=== PATIENT | female | born 1960 | race African-American/Black ===

== ENCOUNTER → 2016-08-27 | Outpatient (CLI) | payer BC | LOC: OD 11:54 | PROVIDERS: ATTEND Physician Assistant | DX: M54.5 Low back pain (principal); M48.07 Spinal stenosis, lumbosacral region | CPT/HCPCS: 72110 ==

== ENCOUNTER 2016-09-09 21:38 | Emergency (ER) | payer BC ==
[2016-09-09 21:48] VITALS: BP 150/89
[2016-09-09] MEDS ORDERED: IBUPROFEN 800 MG TABLET PO ONE (22:03)
--- NOTE | 2016-09-09 22:03 | ER Document Report ---
ED Medical Screen (RME) - General Stated Complaint: LOWER BACK PAIN Time seen by provider: 21:59 Mode of Arrival: Ambulatory Information source: Patient Notes: 56-year-old female presents to ED for low back pain with radiating both legs. She states his pain is been since second week of July. She saw Dr. Jones and they put her on a prednisone pack then she saw urgent care and they gave her another prednisone pack. And her back is still hurting. No incontinence of urine or stool. States she's had a little problem with the constipation but no problems with urinary retention. No loss of sensation to the area. States she does not have a primary doctor I have greeted and performed a rapid initial assessment of this patient. A comprehensive ED assessment and evaluation of the patient, analysis of test results and completion of medical decision making process will be conducted by an additional ED providers. TRAVEL OUTSIDE OF THE [place] IN LAST 30 DAYS: No - Related Data Allergies/Adverse Reactions: No Known Allergies Allergy (Verified 10/05/15 07:35) Past Medical History - Past Medical History Cardiac Medical History: Reports: Hx Hypertension Denies: Hx Coronary Artery Disease, Hx Heart Attack Pulmonary Medical History: Denies: Hx Asthma, Hx Bronchitis, Hx COPD, Hx Pneumonia, Hx Tuberculosis Neurological Medical History: Denies: Hx Cerebrovascular Accident, Hx Seizures Musculoskeltal Medical History: Reports Hx Arthritis - OA Past Surgical History: Reports: Hx Cholecystectomy. Denies: Hx Hysterectomy, Hx Pacemaker - Immunizations Hx Diphtheria, Pertussis, Tetanus Vaccination: No Physical Exam - Vital signs Vitals: Temp Pulse Resp BP Pulse Ox 97.9 F 100 16 150/89 H 97 09/09/16 21:47 09/09/16 21:47 09/09/16 21:47 09/09/16 21:47 09/09/16 21:47 Course - Vital Signs Vital signs: Temp Pulse Resp BP Pulse Ox 97.9 F 100 16 150/89 H 97 09/09/16 21:47 09/09/16 21:47 09/09/16 21:47 09/09/16 21:47 09/09/16 21:47
[2016-09-09] MEDS ORDERED: ONDANSETRON 4 MG TAB.RAPDIS PO ONE (22:10)
== END 2016-09-10 00:28 | disposition left against medical advice (07) ==
LOC: ER 21:38
DX: M54.5 Low back pain (principal); K59.00 Constipation, unspecified; I10 Essential (primary) hypertension; Z53.20 Procedure and treatment not carried out because of patient's decision for unspecified reasons
CPT/HCPCS: 99281; S0119

== ENCOUNTER 2016-09-27 08:28 | Emergency (ER) | payer BC ==
[2016-09-27 08:37] VITALS: BP 169/97
--- NOTE | 2016-09-27 11:10 | ER Document Report ---
ED General - General Time seen by provider: 10:10 Mode of Arrival: Ambulatory Information source: Patient TRAVEL OUTSIDE OF THE [place] IN LAST 30 DAYS: No - HPI Onset: Other - see HPI note - General Chief Complaint: Back Pain Stated Complaint: BACK PAIN Notes: Patient is a 56 year old female presenting to the emergency department for back pain. Patient states she was told she may have sciatic pain. Patient has had this pain constantly with no relief since July. Patient states that she had an X-ray in July. Patient states she is in pain management for her shoulder and neck. Patient states she has had some constipation and incontinence as well. Patient states she has seen the Dr. Lal in the past but she mainly sees her pain management physician, Dr. Mari. Patient states she has an appointment with Dr. Mari on 10/03. Patient has been given multiple doses of steroids with no relief from the pain. Patient's pain is on both sides. (SASHA GONZALEZ) - Related Data Allergies/Adverse Reactions: No Known Allergies Allergy (Verified 09/27/16 08:38) Past Medical History - General Information source: Patient - Social History Smoking Status: Never Smoker Cigarette use (# per day): No Chew tobacco use (# tins/day): No Frequency of alcohol use: None Drug Abuse: None Family History: None Patient has suicidal ideation: No Patient has homicidal ideation: No - Past Medical History Cardiac Medical History: Reports: Hx Hypertension Musculoskeltal Medical History: Reports Hx Arthritis - OA Past Surgical History: Reports: Hx Cholecystectomy - Immunizations Hx Diphtheria, Pertussis, Tetanus Vaccination: Yes Review of Systems - Review of Systems Constitutional: No symptoms reported EENT: No symptoms reported Cardiovascular: No symptoms reported Respiratory: No symptoms reported Gastrointestinal: No symptoms reported Genitourinary: See HPI Female Genitourinary: No symptoms reported Musculoskeletal: See HPI, Back pain Skin: No symptoms reported Hematologic/Lymphatic: No symptoms reported Neurological/Psychological: No symptoms reported -: Yes All other systems reviewed and negative Physical Exam - Vital signs Interpretation: Normal, Hypertensive - General General appearance: Appears well, Alert In distress: Mild - HEENT Head: Normocephalic, Atraumatic Eyes: Normal Pupils: PERRL Mucous membranes: Moist - Respiratory Respiratory status: No respiratory distress Chest status: Nontender Breath sounds: Normal Chest palpation: Normal - Cardiovascular Rhythm: Regular Heart sounds: Normal auscultation Murmur: No - Abdominal Inspection: Normal Distension: No distension Bowel sounds: Normal Tenderness: Nontender Organomegaly: No organomegaly - Back Back: Normal, Tender - lower back tenderness to palpation bilaterally - Extremities General upper extremity: Normal inspection, Normal ROM, Normal strength General lower extremity: Normal inspection, Normal ROM, Normal strength - Neurological Neuro grossly intact: Yes Cognition: Normal Orientation: AAOx4 Hart Coma Scale Eye Opening: Spontaneous Hart Coma Scale Verbal: Oriented Hart Coma Scale Motor: Obeys Commands Hart Coma Scale Total: 15 Speech: Normal - Psychological Associated symptoms: Normal affect, Normal mood - Skin Skin Temperature: Warm Skin Moisture: Dry Discharge - Discharge Clinical Impression: low back pain Condition: Stable Disposition: HOME, SELF-CARE Additional Instructions: Low Back Pain Three out of every four people will have an episode of disabling back pain during their lifetime. Most commonly the pain is due to straining of the muscles and ligaments in the low back. Usual treatment includes: (1) Rest on a firm surface. Avoid lying on your stomach. (2) Ice pack the painful area. After a few days, gentle heat may be used intermittently to relax the area, or ice packs can be continued. (3) Medication may be needed -- muscle relaxers and antiinflammatory medicines are commonly used. (4) As the back improves, exercises are prescribed to strengthen the back and abdominal muscles. Your doctor will advise you on the proper care for your back at each stage in your recovery. You may be better in a few days -- or healing may take several weeks. If new symptoms of a "herniated disc" (radiation of pain, numbness, or tingling down the back of the leg or weakness in the leg) occur, you should be re-examined. Further testing may be necessary. Follow-up with your pain management doctor and primary care physician as scheduled next week return for increasing worsening or new symptoms. Very concerned that you have had constant back pain for several months with only an x-ray and no associated trauma. You may need an MRI of your back it's possible he could've a pinched nerve. Right now there is no acute neurological deficits but you've received multiple doses steroids which concerned me without a definitive diagnosis. Return for increasing worsening or new symptoms Scribe Documentation - Scribe Written by Shana:: Sasha Gonzalez 09/27/16 13:35 acting as scribe for :: Shine
== END 2016-09-27 11:54 | disposition home or self-care (01) ==
LOC: ER 08:28
DX: M54.5 Low back pain (principal); I10 Essential (primary) hypertension; Z90.49 Acquired absence of other specified parts of digestive tract
CPT/HCPCS: 99283

== ENCOUNTER 2016-10-03 20:08 | Inpatient (IN) | payer BC ==
--- NOTE | 2016-10-03 20:18 | ER Document Report ---
ED Medical Screen (RME) - General Stated Complaint: BACK PAIN Notes: 56 yo female brought to ED by EMS for lower leg swelling x 2-3 days and lower back pain. Back has been hurting since July. + bilat radiculopathy. no paresthesia. no fever. no bowel/bladder change. + Hx/o HTN, no DM, no CHF. pt denies chest pain or shortness of breath lungs CTA. 1+ pitting pretibial edema bilat TRAVEL OUTSIDE OF THE [place] IN LAST 30 DAYS: No - Related Data Allergies/Adverse Reactions: No Known Allergies Allergy (Verified 09/27/16 08:38) Past Medical History - Past Medical History Cardiac Medical History: Reports: Hx Hypertension Denies: Hx Coronary Artery Disease, Hx Heart Attack Pulmonary Medical History: Denies: Hx Asthma, Hx Bronchitis, Hx COPD, Hx Pneumonia, Hx Tuberculosis Neurological Medical History: Denies: Hx Cerebrovascular Accident, Hx Seizures Renal/ Medical History: Denies: Hx Peritoneal Dialysis Musculoskeltal Medical History: Reports Hx Arthritis - OA Past Surgical History: Reports: Hx Cholecystectomy. Denies: Hx Hysterectomy, Hx Pacemaker - Immunizations Hx Diphtheria, Pertussis, Tetanus Vaccination: Yes
[2016-10-03 21:01] LABS: ABSOLUTE BASOPHILS # (AUTO) 0.1 10^3/uL (0.0-0.2); ABSOLUTE EOSINOPHILS # (AUTO) 0.1 10^3/uL (0.0-0.6); ABSOLUTE LYMPHOCYTES (AUTO) 2.6 10^3/uL (0.5-4.7); ABSOLUTE MONOCYTES (AUTO) 1.5 10^3/uL (0.1-1.4); ABSOLUTE NEUT (AUTO) 5.7 10^3/uL (1.7-8.2); BASOPHILS % (AUTO) 0.6 % (0-2); EOSINOPHILS % (AUTO) 0.8 % (0-6); HEMATOCRIT 25.7 % (36.0-47.0); HEMOGLOBIN 8.9 g/dL (12.0-15.5); LYMPHOCYTES % (AUTO) 26.5 % (13-45); MEAN CORPUSCULAR HEMOGLOBIN 31.9 pg (27.0-33.4); MEAN CORPUSCULAR HGB CONC 34.7 g/dL (32.0-36.0); MEAN CORPUSCULAR VOLUME 92 fl (80-97); MONOCYTES % (AUTO) 15.1 % (3-13); RED CELL DISTRIBUTION WIDTH 15.4 % (11.5-14.0); WHITE BLOOD COUNT 9.9 10^3/uL (4.0-10.5)
[2016-10-03 21:13] LABS: ALANINE AMINOTRANSFERASE 23 U/L (9-52); ALKALINE PHOSPHATASE 57 U/L (38-126); ANION GAP 13 (5-19); ASPARTATE AMINO TRANSFERASE 24 U/L (14-36); BILIRUBIN,DIRECT 0.5 mg/dL (0.0-0.4); BILIRUBIN,TOTAL 0.8 mg/dL (0.2-1.3); BLOOD UREA NITROGEN 45 mg/dL (7-20); CARBON DIOXIDE 26 mmol/L (22-30); CHLORIDE 102 mmol/L (98-107); CREATININE RESULT 2.81 mg/dL (0.52-1.25); GLUCOSE 115 mg/dL (75-110); POTASSIUM 3.2 mmol/L (3.6-5.0); SODIUM 141.2 mmol/L (137-145)
[2016-10-03 21:22] LABS: TOTAL PROTEIN 12.4 g/dL (6.3-8.2)
[2016-10-03 21:26] LABS: CALCIUM 15.4 mg/dL (8.4-10.2)
[2016-10-04 03:07] LABS: ANION GAP 14 (5-19); BLOOD UREA NITROGEN 42 mg/dL (7-20); CARBON DIOXIDE 28 mmol/L (22-30); CHLORIDE 101 mmol/L (98-107); CREATININE RESULT 3.02 mg/dL (0.52-1.25); GLUCOSE 114 mg/dL (75-110); MAGNESIUM 1.9 mg/dL (1.6-2.3); POTASSIUM 3.1 mmol/L (3.6-5.0); SODIUM 142.8 mmol/L (137-145)
[2016-10-04 03:16] LABS: CALCIUM 15.2 mg/dL (8.4-10.2)
[2016-10-04] MEDS ORDERED: NORMAL SALINE 1000 ML 1,000 ML IV ONE (05:01)
--- NOTE | 2016-10-04 05:26 | ER Document Report ---
ED General - General Chief Complaint: Leg Swelling Stated Complaint: BACK PAIN Notes: Patient is 56-year-old female presents with complaints of leg swelling and feeling unwell. She's had some back pain for some time. This is being worked up by her primary care physician, Dr. Mosley. She says recently she has felt unwell and has not been urinating as much. She's been having some increased leg edema and is just felt very weak. No recent fevers or infections. No history of cancer. No abdominal pain. No chest pain. No other complaints at this time. TRAVEL OUTSIDE OF THE [place] IN LAST 30 DAYS: No - Related Data Allergies/Adverse Reactions: No Known Allergies Allergy (Verified 09/27/16 08:38) Past Medical History - Social History Smoking Status: Unknown if Ever Smoked Frequency of alcohol use: None Drug Abuse: None Family History: Reviewed & Not Pertinent Patient has suicidal ideation: No Patient has homicidal ideation: No - Past Medical History Cardiac Medical History: Reports: Hx Hypertension Denies: Hx Coronary Artery Disease, Hx Heart Attack Pulmonary Medical History: Denies: Hx Asthma, Hx Bronchitis, Hx COPD, Hx Pneumonia, Hx Tuberculosis Neurological Medical History: Denies: Hx Cerebrovascular Accident, Hx Seizures Renal/ Medical History: Denies: Hx Peritoneal Dialysis Musculoskeltal Medical History: Reports Hx Arthritis - OA Past Surgical History: Reports: Hx Cholecystectomy. Denies: Hx Hysterectomy, Hx Pacemaker - Immunizations Hx Diphtheria, Pertussis, Tetanus Vaccination: Yes Review of Systems - Review of Systems Notes: My Normal Review Basic REVIEW OF SYSTEMS: CONSTITUTIONAL : Denies fever, chills, or sweats. Feels weak. EENT: Denies eye, ear, throat, or mouth pain or symptoms. Denies nasal or sinus congestion. CARDIOVASCULAR: Denies chest pain. RESPIRATORY: Denies cough, cold, or chest congestion. Denies shortness of breath, difficulty breathing, or wheezing. GASTROINTESTINAL: Denies abdominal pain. Denies nausea, vomiting, or diarrhea. Denies constipation. Last BM: GENITOURINARY: Denies difficulty urinating, painful urination, burning, frequency, or blood in urine.: MUSCULOSKELETAL: Denies neck or back pain or joint pain or swelling. SKIN: Denies rash or skin lesions. NEUROLOGICAL: Denies altered mental status or loss of consciousness. Denies headache. Denies weakness or paralysis or loss of use of either side. Denies problems with gait or speech. Denies sensory or motor loss. ALL OTHER SYSTEMS REVIEWED AND NEGATIVE. Physical Exam - Vital signs Vitals: Temp Pulse Resp BP Pulse Ox 97.8 F 119 H 18 134/94 H 98 10/03/16 20:23 10/03/16 20:23 10/03/16 20:23 10/03/16 20:23 10/03/16 20:23 - Notes Notes: General Appearance: Well nourished, alert, cooperative, no acute distress, mild obvious discomfort. We appearing Vitals: reviewed, See vital signs table. Head: no swelling or tenderness to the head Eyes: PERRL, EOMI, Conjuctiva clear Mouth: No decreasd moisture Lungs: No wheezing, No rales, No rhonci, No accessory muscle use, good air exchange bilaterally. Heart: Normal rate, Regular rythm, No murmur, no rub Abdomen: Normal BS, soft, No rigidity, No abdominal tenderness, No guarding, no rebound, no abdominal masses, no organomegaly Extremities: strength 5/5 in all extremities, good pulses in all extremities, no swelling or tenderness in the extremities, 2+ bilateral lower extremity edema. Skin: warm, dry, appropriate color, no rash Neuro: speech clear, oriented x 3, normal affect, responds appropriately to questions. Good strength with plantar and dorsiflexion against resistance. Distal sensation intact or lower extremities. Course - Vital Signs Vital signs: Temp Pulse Resp BP Pulse Ox 97.8 F 119 H 18 134/94 H 98 10/03/16 20:23 10/03/16 20:23 10/03/16 20:23 10/03/16 20:23 10/03/16 20:23 - Laboratory Result Diagrams: 10/03/16 20:30 10/04/16 02:38 Laboratory results interpreted by me: 10/03/16 10/03/16 10/04/16 20:30 20:30 02:38 RBC 2.80 L Hgb 8.9 L Hct 25.7 L RDW 15.4 H Monocytes % 15.1 H Absolute Monocytes 1.5 H Potassium 3.2 L 3.1 L BUN 45 H 42 H Creatinine 2.81 H 3.02 H Est GFR ( Amer) 21 L 20 L Est GFR (Non-Af Amer) 18 L 16 L Glucose 115 H 114 H Calcium 15.4 H* 15.2 H* Direct Bilirubin 0.5 H Total Protein 12.4 H - Transfer of Care Notes: 10/04/16 06:12 Patient's initial labs came back with severe hypercalcemia as well as acute renal failure. There is unsure if this was a lab her or her true results and therefore repeat chemistry panel was obtained. It does appear that this is real. Patient denies history of this in the past. Patient given IV fluids. I will also check parathyroid hormone. I did speak with her primary care doctor, Dr. Mosley, who agrees to admit the patient. Dictation of this chart was performed using voice recognition software; therefore, there may be some unintended grammatical errors. Discharge - Discharge Clinical Impression: Hypokalemia, Hypercalcemia Acute renal failure Qualifiers: Acute renal failure type: unspecified Qualified Code(s): N17.9 - Acute kidney failure, unspecified Anemia Qualifiers: Anemia type: unspecified type Qualified Code(s): D64.9 - Anemia, unspecified Disposition: ADMITTED INPATIENT Admitting Provider: Lukasz Unit Admitted: [facility] Referrals: DAWNA MOSLEY MD [Primary Care Provider] - Follow up as needed
[2016-10-04 06:25] LABS: APPEARANCE,URINE CLOUDY; BILIRUBIN,URINE NEGATIVE (NEGATIVE); GLUCOSE, URINE NEGATIVE (NEGATIVE); KETONES,URINE NEGATIVE (NEGATIVE); LEUKOCYTE ESTERASE,URINE TRACE (NEGATIVE); NITRITE,URINE NEGATIVE (NEGATIVE); PROTEIN,URINE 30 mg/dL (NEGATIVE); URINE SPECIFIC GRAVITY 1.014; UROBILINOGEN,URINE NEGATIVE mg/dL (<2.0)
[2016-10-04] MEDS ORDERED: MORPHINE SULFATE 10 MG/ML INJ IV ONE (06:55)
[2016-10-04] MEDS ORDERED: ONDANSETRON HCL INJ/PF 4 MG/2 ML SDV IV PRN (08:08)
[2016-10-04] MEDS: OXYCODONE-ACETAMINOPHEN 5-325 MG TABLET PO PRN ×2 (09:10→19:45)
--- NOTE | 2016-10-04 09:26 | PDOC H&P ---
History of Present Illness Admission Date/PCP: 10/04/16 08:08 DAWNA MOSLEY MD The leg pain and the back pain Patient complains of: Leg pain and the back pain History of Present Illness: MYCHAL ECLESTIN is a 56 year old female This is a 56-year-old female present in the emergency department with the complaint for leg pain and the back pain and swelling for the last several days. Patient have a history of the anemia and have all workup done by Dr. Couch last year and it was all normal. Patient also have a normal labs in June including the patient's BUN and creatinine was also normal and the patient's calcium level was also less than 10. Today's in the emergency departments patient's calcium level was 15 and patient's BUN was 42 and creatinine was 3 which is new. Patient's other than that denied any chest pain no shortness of the breath no history of any cardiac problems. Patient's denied any chest pain. In the emergency department patient received IV fluids when I saw the patient's patient is comfortable denied any other complaints patient have some edema in the legs. Patient at this points admitting in the hospital for further evaluation and treatment for the anemia and hypercalcemia and acute renal failure and the discussed with the patient's family on the bedside Past Medical History Cardiac Medical History: Reports: Hypertension Denies: Coronary Artery Disease, Myocardial Infarction Pulmonary Medical History: Denies: Asthma, Bronchitis, Chronic Obstructive Pulmonary Disease (COPD), Pneumonia, Tuberculosis Neurological Medical History: Denies: Seizures Musculoskeltal Medical History: Reports: Arthritis - OA Hematology: Reports: Anemia Past Surgical History Past Surgical History: Reports: Cholecystectomy Denies: Hysterectomy, Pacemaker Social History Smoking Status: Unknown if Ever Smoked Hx Recreational Drug Use: No Hx Prescription Drug Abuse: No Family History Family History: Reviewed & Not Pertinent Parental Family History Reviewed: Yes Children Family History Reviewed: Yes Sibling(s) Family History Reviewed.: Yes Medication/Allergy Allergies/Adverse Reactions: No Known Allergies Allergy (Verified 09/27/16 08:38) Review of Systems Constitutional: ABSENT: chills, fever(s), headache(s), weight gain, weight loss Eyes: ABSENT: visual disturbances Ears: ABSENT: hearing changes Cardiovascular: ABSENT: chest pain, dyspnea on exertion, edema, orthropnea, palpitations Respiratory: ABSENT: cough, hemoptysis Gastrointestinal: ABSENT: abdominal pain, constipation, diarrhea, hematemesis, hematochezia, nausea, vomiting Genitourinary: ABSENT: dysuria, hematuria Musculoskeletal: ABSENT: joint swelling Integumentary: ABSENT: rash, wounds Neurological: ABSENT: abnormal gait, abnormal speech, confusion, dizziness, focal weakness, syncope Psychiatric: ABSENT: anxiety, depression, homidical ideation, suicidal ideation Endocrine: ABSENT: cold intolerance, heat intolerance, menstrual abnormalities, polydipsia, polyuria Hematologic/Lymphatic: ABSENT: easy bleeding, easy bruising, lymphadenopathy Physical Exam Vital Signs: Temp Pulse Resp BP Pulse Ox 98.5 F 107 H 18 148/84 H 100 10/04/16 08:26 10/04/16 08:26 10/04/16 08:26 10/04/16 08:26 10/04/16 08:26 General appearance: PRESENT: no acute distress, well-developed, well-nourished Head exam: PRESENT: atraumatic, normocephalic Eye exam: PRESENT: conjunctiva pink, EOMI, PERRLA. ABSENT: scleral icterus Ear exam: PRESENT: normal external ear exam Mouth exam: PRESENT: moist, tongue midline Neck exam: PRESENT: full ROM. ABSENT: carotid bruit, JVD, lymphadenopathy, thyromegaly Respiratory exam: PRESENT: clear to auscultation merrill Cardiovascular exam: PRESENT: RRR. ABSENT: diastolic murmur, rubs, systolic murmur Pulses: PRESENT: normal dorsalis pedis pul, +2 pedal pulses bilateral Vascular exam: PRESENT: normal capillary refill GI/Abdominal exam: PRESENT: normal bowel sounds, soft. ABSENT: distended, guarding, mass, organolmegaly, rebound, tenderness Rectal exam: PRESENT: deferred Extremities exam: PRESENT: pedal edema Neurological exam: PRESENT: alert, awake, oriented to person, oriented to place , oriented to time, oriented to situation, CN II-XII grossly intact. ABSENT: motor sensory deficit Psychiatric exam: PRESENT: appropriate affect, normal mood. ABSENT: homicidal ideation, suicidal ideation Skin exam: PRESENT: dry, intact, warm. ABSENT: cyanosis, rash Results Laboratory Results: 10/04/16 08:51 Retic Count (auto) 1.30 Absolute Retic 0.035 Assessment & Plan - Diagnosis (1) Acute renal failure Qualifiers: Acute renal failure type: unspecified Qualified Code(s): N17.9 - Acute kidney failure, unspecified Is this a current diagnosis for this admission?: YesPlan: Will currently hold the losartan HCTZ IV fluid and consult the nephrology for further evaluations (2) Anemia Qualifiers: Anemia type: unspecified type Qualified Code(s): D64.9 - Anemia, unspecified Is this a current diagnosis for this admission?: YesPlan: We will get the stool for the guaiac study no obvious GI bleed we consulted Dr. Deal while the hemoglobin dropped from the 12 to the 9 since last 3 months to further any GI pathology consult software development coordinator for further evaluations (3) Hypercalcemia Is this a current diagnosis for this admission?: YesPlan: Could be a acute renal failure with the With the possible hyperparathyroidism's will check the PTH intact and vitamin D and hold the hydrochlorothiazide and IV fluid and will follow with the nephrologyWe also get the CT abdomen and pelvis for further any evaluations for any underlying kidney stones in the setting of the hypercalcemia and other pathology we also ordered a protein electrophoresis and urine electrophoresis to rule out any multiple myeloma and consult the oncology for further evaluations (4) Hypokalemia Is this a current diagnosis for this admission?: YesPlan: We replaced the potassiums (5) Back pain Is this a current diagnosis for this admission?: YesPlan: We will get the MRI of the LS spine (6) Hypertension Is this a current diagnosis for this admission?: YesPlan: He continues to OR alert open and hold the losartan and HCTZ (7) Edema Qualifiers: Edema type: unspecified Qualified Code(s): R60.9 - Edema, unspecified Is this a current diagnosis for this admission?: YesPlan: We will also order the ultrasound of the lower extremity in order the chest x- ray there is no sign of any heart failure - Time Time Spent: 50 to 70 Minutes Medications reviewed and adjusted accordingly: Yes Anticipated discharge: Home Within: Other - Inpatient Certification Medical Necessity: Significant Comorbidiites Make Outpatient Treatment Too Risky , Need For IV Fluids Post Hospital Care: D/C Vault Person Documentation - Plan Summary Plan Summary: Very extensive discussed with the patient and the family on the bedside about the patient's current conditions test results and other coordinate care
[2016-10-04] MEDS: PANTOPRAZOLE SODIUM 40 MG VIAL IV SCH ×2 (11:18→21:52)
--- NOTE | 2016-10-04 12:59 | XCELERA REPORT ---
[address] [address] Lower Extremity Venous Evaluation Name: MYCHAL CELESTIN Age: 56 yrs Gender: Female : 1960 Patient Status: Inpatient Patient Location: \S\[facility]\S\A Study Date: 10/04/2016 10:13 AM Procedure: Color flow and duplex imaging bilaterally of the veins of the lower extremities as well as the Common Femoral veins. Reason For Study: edema on lower ext Ordering Physician: DAWNA MOSLEY Performed By: Fern Garcia Right Sided Venous Evaluation Normal vessel filling wall to wall, compression and augmentation as well as Colour flow down to the infrageniculate veins. Left Sided Venous Evaluation Normal vessel filling wall to wall, compression and augmentation as well as Colour flow down to the infrageniculate veins. Critical Findings Called in at 1258. Interpretation Summary No duplex evidence of DVT or obstruction in the bilateral lower extremities. : DAWNA MOSLEY > Louis Workman
--- NOTE | 2016-10-04 13:53 | PDOC CONSULTATION ---
Consultation Consult Date: 10/04/16 Attending physician:: MICHAEL MINOR Consult reason:: chronic anemia History of Present Illness Admission Date/PCP: 10/04/16 08:08 DAWNA LAL MD History of Present Illness: I am asked to see this patient by Dr Lal. I had seen this patient and she had EGD and colonoscopy work up in the past colon at that time was negative no polyps were noted now does have anemia and has had a drop in her Hgb by about 3 grams recently she does have a history of NSAID use patient does have hypercalcemia and is currently getting a work up patient denies any melena however does have some upper GI symptoms patient denies any dysphagia or odynophagia does have some abdominal bloating and dyspepsia Past Medical History Cardiac Medical History: Reports: Hypertension Denies: Coronary Artery Disease, Myocardial Infarction Pulmonary Medical History: Denies: Asthma, Bronchitis, Chronic Obstructive Pulmonary Disease (COPD), Pneumonia, Tuberculosis Neurological Medical History: Denies: Seizures Musculoskeltal Medical History: Reports: Arthritis - OA Hematology: Reports: Anemia Past Surgical History Past Surgical History: Reports: Cholecystectomy Denies: Hysterectomy, Pacemaker Social History Smoking Status: Unknown if Ever Smoked Hx Recreational Drug Use: No Hx Prescription Drug Abuse: No Family History Family History: Reviewed & Not Pertinent Parental Family History Reviewed: Yes Children Family History Reviewed: Unknown Sibling(s) Family History Reviewed.: Unknown Medication/Allergy Home Medications: Amlodipine Besylate [Norvasc 5 mg Tablet] 5 mg PO DAILY 10/04/16 Celecoxib [Celebrex 200 mg Capsule] 200 mg PO BID 10/04/16 Chrom Lenore/Brindal Sanders [Garcinia Cambogia Tablet] 1 tab PO BID 10/04/16 Coffee Extract [Green Coffee Majano] 400 mg PO BID 10/04/16 Ferrous Sulfate [Feosol 325 mg Tablet] 325 mg PO DAILY 10/04/16 Gabapentin [Neurontin 100 mg Capsule] 100 mg PO Q12 10/04/16 Losartan/Hydrochlorothiazide [Hyzaar 100-25 Tablet] 1 tab PO DAILY 10/04/16 Allergies/Adverse Reactions: No Known Allergies Allergy (Verified 09/27/16 08:38) Review of Systems Constitutional: PRESENT: weakness. ABSENT: fever(s), headache(s), night sweats Eyes: ABSENT: visual disturbances Ears: ABSENT: hearing changes Nose, Mouth, and Throat: ABSENT: mouth pain Cardiovascular: ABSENT: chest pain, orthropnea, palpitations Respiratory: ABSENT: cough, dyspnea, hemoptysis Gastrointestinal: ABSENT: diarrhea, hematemesis, hematochezia, melena Genitourinary: ABSENT: dysuria, hematuria Integumentary: ABSENT: lesions, pruritus Neurological: ABSENT: confusion, memory loss, syncope, vertigo Endocrine: ABSENT: polydipsia, polyphagia, polyuria Hematologic/Lymphatic: ABSENT: easy bruising Physical Exam Vital Signs: Temp Pulse Resp BP Pulse Ox 98.5 F 107 H 14 142/81 H 97 10/04/16 08:26 10/04/16 08:26 10/04/16 13:01 10/04/16 13:01 10/04/16 09:13 General appearance: PRESENT: no acute distress, cooperative Head exam: PRESENT: atraumatic, normocephalic Eye exam: PRESENT: EOMI, PERRLA. ABSENT: nystagmus, periorbital swelling, scleral icterus Mouth exam: PRESENT: moist Throat exam: ABSENT: tonsillar exudate Neck exam: ABSENT: meningismus, tenderness, thyromegaly Respiratory exam: PRESENT: clear to auscultation merrill, symmetrical, unlabored Cardiovascular exam: PRESENT: RRR, +S1, +S2 Pulses: PRESENT: normal carotid pulses GI/Abdominal exam: PRESENT: soft. ABSENT: Meza's sign, rebound, rigid, tenderness Musculoskeletal exam: PRESENT: full ROM Neurological exam: PRESENT: alert, awake, oriented to time, oriented to situation, CN II-XII grossly intact Psychiatric exam: PRESENT: appropriate affect Skin exam: PRESENT: normal color. ABSENT: mottled, pallor, petechiae, urticaria , vesicles Results Laboratory Results: 10/04/16 10/04/16 10/04/16 08:51 08:51 09:17 Retic Count (auto) 1.30 Absolute Retic 0.035 Ionized Calcium Steve 1.92 H TSH 1.64 Impressions: Abdomen/Pelvis CT 10/04/16 00:00 IMPRESSION: NO SIGNIFICANT OR ACUTE PROCESS IN THE ABDOMEN OR PELVIS. Assessment & Plan - Diagnosis (1) Anemia Qualifiers: Anemia type: unspecified type Qualified Code(s): D64.9 - Anemia, unspecified Is this a current diagnosis for this admission?: YesPlan: may be due to chronic blood loss dark stool could be due iron use however does take NEFF 2 inhibitor so could have peptic ulcer disease will need EGD spoke with Dr Lal Risks, benefits and alternatives are discussed with the patient in detail further recommendations to follow - Time Time Spent: 50 to 70 Minutes
[2016-10-04] MEDS ORDERED: DIAZEPAM 5 MG TABLET PO ONE (17:00)
[2016-10-04 17:41] LABS: ANION GAP 11 (5-19); BLOOD UREA NITROGEN 40 mg/dL (7-20); CARBON DIOXIDE 28 mmol/L (22-30); CHLORIDE 100 mmol/L (98-107); CREATININE RESULT 3.09 mg/dL (0.52-1.25); GLUCOSE 135 mg/dL (75-110); POTASSIUM 3.1 mmol/L (3.6-5.0); SODIUM 139.1 mmol/L (137-145)
[2016-10-04 18:17] LABS: CALCIUM 14.5 mg/dL (8.4-10.2)
[2016-10-04] MEDS ORDERED: POTASSIUM CHLORIDE 20 MEQ/15 ML UDCUP PO ONE (18:18)
[2016-10-04] MEDS: NORMAL SALINE 1000 ML 1,000 ML IV PRN (21:52)
[2016-10-04] MEDS ORDERED: INFLUENZA ADLT QUAD (36MOS+) 2016-17 VAC 0.5 ML SYR IM PRN (23:28)
[2016-10-05] MEDS: OXYCODONE-ACETAMINOPHEN 5-325 MG TABLET PO PRN ×2 (00:23→13:16)
[2016-10-05 05:15] LABS: ANION GAP 12 (5-19); BLOOD UREA NITROGEN 42 mg/dL (7-20); CARBON DIOXIDE 27 mmol/L (22-30); CHLORIDE 104 mmol/L (98-107); CREATININE RESULT 3.21 mg/dL (0.52-1.25); GLUCOSE 111 mg/dL (75-110); MAGNESIUM 1.9 mg/dL (1.6-2.3); POTASSIUM 3.4 mmol/L (3.6-5.0); SODIUM 142.5 mmol/L (137-145)
[2016-10-05 05:26] LABS: CALCIUM 14.8 mg/dL (8.4-10.2)
[2016-10-05 05:29] LABS: HEMATOCRIT 25.2 % (36.0-47.0); HEMOGLOBIN 8.6 g/dL (12.0-15.5); HGB HCT DIFFERENCE 0.6; MEAN CORPUSCULAR HEMOGLOBIN 31.7 pg (27.0-33.4); MEAN CORPUSCULAR HGB CONC 34.1 g/dL (32.0-36.0); MEAN CORPUSCULAR VOLUME 93 fl (80-97); RED BLOOD COUNT 2.71 10^6/uL (3.72-5.28); RED CELL DISTRIBUTION WIDTH 15.7 % (11.5-14.0); WHITE BLOOD COUNT 10.7 10^3/uL (4.0-10.5)
[2016-10-05 05:58] LABS: BASOPHILS % (MANUAL) 0 % (0-2); EOSINOPHILS % (MANUAL) 0 % (0-6); LYMPHOCYTES % (MANUAL) 31 % (13-45); TOTAL CELLS COUNTED 100
[2016-10-05 06:01] LABS: ROULEAUX SLIGHT
[2016-10-05 06:02] LABS: ANISOCYTOSIS SLIGHT; TOXIC VACUOLATION PRESENT
[2016-10-05] MEDS: NORMAL SALINE 1000 ML 1,000 ML IV PRN (06:22)
--- NOTE | 2016-10-05 08:07 | PDOC CONSULTATION ---
Consultation Consult Date: 10/05/16 Attending physician:: DAWNA MOSLEY Consult reason:: Anemia, hypercalcemia History of Present Illness Admission Date/PCP: 10/04/16 08:08 DAWNA MOSLEY MD Patient complains of: Anemia, pain, weakness History of Present Illness: 56-year-old female with recent history of acute renal dysfunction, hypercalcemia and anemia. In review of labs just about 3 months ago, she had a normal hemoglobin in the 12-13 range, creatinine was normal and calcium was normal. Over the last 3 months she's been experiencing increasing low back and bilateral leg pain, on presentation to her PCPs office, she was found to have a creatinine of 3 range, calcium in the 14 range, total protein elevated, hemoglobin was in the 8 range. Iron studies were done, ferritin was 745. She had CT of the abdomen pelvis without contrast, there is no abnormality noted. Past Medical History Cardiac Medical History: Reports: Hypertension Denies: Coronary Artery Disease, Myocardial Infarction Pulmonary Medical History: Denies: Asthma, Bronchitis, Chronic Obstructive Pulmonary Disease (COPD), Pneumonia, Tuberculosis Neurological Medical History: Denies: Seizures Musculoskeltal Medical History: Reports: Arthritis - OA Psychiatric Medical History: Denies: Depression Hematology: Reports: Anemia Past Surgical History Past Surgical History: Reports: Cholecystectomy Denies: Hysterectomy, Pacemaker Social History Smoking Status: Former Smoker Number of Years Smokin Frequency of Alcohol Use: Occasional Hx Recreational Drug Use: No Hx Prescription Drug Abuse: No - Advance Directive Resuscitation Status: Full Code Family History Family History: Reviewed & Not Pertinent Parental Family History Reviewed: Yes Children Family History Reviewed: Yes Sibling(s) Family History Reviewed.: Yes Medication/Allergy Home Medications: Amlodipine Besylate [Norvasc 5 mg Tablet] 5 mg PO DAILY 10/04/16 Celecoxib [Celebrex 200 mg Capsule] 200 mg PO BID 10/04/16 Chrom Lenore/Brindal Sanders [Garcinia Cambogia Tablet] 1 tab PO BID 10/04/16 Coffee Extract [Green Coffee Majano] 400 mg PO BID 10/04/16 Ferrous Sulfate [Feosol 325 mg Tablet] 325 mg PO DAILY 10/04/16 Gabapentin [Neurontin 100 mg Capsule] 100 mg PO Q12 10/04/16 Losartan/Hydrochlorothiazide [Hyzaar 100-25 Tablet] 1 tab PO DAILY 10/04/16 Allergies/Adverse Reactions: No Known Allergies Allergy (Verified 09/27/16 08:38) Review of Systems Constitutional: PRESENT: weakness Cardiovascular: PRESENT: dyspnea on exertion Gastrointestinal: PRESENT: constipation Genitourinary: ABSENT: dysuria, hematuria Musculoskeletal: PRESENT: back pain, muscle weakness Neurological: PRESENT: weakness Psychiatric: ABSENT: anxiety, depression, homidical ideation, suicidal ideation Physical Exam Vital Signs: Temp Pulse Resp BP Pulse Ox 98.2 F 106 H 18 141/81 H 95 10/05/16 03:25 10/05/16 03:25 10/05/16 03:25 10/05/16 03:25 10/05/16 03:25 Intake & Output 10/04/16 10/05/16 10/06/16 06:59 06:59 06:59 Intake Total 1015 Balance 1015 Weight 113.3 kg General appearance: PRESENT: no acute distress, well-developed, well-nourished Head exam: PRESENT: atraumatic, normocephalic Eye exam: PRESENT: conjunctiva pink, EOMI, PERRLA. ABSENT: scleral icterus Ear exam: PRESENT: normal external ear exam Mouth exam: PRESENT: moist, tongue midline Neck exam: ABSENT: carotid bruit, JVD, lymphadenopathy, thyromegaly Respiratory exam: PRESENT: clear to auscultation merrill. ABSENT: rales, rhonchi, wheezes Cardiovascular exam: PRESENT: RRR. ABSENT: diastolic murmur, rubs, systolic murmur Pulses: PRESENT: normal dorsalis pedis pul Vascular exam: PRESENT: normal capillary refill GI/Abdominal exam: PRESENT: normal bowel sounds, soft. ABSENT: distended, guarding, mass, organolmegaly, rebound, tenderness Rectal exam: PRESENT: deferred Extremities exam: PRESENT: full ROM. ABSENT: calf tenderness, clubbing, pedal edema Neurological exam: PRESENT: alert, awake, oriented to person, oriented to place , oriented to time, oriented to situation, CN II-XII grossly intact. ABSENT: motor sensory deficit Psychiatric exam: PRESENT: appropriate affect, normal mood. ABSENT: homicidal ideation, suicidal ideation Skin exam: PRESENT: dry, intact, warm. ABSENT: cyanosis, rash Results Laboratory Results: 10/05/16 04:28 10/05/16 04:28 10/04/16 10/04/16 10/04/16 08:51 08:51 08:51 WBC RBC Hgb Hct MCV MCH MCHC RDW Plt Count Seg Neutrophils % Lymphocytes % Monocytes % Eosinophils % Basophils % Absolute Neutrophils Absolute Lymphocytes Absolute Monocytes Absolute Eosinophils Absolute Basophils Retic Count (auto) 1.30 Absolute Retic 0.035 Sodium Potassium Chloride Carbon Dioxide Anion Gap BUN Creatinine Est GFR ( Amer) Est GFR (Non-Af Amer) Glucose Calcium Ionized Calcium Steve Phosphorus Magnesium Iron 37.2 TIBC 241 L % Saturation 15 Ferritin 785.00 H Vitamin B12 Cancelled Folate Cancelled TSH 1.64 10/04/16 10/04/16 10/04/16 09:17 17:00 17:00 WBC RBC Hgb Hct MCV MCH MCHC RDW Plt Count Seg Neutrophils % Lymphocytes % Monocytes % Eosinophils % Basophils % Absolute Neutrophils Absolute Lymphocytes Absolute Monocytes Absolute Eosinophils Absolute Basophils Retic Count (auto) Absolute Retic Sodium 139.1 Potassium 3.1 L Chloride 100 Carbon Dioxide 28 Anion Gap 11 BUN 40 H Creatinine 3.09 H Est GFR ( Amer) 19 L Est GFR (Non-Af Amer) 16 L Glucose 135 H Calcium 14.5 H* Ionized Calcium Steve 1.92 H Phosphorus Magnesium Iron TIBC % Saturation Ferritin Vitamin B12 Cancelled Folate Cancelled TSH 10/05/16 10/05/16 04:28 04:28 WBC 10.7 H RBC 2.71 L Hgb 8.6 L Hct 25.2 L MCV 93 MCH 31.7 MCHC 34.1 RDW 15.7 H Plt Count 187 Seg Neutrophils % Not Reportable Lymphocytes % Not Reportable Monocytes % Not Reportable Eosinophils % Not Reportable Basophils % Not Reportable Absolute Neutrophils Not Reportable Absolute Lymphocytes Not Reportable Absolute Monocytes Not Reportable Absolute Eosinophils Not Reportable Absolute Basophils Not Reportable Retic Count (auto) Absolute Retic Sodium 142.5 Potassium 3.4 L Chloride 104 Carbon Dioxide 27 Anion Gap 12 BUN 42 H Creatinine 3.21 H Est GFR ( Amer) 18 L Est GFR (Non-Af Amer) 15 L Glucose 111 H Calcium 14.8 H* Ionized Calcium Steve Phosphorus 5.0 H Magnesium 1.9 Iron TIBC % Saturation Ferritin Vitamin B12 Folate TSH Impressions: Abdomen/Pelvis CT 10/04/16 00:00 IMPRESSION: NO SIGNIFICANT OR ACUTE PROCESS IN THE ABDOMEN OR PELVIS. Status: Image reviewed by me Assessment & Plan - Diagnosis (1) Anemia Qualifiers: Anemia type: bone marrow failure Bone marrow failure anemia type: unspecified bone marrow failure Qualified Code(s): D61.9 - Aplastic anemia, unspecified Is this a current diagnosis for this admission?: YesPlan: Unknown cause but ferritin is elevated at 745, it could be an anemia of chronic disease but it is very acute, a primary bone marrow process becomes more likely , we will be extending the myeloma workup, we will also do a skeletal survey. She may benefit from one to 2 units of packed red blood cell transfusion but we can hold on that as she is evaluated through the weekend. (2) Hypercalcemia Is this a current diagnosis for this admission?: YesPlan: Unknown cause, although hyperparathyroidism may be the cause certainly something like multiple myeloma may be possible, workup is pending as above. - Time Time Spent: Greater than 70 Minutes Critical Time spent with patient: 35 or more minutes - Inpatient Certification Based on my medical assessment, after consideration of the patient's comorbidities, presenting symptoms, or acuity I expect that the services needed warrant INPATIENT care.: Yes I certify that my determination is in accordance with my understanding of Medicare's requirements for reasonable and necessary INPATIENT services [42 CFR 412.3e].: Yes Medical Necessity: Need For IV Fluids, Need For Continuous Telemetry Monitoring , Risk of Complication if Not Cared For in Hospital
[2016-10-05] MEDS ORDERED: POTASSIUM CHLORIDE 20 MEQ/15 ML UDCUP PO ONE (09:00)
[2016-10-05] MEDS ORDERED: POTASSIUM CHLORIDE 10 MEQ TABLET.SA PO ONE (09:30)
[2016-10-05] MEDS ORDERED: ZOLEDRONIC ACID 4 MG/100 ML RTU IV ONE (09:30)
[2016-10-05] MEDS: PANTOPRAZOLE SODIUM 40 MG VIAL IV SCH ×2 (10:29→21:58)
[2016-10-05] MEDS: MORPHINE SULFATE 10 MG/ML INJ IV PRN ×3 (10:34→23:43)
--- NOTE | 2016-10-05 10:39 | PDOC PROGRESS REPORT ---
Subjective Progress Note for:: 10/05/16 Subjective:: Patient is doing fair no chest pain no short of breath but patient still complaining of a lot of back pain in the leg pains in the morning pain. Patient unable to get the MRI yesterday. Because of patient's unable to lay down on the table. Patient's CT abdomen and pelvis was negative for any acute findings. Patient's calcium is still 14.8. Patient seen by the oncologist and order the multiple myeloma workup and pending evaluations by the instrument repair specialist Physical Exam Vital Signs: Temp Pulse Resp BP Pulse Ox 98.4 F 106 H 20 135/80 H 100 10/05/16 08:08 10/05/16 08:08 10/05/16 08:08 10/05/16 08:08 10/05/16 08:08 Intake & Output 10/04/16 10/05/16 10/06/16 06:59 06:59 06:59 Intake Total 1015 Balance 1015 Weight 113.3 kg General appearance: PRESENT: no acute distress, well-developed, well-nourished Head exam: PRESENT: atraumatic, normocephalic Eye exam: PRESENT: conjunctiva pink, EOMI, PERRLA. ABSENT: scleral icterus Ear exam: PRESENT: normal external ear exam Mouth exam: PRESENT: moist, tongue midline Neck exam: PRESENT: full ROM. ABSENT: carotid bruit, JVD, lymphadenopathy, thyromegaly Respiratory exam: PRESENT: clear to auscultation merrill Cardiovascular exam: PRESENT: RRR. ABSENT: diastolic murmur, rubs, systolic murmur Pulses: PRESENT: normal dorsalis pedis pul, +2 pedal pulses bilateral Vascular exam: PRESENT: normal capillary refill GI/Abdominal exam: PRESENT: normal bowel sounds, soft. ABSENT: distended, guarding, mass, organolmegaly, rebound, tenderness Rectal exam: PRESENT: deferred Neurological exam: PRESENT: alert, awake, oriented to person, oriented to place , oriented to time, oriented to situation, CN II-XII grossly intact. ABSENT: motor sensory deficit Psychiatric exam: PRESENT: appropriate affect, normal mood. ABSENT: homicidal ideation, suicidal ideation Skin exam: PRESENT: dry, intact, warm. ABSENT: cyanosis, rash Results Laboratory Results: 10/05/16 04:28 10/05/16 04:28 10/04/16 10/04/16 10/04/16 08:51 17:00 17:00 WBC RBC Hgb Hct MCV MCH MCHC RDW Plt Count Seg Neutrophils % Lymphocytes % Monocytes % Eosinophils % Basophils % Absolute Neutrophils Absolute Lymphocytes Absolute Monocytes Absolute Eosinophils Absolute Basophils Sodium 139.1 Potassium 3.1 L Chloride 100 Carbon Dioxide 28 Anion Gap 11 BUN 40 H Creatinine 3.09 H Est GFR ( Amer) 19 L Est GFR (Non-Af Amer) 16 L Glucose 135 H Calcium 14.5 H* Phosphorus Magnesium Iron 37.2 TIBC 241 L % Saturation 15 Ferritin 785.00 H Vitamin B12 Cancelled Cancelled Folate Cancelled Cancelled 10/05/16 10/05/16 04:28 04:28 WBC 10.7 H RBC 2.71 L Hgb 8.6 L Hct 25.2 L MCV 93 MCH 31.7 MCHC 34.1 RDW 15.7 H Plt Count 187 Seg Neutrophils % Not Reportable Lymphocytes % Not Reportable Monocytes % Not Reportable Eosinophils % Not Reportable Basophils % Not Reportable Absolute Neutrophils Not Reportable Absolute Lymphocytes Not Reportable Absolute Monocytes Not Reportable Absolute Eosinophils Not Reportable Absolute Basophils Not Reportable Sodium 142.5 Potassium 3.4 L Chloride 104 Carbon Dioxide 27 Anion Gap 12 BUN 42 H Creatinine 3.21 H Est GFR ( Amer) 18 L Est GFR (Non-Af Amer) 15 L Glucose 111 H Calcium 14.8 H* Phosphorus 5.0 H Magnesium 1.9 Iron TIBC % Saturation Ferritin Vitamin B12 Folate Impressions: Abdomen/Pelvis CT 10/04/16 00:00 IMPRESSION: NO SIGNIFICANT OR ACUTE PROCESS IN THE ABDOMEN OR PELVIS. Assessment & Plan - Diagnosis (1) Acute renal failure Qualifiers: Acute renal failure type: unspecified Qualified Code(s): N17.9 - Acute kidney failure, unspecified Is this a current diagnosis for this admission?: YesPlan: Continues to IV fluid and follow with the nephrology (2) Anemia Qualifiers: Anemia type: bone marrow failure Bone marrow failure anemia type: unspecified bone marrow failure Qualified Code(s): D61.9 - Aplastic anemia, unspecified Is this a current diagnosis for this admission?: YesPlan: Single transfused 1 unit of the blood and patient is planning to go for the GI workup today by Dr. Deal (3) Hypercalcemia Is this a current diagnosis for this admission?: YesPlan: Continues to IV fluid and also start the Zometa 1 dose (4) Hypokalemia Is this a current diagnosis for this admission?: YesPlan: Replace the potassiums (5) Back pain Is this a current diagnosis for this admission?: YesPlan: Will try again MRI probably on a Saturday (6) Hypertension Is this a current diagnosis for this admission?: YesPlan: Currently hold the losartan HCTZ (7) Edema Qualifiers: Edema type: unspecified Qualified Code(s): R60.9 - Edema, unspecified Is this a current diagnosis for this admission?: YesPlan: Currently stable the ultrasound is negative for any DVT - Time Time Spent with patient: 15-24 minutes Anticipated discharge: Home Within: Other - Inpatient Certification Medical Necessity: Need Close Monitoring Due to Risk of Patient Decompensation, Need For IV Fluids Post Hospital Care: D/C Medical Sociologist Documentation - Plan Summary Plan Summary: Discussed with the patient and the patient's family about the patient's current conditions lab and test results and discuss with other coordinate care with other physicians
[2016-10-05] MEDS ORDERED: PROMETHAZINE HCL INJ 25 MG/1 ML VIAL ONE (11:28)
[2016-10-05] MEDS ORDERED: ONDANSETRON HCL INJ/PF 4 MG/2 ML SDV ONE (11:28)
[2016-10-05] MEDS ORDERED: DIPHENHYDRAMINE HCL 50 MG/ML VIAL ONE (11:28)
[2016-10-05] MEDS ORDERED: NALOXONE HCL INJ/PF 0.4 MG/1 ML SDV ONE (11:28)
[2016-10-05] MEDS ORDERED: MIDAZOLAM 2 MG/2 ML INJ ONE (11:29)
[2016-10-05] MEDS ORDERED: GLUCAGON,HUMAN RECOMB 1 MG INJ ONE (11:29)
[2016-10-05] MEDS ORDERED: FENTANYL CITRATE INJ/PF 100 MCG/2 ML AMPUL ONE (11:29)
[2016-10-05] MEDS ORDERED: EPINEPHRINE INJ 1 MG/10 ML DISP.SYRIN ONE (11:29)
[2016-10-05] MEDS ORDERED: FLUMAZENIL INJ 0.5 MG/5 ML VIAL IV ONE (11:29)
[2016-10-05] MEDS: MIDAZOLAM 2 MG/2 ML INJ ONE ×2 (11:47→11:51)
--- NOTE | 2016-10-05 12:04 | Operative Report ---
Operative Report DATE OF SURGERY: 10/05/16 Operative Report: The risks benefits and alternatives of the procedure explained to the patient in detail and informed consent is obtained that GIF Olympus video scope was inserted into the patient's mouth and hypopharynx the esophagus is identified intubated and insufflated the scope was then advanced through the esophagus stomach and duodenum retroflexion maneuver is done the esophagus stomach and first and second portions of the duodenum examined PREOPERATIVE DIAGNOSIS: Anemia, drop of hemoglobin POSTOPERATIVE DIAGNOSIS: Gastric erosions status post biopsy rule out Helicobacter pylori OPERATION: EGD with biopsy SURGEON: MICHAEL MINOR ANESTHESIA: Moderate Sedation - 3 mg of Versed, 50 g of fentanyl. Conscious sedation monitoring time 15 minutes. TISSUE REMOVED OR ALTERED: Gastric specimens obtained rule out Helicobacter pylori COMPLICATIONS: None. ESTIMATED BLOOD LOSS: none. INTRAOPERATIVE FINDINGS: Normal esophagus. No active bleeding. First and second portions of the duodenum normal. PROCEDURE: Patient tolerated procedure well. No immediate postprocedure complications are noted. Patient sent back to her room in good condition. We'll resume previous diet. Watch H&H and transfuse as necessary Start PPI We'll await biopsies treat for Helicobacter pylori if necessary
[2016-10-05] MEDS: AMLODIPINE BESYLATE 5 MG TABLET PO SCH (13:17)
--- NOTE | 2016-10-05 15:31 | PDOC CONSULTATION ---
Consultation Consult Date: 10/05/16 Attending physician:: DAWNA LAL Consult reason:: I was asked by Dr. Lal to see this patient because of acute renal failure with hypercalcemia. History of Present Illness Admission Date/PCP: 10/04/16 08:08 DAWNA LAL MD History of Present Illness: 56-year-old female with recent history of acute renal dysfunction, hypercalcemia and anemia. In review of labs just about 3 months ago, she had a normal hemoglobin in the 12-13 range, creatinine was normal at 0.73 with BUN of 21 on 07/11/2016 and calcium was normal at 9.7 on the same day. Over the last 3 months she's been experiencing increasing low back and bilateral leg pain, on presentation to her PCPs office, she was found to have a creatinine of 3 range, calcium in the 14 range, total protein elevated, hemoglobin was in the 8 range. Iron studies were done, ferritin was 745. She had CT of the abdomen pelvis without contrast, there is no abnormality noted. Patient's PTH is actually low at 12 her phosphorus is slightly elevated at 5.0. Her admitting kidney function indicates a BUN of 45 creatinine of 2.81 and today were 42 and 3.21. Potassium has been low at 3.2-3.4. Her calcium is still elevated and not much change. Patient was given IV fluids of 1 L at the emergency room and currently at 125 mL an hour of normal saline. She is making urine. Patient admits that her leg pain and back pain has been progressively getting worse since the third week of July. 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 She described her pain to be constant with intensity of 10 over 10. She had treatment with 2 courses of Medrol Dosepak as an outpatient prior to this admission which she said didn't help. In terms of her kidneys she denied any problems with her kidneys in the past. She denied any history of kidney failure or kidney stones nor problems with urination. She said her appetite did not really change prior to admission although she is not drinking much fluids. She denies any other complaints. Past Medical History Cardiac Medical History: Reports: Hypertension-primary Musculoskeltal Medical History: Reports: Arthritis - OA Past Surgical History Past Surgical History: Reports: Cholecystectomy Social History Information Source: Patient Smoking Status: Former Smoker Number of Years Smokin Last Time Smoked: 2014 Frequency of Alcohol Use: Occasional Hx Recreational Drug Use: No Hx Prescription Drug Abuse: No - Advance Directive Resuscitation Status: Full Code Family History Family History: Hypertension - Grandfather Parental Family History Reviewed: Yes Children Family History Reviewed: Yes Sibling(s) Family History Reviewed.: Yes Medication/Allergy Home Medications: Amlodipine Besylate [Norvasc 5 mg Tablet] 5 mg PO DAILY 10/04/16 Celecoxib [Celebrex 200 mg Capsule] 200 mg PO BID 10/04/16 Chrom Lenore/Brindal Sanders [Garcinia Cambogia Tablet] 1 tab PO BID 10/04/16 Coffee Extract [Green Coffee Majano] 400 mg PO BID 10/04/16 Ferrous Sulfate [Feosol 325 mg Tablet] 325 mg PO DAILY 10/04/16 Gabapentin [Neurontin 100 mg Capsule] 100 mg PO Q12 10/04/16 Losartan/Hydrochlorothiazide [Hyzaar 100-25 Tablet] 1 tab PO DAILY 10/04/16 Allergies/Adverse Reactions: No Known Allergies Allergy (Verified 09/27/16 08:38) Review of Systems All systems: reviewed and no additional remarkable complaints except as stated Review of Systems: Constitutional: ABSENT: chills, fatigue, fever(s), headache(s), weight gain, weight loss Eyes: ABSENT: visual disturbances Ears: ABSENT: hearing changes Cardiovascular: ABSENT: chest pain, dyspnea on exertion, orthropnea, palpitations; she has lower extremity edema Respiratory: ABSENT: cough, dyspnea, hemoptysis Gastrointestinal: ABSENT: abdominal pain, constipation, diarrhea, hematemesis, hematochezia, nausea, vomiting Genitourinary: ABSENT: dysuria, hematuria Musculoskeletal: ABSENT: joint swelling; she has hip pain and bilateral leg pains with low back pain Integumentary: ABSENT: rash, wounds Neurological: ABSENT: abnormal gait, abnormal speech, confusion, dizziness, focal weakness, numbness, syncope Psychiatric: ABSENT: anxiety, depression Endocrine: ABSENT: cold intolerance, heat intolerance, polydipsia, polyuria Hematologic/Lymphatic: ABSENT: easy bleeding, easy bruising, lymphadenopathy Physical Exam Vital Signs: Temp Pulse Resp BP Pulse Ox 98.2 F 118 H 18 154/96 H 100 10/05/16 12:57 10/05/16 12:57 10/05/16 12:57 10/05/16 12:57 10/05/16 12:57 Intake & Output 10/04/16 10/05/16 10/06/16 06:59 06:59 06:59 Intake Total 1015 50 Output Total 0 Balance 1015 50 Weight 113.3 kg Exam: General appearance: no acute distress, cooperative, well-developed, well- nourished, she is currently somewhat lethargic after the EGD being given some medications for the procedure Head exam: PRESENT: atraumatic, normocephalic Eye exam: PRESENT: Conjunctiva pale, EOMI, PERRLA. ABSENT: conjunctival injection, scleral icterus Mouth exam: PRESENT: moist, neck supple, tongue midline Neck exam: PRESENT: full ROM. ABSENT: carotid bruit, JVD, lymphadenopathy, thyromegaly Respiratory exam: PRESENT: clear to auscultation bilaterally. ABSENT: rales, rhonchi, stridor, wheezes Cardiovascular exam: PRESENT: RRR, +S1, +S2. ABSENT: systolic murmur Pulses: PRESENT: normal radial pulses, normal dorsalis pedis pulses GI/Abdominal exam: PRESENT: normal bowel sounds, soft. ABSENT: guarding, mass, tenderness Rectal exam: deferred Extremities exam: PRESENT: full ROM. She has grade 2 bilateral pedal edema ABSENT: calf tenderness Musculoskeletal: PRESENT: full ROM. ABSENT: deformity Neurological exam: PRESENT: alert, Awake, Oriented to person, Oriented to place , Oriented to time, reflexes normal, CN II-XII grossly intact. ABSENT: motor sensory deficit Psychiatric exam: PRESENT: appropriate affect, normal mood. ABSENT: homicidal ideation, suicidal ideation Skin exam: PRESENT: intact, dry, warm. ABSENT: rash Results Laboratory Results: 10/05/16 04:28 10/05/16 04:28 10/04/16 10/04/16 10/04/16 08:51 17:00 17:00 WBC RBC Hgb Hct MCV MCH MCHC RDW Plt Count Seg Neutrophils % Lymphocytes % Monocytes % Eosinophils % Basophils % Absolute Neutrophils Absolute Lymphocytes Absolute Monocytes Absolute Eosinophils Absolute Basophils Sodium 139.1 Potassium 3.1 L Chloride 100 Carbon Dioxide 28 Anion Gap 11 BUN 40 H Creatinine 3.09 H Est GFR ( Amer) 19 L Est GFR (Non-Af Amer) 16 L Glucose 135 H Calcium 14.5 H* Phosphorus Magnesium Iron 37.2 TIBC 241 L % Saturation 15 Ferritin 785.00 H Vitamin B12 Cancelled Cancelled Folate Cancelled Cancelled 10/05/16 10/05/16 04:28 04:28 WBC 10.7 H RBC 2.71 L Hgb 8.6 L Hct 25.2 L MCV 93 MCH 31.7 MCHC 34.1 RDW 15.7 H Plt Count 187 Seg Neutrophils % Not Reportable Lymphocytes % Not Reportable Monocytes % Not Reportable Eosinophils % Not Reportable Basophils % Not Reportable Absolute Neutrophils Not Reportable Absolute Lymphocytes Not Reportable Absolute Monocytes Not Reportable Absolute Eosinophils Not Reportable Absolute Basophils Not Reportable Sodium 142.5 Potassium 3.4 L Chloride 104 Carbon Dioxide 27 Anion Gap 12 BUN 42 H Creatinine 3.21 H Est GFR ( Amer) 18 L Est GFR (Non-Af Amer) 15 L Glucose 111 H Calcium 14.8 H* Phosphorus 5.0 H Magnesium 1.9 Iron TIBC % Saturation Ferritin Vitamin B12 Folate Impressions: Abdomen/Pelvis CT 10/04/16 00:00 IMPRESSION: NO SIGNIFICANT OR ACUTE PROCESS IN THE ABDOMEN OR PELVIS. Assessment & Plan - Diagnosis (1) DEL (acute kidney injury) Is this a current diagnosis for this admission?: YesPlan: There is a high likelihood patient has hypercalcemic nephropathy with associated prerenal azotemia with dehydration. Patient is currently nonoliguric. We will try to treat her hypercalcemia with increase IV fluids and diuretics with Lasix. I will change her IV fluids to 0.9 normal saline with 20 mEq of potassium to run at 200 mL an hour at the same time give her Lasix 40 mg IV every [address] Lal as ordered an echocardiogram and a chest x-ray is also to be done today to make sure is patient does not have any underlying congestive heart failure due to increase IV fluids. We will also insert a Jewell catheter to monitor urine output Continue to monitor the patient's kidney function, electrolytes, and strict intake and output. Patient does not need any renal replacement therapy at this time. Impression and plan discussed with patient and her . (2) Hypercalcemia Is this a current diagnosis for this admission?: YesPlan: This is an acute onset of hypercalcemia in associated with renal failure and anemia so there is a high likelihood of possible paraproteinemia. PTH is actually low and phosphorus is elevated not low so this is not primary hyperparathyroidism. Workup for paraproteinemia including multiple myeloma is currently pending. Dr. Connor from hematology is also on consult. Zometa was given this morning 1 dose. As mentioned above I will change her IV fluids and increase the rate and add Lasix IV. Continue to follow calcium levels. (3) Anemia Qualifiers: Anemia type: bone marrow failure Bone marrow failure anemia type: unspecified bone marrow failure Qualified Code(s): D61.9 - Aplastic anemia, unspecified Is this a current diagnosis for this admission?: YesPlan: This could be consistent with paraproteinemia or multiple myeloma to explain all other symptoms. (4) Hyperphosphatemia Is this a current diagnosis for this admission?: YesPlan: This is due to acute kidney injury. (5) Leg pain Qualifiers: Laterality: bilateral Qualified Code(s): M79.604 - Pain in right leg ; M79.605 - Pain in left leg (6) Back pain Qualifiers: Back pain location: low back pain Chronicity: acute Is this a current diagnosis for this admission?: Yes (7) Hypokalemia Is this a current diagnosis for this admission?: YesPlan: Continue potassium replacement. (8) Hypertension Is this a current diagnosis for this admission?: Yes - Notes Notes: Thank you very much for this consultation I will follow the patient with you. Discussed with Dr. Lal today. - Time Time Spent: Greater than 70 Minutes
[2016-10-05 15:38] LABS: A/G RATIO 0.5 (0.7-1.7); ALBUMIN 2 3.8 g/dL (2.9-4.4); ALPHA-1-GLOBULIN 2 0.3 g/dL (0.0-0.4); GAMMA GLOBULIN 5.7 g/dL (0.4-1.8)
[2016-10-05] MEDS ORDERED: FUROSEMIDE INJ/PF 40 MG/4 ML SDV IV ONE (16:00)
[2016-10-05] MEDS ORDERED: NORMAL SALINE 1000 ML 1,000 ML IV PRN (18:29)
[2016-10-05] MEDS: POTASSI CL 20 MEQ/NS 1L 1,000 ML IV PRN (19:08)
--- NOTE | 2016-10-05 19:24 | XCELERA REPORT ---
[address] [address] Transthoracic Echocardiogram Report Name: MYCHAL CELESTIN Age: 56 yrs Gender: Female : 1960 Patient Status: Inpatient Patient Location: 3N\S\[facility]\S\A Study Date: 10/05/2016 05:42 PM Height: 66 in Weight: 249 lb BSA: 2.2 m2 Procedure: A complete two-dimensional transthoracic echocardiogram was performed (2D, M-mode, spectral and color flow Doppler). The study was technically adequate with some images being suboptimal in quality. Reason For Study: chf/edema/renal failure Ordering Physician: DAWNA MOSLEY Performed By: Stephanie Armas Interpretation Summary The left ventricular ejection fraction is normal. Doppler measurements suggest impaired left ventricular relaxation, which is associated with grade I/IV or mild diastolic dysfunction There is mild concentric left ventricular hypertrophy. The left ventricle is grossly normal size. Wall motion cannot be accurately commented on, but no definite regional wall motion abnormalities noted. The right ventricular systolic function is normal. The left atrial size is normal. The right atrium is normal in size There is a trace amount of mitral regurgitation There is no mitral valve stenosis. No aortic regurgitation is present. There is no aortic valve stenosis There is a trace or physiologic amount of tricuspid regurgitation Tricuspid regurgitation jet envelope not well defined to measure RV systolic pressure accurately. The aortic root is not well visualized. The inferior vena cava was not well visualized There is no pericardial effusion. MMode/2D Measurements \T\ Calculations RVDd: 2.6 cm LVIDd: 4.9 cmFS: 39.1 % Ao root diam: 3.4 cm IVSd: 1.1 cm LVIDs: 3.0 cmEDV(Teich): 114.4 ml LVPWd: 1.1 cmESV(Teich): 35.0 ml Ao root area: 9.0 cm2 EF(Teich): 69.4 % LA dimension: 3.1 cm LVOT diam: 2.1 cm LVOT area: 3.6 cm2 Doppler Measurements \T\ Calculations MV E max aric: MV P1/2t max aric: Ao V2 max: LV V1 max P.4 cm/sec 83.9 cm/sec 183.8 cm/sec 10.8 mmHg MV A max aric: MV P1/2t: 44.6 msec Ao max PG: LV V1 max: 125.9 cm/sec MVA(P1/2t): 4.9 cm2 13.5 mmHg 164.1 cm/sec MV E/A: 0.68 MV dec slope: VALENTIN(V,D): 3.2 cm2 551.2 cm/sec2 PA V2 max: TR max aric: 100.7 cm/sec 260.6 cm/sec PA max P.1 mmHgTR max P.2 mmHg Left Ventricle The left ventricle is grossly normal size. There is mild concentric left ventricular hypertrophy. The left ventricular ejection fraction is normal. Doppler measurements suggest impaired left ventricular relaxation, which is associated with grade I/IV or mild diastolic dysfunction. Wall motion cannot be accurately commented on, but no definite regional wall motion abnormalities noted. Right Ventricle The right ventricle is grossly normal size. There is normal right ventricular wall thickness. The right ventricular systolic function is normal. Atria The right atrium is normal in size. The left atrial size is normal. Interarterial septum not well visualized and not well dopplered. Cannot comment on ASD/PFO presence. Mitral Valve The mitral valve is grossly normal. There is no mitral valve stenosis. There is a trace amount of mitral regurgitation. Aortic Valve The aortic valve is grossly normal. There is no aortic valve stenosis. No aortic regurgitation is present. Tricuspid Valve The tricuspid valve is not well visualized secondary to technical limitations. There is no tricuspid stenosis. There is a trace or physiologic amount of tricuspid regurgitation. Tricuspid regurgitation jet envelope not well defined to measure RV systolic pressure accurately. Pulmonic Valve The pulmonic valve is not well visualized. Great Vessels The aortic root is not well visualized. The inferior vena cava was not well visualized. Effusions There is no pericardial effusion. : DAWNA MOSLEY > Noe Dunn
[2016-10-05] MEDS: FUROSEMIDE INJ/PF 40 MG/4 ML SDV IV SCH (21:58)
[2016-10-06] MEDS: OXYCODONE-ACETAMINOPHEN 5-325 MG TABLET PO PRN ×6 (01:24→22:36)
[2016-10-06] MEDS: POTASSI CL 20 MEQ/NS 1L 1,000 ML IV PRN ×3 (01:29→10:48)
[2016-10-06 05:26] LABS: HEMATOCRIT 20.9 % (36.0-47.0); HGB HCT DIFFERENCE 0.4; MEAN CORPUSCULAR HGB CONC 34.2 g/dL (32.0-36.0); MEAN CORPUSCULAR VOLUME 93 fl (80-97); RED BLOOD COUNT 2.23 10^6/uL (3.72-5.28); RED CELL DISTRIBUTION WIDTH 15.4 % (11.5-14.0); WHITE BLOOD COUNT 7.1 10^3/uL (4.0-10.5)
[2016-10-06 05:30] LABS: HEMOGLOBIN 7.1 g/dL (12.0-15.5)
[2016-10-06 05:41] LABS: ANION GAP 7 (5-19); BLOOD UREA NITROGEN 40 mg/dL (7-20); CARBON DIOXIDE 27 mmol/L (22-30); CHLORIDE 109 mmol/L (98-107); CREATININE RESULT 3.23 mg/dL (0.52-1.25); GLUCOSE 90 mg/dL (75-110); MAGNESIUM 1.7 mg/dL (1.6-2.3); POTASSIUM 3.7 mmol/L (3.6-5.0); SODIUM 142.8 mmol/L (137-145)
[2016-10-06] MEDS: FUROSEMIDE INJ/PF 40 MG/4 ML SDV IV SCH ×3 (05:41→21:42)
[2016-10-06 05:54] LABS: CALCIUM 13.9 mg/dL (8.4-10.2)
[2016-10-06 05:57] LABS: BASOPHILS % (MANUAL) 0 % (0-2); EOSINOPHILS % (MANUAL) 0 % (0-6); LYMPHOCYTES % (MANUAL) 19 % (13-45); TOTAL CELLS COUNTED 100
[2016-10-06 06:00] LABS: ANISOCYTOSIS SLIGHT; HYPOCHROMASIA 1+
--- NOTE | 2016-10-06 09:54 | PDOC PROGRESS REPORT ---
Subjective Progress Note for:: 10/06/16 Subjective:: Patient is doing fair patient's was seen by Dr. lizama start on IV Lasix and IV fluid is increase. Patient's skeletal survery was done yesterday and patient have a some reason which is most likely suggest some underlying myeloma is still waiting for the all the labs Physical Exam Vital Signs: Temp Pulse Resp BP Pulse Ox 98.4 F 96 16 123/59 L 99 10/06/16 04:29 10/06/16 04:29 10/06/16 04:29 10/06/16 04:29 10/06/16 04:29 Intake & Output 10/05/16 10/06/16 10/07/16 06:59 06:59 06:59 Intake Total 1015 3913 Output Total 3075 Balance 1015 838 Weight 113.3 kg 115.7 kg General appearance: PRESENT: no acute distress, well-developed, well-nourished Head exam: PRESENT: atraumatic, normocephalic Eye exam: PRESENT: conjunctiva pink, EOMI, PERRLA. ABSENT: scleral icterus Ear exam: PRESENT: normal external ear exam Mouth exam: PRESENT: moist, tongue midline Neck exam: PRESENT: full ROM. ABSENT: carotid bruit, JVD, lymphadenopathy, thyromegaly Respiratory exam: PRESENT: clear to auscultation merrill Cardiovascular exam: PRESENT: RRR. ABSENT: diastolic murmur, rubs, systolic murmur Pulses: PRESENT: normal dorsalis pedis pul, +2 pedal pulses bilateral Vascular exam: PRESENT: normal capillary refill GI/Abdominal exam: PRESENT: normal bowel sounds, soft. ABSENT: distended, guarding, mass, organolmegaly, rebound, tenderness Rectal exam: PRESENT: deferred Extremities exam: ABSENT: pedal edema Additional comments: The back was a small blister and discoloration of the skin gluteal area Neurological exam: PRESENT: alert, awake, oriented to person, oriented to place , oriented to time, oriented to situation, CN II-XII grossly intact. ABSENT: motor sensory deficit Psychiatric exam: PRESENT: appropriate affect, normal mood. ABSENT: homicidal ideation, suicidal ideation Skin exam: PRESENT: dry, intact, warm. ABSENT: cyanosis, rash Results Laboratory Results: 10/06/16 04:55 10/06/16 04:55 10/06/16 10/06/16 10/06/16 04:55 04:55 06:05 WBC 7.1 RBC 2.23 L Hgb 7.1 L Hct 20.9 L MCV 93 MCH 32.0 MCHC 34.2 RDW 15.4 H Plt Count 150 Seg Neutrophils % Not Reportable Lymphocytes % Not Reportable Monocytes % Not Reportable Eosinophils % Not Reportable Basophils % Not Reportable Absolute Neutrophils Not Reportable Absolute Lymphocytes Not Reportable Absolute Monocytes Not Reportable Absolute Eosinophils Not Reportable Absolute Basophils Not Reportable Sodium 142.8 Potassium 3.7 Chloride 109 H Carbon Dioxide 27 Anion Gap 7 BUN 40 H Creatinine 3.23 H Est GFR ( Amer) 18 L Est GFR (Non-Af Amer) 15 L Glucose 90 Calcium 13.9 H* Phosphorus 5.0 H Magnesium 1.7 Blood Type O POSITIVE Antibody Screen NEGATIVE Impressions: Abdomen/Pelvis CT 10/04/16 00:00 IMPRESSION: NO SIGNIFICANT OR ACUTE PROCESS IN THE ABDOMEN OR PELVIS. Skeletal Survey 10/05/16 00:00 IMPRESSION: Small lucent lesions are identified on the skull, humeri, pelvis, and right femoral series. Correlate with additional evaluation to exclude myeloma or metastatic disease. Assessment & Plan - Diagnosis (1) Acute renal failure Qualifiers: Acute renal failure type: unspecified Qualified Code(s): N17.9 - Acute kidney failure, unspecified Is this a current diagnosis for this admission?: YesPlan: Continues IV fluid follow with the nephrology most likely underlying dura myeloma issue (2) Anemia Qualifiers: Anemia type: bone marrow failure Bone marrow failure anemia type: unspecified bone marrow failure Qualified Code(s): D61.9 - Aplastic anemia, unspecified Is this a current diagnosis for this admission?: YesPlan: Trespass the 1 unit of for blood (3) Hypercalcemia Is this a current diagnosis for this admission?: YesPlan: Is getting improving most likely underlying myeloma (4) Hypokalemia Is this a current diagnosis for this admission?: YesPlan: [place] potassium supplement (5) Back pain Qualifiers: Back pain location: low back pain Chronicity: acute Is this a current diagnosis for this admission?: YesPlan: Will try again MRI probably on a Saturday (6) Hypertension Is this a current diagnosis for this admission?: YesPlan: Currently hold the losartan HCTZ (7) Edema Qualifiers: Edema type: unspecified Qualified Code(s): R60.9 - Edema, unspecified Is this a current diagnosis for this admission?: Yes - Time Time Spent with patient: 15-24 minutes Medications reviewed and adjusted accordingly: Yes Anticipated discharge: Other Within: Other - Inpatient Certification Medical Necessity: Need Close Monitoring Due to Risk of Patient Decompensation, Need For IV Fluids Post Hospital Care: D/C Parachute Mender Documentation - Plan Summary Plan Summary: Continues IV fluid and IV Lasix patient's echocardiogram is stable. Follow with the Dr. Burden and Dr. moya Continues the current medication
[2016-10-06] MEDS: AMLODIPINE BESYLATE 5 MG TABLET PO SCH (10:44)
[2016-10-06] MEDS: PANTOPRAZOLE SODIUM 40 MG VIAL IV SCH ×2 (10:44→21:42)
--- NOTE | 2016-10-06 11:52 | PDOC PROGRESS REPORT ---
Subjective Progress Note for:: 10/06/16 Subjective:: Awaiting results of her other labs Physical Exam Vital Signs: Temp Pulse Resp BP Pulse Ox 98.8 F 109 H 18 140/69 H 99 10/06/16 07:46 10/06/16 07:46 10/06/16 07:46 10/06/16 07:46 10/06/16 07:46 Intake & Output 10/05/16 10/06/16 10/07/16 06:59 06:59 06:59 Intake Total 1015 3913 Output Total 3075 Balance 1015 838 Weight 113.3 kg 115.7 kg General appearance: PRESENT: no acute distress Head exam: PRESENT: normocephalic Eye exam: PRESENT: EOMI, PERRLA Mouth exam: PRESENT: moist Respiratory exam: PRESENT: unlabored Cardiovascular exam: PRESENT: RRR Neurological exam: PRESENT: alert, CN II-XII grossly intact Results Laboratory Results: 10/06/16 04:55 10/06/16 04:55 10/06/16 10/06/16 10/06/16 04:55 04:55 06:05 WBC 7.1 RBC 2.23 L Hgb 7.1 L Hct 20.9 L MCV 93 MCH 32.0 MCHC 34.2 RDW 15.4 H Plt Count 150 Seg Neutrophils % Not Reportable Lymphocytes % Not Reportable Monocytes % Not Reportable Eosinophils % Not Reportable Basophils % Not Reportable Absolute Neutrophils Not Reportable Absolute Lymphocytes Not Reportable Absolute Monocytes Not Reportable Absolute Eosinophils Not Reportable Absolute Basophils Not Reportable Sodium 142.8 Potassium 3.7 Chloride 109 H Carbon Dioxide 27 Anion Gap 7 BUN 40 H Creatinine 3.23 H Est GFR ( Amer) 18 L Est GFR (Non-Af Amer) 15 L Glucose 90 Calcium 13.9 H* Phosphorus 5.0 H Magnesium 1.7 Blood Type O POSITIVE Antibody Screen NEGATIVE Impressions: Abdomen/Pelvis CT 10/04/16 00:00 IMPRESSION: NO SIGNIFICANT OR ACUTE PROCESS IN THE ABDOMEN OR PELVIS. Skeletal Survey 10/05/16 00:00 IMPRESSION: Small lucent lesions are identified on the skull, humeri, pelvis, and right femoral series. Correlate with additional evaluation to exclude myeloma or metastatic disease. Assessment & Plan - Diagnosis (1) Acute renal failure Qualifiers: Acute renal failure type: unspecified Qualified Code(s): N17.9 - Acute kidney failure, unspecified Is this a current diagnosis for this admission?: YesPlan: Dr. Perez following and suspect related to likely MM (2) Anemia Qualifiers: Anemia type: bone marrow failure Bone marrow failure anemia type: unspecified bone marrow failure Qualified Code(s): D61.9 - Aplastic anemia, unspecified Is this a current diagnosis for this admission?: YesPlan: Would transfuse at least one unit of PRBC s (3) Hypercalcemia Is this a current diagnosis for this admission?: YesPlan: Follow up and treat accordingly - Time Time Spent with patient: 15-24 minutes Critical Time spent with patient: Less than 15 minutes
[2016-10-06 12:06] LABS: PROTEIN TOTAL SERUM 11.7 g/dL (6.0-8.5)
[2016-10-06 12:25] LABS: IMMUNOGLOBULIN A 34 mg/dL (87-352); IMMUNOGLOBULIN G 6475 mg/dL (700-1600); IMMUNOGLOBULIN M 21 mg/dL (26-217)
[2016-10-06 22:39] LABS: HEMATOCRIT 24.1 % (36.0-47.0); HEMOGLOBIN 8.3 g/dL (12.0-15.5); HGB HCT DIFFERENCE 0.8; MEAN CORPUSCULAR HEMOGLOBIN 31.7 pg (27.0-33.4); MEAN CORPUSCULAR HGB CONC 34.3 g/dL (32.0-36.0); MEAN CORPUSCULAR VOLUME 92 fl (80-97); RED BLOOD COUNT 2.61 10^6/uL (3.72-5.28); RED CELL DISTRIBUTION WIDTH 15.5 % (11.5-14.0); WHITE BLOOD COUNT 8.2 10^3/uL (4.0-10.5)
[2016-10-06 23:04] LABS: BASOPHILS % (MANUAL) 1 % (0-2); EOSINOPHILS % (MANUAL) 4 % (0-6); LYMPHOCYTES % (MANUAL) 20 % (13-45); TOTAL CELLS COUNTED 100
[2016-10-06 23:06] LABS: ANISOCYTOSIS SLIGHT; POIKILOCYTOSIS SLIGHT; TARGET CELLS SLIGHT; TOXIC GRANULATION SLIGHT; TOXIC VACUOLATION PRESENT
[2016-10-07] MEDS: POTASSI CL 20 MEQ/NS 1L 1,000 ML IV PRN ×5 (01:21→21:20)
[2016-10-07] MEDS: OXYCODONE-ACETAMINOPHEN 5-325 MG TABLET PO PRN ×5 (02:49→22:35)
[2016-10-07 05:08] LABS: ABSOLUTE EOSINOPHILS # (AUTO) 0.1 10^3/uL (0.0-0.6); ABSOLUTE LYMPHOCYTES (AUTO) 2.3 10^3/uL (0.5-4.7); ABSOLUTE MONOCYTES (AUTO) 1.5 10^3/uL (0.1-1.4); ABSOLUTE NEUT (AUTO) 4.9 10^3/uL (1.7-8.2); BASOPHILS % (AUTO) 0.3 % (0-2); EOSINOPHILS % (AUTO) 1.7 % (0-6); HEMATOCRIT 24.4 % (36.0-47.0); HEMOGLOBIN 8.5 g/dL (12.0-15.5); HGB HCT DIFFERENCE 1.1; LYMPHOCYTES % (AUTO) 25.7 % (13-45); MEAN CORPUSCULAR HEMOGLOBIN 31.9 pg (27.0-33.4); MEAN CORPUSCULAR HGB CONC 34.7 g/dL (32.0-36.0); MEAN CORPUSCULAR VOLUME 92 fl (80-97); MONOCYTES % (AUTO) 16.7 % (3-13); RED BLOOD COUNT 2.66 10^6/uL (3.72-5.28); RED CELL DISTRIBUTION WIDTH 15.7 % (11.5-14.0); SEGMENTED NEUTROPHILS % (AUTO) 55.6 % (42-78); WHITE BLOOD COUNT 8.9 10^3/uL (4.0-10.5)
[2016-10-07] MEDS: FUROSEMIDE INJ/PF 40 MG/4 ML SDV IV SCH ×3 (05:09→21:20)
[2016-10-07 05:28] LABS: ANION GAP 6 (5-19); BLOOD UREA NITROGEN 38 mg/dL (7-20); CARBON DIOXIDE 26 mmol/L (22-30); CHLORIDE 109 mmol/L (98-107); CREATININE RESULT 3.17 mg/dL (0.52-1.25); GLUCOSE 94 mg/dL (75-110); MAGNESIUM 1.5 mg/dL (1.6-2.3); PHOSPHORUS 3.7 mg/dL (2.5-4.5); POTASSIUM 3.4 mmol/L (3.6-5.0); SODIUM 140.8 mmol/L (137-145)
[2016-10-07 05:43] LABS: CALCIUM 12.4 mg/dL (8.4-10.2)
--- NOTE | 2016-10-07 09:24 | PDOC PROGRESS REPORT ---
Subjective Progress Note for:: 10/07/16 Subjective:: Patient's is doing fair still complained for back pain in the leg pain. Patient CT of the chest was negative for any mass. Patient's M spike is positive and skeletal surveys also positive which is mostly suggest the multiple myeloma. Patient's deceive the 1 unit of the blood. As per discussed with the oncology is scheduled for the bone marrow biopsy. Patient also seen by Dr. moya Physical Exam Vital Signs: Temp Pulse Resp BP Pulse Ox 98.5 F 106 H 22 H 133/73 H 93 10/07/16 07:25 10/07/16 07:25 10/07/16 07:25 10/07/16 07:25 10/07/16 07:25 Intake & Output 10/06/16 10/07/16 10/08/16 06:59 06:59 06:59 Intake Total 3913 5077 Output Total 3075 6300 Balance 838 -1223 Weight 115.7 kg 115.2 kg General appearance: PRESENT: no acute distress, well-developed, well-nourished Head exam: PRESENT: atraumatic, normocephalic Eye exam: PRESENT: conjunctiva pink, EOMI, PERRLA. ABSENT: scleral icterus Ear exam: PRESENT: normal external ear exam Mouth exam: PRESENT: moist, tongue midline Neck exam: PRESENT: full ROM. ABSENT: carotid bruit, JVD, lymphadenopathy, thyromegaly Respiratory exam: PRESENT: clear to auscultation merrill Cardiovascular exam: PRESENT: RRR. ABSENT: diastolic murmur, rubs, systolic murmur Pulses: PRESENT: normal dorsalis pedis pul, +2 pedal pulses bilateral Vascular exam: PRESENT: normal capillary refill GI/Abdominal exam: PRESENT: normal bowel sounds, soft. ABSENT: distended, guarding, mass, organolmegaly, rebound, tenderness Rectal exam: PRESENT: deferred Neurological exam: PRESENT: alert, awake, oriented to person, oriented to place , oriented to time, oriented to situation, CN II-XII grossly intact. ABSENT: motor sensory deficit Psychiatric exam: PRESENT: appropriate affect, normal mood. ABSENT: homicidal ideation, suicidal ideation Skin exam: PRESENT: dry, intact, warm. ABSENT: cyanosis, rash Results Laboratory Results: 10/07/16 04:24 10/07/16 04:24 10/04/16 10/06/16 10/06/16 08:51 06:05 22:23 WBC 8.2 RBC 2.61 L Hgb 8.3 L Hct 24.1 L MCV 92 MCH 31.7 MCHC 34.3 RDW 15.5 H Plt Count 151 Seg Neutrophils % Not Reportable Lymphocytes % Not Reportable Monocytes % Not Reportable Eosinophils % Not Reportable Basophils % Not Reportable Absolute Neutrophils Not Reportable Absolute Lymphocytes Not Reportable Absolute Monocytes Not Reportable Absolute Eosinophils Not Reportable Absolute Basophils Not Reportable Sodium Potassium Chloride Carbon Dioxide Anion Gap BUN Creatinine Est GFR ( Amer) Est GFR (Non-Af Amer) Glucose Calcium Phosphorus Magnesium Total Protein 11.7 H Albumin 3.8 Blood Type O POSITIVE Antibody Screen NEGATIVE 10/07/16 10/07/16 04:24 04:24 WBC 8.9 RBC 2.66 L Hgb 8.5 L Hct 24.4 L MCV 92 MCH 31.9 MCHC 34.7 RDW 15.7 H Plt Count 149 L Seg Neutrophils % 55.6 Lymphocytes % 25.7 Monocytes % 16.7 H Eosinophils % 1.7 Basophils % 0.3 Absolute Neutrophils 4.9 Absolute Lymphocytes 2.3 Absolute Monocytes 1.5 H Absolute Eosinophils 0.1 Absolute Basophils 0.0 Sodium 140.8 Potassium 3.4 L Chloride 109 H Carbon Dioxide 26 Anion Gap 6 BUN 38 H Creatinine 3.17 H Est GFR ( Amer) 18 L Est GFR (Non-Af Amer) 15 L Glucose 94 Calcium 12.4 H* Phosphorus 3.7 Magnesium 1.5 L Total Protein Albumin Blood Type Antibody Screen Impressions: Abdomen/Pelvis CT 10/04/16 00:00 IMPRESSION: NO SIGNIFICANT OR ACUTE PROCESS IN THE ABDOMEN OR PELVIS. Skeletal Survey 10/05/16 00:00 IMPRESSION: Small lucent lesions are identified on the skull, humeri, pelvis, and right femoral series. Correlate with additional evaluation to exclude myeloma or metastatic disease. Chest CT 10/06/16 00:00 IMPRESSION: No dominant lung mass. Small bilateral pleural effusions with basilar atelectasis. Minimal nodularity along the pleural surfaces right greater than left which nonspecific. No measurable masses. Assessment & Plan - Diagnosis (1) Acute renal failure Qualifiers: Acute renal failure type: unspecified Qualified Code(s): N17.9 - Acute kidney failure, unspecified Is this a current diagnosis for this admission?: YesPlan: Continues IV fluid follow with the nephrology most likely underlying dura myeloma issue (2) Anemia Qualifiers: Anemia type: bone marrow failure Bone marrow failure anemia type: unspecified bone marrow failure Qualified Code(s): D61.9 - Aplastic anemia, unspecified Is this a current diagnosis for this admission?: YesPlan: Probably patient's need blood (3) Hypercalcemia Is this a current diagnosis for this admission?: YesPlan: From multiple myeloma continues IV fluid and IV Lasix (4) Hypokalemia Is this a current diagnosis for this admission?: YesPlan: Replace the potasium (5) Back pain Qualifiers: Back pain location: low back pain Chronicity: acute Is this a current diagnosis for this admission?: YesPlan: Will try again MRI probably on a Saturday (6) Hypertension Is this a current diagnosis for this admission?: YesPlan: Currently hold the losartan HCTZ (7) Edema Qualifiers: Edema type: unspecified Qualified Code(s): R60.9 - Edema, unspecified Is this a current diagnosis for this admission?: Yes - Time Time Spent with patient: 15-24 minutes Medications reviewed and adjusted accordingly: Yes Anticipated discharge: Home Within: Other - Inpatient Certification Medical Necessity: Need Close Monitoring Due to Risk of Patient Decompensation, Need For IV Fluids Post Hospital Care: D/C Facility Technician Documentation - Plan Summary Plan Summary: Discussed with the patient and her family about this test result Continues the current medication
[2016-10-07] MEDS ORDERED: POTASSIUM CHLORIDE 10 MEQ TABLET.SA PO ONE (10:00)
[2016-10-07] MEDS: DOCUSATE SODIUM 100 MG CAPSULE PO SCH ×2 (10:36→17:38)
[2016-10-07] MEDS: AMLODIPINE BESYLATE 5 MG TABLET PO SCH (10:36)
[2016-10-07] MEDS ORDERED: DEXAMETHASONE SOD PHOS INJ 10 MG/1 ML VIAL IV ONE (15:45)
[2016-10-07] MEDS ORDERED: OXYCODONE HCL SR 10 MG TABLET PO ONE (15:45)
[2016-10-07] MEDS: HYDROMORPHONE HCL INJ/PF 2 MG/ML AMPULE IV PRN ×2 (15:48→20:20)
[2016-10-08] MEDS: HYDROMORPHONE HCL INJ/PF 2 MG/ML AMPULE IV PRN ×4 (00:43→20:50)
[2016-10-08] MEDS: POTASSI CL 20 MEQ/NS 1L 1,000 ML IV PRN ×4 (03:12→22:51)
[2016-10-08] MEDS: OXYCODONE-ACETAMINOPHEN 5-325 MG TABLET PO PRN ×2 (04:04→07:56)
[2016-10-08 05:34] LABS: ANION GAP 10 (5-19); BLOOD UREA NITROGEN 41 mg/dL (7-20); CALCIUM 11.3 mg/dL (8.4-10.2); CARBON DIOXIDE 22 mmol/L (22-30); CHLORIDE 110 mmol/L (98-107); CREATININE RESULT 3.02 mg/dL (0.52-1.25); GLUCOSE 127 mg/dL (75-110); POTASSIUM 4.3 mmol/L (3.6-5.0)
[2016-10-08] MEDS: POLYETHYLENE GLYCOL 3350 POWDER 17 GM/1 PACKET PO PRN (05:36)
[2016-10-08] MEDS: FUROSEMIDE INJ/PF 40 MG/4 ML SDV IV SCH ×3 (05:37→22:43)
[2016-10-08 05:42] LABS: HEMATOCRIT 25.4 % (36.0-47.0); HEMOGLOBIN 8.8 g/dL (12.0-15.5); MEAN CORPUSCULAR HEMOGLOBIN 32.2 pg (27.0-33.4); MEAN CORPUSCULAR HGB CONC 34.8 g/dL (32.0-36.0); MEAN CORPUSCULAR VOLUME 92 fl (80-97); RED BLOOD COUNT 2.75 10^6/uL (3.72-5.28); RED CELL DISTRIBUTION WIDTH 15.6 % (11.5-14.0); WHITE BLOOD COUNT 10.7 10^3/uL (4.0-10.5)
[2016-10-08 07:21] LABS: BAND NEUTROPHILS % (MANUAL) 1 % (3-5); BASOPHILS % (MANUAL) 0 % (0-2); EOSINOPHILS % (MANUAL) 0 % (0-6); LYMPHOCYTES % (MANUAL) 11 % (13-45); TOTAL CELLS COUNTED 100
[2016-10-08 07:22] LABS: ANISOCYTOSIS 1+; OVALOCYTES 1+; POIKILOCYTOSIS 1+; ROULEAUX 2+
--- NOTE | 2016-10-08 08:40 | PDOC PROGRESS REPORT ---
Subjective Progress Note for:: 10/08/16 Subjective:: Patient was in a lot of pain over the weekend, has been started on IV Dilaudid as well as increasing doses of oxycodone, OxyContin also started. Today had a long discussion with patient, spent greater than 45 minutes in discussion about current diagnosis. Physical Exam Vital Signs: Temp Pulse Resp BP Pulse Ox 97.7 F 112 H 19 146/79 H 96 10/08/16 07:38 10/08/16 07:38 10/08/16 07:38 10/08/16 07:38 10/08/16 07:38 Intake & Output 10/07/16 10/08/16 10/09/16 06:59 06:59 06:59 Intake Total 5077 5274 Output Total 6300 6250 Balance -1223 -976 Weight 115.2 kg 124.4 kg General appearance: PRESENT: no acute distress, well-developed, well-nourished Head exam: PRESENT: atraumatic, normocephalic Eye exam: PRESENT: conjunctiva pink, EOMI, PERRLA. ABSENT: scleral icterus Ear exam: PRESENT: normal external ear exam Mouth exam: PRESENT: moist, tongue midline Neck exam: ABSENT: carotid bruit, JVD, lymphadenopathy, thyromegaly Respiratory exam: PRESENT: clear to auscultation merrill. ABSENT: rales, rhonchi, wheezes Cardiovascular exam: PRESENT: RRR. ABSENT: diastolic murmur, rubs, systolic murmur Pulses: PRESENT: normal dorsalis pedis pul Vascular exam: PRESENT: normal capillary refill GI/Abdominal exam: PRESENT: normal bowel sounds, soft. ABSENT: distended, guarding, mass, organolmegaly, rebound, tenderness Rectal exam: PRESENT: deferred Extremities exam: PRESENT: full ROM. ABSENT: calf tenderness, clubbing, pedal edema Neurological exam: PRESENT: alert, awake, oriented to person, oriented to place , oriented to time, oriented to situation, CN II-XII grossly intact. ABSENT: motor sensory deficit Psychiatric exam: PRESENT: appropriate affect, normal mood. ABSENT: homicidal ideation, suicidal ideation Skin exam: PRESENT: dry, intact, warm. ABSENT: cyanosis, rash Results Laboratory Results: 10/08/16 04:15 10/08/16 04:15 10/08/16 10/08/16 04:15 04:15 WBC 10.7 H RBC 2.75 L Hgb 8.8 L Hct 25.4 L MCV 92 MCH 32.2 MCHC 34.8 RDW 15.6 H Plt Count 157 Seg Neutrophils % Not Reportable Lymphocytes % Not Reportable Monocytes % Not Reportable Eosinophils % Not Reportable Basophils % Not Reportable Absolute Neutrophils Not Reportable Absolute Lymphocytes Not Reportable Absolute Monocytes Not Reportable Absolute Eosinophils Not Reportable Absolute Basophils Not Reportable Sodium 142.0 Potassium 4.3 Chloride 110 H Carbon Dioxide 22 Anion Gap 10 BUN 41 H Creatinine 3.02 H Est GFR ( Amer) 20 L Est GFR (Non-Af Amer) 16 L Glucose 127 H Calcium 11.3 H Impressions: Abdomen/Pelvis CT 10/04/16 00:00 IMPRESSION: NO SIGNIFICANT OR ACUTE PROCESS IN THE ABDOMEN OR PELVIS. Skeletal Survey 10/05/16 00:00 IMPRESSION: Small lucent lesions are identified on the skull, humeri, pelvis, and right femoral series. Correlate with additional evaluation to exclude myeloma or metastatic disease. Chest CT 10/06/16 00:00 IMPRESSION: No dominant lung mass. Small bilateral pleural effusions with basilar atelectasis. Minimal nodularity along the pleural surfaces right greater than left which nonspecific. No measurable masses. Assessment & Plan - Diagnosis (1) Anemia Qualifiers: Anemia type: bone marrow failure Bone marrow failure anemia type: aplastic anemia, due to other external agents Qualified Code(s): D61.2 - Aplastic anemia due to other external agents Is this a current diagnosis for this admission?: YesPlan: Likely multiple myeloma, I went over all the current tests, she does have an M spike of 5.1, IgG is greater than 6000, free light chain is pending still, skeletal survey showed multiple areas of lytic lesions in the axial and appendicular skeleton. We will need bone marrow biopsy as the next step, we'll set that up through radiology to be done while inpatient. Today had a long discussion with patient, she understands diagnosis and next steps of care. (2) Hypercalcemia Is this a current diagnosis for this admission?: YesPlan: Improving, continue with IV hydration, her PCP we will cut down hydration as it is reducing appropriately. (3) Pain, neoplasm-related Plan: Patient with known history of chronic pain and is on Percocet at home, we will increase the OxyContin, change from Percocet to oxycodone, continue with Dilaudid as needed as well, we will need to optimize pain control. - Time Time Spent with patient: 35 or more minutes Critical Time spent with patient: 35 or more minutes Medications reviewed and adjusted accordingly: Yes - Inpatient Certification Based on my medical assessment, after consideration of the patient's comorbidities, presenting symptoms, or acuity I expect that the services needed warrant INPATIENT care.: Yes I certify that my determination is in accordance with my understanding of Medicare's requirements for reasonable and necessary INPATIENT services [42 CFR 412.3e].: Yes Medical Necessity: Failure to Improve With Outpatient Therapy, Need for Pain Control, Need for Surgery
[2016-10-08] MEDS ORDERED: OXYCODONE HCL SR 10 MG TABLET PO SCH (10:00)
[2016-10-08] MEDS: OXYCODONE HCL IR 5 MG TABLET PO PRN ×4 (10:16→19:11)
[2016-10-08] MEDS: AMLODIPINE BESYLATE 5 MG TABLET PO SCH (10:17)
[2016-10-08] MEDS: DOCUSATE SODIUM 100 MG CAPSULE PO SCH ×2 (10:17→19:10)
[2016-10-08] MEDS: OXYCODONE HCL SR 10 MG TABLET PO SCH ×2 (10:18→22:42)
--- NOTE | 2016-10-08 11:48 | PDOC PROGRESS REPORT ---
Subjective Progress Note for:: 10/08/16 Subjective:: Patient's is doing fair still complained for back pain in the leg pain. Patient CT of the chest was negative for any mass. Patient's M spike is positive and skeletal surveys also positive which is mostly suggest the multiple myeloma. Patient's deceive the 1 unit of the blood. As per discussed with the oncology is scheduled for the bone marrow biopsy. Patient also seen by Dr. moya Physical Exam Vital Signs: Temp Pulse Resp BP Pulse Ox 97.7 F 112 H 19 146/79 H 96 10/08/16 07:38 10/08/16 07:38 10/08/16 07:38 10/08/16 07:38 10/08/16 07:38 Intake & Output 10/07/16 10/08/16 10/09/16 06:59 06:59 06:59 Intake Total 5077 5274 Output Total 6300 6250 Balance -1223 -976 Weight 115.2 kg 124.4 kg General appearance: PRESENT: no acute distress, well-developed, well-nourished Head exam: PRESENT: atraumatic, normocephalic Eye exam: PRESENT: conjunctiva pink, EOMI, PERRLA. ABSENT: scleral icterus Ear exam: PRESENT: normal external ear exam Mouth exam: PRESENT: moist, tongue midline Neck exam: PRESENT: full ROM. ABSENT: carotid bruit, JVD, lymphadenopathy, thyromegaly Respiratory exam: PRESENT: clear to auscultation merrill Cardiovascular exam: PRESENT: RRR. ABSENT: diastolic murmur, rubs, systolic murmur Pulses: PRESENT: normal dorsalis pedis pul, +2 pedal pulses bilateral Vascular exam: PRESENT: normal capillary refill GI/Abdominal exam: PRESENT: normal bowel sounds, soft. ABSENT: distended, guarding, mass, organolmegaly, rebound, tenderness Rectal exam: PRESENT: deferred Neurological exam: PRESENT: alert, awake, oriented to person, oriented to place , oriented to time, oriented to situation, CN II-XII grossly intact. ABSENT: motor sensory deficit Psychiatric exam: PRESENT: appropriate affect, normal mood. ABSENT: homicidal ideation, suicidal ideation Skin exam: PRESENT: dry, intact, warm. ABSENT: cyanosis, rash Results Laboratory Results: 10/08/16 04:15 10/08/16 04:15 10/08/16 10/08/16 04:15 04:15 WBC 10.7 H RBC 2.75 L Hgb 8.8 L Hct 25.4 L MCV 92 MCH 32.2 MCHC 34.8 RDW 15.6 H Plt Count 157 Seg Neutrophils % Not Reportable Lymphocytes % Not Reportable Monocytes % Not Reportable Eosinophils % Not Reportable Basophils % Not Reportable Absolute Neutrophils Not Reportable Absolute Lymphocytes Not Reportable Absolute Monocytes Not Reportable Absolute Eosinophils Not Reportable Absolute Basophils Not Reportable Sodium 142.0 Potassium 4.3 Chloride 110 H Carbon Dioxide 22 Anion Gap 10 BUN 41 H Creatinine 3.02 H Est GFR ( Amer) 20 L Est GFR (Non-Af Amer) 16 L Glucose 127 H Calcium 11.3 H Impressions: Abdomen/Pelvis CT 10/04/16 00:00 IMPRESSION: NO SIGNIFICANT OR ACUTE PROCESS IN THE ABDOMEN OR PELVIS. Skeletal Survey 10/05/16 00:00 IMPRESSION: Small lucent lesions are identified on the skull, humeri, pelvis, and right femoral series. Correlate with additional evaluation to exclude myeloma or metastatic disease. Chest CT 10/06/16 00:00 IMPRESSION: No dominant lung mass. Small bilateral pleural effusions with basilar atelectasis. Minimal nodularity along the pleural surfaces right greater than left which nonspecific. No measurable masses. Chest X-Ray 10/08/16 00:00 IMPRESSION: NO ACUTE RADIOGRAPHIC FINDING IN THE CHEST. Assessment & Plan - Diagnosis (1) Acute renal failure Qualifiers: Acute renal failure type: unspecified Qualified Code(s): N17.9 - Acute kidney failure, unspecified Is this a current diagnosis for this admission?: YesPlan: Continues IV fluid follow with the nephrology most likely underlying dura myeloma issue (2) Anemia Qualifiers: Anemia type: bone marrow failure Bone marrow failure anemia type: aplastic anemia, due to other external agents Qualified Code(s): D61.2 - Aplastic anemia due to other external agents Is this a current diagnosis for this admission?: YesPlan: Probably patient's need blood (3) Hypercalcemia Is this a current diagnosis for this admission?: YesPlan: all improving (4) Hypokalemia Is this a current diagnosis for this admission?: YesPlan: Replace the potasium (5) Back pain Qualifiers: Back pain location: low back pain Chronicity: acute Is this a current diagnosis for this admission?: YesPlan: Will try again MRI probably on a Saturday (6) Hypertension Is this a current diagnosis for this admission?: YesPlan: Currently hold the losartan HCTZ (7) Edema Qualifiers: Edema type: unspecified Qualified Code(s): R60.9 - Edema, unspecified Is this a current diagnosis for this admission?: Yes (8) Multiple myeloma Qualifiers: Multiple myeloma remission status: unspecified Qualified Code(s): C90.00 - Multiple myeloma not having achieved remission Is this a current diagnosis for this admission?: YesPlan: d/w pt and and dr boone cont f/u with onclogy - Time Time Spent with patient: 15-24 minutes Medications reviewed and adjusted accordingly: Yes Anticipated discharge: Home, Other Within: when bed available - Inpatient Certification Medical Necessity: Need For IV Fluids Post Hospital Care: D/C Thrasher Feeder Documentation - Plan Summary Plan Summary: schd for bone marrow bx
[2016-10-08 15:38] LABS: ALBUMIN UR 2.4 % (.); GAMMA GLOBULIN URINE 93.5 % (.); M-SPIKE % UR 86.4 % (Not Observed)
[2016-10-08 16:39] LABS: FREE KAPPA LIGHT CHAINS 20.88 mg/L (3.30-19.40)
--- NOTE | 2016-10-08 18:18 | PDOC PROGRESS REPORT ---
Subjective Progress Note for:: 10/08/16 Subjective:: Patient seems to be clinically feeling better. She is more awake. She has done well over the weekend with excellent urine output and improving calcium levels with current treatment. Workup showed positive monoclonal spike on serum protein electrophoresis with positive skeletal survey. Patient is scheduled for bone marrow biopsy tomorrow care of Dr. Connor. Her blood pressure is also improved. She denies any other complaints except for persistent bone pains. Physical Exam Vital Signs: Temp Pulse Resp BP Pulse Ox 98.1 F 106 H 19 106/56 L 93 10/08/16 16:16 10/08/16 16:16 10/08/16 16:16 10/08/16 16:16 10/08/16 16:16 Intake & Output 10/07/16 10/08/16 10/09/16 06:59 06:59 06:59 Intake Total 5077 5274 118 Output Total 6300 6250 1200 Balance -1223 -976 -1082 Weight 115.2 kg 124.4 kg Exam: General appearance: PRESENT: no acute distress, cooperative, well-developed, well-nourished Head exam: PRESENT: atraumatic, normocephalic Eye exam: PRESENT: conjunctiva pale, PERRLA. ABSENT: scleral icterus Neck exam: ABSENT: JVD Respiratory exam: PRESENT: Normal breath sounds. ABSENT: crackles, rales, rhonchi, unlabored, wheezes Cardiovascular exam: PRESENT: Regular rate rhythm -+S1, +S2. ABSENT: diastolic murmur, systolic murmur GI/Abdominal exam: PRESENT: normal bowel sounds, soft. ABSENT: guarding, mass, tenderness Extremities exam: Bilateral lower extremity edema improved to just very minimal and trace. Neurological exam: PRESENT: alert, awake, oriented to person, place and time. Skin exam: PRESENT: dry, warm, Results Laboratory Results: 10/08/16 04:15 10/08/16 04:15 10/08/16 10/08/16 04:15 04:15 WBC 10.7 H RBC 2.75 L Hgb 8.8 L Hct 25.4 L MCV 92 MCH 32.2 MCHC 34.8 RDW 15.6 H Plt Count 157 Seg Neutrophils % Not Reportable Lymphocytes % Not Reportable Monocytes % Not Reportable Eosinophils % Not Reportable Basophils % Not Reportable Absolute Neutrophils Not Reportable Absolute Lymphocytes Not Reportable Absolute Monocytes Not Reportable Absolute Eosinophils Not Reportable Absolute Basophils Not Reportable Sodium 142.0 Potassium 4.3 Chloride 110 H Carbon Dioxide 22 Anion Gap 10 BUN 41 H Creatinine 3.02 H Est GFR ( Amer) 20 L Est GFR (Non-Af Amer) 16 L Glucose 127 H Calcium 11.3 H Impressions: Abdomen/Pelvis CT 10/04/16 00:00 IMPRESSION: NO SIGNIFICANT OR ACUTE PROCESS IN THE ABDOMEN OR PELVIS. Skeletal Survey 10/05/16 00:00 IMPRESSION: Small lucent lesions are identified on the skull, humeri, pelvis, and right femoral series. Correlate with additional evaluation to exclude myeloma or metastatic disease. Chest CT 10/06/16 00:00 IMPRESSION: No dominant lung mass. Small bilateral pleural effusions with basilar atelectasis. Minimal nodularity along the pleural surfaces right greater than left which nonspecific. No measurable masses. Chest X-Ray 10/08/16 00:00 IMPRESSION: NO ACUTE RADIOGRAPHIC FINDING IN THE CHEST. 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 Kidney function unchanged but stable. She is nonoliguric. She does not require any renal replacement therapy at this time. Continue to monitor kidney function. (2) Hypercalcemia Is this a current diagnosis for this admission?: YesPlan: Likely secondary to multiple myeloma. Improving with IV fluids and Lasix. Dr. Lal is decreased the rate of the IV fluids to 150 mL per minute. I will decrease the Lasix now to 40 mg IV every 12 hours. (3) Anemia Qualifiers: Anemia type: bone marrow failure Bone marrow failure anemia type: aplastic anemia, due to other external agents Qualified Code(s): D61.2 - Aplastic anemia due to other external agents Is this a current diagnosis for this admission?: YesPlan: Improved with blood transfusion. (4) Hyperphosphatemia Is this a current diagnosis for this admission?: YesPlan: This is due to acute kidney injury. (5) Leg pain Qualifiers: Laterality: bilateral Qualified Code(s): M79.604 - Pain in right leg Is this a current diagnosis for this admission?: Yes (6) Back pain Qualifiers: Back pain location: low back pain Chronicity: acute Is this a current diagnosis for this admission?: Yes (7) Hypertension Is this a current diagnosis for this admission?: YesPlan: Improve and better controlled with improvement of fluid retention. (8) Multiple myeloma Qualifiers: Multiple myeloma remission status: unspecified Qualified Code(s): C90.00 - Multiple myeloma not having achieved remission Is this a current diagnosis for this admission?: YesPlan: Scheduled for bone marrow biopsy per Dr. Connor - Time Time with patient: 15-25 minutes
[2016-10-09] MEDS: HYDROMORPHONE HCL INJ/PF 2 MG/ML AMPULE IV PRN ×4 (03:04→23:44)
[2016-10-09 05:17] LABS: HEMOGLOBIN 8.3 g/dL (12.0-15.5); HGB HCT DIFFERENCE 0.9; MEAN CORPUSCULAR HEMOGLOBIN 32.1 pg (27.0-33.4); MEAN CORPUSCULAR HGB CONC 34.7 g/dL (32.0-36.0); MEAN CORPUSCULAR VOLUME 92 fl (80-97); RED CELL DISTRIBUTION WIDTH 15.8 % (11.5-14.0); WHITE BLOOD COUNT 10.4 10^3/uL (4.0-10.5)
[2016-10-09 05:26] LABS: ANION GAP 10 (5-19); BLOOD UREA NITROGEN 39 mg/dL (7-20); CALCIUM 10.1 mg/dL (8.4-10.2); CARBON DIOXIDE 21 mmol/L (22-30); CHLORIDE 113 mmol/L (98-107); CREATININE RESULT 2.64 mg/dL (0.52-1.25); GLUCOSE 81 mg/dL (75-110); POTASSIUM 3.8 mmol/L (3.6-5.0); SODIUM 144.4 mmol/L (137-145)
[2016-10-09 05:39] LABS: BAND NEUTROPHILS % (MANUAL) 3 % (3-5); BASOPHILS % (MANUAL) 1 % (0-2); EOSINOPHILS % (MANUAL) 2 % (0-6); LYMPHOCYTES % (MANUAL) 15 % (13-45); NUCLEATED RED BLOOD CELLS 1 /100 WBC (0); TOTAL CELLS COUNTED 100
[2016-10-09] MEDS: OXYCODONE HCL IR 5 MG TABLET PO PRN ×2 (05:42→09:08)
[2016-10-09 05:43] LABS: ANISOCYTOSIS 1+; BURR CELLS SLIGHT; POLYCHROMASIA SLIGHT; ROULEAUX SLIGHT; TOXIC GRANULATION SLIGHT; TOXIC VACUOLATION PRESENT
[2016-10-09] MEDS: POTASSI CL 20 MEQ/NS 1L 1,000 ML IV PRN (05:54)
[2016-10-09 07:22] LABS: KAPPA LAMBDA RATIO <0.01 (0.26-1.65)
--- NOTE | 2016-10-09 08:33 | PDOC PROGRESS REPORT ---
Subjective Progress Note for:: 10/09/16 Subjective:: Patient still having fairly severe pain, she is requiring IV pain medication, hard for her to get up because of the pain Physical Exam Vital Signs: Temp Pulse Resp BP Pulse Ox 98.7 F 107 H 16 127/78 H 95 10/09/16 03:44 10/09/16 07:00 10/09/16 03:44 10/09/16 03:44 10/09/16 03:44 Intake & Output 10/08/16 10/09/16 10/10/16 06:59 06:59 06:59 Intake Total 5274 5246 Output Total 6250 4150 Balance -976 1096 Weight 124.4 kg 125.8 kg General appearance: PRESENT: no acute distress, well-developed, well-nourished Head exam: PRESENT: atraumatic, normocephalic Eye exam: PRESENT: conjunctiva pink, EOMI, PERRLA. ABSENT: scleral icterus Ear exam: PRESENT: normal external ear exam Mouth exam: PRESENT: moist, tongue midline Neck exam: ABSENT: carotid bruit, JVD, lymphadenopathy, thyromegaly Respiratory exam: PRESENT: clear to auscultation merrill. ABSENT: rales, rhonchi, wheezes Cardiovascular exam: PRESENT: RRR. ABSENT: diastolic murmur, rubs, systolic murmur Pulses: PRESENT: normal dorsalis pedis pul Vascular exam: PRESENT: normal capillary refill GI/Abdominal exam: PRESENT: normal bowel sounds, soft. ABSENT: distended, guarding, mass, organolmegaly, rebound, tenderness Rectal exam: PRESENT: deferred Extremities exam: PRESENT: full ROM. ABSENT: calf tenderness, clubbing, pedal edema Neurological exam: PRESENT: alert, awake, oriented to person, oriented to place , oriented to time, oriented to situation, CN II-XII grossly intact. ABSENT: motor sensory deficit Psychiatric exam: PRESENT: appropriate affect, normal mood. ABSENT: homicidal ideation, suicidal ideation Skin exam: PRESENT: dry, intact, warm. ABSENT: cyanosis, rash Results Laboratory Results: 10/09/16 04:15 10/09/16 04:15 10/09/16 10/09/16 04:15 04:15 WBC 10.4 RBC 2.60 L Hgb 8.3 L Hct 24.0 L MCV 92 MCH 32.1 MCHC 34.7 RDW 15.8 H Plt Count 144 L Seg Neutrophils % Not Reportable Lymphocytes % Not Reportable Monocytes % Not Reportable Eosinophils % Not Reportable Basophils % Not Reportable Absolute Neutrophils Not Reportable Absolute Lymphocytes Not Reportable Absolute Monocytes Not Reportable Absolute Eosinophils Not Reportable Absolute Basophils Not Reportable Sodium 144.4 Potassium 3.8 Chloride 113 H Carbon Dioxide 21 L Anion Gap 10 BUN 39 H Creatinine 2.64 H Est GFR ( Amer) 23 L Est GFR (Non-Af Amer) 19 L Glucose 81 Calcium 10.1 Impressions: Abdomen/Pelvis CT 10/04/16 00:00 IMPRESSION: NO SIGNIFICANT OR ACUTE PROCESS IN THE ABDOMEN OR PELVIS. Skeletal Survey 10/05/16 00:00 IMPRESSION: Small lucent lesions are identified on the skull, humeri, pelvis, and right femoral series. Correlate with additional evaluation to exclude myeloma or metastatic disease. Chest CT 10/06/16 00:00 IMPRESSION: No dominant lung mass. Small bilateral pleural effusions with basilar atelectasis. Minimal nodularity along the pleural surfaces right greater than left which nonspecific. No measurable masses. Chest X-Ray 10/08/16 00:00 IMPRESSION: NO ACUTE RADIOGRAPHIC FINDING IN THE CHEST. 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 We have the results of the free light chain, her lambda light chain is nearly 11,000, she will require bone marrow biopsy today to help confirm the diagnosis. Today had a long discussion with family, patient, , we spent 45 minutes in discussion. We talked about next steps of care. Hold on transfusion for today, but patient will likely need 1 more unit of packed red blood cell. Once we finish the bone marrow biopsy, we would like to consider treatment while inpatient. (2) Hypercalcemia Is this a current diagnosis for this admission?: YesPlan: Secondary to multiple myeloma, improved now, continue with hydration. (3) Pain, neoplasm-related Plan: Related to bone lesions from multiple myeloma, I will increase OxyContin, oxycodone, and we will try and optimize her pain control as best we can. - Time Time Spent with patient: 35 or more minutes Critical Time spent with patient: 35 or more minutes - Inpatient Certification Based on my medical assessment, after consideration of the patient's comorbidities, presenting symptoms, or acuity I expect that the services needed warrant INPATIENT care.: Yes I certify that my determination is in accordance with my understanding of Medicare's requirements for reasonable and necessary INPATIENT services [42 CFR 412.3e].: Yes Medical Necessity: Need for Pain Control, Need for Surgery, Risk of Complication if Not Cared For in Hospital
[2016-10-09] MEDS ORDERED: POTASSI CL 20 MEQ/NS 1L 1,000 ML IV PRN (08:39)
[2016-10-09 08:51] LABS: PROTHROMBIN TIME 17.7 SEC (11.4-15.4)
[2016-10-09 08:52] LABS: PARTIAL THROMBOPLASTIN TIME 42.5 SEC (23.5-35.8)
[2016-10-09] MEDS: DOCUSATE SODIUM 100 MG CAPSULE PO SCH ×2 (09:08→18:57)
[2016-10-09] MEDS: FUROSEMIDE INJ/PF 40 MG/4 ML SDV IV SCH (09:08)
[2016-10-09] MEDS: OXYCODONE HCL SR 10 MG TABLET PO SCH ×2 (09:10→21:17)
[2016-10-09] MEDS: AMLODIPINE BESYLATE 5 MG TABLET PO SCH (09:11)
--- NOTE | 2016-10-09 09:20 | PDOC PROGRESS REPORT ---
Subjective Progress Note for:: 10/09/16 Subjective:: Patient is doing fair patient is scheduled for the bone marrow biopsy today. Patient's denied any chest pain denied any shortness of the breath. Patient's pain is still there but it is getting better with the current pain medications. Patient have a positive her bowel movement yesterday. Physical Exam Vital Signs: Temp Pulse Resp BP Pulse Ox 99.3 F 109 H 19 103/54 L 93 10/09/16 07:57 10/09/16 07:57 10/09/16 07:57 10/09/16 07:57 10/09/16 07:57 Intake & Output 10/08/16 10/09/16 10/10/16 06:59 06:59 06:59 Intake Total 5274 5246 Output Total 6250 4150 Balance -976 1096 Weight 124.4 kg 125.8 kg General appearance: PRESENT: no acute distress, well-developed, well-nourished Head exam: PRESENT: atraumatic, normocephalic Eye exam: PRESENT: conjunctiva pink, EOMI, PERRLA. ABSENT: scleral icterus Ear exam: PRESENT: normal external ear exam Mouth exam: PRESENT: moist, tongue midline Neck exam: PRESENT: full ROM. ABSENT: carotid bruit, JVD, lymphadenopathy, thyromegaly Respiratory exam: PRESENT: clear to auscultation merrill Cardiovascular exam: PRESENT: RRR. ABSENT: diastolic murmur, rubs, systolic murmur Pulses: PRESENT: normal dorsalis pedis pul, +2 pedal pulses bilateral Vascular exam: PRESENT: normal capillary refill GI/Abdominal exam: PRESENT: normal bowel sounds, soft. ABSENT: distended, guarding, mass, organolmegaly, rebound, tenderness Rectal exam: PRESENT: deferred Neurological exam: PRESENT: alert, awake, oriented to person, oriented to place , oriented to time, oriented to situation, CN II-XII grossly intact. ABSENT: motor sensory deficit Psychiatric exam: PRESENT: appropriate affect, normal mood. ABSENT: homicidal ideation, suicidal ideation Skin exam: PRESENT: dry, intact, warm. ABSENT: cyanosis, rash Results Laboratory Results: 10/09/16 04:15 10/09/16 04:15 10/09/16 10/09/16 04:15 04:15 WBC 10.4 RBC 2.60 L Hgb 8.3 L Hct 24.0 L MCV 92 MCH 32.1 MCHC 34.7 RDW 15.8 H Plt Count 144 L Seg Neutrophils % Not Reportable Lymphocytes % Not Reportable Monocytes % Not Reportable Eosinophils % Not Reportable Basophils % Not Reportable Absolute Neutrophils Not Reportable Absolute Lymphocytes Not Reportable Absolute Monocytes Not Reportable Absolute Eosinophils Not Reportable Absolute Basophils Not Reportable Sodium 144.4 Potassium 3.8 Chloride 113 H Carbon Dioxide 21 L Anion Gap 10 BUN 39 H Creatinine 2.64 H Est GFR ( Amer) 23 L Est GFR (Non-Af Amer) 19 L Glucose 81 Calcium 10.1 Impressions: Abdomen/Pelvis CT 10/04/16 00:00 IMPRESSION: NO SIGNIFICANT OR ACUTE PROCESS IN THE ABDOMEN OR PELVIS. Skeletal Survey 10/05/16 00:00 IMPRESSION: Small lucent lesions are identified on the skull, humeri, pelvis, and right femoral series. Correlate with additional evaluation to exclude myeloma or metastatic disease. Chest CT 10/06/16 00:00 IMPRESSION: No dominant lung mass. Small bilateral pleural effusions with basilar atelectasis. Minimal nodularity along the pleural surfaces right greater than left which nonspecific. No measurable masses. Chest X-Ray 10/08/16 00:00 IMPRESSION: NO ACUTE RADIOGRAPHIC FINDING IN THE CHEST. 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 Is this a current diagnosis for this admission?: YesPlan: Currently stable may consider is to transfuse the 1 unit of the blood tomorrow (3) Hypercalcemia Is this a current diagnosis for this admission?: YesPlan: It is all improving (4) Hypokalemia Is this a current diagnosis for this admission?: YesPlan: Currently stable (5) Back pain Qualifiers: Back pain location: low back pain Chronicity: acute Is this a current diagnosis for this admission?: YesPlan: Continues to current pain medication (6) Hypertension Is this a current diagnosis for this admission?: YesPlan: Stable with the current medication (7) Edema Qualifiers: Edema type: unspecified Qualified Code(s): R60.9 - Edema, unspecified Is this a current diagnosis for this admission?: Yes (8) Multiple myeloma Qualifiers: Multiple myeloma remission status: unspecified Qualified Code(s): C90.00 - Multiple myeloma not having achieved remission Is this a current diagnosis for this admission?: YesPlan: Surgeon for the bone marrow biopsy today - Time Time Spent with patient: 15-24 minutes Medications reviewed and adjusted accordingly: Yes Anticipated discharge: Home, Other Within: Other - Inpatient Certification Medical Necessity: Need Close Monitoring Due to Risk of Patient Decompensation, Need For IV Fluids Post Hospital Care: D/C [employer] Diver Documentation - Plan Summary Plan Summary: Continues current medications will follow with oncology and nephrology
[2016-10-09] MEDS ORDERED: MIDAZOLAM 2 MG/2 ML INJ ONE (11:38)
[2016-10-09] MEDS ORDERED: FENTANYL CITRATE INJ/PF 100 MCG/2 ML AMPUL ONE (11:39)
--- NOTE | 2016-10-09 17:11 | PDOC PROGRESS REPORT ---
Subjective Progress Note for:: 10/09/16 Subjective:: Patient underwent bone marrow biopsy today. It was uneventful. She otherwise doesn't have any other new complaints. Physical Exam Vital Signs: Temp Pulse Resp BP Pulse Ox 99.6 F 103 H 19 143/86 H 96 10/09/16 15:50 10/09/16 15:50 10/09/16 15:50 10/09/16 15:50 10/09/16 15:50 Intake & Output 10/08/16 10/09/16 10/10/16 06:59 06:59 06:59 Intake Total 5274 5246 Output Total 6250 4150 Balance -976 1096 Weight 124.4 kg 125.8 kg Exam: General appearance: PRESENT: no acute distress, cooperative, well-developed, well-nourished Head exam: PRESENT: atraumatic, normocephalic Eye exam: PRESENT: conjunctiva pale, PERRLA. ABSENT: scleral icterus Neck exam: ABSENT: JVD Respiratory exam: PRESENT: Normal breath sounds. ABSENT: crackles, rales, rhonchi, unlabored, wheezes Cardiovascular exam: PRESENT: Regular rate rhythm -+S1, +S2. ABSENT: diastolic murmur, systolic murmur GI/Abdominal exam: PRESENT: normal bowel sounds, soft. ABSENT: guarding, mass, tenderness Extremities exam: Her lower extremity edema is almost resolved with just minimal bilateral ankle edema now left. Neurological exam: PRESENT: alert, awake, oriented to person, place and time. Skin exam: PRESENT: dry, warm, Results Laboratory Results: 10/09/16 04:15 10/09/16 04:15 10/09/16 10/09/16 04:15 04:15 WBC 10.4 RBC 2.60 L Hgb 8.3 L Hct 24.0 L MCV 92 MCH 32.1 MCHC 34.7 RDW 15.8 H Plt Count 144 L Seg Neutrophils % Not Reportable Lymphocytes % Not Reportable Monocytes % Not Reportable Eosinophils % Not Reportable Basophils % Not Reportable Absolute Neutrophils Not Reportable Absolute Lymphocytes Not Reportable Absolute Monocytes Not Reportable Absolute Eosinophils Not Reportable Absolute Basophils Not Reportable Sodium 144.4 Potassium 3.8 Chloride 113 H Carbon Dioxide 21 L Anion Gap 10 BUN 39 H Creatinine 2.64 H Est GFR ( Amer) 23 L Est GFR (Non-Af Amer) 19 L Glucose 81 Calcium 10.1 Impressions: Abdomen/Pelvis CT 10/04/16 00:00 IMPRESSION: NO SIGNIFICANT OR ACUTE PROCESS IN THE ABDOMEN OR PELVIS. Skeletal Survey 10/05/16 00:00 IMPRESSION: Small lucent lesions are identified on the skull, humeri, pelvis, and right femoral series. Correlate with additional evaluation to exclude myeloma or metastatic disease. Chest CT 10/06/16 00:00 IMPRESSION: No dominant lung mass. Small bilateral pleural effusions with basilar atelectasis. Minimal nodularity along the pleural surfaces right greater than left which nonspecific. No measurable masses. Chest X-Ray 10/08/16 00:00 IMPRESSION: NO ACUTE RADIOGRAPHIC FINDING IN THE CHEST. Bone Biopsy CT 10/09/16 00:00 IMPRESSION: CT GUIDED BIOPSY OF THE RIGHT POSTERIOR ILIAC CREST FOR BONE MARROW ASPIRATE EVALUATION PERFORMED WITHOUT IMMEDIATE COMPLICATION. PATHOLOGY PENDING. 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 Kidney function improved today . She is nonoliguric. She does not require any renal replacement therapy at this time. Continue to monitor kidney function. (2) Hypercalcemia Is this a current diagnosis for this admission?: YesPlan: Likely secondary to multiple myeloma. Improving and now within normal limits with IV fluids and Lasix. Dr. Lal is decreased the rate of the IV fluids to 125 mL per minute. I will change the Lasix now to 40 mg by mouth twice a day and decrease IV fluids further to 100 mL per minute just for maintenance. 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 Due to multiple myeloma. (4) Hyperphosphatemia Is this a current diagnosis for this admission?: YesPlan: This is due to acute kidney injury. (5) Hypertension Is this a current diagnosis for this admission?: YesPlan: Continue current medications. (6) Leg pain Qualifiers: Laterality: bilateral Qualified Code(s): M79.604 - Pain in right leg Is this a current diagnosis for this admission?: Yes (7) Back pain Qualifiers: Back pain location: low back pain Chronicity: acute Is this a current diagnosis for this admission?: Yes (8) Multiple myeloma Qualifiers: Multiple myeloma remission status: unspecified Qualified Code(s): C90.00 - Multiple myeloma not having achieved remission Is this a current diagnosis for this admission?: YesPlan: Status post bone marrow biopsy. Management per Dr. Connor. - Time Time with patient: 15-25 minutes
[2016-10-09] MEDS: FUROSEMIDE 40 MG TABLET PO SCH (18:57)
[2016-10-10] MEDS: ACETAMINOPHEN 325 MG TABLET PO PRN (06:00)
[2016-10-10] MEDS: POTASSI CL 20 MEQ/NS 1L 1,000 ML IV PRN (06:04)
[2016-10-10 07:31] LABS: ABSOLUTE EOSINOPHILS # (AUTO) 0.2 10^3/uL (0.0-0.6); ABSOLUTE LYMPHOCYTES (AUTO) 1.8 10^3/uL (0.5-4.7); ABSOLUTE MONOCYTES (AUTO) 1.4 10^3/uL (0.1-1.4); ABSOLUTE NEUT (AUTO) 5.6 10^3/uL (1.7-8.2); BASOPHILS % (AUTO) 0.2 % (0-2); EOSINOPHILS % (AUTO) 1.9 % (0-6); HGB HCT DIFFERENCE 0.7; LYMPHOCYTES % (AUTO) 19.7 % (13-45); MEAN CORPUSCULAR HEMOGLOBIN 31.5 pg (27.0-33.4); MEAN CORPUSCULAR HGB CONC 34.2 g/dL (32.0-36.0); MEAN CORPUSCULAR VOLUME 92 fl (80-97); MONOCYTES % (AUTO) 15.8 % (3-13); RED CELL DISTRIBUTION WIDTH 15.8 % (11.5-14.0); SEGMENTED NEUTROPHILS % (AUTO) 62.4 % (42-78)
[2016-10-10 07:33] LABS: HEMOGLOBIN 7.9 g/dL (12.0-15.5)
[2016-10-10 07:50] LABS: ANION GAP 9 (5-19); BLOOD UREA NITROGEN 40 mg/dL (7-20); CARBON DIOXIDE 20 mmol/L (22-30); CHLORIDE 113 mmol/L (98-107); CREATININE RESULT 3.54 mg/dL (0.52-1.25); GLUCOSE 86 mg/dL (75-110); POTASSIUM 4.1 mmol/L (3.6-5.0); SODIUM 142.3 mmol/L (137-145)
[2016-10-10] MEDS ORDERED: NORMAL SALINE 250 ML IV PRN ×2 (07:59)
--- NOTE | 2016-10-10 08:25 | EKG REPORT ---
SEVERITY:- BORDERLINE ECG - SINUS TACHYCARDIA BORDERLINE T WAVE ABNORMALITIES : Confirmed by: Noe Dunn 10-Oct-2016 08:25:41
[2016-10-10] MEDS ORDERED: FUROSEMIDE INJ/PF 20 MG/2 ML SDV IV PRN (09:00)
[2016-10-10] MEDS: OXYCODONE HCL SR 10 MG TABLET PO SCH ×2 (09:17→21:02)
[2016-10-10] MEDS: OXYCODONE HCL IR 5 MG TABLET PO PRN ×2 (09:17→17:26)
[2016-10-10] MEDS: DOCUSATE SODIUM 100 MG CAPSULE PO SCH ×2 (09:18→17:27)
[2016-10-10] MEDS: FUROSEMIDE 40 MG TABLET PO SCH ×2 (09:18→17:27)
[2016-10-10] MEDS: AMLODIPINE BESYLATE 5 MG TABLET PO SCH (09:19)
[2016-10-10 09:23] LABS: CREATINE KINASE MB 2.26 ng/mL (<4.55); TROPONIN I 0.024 ng/mL
[2016-10-10] MEDS: CEFTRIAXONE 1 GM/D5W RTU 50 ML IV SCH (09:23)
--- NOTE | 2016-10-10 10:03 | PDOC PROGRESS REPORT ---
Subjective Progress Note for:: 10/10/16 Subjective:: Patient is doing fair patient had a bone marrow biopsy done yesterdayPatient's overnight the telemetry the heart rate was 08/14/1939 range and patient was asymptomatic the patient EKG was showing the sinus tachycardiaPatients denied any shortness of the breath patient hemoglobin was 7.5 this morning I think there may contribute the patient's heart rates go up Physical Exam Vital Signs: Temp Pulse Resp BP Pulse Ox 99.2 F 111 H 18 134/69 H 98 10/10/16 07:24 10/10/16 07:24 10/10/16 07:24 10/10/16 07:24 10/10/16 07:24 Intake & Output 10/09/16 10/10/16 10/11/16 06:59 06:59 06:59 Intake Total 5246 3400 Output Total 4150 1225 Balance 1096 2175 Weight 125.8 kg 123.5 kg General appearance: PRESENT: no acute distress, well-developed, well-nourished Head exam: PRESENT: atraumatic, normocephalic Eye exam: PRESENT: conjunctiva pink, EOMI, PERRLA. ABSENT: scleral icterus Ear exam: PRESENT: normal external ear exam Mouth exam: PRESENT: moist, tongue midline Neck exam: PRESENT: full ROM. ABSENT: carotid bruit, JVD, lymphadenopathy, thyromegaly Respiratory exam: PRESENT: clear to auscultation merrill Cardiovascular exam: PRESENT: RRR. ABSENT: diastolic murmur, rubs, systolic murmur Pulses: PRESENT: normal dorsalis pedis pul, +2 pedal pulses bilateral Vascular exam: PRESENT: normal capillary refill GI/Abdominal exam: PRESENT: normal bowel sounds, soft. ABSENT: distended, guarding, mass, organolmegaly, rebound, tenderness Rectal exam: PRESENT: deferred Neurological exam: PRESENT: alert, awake, oriented to person, oriented to place , oriented to time, oriented to situation, CN II-XII grossly intact. ABSENT: motor sensory deficit Psychiatric exam: PRESENT: appropriate affect, normal mood. ABSENT: homicidal ideation, suicidal ideation Skin exam: PRESENT: dry, intact, warm. ABSENT: cyanosis, rash Results Laboratory Results: 10/10/16 06:55 10/10/16 06:55 10/10/16 10/10/16 10/10/16 06:55 06:55 06:55 WBC 9.0 RBC 2.50 L Hgb 7.9 L Hct 23.0 L MCV 92 MCH 31.5 MCHC 34.2 RDW 15.8 H Plt Count 150 Seg Neutrophils % 62.4 Lymphocytes % 19.7 Monocytes % 15.8 H Eosinophils % 1.9 Basophils % 0.2 Absolute Neutrophils 5.6 Absolute Lymphocytes 1.8 Absolute Monocytes 1.4 Absolute Eosinophils 0.2 Absolute Basophils 0.0 Sodium 142.3 Potassium 4.1 Chloride 113 H Carbon Dioxide 20 L Anion Gap 9 BUN 40 H Creatinine 3.54 H Est GFR ( Amer) 16 L Est GFR (Non-Af Amer) 13 L Glucose 86 Calcium 9.0 Magnesium 1.6 10/10/16 10/10/16 08:31 08:31 Creatine Kinase 176 H CK-MB (CK-2) 2.26 Troponin I 0.024 Impressions: Abdomen/Pelvis CT 10/04/16 00:00 IMPRESSION: NO SIGNIFICANT OR ACUTE PROCESS IN THE ABDOMEN OR PELVIS. Skeletal Survey 10/05/16 00:00 IMPRESSION: Small lucent lesions are identified on the skull, humeri, pelvis, and right femoral series. Correlate with additional evaluation to exclude myeloma or metastatic disease. Chest CT 10/06/16 00:00 IMPRESSION: No dominant lung mass. Small bilateral pleural effusions with basilar atelectasis. Minimal nodularity along the pleural surfaces right greater than left which nonspecific. No measurable masses. Chest X-Ray 10/08/16 00:00 IMPRESSION: NO ACUTE RADIOGRAPHIC FINDING IN THE CHEST. Bone Biopsy CT 10/09/16 00:00 IMPRESSION: CT GUIDED BIOPSY OF THE RIGHT POSTERIOR ILIAC CREST FOR BONE MARROW ASPIRATE EVALUATION PERFORMED WITHOUT IMMEDIATE COMPLICATION. PATHOLOGY PENDING. 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 Is this a current diagnosis for this admission?: YesPlan: Transfused 1 unit of the blood (3) Hypercalcemia Is this a current diagnosis for this admission?: YesPlan: Is also improving (4) Hypokalemia Is this a current diagnosis for this admission?: YesPlan: Currently stable (5) Back pain Qualifiers: Back pain location: low back pain Chronicity: acute Is this a current diagnosis for this admission?: YesPlan: Currently on pain medications discussed with the patient's to suggest physical therapy (6) Hypertension Is this a current diagnosis for this admission?: YesPlan: Currently stable (7) Edema Qualifiers: Edema type: unspecified Qualified Code(s): R60.9 - Edema, unspecified Is this a current diagnosis for this admission?: Yes (8) Multiple myeloma Qualifiers: Multiple myeloma remission status: unspecified Qualified Code(s): C90.00 - Multiple myeloma not having achieved remission Is this a current diagnosis for this admission?: YesPlan: Bone marrow biopsy was done yesterday will get the follow with the oncology (9) Sinus tachycardia Is this a current diagnosis for this admission?: YesPlan: Most likely underlying anemia will get the VQ scan to rule out any underlying PE and also possible may be overnight fever will get the fever workup to (10) Fever Qualifiers: Fever type: unspecified Qualified Code(s): R50.9 - Fever, unspecified Is this a current diagnosis for this admission?: YesPlan: We will get the culture blood and culture urine and a chest x-ray and start the patient on IV Rocephin - Time Time Spent with patient: 25-34 minutes Medications reviewed and adjusted accordingly: Yes Anticipated discharge: Home Within: Other - Inpatient Certification Medical Necessity: Need For IV Fluids, Need for IV Antibiotics Post Hospital Care: D/C 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
[2016-10-10] MEDS ORDERED: FUROSEMIDE INJ/PF 40 MG/4 ML SDV IV ONE (13:00)
[2016-10-10] MEDS: HYDROMORPHONE HCL INJ/PF 2 MG/ML AMPULE IV PRN (13:31)
[2016-10-10 15:18] LABS: CREATINE KINASE MB 2.64 ng/mL (<4.55); TROPONIN I 0.018 ng/mL
[2016-10-10 18:15] LABS: HEMATOCRIT 27.6 % (36.0-47.0); HEMOGLOBIN 9.6 g/dL (12.0-15.5); HGB HCT DIFFERENCE 1.2; MEAN CORPUSCULAR HEMOGLOBIN 31.4 pg (27.0-33.4); MEAN CORPUSCULAR HGB CONC 34.8 g/dL (32.0-36.0); MEAN CORPUSCULAR VOLUME 90 fl (80-97); RED BLOOD COUNT 3.06 10^6/uL (3.72-5.28); WHITE BLOOD COUNT 10.6 10^3/uL (4.0-10.5)
[2016-10-10 18:27] LABS: BAND NEUTROPHILS % (MANUAL) 1 % (3-5); BASOPHILS % (MANUAL) 0 % (0-2); EOSINOPHILS % (MANUAL) 0 % (0-6); LYMPHOCYTES % (MANUAL) 20 % (13-45); TOTAL CELLS COUNTED 100
[2016-10-10 18:29] LABS: ANISOCYTOSIS 1+; OVALOCYTES SLIGHT; POIKILOCYTOSIS SLIGHT
[2016-10-10 18:30] LABS: TOXIC VACUOLATION PRESENT
--- NOTE | 2016-10-10 20:25 | PDOC PROGRESS REPORT ---
Subjective Progress Note for:: 10/10/16 Subjective:: Patient has been stable so far. She remains to be mildly tachycardic. Her blood pressure has some tendency to be on the low side at times. She remains to have good urine output. She was transfused 1 unit of packed RBC today. Physical Exam Vital Signs: Temp Pulse Resp BP Pulse Ox 99.5 F 96 18 113/82 98 10/10/16 16:51 10/10/16 15:55 10/10/16 16:51 10/10/16 16:51 10/10/16 16:51 Intake & Output 10/09/16 10/10/16 10/11/16 06:59 06:59 06:59 Intake Total 5246 3400 1152 Output Total 4150 1225 600 Balance 1096 2175 552 Weight 125.8 kg 123.5 kg Exam: General appearance: PRESENT: no acute distress, cooperative, well-developed, well-nourished Head exam: PRESENT: atraumatic, normocephalic Eye exam: PRESENT: conjunctiva pale, PERRLA. ABSENT: scleral icterus Neck exam: ABSENT: JVD Respiratory exam: PRESENT: Diminished breath sounds. ABSENT: crackles, rales, rhonchi, unlabored, wheezes Cardiovascular exam: PRESENT: Regular rate rhythm -+S1, +S2. ABSENT: diastolic murmur, systolic murmur GI/Abdominal exam: PRESENT: normal bowel sounds, soft. ABSENT: guarding, mass, tenderness Extremities exam: ABSENT: No edema Neurological exam: PRESENT: alert, awake, oriented to person, place and time. Skin exam: PRESENT: dry, warm, Results Laboratory Results: 10/10/16 18:00 10/10/16 06:55 10/10/16 10/10/16 10/10/16 06:55 06:55 06:55 WBC 9.0 RBC 2.50 L Hgb 7.9 L Hct 23.0 L MCV 92 MCH 31.5 MCHC 34.2 RDW 15.8 H Plt Count 150 Seg Neutrophils % 62.4 Lymphocytes % 19.7 Monocytes % 15.8 H Eosinophils % 1.9 Basophils % 0.2 Absolute Neutrophils 5.6 Absolute Lymphocytes 1.8 Absolute Monocytes 1.4 Absolute Eosinophils 0.2 Absolute Basophils 0.0 Sodium 142.3 Potassium 4.1 Chloride 113 H Carbon Dioxide 20 L Anion Gap 9 BUN 40 H Creatinine 3.54 H Est GFR ( Amer) 16 L Est GFR (Non-Af Amer) 13 L Glucose 86 Calcium 9.0 Magnesium 1.6 Blood Type Antibody Screen 10/10/16 10/10/16 08:31 18:00 WBC 10.6 H RBC 3.06 L Hgb 9.6 L Hct 27.6 L MCV 90 MCH 31.4 MCHC 34.8 RDW 16.0 H Plt Count 147 L Seg Neutrophils % Not Reportable Lymphocytes % Not Reportable Monocytes % Not Reportable Eosinophils % Not Reportable Basophils % Not Reportable Absolute Neutrophils Not Reportable Absolute Lymphocytes Not Reportable Absolute Monocytes Not Reportable Absolute Eosinophils Not Reportable Absolute Basophils Not Reportable Sodium Potassium Chloride Carbon Dioxide Anion Gap BUN Creatinine Est GFR ( Amer) Est GFR (Non-Af Amer) Glucose Calcium Magnesium Blood Type O POSITIVE Antibody Screen NEGATIVE 10/10/16 10/10/16 10/10/16 08:31 08:31 14:25 Creatine Kinase 176 H 170 H CK-MB (CK-2) 2.26 Troponin I 0.024 10/10/16 14:25 Creatine Kinase CK-MB (CK-2) 2.64 Troponin I 0.018 Impressions: Abdomen/Pelvis CT 10/04/16 00:00 IMPRESSION: NO SIGNIFICANT OR ACUTE PROCESS IN THE ABDOMEN OR PELVIS. Skeletal Survey 10/05/16 00:00 IMPRESSION: Small lucent lesions are identified on the skull, humeri, pelvis, and right femoral series. Correlate with additional evaluation to exclude myeloma or metastatic disease. Chest CT 10/06/16 00:00 IMPRESSION: No dominant lung mass. Small bilateral pleural effusions with basilar atelectasis. Minimal nodularity along the pleural surfaces right greater than left which nonspecific. No measurable masses. Bone Biopsy CT 10/09/16 00:00 IMPRESSION: CT GUIDED BIOPSY OF THE RIGHT POSTERIOR ILIAC CREST FOR BONE MARROW ASPIRATE EVALUATION PERFORMED WITHOUT IMMEDIATE COMPLICATION. PATHOLOGY PENDING. Chest X-Ray 10/10/16 00:00 IMPRESSION: Findings suggesting interstitial pulmonary edema and small bilateral pleural effusions. Lung Scan-VQ NM 10/10/16 00:00 IMPRESSION: No ventilation-perfusion mismatches. Lumbar Spine MRI 10/10/16 17:09 IMPRESSION: Very limited study. There are however multilevel epidural soft tissue mass is just posterior to the vertebral bodies resulting in severe compromise of the canal. In addition, at the discs levels, there is marked spinal stenosis related to posterior element overgrowth. MRI with contrast should be performed to further evaluate the epidural soft tissue masses. 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 Kidney function seems worse today with creatinine being elevated. She is nonoliguric. She does not require any renal replacement therapy at this time. Continue to monitor kidney function. I will hold the Lasix for now but continue the IV fluids. (2) Hypercalcemia Is this a current diagnosis for this admission?: YesPlan: Likely secondary to multiple myeloma. Currently within normal limits. Continue maintenance IV fluids. 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 Due to multiple myeloma. Transfuse 1 unit of packed RBC today. (4) Hyperphosphatemia Is this a current diagnosis for this admission?: YesPlan: This is due to acute kidney injury. (5) Hypertension Is this a current diagnosis for this admission?: YesPlan: Somewhat lowish. (6) Leg pain Qualifiers: Laterality: bilateral Qualified Code(s): M79.604 - Pain in right leg Is this a current diagnosis for this admission?: Yes (7) Back pain Qualifiers: Back pain location: low back pain Chronicity: acute Is this a current diagnosis for this admission?: Yes (8) Multiple myeloma Qualifiers: Multiple myeloma remission status: unspecified Qualified Code(s): C90.00 - Multiple myeloma not having achieved remission Is this a current diagnosis for this admission?: YesPlan: Status post bone marrow biopsy. Management per Dr. Connor. - Time Time with patient: 15-25 minutes
[2016-10-10 21:18] LABS: CREATINE KINASE MB 2.75 ng/mL (<4.55); TROPONIN I 0.017 ng/mL
[2016-10-11] MEDS: ACETAMINOPHEN 325 MG TABLET PO PRN (00:17)
[2016-10-11] MEDS: POTASSI CL 20 MEQ/NS 1L 1,000 ML IV PRN (01:32)
[2016-10-11 05:07] LABS: HEMATOCRIT 25.1 % (36.0-47.0); HEMOGLOBIN 8.8 g/dL (12.0-15.5); HGB HCT DIFFERENCE 1.3; MEAN CORPUSCULAR HEMOGLOBIN 31.6 pg (27.0-33.4); MEAN CORPUSCULAR HGB CONC 35.1 g/dL (32.0-36.0); MEAN CORPUSCULAR VOLUME 90 fl (80-97); RED BLOOD COUNT 2.78 10^6/uL (3.72-5.28); WHITE BLOOD COUNT 9.1 10^3/uL (4.0-10.5)
[2016-10-11 05:34] LABS: ANION GAP 11 (5-19); BLOOD UREA NITROGEN 45 mg/dL (7-20); CALCIUM 8.3 mg/dL (8.4-10.2); CARBON DIOXIDE 18 mmol/L (22-30); CHLORIDE 112 mmol/L (98-107); CREATININE RESULT 4.05 mg/dL (0.52-1.25); GLUCOSE 85 mg/dL (75-110); MAGNESIUM 1.7 mg/dL (1.6-2.3); PHOSPHORUS 3.9 mg/dL (2.5-4.5); POTASSIUM 4.3 mmol/L (3.6-5.0)
[2016-10-11 05:46] LABS: BAND NEUTROPHILS % (MANUAL) 2 % (3-5); BASOPHILS % (MANUAL) 0 % (0-2); EOSINOPHILS % (MANUAL) 3 % (0-6); LYMPHOCYTES % (MANUAL) 25 % (13-45); TOTAL CELLS COUNTED 100
[2016-10-11 05:47] LABS: ANISOCYTOSIS SLIGHT; OVALOCYTES SLIGHT; POIKILOCYTOSIS SLIGHT; POLYCHROMASIA SLIGHT; TOXIC GRANULATION SLIGHT; TOXIC VACUOLATION PRESENT
[2016-10-11] MEDS: OXYCODONE HCL IR 5 MG TABLET PO PRN ×2 (05:56→10:00)
--- NOTE | 2016-10-11 08:18 | PDOC PROGRESS REPORT ---
Subjective Progress Note for:: 10/11/16 Subjective:: Reviewed lumbar spine MRI, there are multiple areas of spinal stenosis 2nd to compression from soft tissue mass from L2-L5. She con't to have severe pain but controlled when pt not moving, when she tries to get up has severe pain Physical Exam Vital Signs: Temp Pulse Resp BP Pulse Ox 98.0 F 106 H 18 133/63 H 95 10/11/16 07:21 10/11/16 07:21 10/11/16 07:21 10/11/16 07:21 10/11/16 07:21 Intake & Output 10/10/16 10/11/16 10/12/16 06:59 06:59 06:59 Intake Total 3400 2705 Output Total 1225 1700 Balance 2175 1005 Weight 123.5 kg 126.2 kg General appearance: PRESENT: no acute distress, well-developed, well-nourished Head exam: PRESENT: atraumatic, normocephalic Eye exam: PRESENT: conjunctiva pink, EOMI, PERRLA. ABSENT: scleral icterus Ear exam: PRESENT: normal external ear exam Mouth exam: PRESENT: moist, tongue midline Neck exam: ABSENT: carotid bruit, JVD, lymphadenopathy, thyromegaly Respiratory exam: PRESENT: clear to auscultation merrill. ABSENT: rales, rhonchi, wheezes Cardiovascular exam: PRESENT: RRR. ABSENT: diastolic murmur, rubs, systolic murmur Pulses: PRESENT: normal dorsalis pedis pul Vascular exam: PRESENT: normal capillary refill GI/Abdominal exam: PRESENT: normal bowel sounds, soft. ABSENT: distended, guarding, mass, organolmegaly, rebound, tenderness Rectal exam: PRESENT: deferred Extremities exam: PRESENT: full ROM. ABSENT: calf tenderness, clubbing, pedal edema Neurological exam: PRESENT: alert, awake, oriented to person, oriented to place , oriented to time, oriented to situation, CN II-XII grossly intact. ABSENT: motor sensory deficit Psychiatric exam: PRESENT: appropriate affect, normal mood. ABSENT: homicidal ideation, suicidal ideation Skin exam: PRESENT: dry, intact, warm. ABSENT: cyanosis, rash Results Laboratory Results: 10/11/16 04:05 10/11/16 04:05 10/10/16 10/10/16 10/11/16 08:31 18:00 04:05 WBC 10.6 H RBC 3.06 L Hgb 9.6 L Hct 27.6 L MCV 90 MCH 31.4 MCHC 34.8 RDW 16.0 H Plt Count 147 L Seg Neutrophils % Not Reportable Lymphocytes % Not Reportable Monocytes % Not Reportable Eosinophils % Not Reportable Basophils % Not Reportable Absolute Neutrophils Not Reportable Absolute Lymphocytes Not Reportable Absolute Monocytes Not Reportable Absolute Eosinophils Not Reportable Absolute Basophils Not Reportable Sodium 141.0 Potassium 4.3 Chloride 112 H Carbon Dioxide 18 L Anion Gap 11 BUN 45 H Creatinine 4.05 H Est GFR ( Amer) 14 L Est GFR (Non-Af Amer) 12 L Glucose 85 Calcium 8.3 L Phosphorus 3.9 Magnesium 1.7 Blood Type O POSITIVE Antibody Screen NEGATIVE 10/11/16 04:05 WBC 9.1 RBC 2.78 L Hgb 8.8 L Hct 25.1 L MCV 90 MCH 31.6 MCHC 35.1 RDW 16.0 H Plt Count 148 L Seg Neutrophils % Not Reportable Lymphocytes % Not Reportable Monocytes % Not Reportable Eosinophils % Not Reportable Basophils % Not Reportable Absolute Neutrophils Not Reportable Absolute Lymphocytes Not Reportable Absolute Monocytes Not Reportable Absolute Eosinophils Not Reportable Absolute Basophils Not Reportable Sodium Potassium Chloride Carbon Dioxide Anion Gap BUN Creatinine Est GFR ( Amer) Est GFR (Non-Af Amer) Glucose Calcium Phosphorus Magnesium Blood Type Antibody Screen 10/10/16 10/10/16 10/10/16 08:31 08:31 14:25 Creatine Kinase 176 H 170 H CK-MB (CK-2) 2.26 Troponin I 0.024 10/10/16 10/10/16 10/10/16 14:25 20:30 20:30 Creatine Kinase 174 H CK-MB (CK-2) 2.64 2.75 Troponin I 0.018 0.017 Impressions: Abdomen/Pelvis CT 10/04/16 00:00 IMPRESSION: NO SIGNIFICANT OR ACUTE PROCESS IN THE ABDOMEN OR PELVIS. Skeletal Survey 10/05/16 00:00 IMPRESSION: Small lucent lesions are identified on the skull, humeri, pelvis, and right femoral series. Correlate with additional evaluation to exclude myeloma or metastatic disease. Chest CT 10/06/16 00:00 IMPRESSION: No dominant lung mass. Small bilateral pleural effusions with basilar atelectasis. Minimal nodularity along the pleural surfaces right greater than left which nonspecific. No measurable masses. Bone Biopsy CT 10/09/16 00:00 IMPRESSION: CT GUIDED BIOPSY OF THE RIGHT POSTERIOR ILIAC CREST FOR BONE MARROW ASPIRATE EVALUATION PERFORMED WITHOUT IMMEDIATE COMPLICATION. PATHOLOGY PENDING. Chest X-Ray 10/10/16 00:00 IMPRESSION: Findings suggesting interstitial pulmonary edema and small bilateral pleural effusions. Lung Scan-VQ NM 10/10/16 00:00 IMPRESSION: No ventilation-perfusion mismatches. Lumbar Spine MRI 10/10/16 17:09 IMPRESSION: Very limited study. There are however multilevel epidural soft tissue mass is just posterior to the vertebral bodies resulting in severe compromise of the canal. In addition, at the discs levels, there is marked spinal stenosis related to posterior element overgrowth. MRI with contrast should be performed to further evaluate the epidural soft tissue masses. 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 +Mspike, serum free light chain, awaiting bone marrow results. Plan for XRT to lumbar spine. Start dex today. Will need to start chemo also soon, likely velcade based rx. - Time Time Spent with patient: 35 or more minutes Critical Time spent with patient: 35 or more minutes - Inpatient Certification Based on my medical assessment, after consideration of the patient's comorbidities, presenting symptoms, or acuity I expect that the services needed warrant INPATIENT care.: Yes I certify that my determination is in accordance with my understanding of Medicare's requirements for reasonable and necessary INPATIENT services [42 CFR 412.3e].: Yes Medical Necessity: Need for Pain Control, Risk of Complication if Not Cared For in Hospital
[2016-10-11] MEDS ORDERED: DEXAMETHASONE SOD PHOS INJ 10 MG/1 ML VIAL IV ONE (08:30)
[2016-10-11] MEDS: DOCUSATE SODIUM 100 MG CAPSULE PO SCH ×2 (10:00→19:25)
[2016-10-11] MEDS: OXYCODONE HCL SR 10 MG TABLET PO SCH ×2 (10:01→21:07)
[2016-10-11] MEDS: CEFTRIAXONE 1 GM/D5W RTU 50 ML IV SCH (10:02)
[2016-10-11] MEDS: AMLODIPINE BESYLATE 5 MG TABLET PO SCH (10:10)
--- NOTE | 2016-10-11 13:16 | PDOC PROGRESS REPORT ---
Subjective Progress Note for:: 10/11/16 Subjective:: Patient is doing fair on the yesterday the patient have MRI of LS spine was done with so some epidural mass and a spinal stenosis. Patient still a very hard time to move around. Patient's VQ scan was negative. Patient's discussed with the Dr. Cantrell and consult to Dr. Neal for possible radiation the back Physical Exam Vital Signs: Temp Pulse Resp BP Pulse Ox 98.0 F 106 H 18 133/63 H 95 10/11/16 07:21 10/11/16 07:21 10/11/16 07:21 10/11/16 07:21 10/11/16 07:21 Intake & Output 10/10/16 10/11/16 10/12/16 06:59 06:59 06:59 Intake Total 3400 2705 Output Total 1225 1700 Balance 2175 1005 Weight 123.5 kg 126.2 kg General appearance: PRESENT: no acute distress Eye exam: PRESENT: PERRLA Mouth exam: PRESENT: neck supple Respiratory exam: PRESENT: clear to auscultation merrill Cardiovascular exam: PRESENT: +S1, +S2 GI/Abdominal exam: PRESENT: normal bowel sounds, soft Extremities exam: ABSENT: pedal edema Neurological exam: PRESENT: alert, awake Psychiatric exam: PRESENT: anxious Results Laboratory Results: 10/11/16 04:05 10/11/16 04:05 10/10/16 10/10/16 10/11/16 08:31 18:00 04:05 WBC 10.6 H RBC 3.06 L Hgb 9.6 L Hct 27.6 L MCV 90 MCH 31.4 MCHC 34.8 RDW 16.0 H Plt Count 147 L Seg Neutrophils % Not Reportable Lymphocytes % Not Reportable Monocytes % Not Reportable Eosinophils % Not Reportable Basophils % Not Reportable Absolute Neutrophils Not Reportable Absolute Lymphocytes Not Reportable Absolute Monocytes Not Reportable Absolute Eosinophils Not Reportable Absolute Basophils Not Reportable Sodium 141.0 Potassium 4.3 Chloride 112 H Carbon Dioxide 18 L Anion Gap 11 BUN 45 H Creatinine 4.05 H Est GFR ( Amer) 14 L Est GFR (Non-Af Amer) 12 L Glucose 85 Calcium 8.3 L Phosphorus 3.9 Magnesium 1.7 Blood Type O POSITIVE Antibody Screen NEGATIVE 10/11/16 04:05 WBC 9.1 RBC 2.78 L Hgb 8.8 L Hct 25.1 L MCV 90 MCH 31.6 MCHC 35.1 RDW 16.0 H Plt Count 148 L Seg Neutrophils % Not Reportable Lymphocytes % Not Reportable Monocytes % Not Reportable Eosinophils % Not Reportable Basophils % Not Reportable Absolute Neutrophils Not Reportable Absolute Lymphocytes Not Reportable Absolute Monocytes Not Reportable Absolute Eosinophils Not Reportable Absolute Basophils Not Reportable Sodium Potassium Chloride Carbon Dioxide Anion Gap BUN Creatinine Est GFR ( Amer) Est GFR (Non-Af Amer) Glucose Calcium Phosphorus Magnesium Blood Type Antibody Screen 10/10/16 10/10/16 10/10/16 08:31 08:31 14:25 Creatine Kinase 176 H 170 H CK-MB (CK-2) 2.26 Troponin I 0.024 10/10/16 10/10/16 10/10/16 14:25 20:30 20:30 Creatine Kinase 174 H CK-MB (CK-2) 2.64 2.75 Troponin I 0.018 0.017 Impressions: Abdomen/Pelvis CT 10/04/16 00:00 IMPRESSION: NO SIGNIFICANT OR ACUTE PROCESS IN THE ABDOMEN OR PELVIS. Skeletal Survey 10/05/16 00:00 IMPRESSION: Small lucent lesions are identified on the skull, humeri, pelvis, and right femoral series. Correlate with additional evaluation to exclude myeloma or metastatic disease. Chest CT 10/06/16 00:00 IMPRESSION: No dominant lung mass. Small bilateral pleural effusions with basilar atelectasis. Minimal nodularity along the pleural surfaces right greater than left which nonspecific. No measurable masses. Bone Biopsy CT 10/09/16 00:00 IMPRESSION: CT GUIDED BIOPSY OF THE RIGHT POSTERIOR ILIAC CREST FOR BONE MARROW ASPIRATE EVALUATION PERFORMED WITHOUT IMMEDIATE COMPLICATION. PATHOLOGY PENDING. Chest X-Ray 10/10/16 00:00 IMPRESSION: Findings suggesting interstitial pulmonary edema and small bilateral pleural effusions. Lung Scan-VQ NM 10/10/16 00:00 IMPRESSION: No ventilation-perfusion mismatches. Lumbar Spine MRI 10/10/16 17:09 IMPRESSION: Very limited study. There are however multilevel epidural soft tissue mass is just posterior to the vertebral bodies resulting in severe compromise of the canal. In addition, at the discs levels, there is marked spinal stenosis related to posterior element overgrowth. MRI with contrast should be performed to further evaluate the epidural soft tissue masses. 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 Adams for the pain management (6) Hypertension Is this a current diagnosis for this admission?: YesPlan: Stable (7) Edema Qualifiers: Edema type: unspecified Qualified Code(s): R60.9 - Edema, unspecified Is this a current diagnosis for this admission?: Yes (8) Multiple myeloma Qualifiers: Multiple myeloma remission status: not in remission Qualified Code(s ): C90.00 - Multiple myeloma not having achieved remission Is this a current diagnosis for this admission?: YesPlan: Bone marrow biopsy was done yesterday will get the follow with the oncology (9) Sinus tachycardia Is this a current diagnosis for this admission?: YesPlan: Currently stable most likely a possible from the underlying anemia (10) Fever Qualifiers: Fever type: unspecified Qualified Code(s): R50.9 - Fever, unspecified Is this a current diagnosis for this admission?: YesPlan: Continues to Rocephin and wait for the culture - Time Time Spent with patient: 25-34 minutes Medications reviewed and adjusted accordingly: Yes Anticipated discharge: Other Within: Other - Inpatient Certification Medical Necessity: Significant Comorbidiites Make Outpatient Treatment Too Risky , Need Close Monitoring Due to Risk of Patient Decompensation, Need For IV Fluids, Need for IV Antibiotics Post Hospital Care: D/C Press Bucker Documentation - Plan Summary Plan Summary: Discussed with the patient and the family about the all the current test reports and the following plan and coordinate care with other physicians
[2016-10-11] MEDS: HEPARIN SOD (PORCINE) 5,000 UNIT/ML 1 ML SYRINGE SUBCUT SCH ×2 (14:44→21:06)
[2016-10-11] MEDS: DEXAMETHASONE SOD PHOSPHATE INJ 4 MG/1 ML VIAL IV SCH ×2 (14:44→19:25)
--- NOTE | 2016-10-11 23:53 | CONSULTATION REPORT E ---
Consultation Report NAME: MYCHAL CELESTIN : 1960 AGE: 56Y DATE: 10/11/2016 307 A TO: SONJA ARGUETA PA-C FROM: DAWNA MOSLEY M.D. Requesting Physician CHIEF COMPLAINT: Low back pain. HISTORY OF PRESENT ILLNESS: The patient was admitted last week and recently diagnosed with multiple myeloma. She states she is to start chemotherapy next week. She states she has had back pain for 2 months which has been progressively worsening. She denies any specific injury. She states she has constant sharp, burning pain in her lower back with radiating pain into bilateral buttocks and into posterior bilateral lower extremities to her feet. She denies any numbness, tingling, or weakness in her bilateral lower extremities. She denies bowel or bladder incontinence or saddle anesthesia. She states she has increased pain with standing or moving. She states she has almost no pain when she is lying down at rest. She states that she typically sees [facility] regularly for chronic neck pain due to a Worker's Comp injury. She takes Percocet 5/325 four times daily for this. She states that she has previously taken morphine which made her feel loopy and Fentanyl patches which were not helpful. She has also tried Vicodin in the past which was not helpful either. She thinks she has tried both Neurontin and Lyrica in the past without relief. She states that her current medicine regimen of OxyContin 40 mg Q12 is helpful without side effects. She also has p.o. oxycodone and IV Dilaudid ordered as needed. She has used both of these medications only once a day for breakthrough pain She states her pain has been much better controlled since the OxyContin was added. PAST MEDICAL HISTORY: 1. Hypertension. 2. Chronic neck pain. 3. Osteoarthritis in both knees. PAST SURGICAL HISTORY: 1. Cervical disk surgery 2000. 2. Cholecystectomy 2007. ALLERGIES: No known drug allergies. MEDICATIONS: As per chart. SOCIAL HISTORY: She is . Smokes half pack per day. Drinks socially. REVIEW OF SYSTEMS: CONSTITUTIONAL: She denies fever, chills, dizziness, weakness, or loss of appetite. SKIN: Denies rashes, bruising, itching. Denies diaphoresis. HEENT: Denies visual changes or difficulty hearing. CARDIOVASCULAR: Denies chest pain, edema, or heart palpations. RESPIRATORY: Denies cough or sputum production. GASTROINTESTINAL: Denies nausea, vomiting, diarrhea, denies abdominal pain. She has been positive for constipation. URINARY: Denies dysuria, hematuria. MUSCULOSKELETAL: As per HPI. NEUROLOGIC: As per HPI. She denies bowel or bladder incontinence, saddle anesthesia, seizures, tremors, or loss of consciousness. ENDOCRINE: Denies any recent weight changes. Review of systems is otherwise negative. PHYSICAL EXAM: GENERAL: This is a 56 year old female who appears stated age and is awake, alert, and oriented to person, place, and time. She does appear to be in acute distress. She is laying upright in bed. Her is present in the room as well. She declined the physical exam. DIAGNOSTICS: She had a lumbar MRI on 10/10/2016. This was a very limited study. There are, however, multilevel epidural soft tissue masses just posterior to vertebral bodies resulting in severe compromise of the canal. In addition of the disk levels, there is marked spinal stenosis related to posterior element overgrowth. IMPRESSION AND PLAN: The patient states her pain is currently well controlled with her current medication regimen so we will continue without changes. She is currently taking OxyContin 40 mg q.12 scheduled. She has oxycodone 20 mg q.4 hours as needed ordered but has only taken this once a day and she also has Dilaudid 1 mg IV q.3 hours as needed but has also only used this once today. She states she was able to participate in physical therapy today and is able to rest with much less pain. We will continue the current medication regimen. Please call for further pain management. DICTATING PHYSICIAN: SONJA ARGUETA PA-C [id number] PHY#: [id number] ID: [id number] JOB#: [id number] ACCT: [id number] cc:SONJA ARGUETA PA-C > [facility]
[2016-10-12] MEDS: DEXAMETHASONE SOD PHOSPHATE INJ 4 MG/1 ML VIAL IV SCH ×5 (00:03→23:18)
[2016-10-12] MEDS: OXYCODONE HCL IR 5 MG TABLET PO PRN ×5 (03:17→20:11)
[2016-10-12] MEDS: POTASSI CL 20 MEQ/NS 1L 1,000 ML IV PRN ×2 (03:17→11:33)
[2016-10-12] MEDS: HEPARIN SOD (PORCINE) 5,000 UNIT/ML 1 ML SYRINGE SUBCUT SCH ×3 (05:29→23:17)
--- NOTE | 2016-10-12 08:23 | PDOC PROGRESS REPORT ---
Subjective Progress Note for:: 10/12/16 Subjective:: Patient doing a little bit better today, seems to understand her situation a little bit better, has agreed to do this CT simulation today for radiation. Physical Exam Vital Signs: Temp Pulse Resp BP Pulse Ox 97.9 F 90 16 126/88 H 100 10/12/16 03:29 10/12/16 03:29 10/12/16 03:29 10/12/16 03:29 10/12/16 03:29 Intake & Output 10/11/16 10/12/16 10/13/16 06:59 06:59 06:59 Intake Total 2705 3164 Output Total 1700 1625 Balance 1005 1539 Weight 126.2 kg 127.5 kg General appearance: PRESENT: no acute distress, well-developed, well-nourished Head exam: PRESENT: atraumatic, normocephalic Eye exam: PRESENT: conjunctiva pink, EOMI, PERRLA. ABSENT: scleral icterus Ear exam: PRESENT: normal external ear exam Mouth exam: PRESENT: moist, tongue midline Neck exam: ABSENT: carotid bruit, JVD, lymphadenopathy, thyromegaly Respiratory exam: PRESENT: clear to auscultation merrill. ABSENT: rales, rhonchi, wheezes Cardiovascular exam: PRESENT: RRR. ABSENT: diastolic murmur, rubs, systolic murmur Pulses: PRESENT: normal dorsalis pedis pul Vascular exam: PRESENT: normal capillary refill GI/Abdominal exam: PRESENT: normal bowel sounds, soft. ABSENT: distended, guarding, mass, organolmegaly, rebound, tenderness Rectal exam: PRESENT: deferred Extremities exam: PRESENT: full ROM. ABSENT: calf tenderness, clubbing, pedal edema Neurological exam: PRESENT: alert, awake, oriented to person, oriented to place , oriented to time, oriented to situation, CN II-XII grossly intact. ABSENT: motor sensory deficit Psychiatric exam: PRESENT: appropriate affect, normal mood. ABSENT: homicidal ideation, suicidal ideation Skin exam: PRESENT: dry, intact, warm. ABSENT: cyanosis, rash Results Laboratory Results: 10/11/16 04:05 10/11/16 04:05 10/10/16 10/10/16 10/10/16 08:31 08:31 14:25 Creatine Kinase 176 H 170 H CK-MB (CK-2) 2.26 Troponin I 0.024 10/10/16 10/10/16 10/10/16 14:25 20:30 20:30 Creatine Kinase 174 H CK-MB (CK-2) 2.64 2.75 Troponin I 0.018 0.017 Impressions: Abdomen/Pelvis CT 10/04/16 00:00 IMPRESSION: NO SIGNIFICANT OR ACUTE PROCESS IN THE ABDOMEN OR PELVIS. Skeletal Survey 10/05/16 00:00 IMPRESSION: Small lucent lesions are identified on the skull, humeri, pelvis, and right femoral series. Correlate with additional evaluation to exclude myeloma or metastatic disease. Chest CT 10/06/16 00:00 IMPRESSION: No dominant lung mass. Small bilateral pleural effusions with basilar atelectasis. Minimal nodularity along the pleural surfaces right greater than left which nonspecific. No measurable masses. Bone Biopsy CT 10/09/16 00:00 IMPRESSION: CT GUIDED BIOPSY OF THE RIGHT POSTERIOR ILIAC CREST FOR BONE MARROW ASPIRATE EVALUATION PERFORMED WITHOUT IMMEDIATE COMPLICATION. PATHOLOGY PENDING. Chest X-Ray 10/10/16 00:00 IMPRESSION: Findings suggesting interstitial pulmonary edema and small bilateral pleural effusions. Lung Scan-VQ NM 10/10/16 00:00 IMPRESSION: No ventilation-perfusion mismatches. Lumbar Spine MRI 10/10/16 17:09 IMPRESSION: Very limited study. There are however multilevel epidural soft tissue mass is just posterior to the vertebral bodies resulting in severe compromise of the canal. In addition, at the discs levels, there is marked spinal stenosis related to posterior element overgrowth. MRI with contrast should be performed to further evaluate the epidural soft tissue masses. Thoracic Spine MRI 10/11/16 00:00 IMPRESSION: Small T6-T7 disc protrusion causes mild spinal canal stenosis. No significant cord or nerve root compression. Moderate nonspecific soft tissue swelling of the back at the thoracolumbar junctional levels. Otherwise, no MRI evidence of metastatic disease, as queried. If there is continued clinical suspicion, consider further evaluation with whole-body bone scan, CT PET imaging , and/or contrast MRI survey of the spine. Cervical Spine MRI 10/11/16 10:56 IMPRESSION: Anterior C4-C5 hardware fusion. A moderate C3-C4 disc protrusion mildly compresses the spinal cord. 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 (4) Multiple myeloma Qualifiers: Multiple myeloma remission status: not in remission Qualified Code(s ): C90.00 - Multiple myeloma not having achieved remission Is this a current diagnosis for this admission?: YesPlan: Had long discussion with patient as well as , spent greater than 40 minutes in discussion, I went over her current diagnosis as well as next steps of care. I did receive confirmation from pathology that she has greater than 90 % plasma cells noted on the bone marrow specimen. So multiple myeloma certainly confirmed. Plan for radiation to the spine hopefully starting on Saturday, I will have further discussion over the weekend with family. We will also start Velcade based treatment next week as well. - Time Time Spent with patient: 35 or more minutes Critical Time spent with patient: 35 or more minutes - Inpatient Certification Based on my medical assessment, after consideration of the patient's comorbidities, presenting symptoms, or acuity I expect that the services needed warrant INPATIENT care.: Yes I certify that my determination is in accordance with my understanding of Medicare's requirements for reasonable and necessary INPATIENT services [42 CFR 412.3e].: Yes Medical Necessity: Need for Pain Control, Other - Need for XRT, steroids, chemo start
--- NOTE | 2016-10-12 08:31 | PDOC PROGRESS REPORT ---
Subjective Progress Note for:: 10/12/16 Subjective:: Patient is currently doing fair patient have a tonic explained in the cervical spine was done which is all stable Patient's also seen by Dr. Neal and possible scheduled for the radiation on the back on the Saturday Patient's otherwise denied any chest pain denied any shortness of the breath Patient's all workup so far stable Patient is currently seen by Dr. moya for the renal failure and also seen by Dr. Burden for multiple myeloma Physical Exam Vital Signs: Temp Pulse Resp BP Pulse Ox 97.9 F 90 16 126/88 H 100 10/12/16 03:29 10/12/16 03:29 10/12/16 03:29 10/12/16 03:29 10/12/16 03:29 Intake & Output 10/11/16 10/12/16 10/13/16 06:59 06:59 06:59 Intake Total 2705 3164 Output Total 1700 1625 Balance 1005 1539 Weight 126.2 kg 127.5 kg General appearance: PRESENT: no acute distress, well-developed, well-nourished Head exam: PRESENT: atraumatic, normocephalic Eye exam: PRESENT: conjunctiva pink, EOMI, PERRLA. ABSENT: scleral icterus Ear exam: PRESENT: normal external ear exam Mouth exam: PRESENT: moist, tongue midline Neck exam: PRESENT: full ROM. ABSENT: carotid bruit, JVD, lymphadenopathy, thyromegaly Respiratory exam: PRESENT: clear to auscultation merrill Cardiovascular exam: PRESENT: RRR. ABSENT: diastolic murmur, rubs, systolic murmur Pulses: PRESENT: normal dorsalis pedis pul, +2 pedal pulses bilateral Vascular exam: PRESENT: normal capillary refill GI/Abdominal exam: PRESENT: normal bowel sounds, soft. ABSENT: distended, guarding, mass, organolmegaly, rebound, tenderness Rectal exam: PRESENT: deferred Neurological exam: PRESENT: alert, awake, oriented to person, oriented to place , oriented to time, oriented to situation, CN II-XII grossly intact. ABSENT: motor sensory deficit Psychiatric exam: PRESENT: appropriate affect, normal mood. ABSENT: homicidal ideation, suicidal ideation Skin exam: PRESENT: dry, intact, warm. ABSENT: cyanosis, rash Results Laboratory Results: 10/11/16 04:05 10/11/16 04:05 10/10/16 10/10/16 10/10/16 08:31 08:31 14:25 Creatine Kinase 176 H 170 H CK-MB (CK-2) 2.26 Troponin I 0.024 10/10/16 10/10/16 10/10/16 14:25 20:30 20:30 Creatine Kinase 174 H CK-MB (CK-2) 2.64 2.75 Troponin I 0.018 0.017 Impressions: Abdomen/Pelvis CT 10/04/16 00:00 IMPRESSION: NO SIGNIFICANT OR ACUTE PROCESS IN THE ABDOMEN OR PELVIS. Skeletal Survey 10/05/16 00:00 IMPRESSION: Small lucent lesions are identified on the skull, humeri, pelvis, and right femoral series. Correlate with additional evaluation to exclude myeloma or metastatic disease. Chest CT 10/06/16 00:00 IMPRESSION: No dominant lung mass. Small bilateral pleural effusions with basilar atelectasis. Minimal nodularity along the pleural surfaces right greater than left which nonspecific. No measurable masses. Bone Biopsy CT 10/09/16 00:00 IMPRESSION: CT GUIDED BIOPSY OF THE RIGHT POSTERIOR ILIAC CREST FOR BONE MARROW ASPIRATE EVALUATION PERFORMED WITHOUT IMMEDIATE COMPLICATION. PATHOLOGY PENDING. Chest X-Ray 10/10/16 00:00 IMPRESSION: Findings suggesting interstitial pulmonary edema and small bilateral pleural effusions. Lung Scan-VQ NM 10/10/16 00:00 IMPRESSION: No ventilation-perfusion mismatches. Lumbar Spine MRI 10/10/16 17:09 IMPRESSION: Very limited study. There are however multilevel epidural soft tissue mass is just posterior to the vertebral bodies resulting in severe compromise of the canal. In addition, at the discs levels, there is marked spinal stenosis related to posterior element overgrowth. MRI with contrast should be performed to further evaluate the epidural soft tissue masses. Thoracic Spine MRI 10/11/16 00:00 IMPRESSION: Small T6-T7 disc protrusion causes mild spinal canal stenosis. No significant cord or nerve root compression. Moderate nonspecific soft tissue swelling of the back at the thoracolumbar junctional levels. Otherwise, no MRI evidence of metastatic disease, as queried. If there is continued clinical suspicion, consider further evaluation with whole-body bone scan, CT PET imaging , and/or contrast MRI survey of the spine. Cervical Spine MRI 10/11/16 10:56 IMPRESSION: Anterior C4-C5 hardware fusion. A moderate C3-C4 disc protrusion mildly compresses the spinal cord. 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 Adams for the pain management (6) Hypertension Is this a current diagnosis for this admission?: YesPlan: Stable (7) Edema Qualifiers: Edema type: unspecified Qualified Code(s): R60.9 - Edema, unspecified Is this a current diagnosis for this admission?: Yes (8) Multiple myeloma Qualifiers: Multiple myeloma remission status: not in remission Qualified Code(s ): C90.00 - Multiple myeloma not having achieved remission Is this a current diagnosis for this admission?: YesPlan: Currently follow with oncology and radiation oncology's (9) Sinus tachycardia Is this a current diagnosis for this admission?: YesPlan: Rishi stable (10) Fever Qualifiers: Fever type: unspecified Qualified Code(s): R50.9 - Fever, unspecified Is this a current diagnosis for this admission?: YesPlan: From urinary tract infections currently on IV Rocephin - Time Time Spent with patient: 15-24 minutes Medications reviewed and adjusted accordingly: Yes Anticipated discharge: Home Within: Other - Inpatient Certification Medical Necessity: Need For IV Fluids, Need for IV Antibiotics Post Hospital Care: D/C Change Room Attendant Documentation - Plan Summary Plan Summary: Continues the current medications monitor the patient's fluid overload on the weekends
[2016-10-12] MEDS: CEFTRIAXONE 1 GM/D5W RTU 50 ML IV SCH (10:35)
[2016-10-12] MEDS: AMLODIPINE BESYLATE 5 MG TABLET PO SCH (10:36)
[2016-10-12] MEDS: POLYETHYLENE GLYCOL 3350 POWDER 17 GM/1 PACKET PO PRN (10:37)
[2016-10-12] MEDS: DOCUSATE SODIUM 100 MG CAPSULE PO SCH ×2 (10:37→18:19)
[2016-10-12] MEDS ORDERED: OXYCODONE HCL SR 40 MG TABLET PO ONE (11:00)
--- NOTE | 2016-10-12 17:08 | PDOC PROGRESS REPORT ---
Subjective Progress Note for:: 10/12/16 Subjective:: Patient is feeling overwhelmed with her new diagnosis. Discussion about treatment plan including radiation and chemotherapy was done by Dr. Nikolas bradley with the patient and family yesterday. Since then patient, according to the nurses were is just overwhelmed. Patient refuses for her CT scan today to prepare her for radiation therapy for Saturday. She mentioned that she just want to think things over the weekend. She also mentioned that she desires some second opinion. Otherwise she denies any chest pains, nor shortness of breath, and she continues to make good urine output. Physical Exam Vital Signs: Temp Pulse Resp BP Pulse Ox 97.7 F 111 H 19 143/65 H 94 10/12/16 15:45 10/12/16 15:45 10/12/16 15:45 10/12/16 15:45 10/12/16 15:45 Intake & Output 10/11/16 10/12/16 10/13/16 06:59 06:59 06:59 Intake Total 2705 3164 0 Output Total 1700 1625 275 Balance 1005 1539 -275 Weight 126.2 kg 127.5 kg Exam: General appearance: PRESENT: no acute distress, cooperative, well-developed, well-nourished Head exam: PRESENT: atraumatic, normocephalic Eye exam: PRESENT: conjunctiva pink, PERRLA. ABSENT: scleral icterus Neck exam: ABSENT: JVD Respiratory exam: PRESENT: Diminished breath sounds. ABSENT: crackles, rales, rhonchi, unlabored, wheezes Cardiovascular exam: PRESENT: Regular rate rhythm -+S1, +S2. ABSENT: diastolic murmur, systolic murmur GI/Abdominal exam: PRESENT: normal bowel sounds, soft. ABSENT: guarding, mass, tenderness Extremities exam: ABSENT: No edema Neurological exam: PRESENT: alert, awake, oriented to person, place and time. Skin exam: PRESENT: dry, warm, Results Laboratory Results: 10/11/16 04:05 10/11/16 04:05 10/10/16 09:30 Catheterized Urine Urine Culture - Final Enterococcus Faecalis(Group D) 10/10/16 10/10/16 10/10/16 08:31 08:31 14:25 Creatine Kinase 176 H 170 H CK-MB (CK-2) 2.26 Troponin I 0.024 10/10/16 10/10/16 10/10/16 14:25 20:30 20:30 Creatine Kinase 174 H CK-MB (CK-2) 2.64 2.75 Troponin I 0.018 0.017 Impressions: Abdomen/Pelvis CT 10/04/16 00:00 IMPRESSION: NO SIGNIFICANT OR ACUTE PROCESS IN THE ABDOMEN OR PELVIS. Skeletal Survey 10/05/16 00:00 IMPRESSION: Small lucent lesions are identified on the skull, humeri, pelvis, and right femoral series. Correlate with additional evaluation to exclude myeloma or metastatic disease. Chest CT 10/06/16 00:00 IMPRESSION: No dominant lung mass. Small bilateral pleural effusions with basilar atelectasis. Minimal nodularity along the pleural surfaces right greater than left which nonspecific. No measurable masses. Bone Biopsy CT 10/09/16 00:00 IMPRESSION: CT GUIDED BIOPSY OF THE RIGHT POSTERIOR ILIAC CREST FOR BONE MARROW ASPIRATE EVALUATION PERFORMED WITHOUT IMMEDIATE COMPLICATION. PATHOLOGY PENDING. Chest X-Ray 10/10/16 00:00 IMPRESSION: Findings suggesting interstitial pulmonary edema and small bilateral pleural effusions. Lung Scan-VQ NM 10/10/16 00:00 IMPRESSION: No ventilation-perfusion mismatches. Lumbar Spine MRI 10/10/16 17:09 IMPRESSION: Very limited study. There are however multilevel epidural soft tissue mass is just posterior to the vertebral bodies resulting in severe compromise of the canal. In addition, at the discs levels, there is marked spinal stenosis related to posterior element overgrowth. MRI with contrast should be performed to further evaluate the epidural soft tissue masses. Thoracic Spine MRI 10/11/16 00:00 IMPRESSION: Small T6-T7 disc protrusion causes mild spinal canal stenosis. No significant cord or nerve root compression. Moderate nonspecific soft tissue swelling of the back at the thoracolumbar junctional levels. Otherwise, no MRI evidence of metastatic disease, as queried. If there is continued clinical suspicion, consider further evaluation with whole-body bone scan, CT PET imaging , and/or contrast MRI survey of the spine. Cervical Spine MRI 10/11/16 10:56 IMPRESSION: Anterior C4-C5 hardware fusion. A moderate C3-C4 disc protrusion mildly compresses the spinal cord. 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 Kidney function seems worse today with creatinine being elevated. She is nonoliguric. She does not require any renal replacement therapy at this time. Continue to monitor kidney function. I will hold the Lasix for now but continue the IV fluids. Today I talked to her about possibility of her requiring renal replacement therapy in the form of hemodialysis if her kidney function continues to get worse. She was pretty receptive because she knows about dialysis since her mother was on dialysis previously. So I told her we will continue to monitor her kidney function in the next few days and decide from there. (2) Hypercalcemia Is this a current diagnosis for this admission?: YesPlan: Likely secondary to multiple myeloma. Currently within normal limits. Continue maintenance IV fluids. (3) Urinary tract infection Is this a current diagnosis for this admission?: YesPlan: Due to Enterococcus faecalis. Discontinue ceftriaxone and start IV Levaquin every 48 hours. 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 Due to multiple myeloma. Transfuse 1 unit of packed RBC. (5) Hyperphosphatemia Is this a current diagnosis for this admission?: YesPlan: This is due to acute kidney injury. (6) Hypertension Is this a current diagnosis for this admission?: YesPlan: Controlled. (7) Leg pain Qualifiers: Laterality: bilateral Qualified Code(s): M79.604 - Pain in right leg Is this a current diagnosis for this admission?: Yes (8) Back pain Qualifiers: Back pain location: low back pain Chronicity: acute Is this a current diagnosis for this admission?: Yes (9) Multiple myeloma Qualifiers: Multiple myeloma remission status: not in remission Qualified Code(s ): C90.00 - Multiple myeloma not having achieved remission Is this a current diagnosis for this admission?: YesPlan: Status post bone marrow biopsy. Management per Dr. Connor. - Time Time with patient: 15-25 minutes
[2016-10-12] MEDS: LEVOFLOXACIN 500 MG/D5W RTU 500 MG/100 ML RTUPB IV SCH (18:20)
[2016-10-12] MEDS: OXYCODONE HCL SR 40 MG TABLET PO SCH (23:17)
[2016-10-13] MEDS: OXYCODONE HCL IR 5 MG TABLET PO PRN (04:46)
[2016-10-13 05:29] LABS: HEMATOCRIT 25.6 % (36.0-47.0); HEMOGLOBIN 8.9 g/dL (12.0-15.5); HGB HCT DIFFERENCE 1.1; MEAN CORPUSCULAR HEMOGLOBIN 31.8 pg (27.0-33.4); MEAN CORPUSCULAR VOLUME 91 fl (80-97); RED BLOOD COUNT 2.82 10^6/uL (3.72-5.28); RED CELL DISTRIBUTION WIDTH 16.4 % (11.5-14.0); WHITE BLOOD COUNT 10.3 10^3/uL (4.0-10.5)
[2016-10-13] MEDS: HEPARIN SOD (PORCINE) 5,000 UNIT/ML 1 ML SYRINGE SUBCUT SCH ×3 (05:37→21:20)
[2016-10-13] MEDS: DEXAMETHASONE SOD PHOSPHATE INJ 4 MG/1 ML VIAL IV SCH ×4 (05:37→23:49)
[2016-10-13 05:55] LABS: BLOOD UREA NITROGEN 68 mg/dL (7-20); CALCIUM 7.8 mg/dL (8.4-10.2); CARBON DIOXIDE 16 mmol/L (22-30); CHLORIDE 111 mmol/L (98-107); CREATININE RESULT 4.23 mg/dL (0.52-1.25); GLUCOSE 133 mg/dL (75-110); POTASSIUM 5.1 mmol/L (3.6-5.0)
[2016-10-13 06:04] LABS: ANION GAP 13 (5-19); SODIUM 140.2 mmol/L (137-145)
[2016-10-13] MEDS: SODIUM BICARBONATE 650 MG TABLET PO SCH ×2 (09:38→18:30)
[2016-10-13] MEDS: DOCUSATE SODIUM 100 MG CAPSULE PO SCH ×2 (09:39→18:31)
[2016-10-13] MEDS: AMLODIPINE BESYLATE 5 MG TABLET PO SCH (09:39)
[2016-10-13] MEDS: FUROSEMIDE 40 MG TABLET PO SCH ×2 (09:39→18:31)
[2016-10-13] MEDS: OXYCODONE HCL SR 40 MG TABLET PO SCH ×2 (09:39→21:21)
--- NOTE | 2016-10-13 13:19 | PDOC PROGRESS REPORT ---
Subjective Progress Note for:: 10/13/16 Subjective:: Patient with still considerable pain but seems to be controlled when she is not moving Physical Exam Vital Signs: Temp Pulse Resp BP Pulse Ox 98.4 F 107 H 18 124/61 98 10/13/16 11:28 10/13/16 11:28 10/13/16 11:28 10/13/16 11:28 10/13/16 11:28 Intake & Output 10/12/16 10/13/16 10/14/16 06:59 06:59 06:59 Intake Total 3164 3080 118 Output Total 1625 1375 200 Balance 1539 1705 -82 Weight 127.5 kg 127.7 kg General appearance: PRESENT: no acute distress, well-developed, well-nourished Head exam: PRESENT: atraumatic, normocephalic Eye exam: PRESENT: conjunctiva pink, EOMI, PERRLA. ABSENT: scleral icterus Ear exam: PRESENT: normal external ear exam Mouth exam: PRESENT: moist, tongue midline Neck exam: ABSENT: carotid bruit, JVD, lymphadenopathy, thyromegaly Respiratory exam: PRESENT: clear to auscultation merrill. ABSENT: rales, rhonchi, wheezes Cardiovascular exam: PRESENT: RRR. ABSENT: diastolic murmur, rubs, systolic murmur Pulses: PRESENT: normal dorsalis pedis pul Vascular exam: PRESENT: normal capillary refill GI/Abdominal exam: PRESENT: normal bowel sounds, soft. ABSENT: distended, guarding, mass, organolmegaly, rebound, tenderness Rectal exam: PRESENT: deferred Extremities exam: PRESENT: full ROM. ABSENT: calf tenderness, clubbing, pedal edema Neurological exam: PRESENT: alert, awake, oriented to person, oriented to place , oriented to time, oriented to situation, CN II-XII grossly intact. ABSENT: motor sensory deficit Psychiatric exam: PRESENT: appropriate affect, normal mood. ABSENT: homicidal ideation, suicidal ideation Skin exam: PRESENT: dry, intact, warm. ABSENT: cyanosis, rash Results Laboratory Results: 10/13/16 04:26 10/13/16 04:26 10/13/16 10/13/16 04:26 04:26 WBC 10.3 RBC 2.82 L Hgb 8.9 L Hct 25.6 L MCV 91 MCH 31.8 MCHC 35.0 RDW 16.4 H Plt Count 191 Sodium 140.2 Potassium 5.1 H Chloride 111 H Carbon Dioxide 16 L Anion Gap 13 BUN 68 H Creatinine 4.23 H Est GFR ( Amer) 13 L Est GFR (Non-Af Amer) 11 L Glucose 133 H Calcium 7.8 L 10/10/16 09:30 Catheterized Urine Urine Culture - Final Enterococcus Faecalis(Group D) 10/10/16 10/10/16 10/10/16 08:31 08:31 14:25 Creatine Kinase 176 H 170 H CK-MB (CK-2) 2.26 Troponin I 0.024 10/10/16 10/10/16 10/10/16 14:25 20:30 20:30 Creatine Kinase 174 H CK-MB (CK-2) 2.64 2.75 Troponin I 0.018 0.017 Impressions: Abdomen/Pelvis CT 10/04/16 00:00 IMPRESSION: NO SIGNIFICANT OR ACUTE PROCESS IN THE ABDOMEN OR PELVIS. Skeletal Survey 10/05/16 00:00 IMPRESSION: Small lucent lesions are identified on the skull, humeri, pelvis, and right femoral series. Correlate with additional evaluation to exclude myeloma or metastatic disease. Chest CT 10/06/16 00:00 IMPRESSION: No dominant lung mass. Small bilateral pleural effusions with basilar atelectasis. Minimal nodularity along the pleural surfaces right greater than left which nonspecific. No measurable masses. Bone Biopsy CT 10/09/16 00:00 IMPRESSION: CT GUIDED BIOPSY OF THE RIGHT POSTERIOR ILIAC CREST FOR BONE MARROW ASPIRATE EVALUATION PERFORMED WITHOUT IMMEDIATE COMPLICATION. PATHOLOGY PENDING. Chest X-Ray 10/10/16 00:00 IMPRESSION: Findings suggesting interstitial pulmonary edema and small bilateral pleural effusions. Lung Scan-VQ NM 10/10/16 00:00 IMPRESSION: No ventilation-perfusion mismatches. Lumbar Spine MRI 10/10/16 17:09 IMPRESSION: Very limited study. There are however multilevel epidural soft tissue mass is just posterior to the vertebral bodies resulting in severe compromise of the canal. In addition, at the discs levels, there is marked spinal stenosis related to posterior element overgrowth. MRI with contrast should be performed to further evaluate the epidural soft tissue masses. Thoracic Spine MRI 10/11/16 00:00 IMPRESSION: Small T6-T7 disc protrusion causes mild spinal canal stenosis. No significant cord or nerve root compression. Moderate nonspecific soft tissue swelling of the back at the thoracolumbar junctional levels. Otherwise, no MRI evidence of metastatic disease, as queried. If there is continued clinical suspicion, consider further evaluation with whole-body bone scan, CT PET imaging , and/or contrast MRI survey of the spine. Cervical Spine MRI 10/11/16 10:56 IMPRESSION: Anterior C4-C5 hardware fusion. A moderate C3-C4 disc protrusion mildly compresses the spinal cord. 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 Is this a current diagnosis for this admission?: YesPlan: Hemoglobin 8.9, hold on transfusion, cause of course his myeloma (2) Hypercalcemia Is this a current diagnosis for this admission?: YesPlan: Calcium recently has been normal status post treatment (3) Pain, neoplasm-related Plan: Pain control appropriate for now, I've asked nursing to give her some IV medication and see if she can stand and set up in a chair (4) Multiple myeloma Qualifiers: Multiple myeloma remission status: not in remission Qualified Code(s ): C90.00 - Multiple myeloma not having achieved remission Is this a current diagnosis for this admission?: YesPlan: Tomorrow we will have a long family discussion, she will need to go forward with radiation and chemotherapy starting next week, we will need to make arrangements for that. - Time Time Spent with patient: 35 or more minutes Critical Time spent with patient: 35 or more minutes - Inpatient Certification Based on my medical assessment, after consideration of the patient's comorbidities, presenting symptoms, or acuity I expect that the services needed warrant INPATIENT care.: Yes I certify that my determination is in accordance with my understanding of Medicare's requirements for reasonable and necessary INPATIENT services [42 CFR 412.3e].: Yes Medical Necessity: Need for Pain Control, Need for Surgery
[2016-10-13] MEDS: HYDROMORPHONE HCL INJ/PF 2 MG/ML AMPULE IV PRN ×3 (13:50→22:09)
--- NOTE | 2016-10-13 15:44 | PDOC PROGRESS REPORT ---
Subjective Progress Note for:: 10/13/16 Subjective:: Patient was seen by the bedside, she was admitted because of acute kidney injury , hypercalcemia in the setting of multiple myeloma Physical Exam Vital Signs: Temp Pulse Resp BP Pulse Ox 98.4 F 131 H 18 124/61 98 10/13/16 11:28 10/13/16 14:00 10/13/16 11:28 10/13/16 11:28 10/13/16 11:28 Intake & Output 10/12/16 10/13/16 10/14/16 06:59 06:59 06:59 Intake Total 3164 3080 118 Output Total 1625 1375 200 Balance 1539 1705 -82 Weight 127.5 kg 127.7 kg General appearance: PRESENT: no acute distress, obese Eye exam: PRESENT: PERRLA Respiratory exam: PRESENT: clear to auscultation merrill Cardiovascular exam: PRESENT: +S1, +S2 GI/Abdominal exam: PRESENT: soft Neurological exam: PRESENT: alert Results Laboratory Results: 10/13/16 04:26 10/13/16 04:26 10/13/16 10/13/16 04:26 04:26 WBC 10.3 RBC 2.82 L Hgb 8.9 L Hct 25.6 L MCV 91 MCH 31.8 MCHC 35.0 RDW 16.4 H Plt Count 191 Sodium 140.2 Potassium 5.1 H Chloride 111 H Carbon Dioxide 16 L Anion Gap 13 BUN 68 H Creatinine 4.23 H Est GFR ( Amer) 13 L Est GFR (Non-Af Amer) 11 L Glucose 133 H Calcium 7.8 L 10/10/16 09:30 Catheterized Urine Urine Culture - Final Enterococcus Faecalis(Group D) 10/10/16 10/10/16 10/10/16 08:31 08:31 14:25 Creatine Kinase 176 H 170 H CK-MB (CK-2) 2.26 Troponin I 0.024 10/10/16 10/10/16 10/10/16 14:25 20:30 20:30 Creatine Kinase 174 H CK-MB (CK-2) 2.64 2.75 Troponin I 0.018 0.017 Impressions: Abdomen/Pelvis CT 10/04/16 00:00 IMPRESSION: NO SIGNIFICANT OR ACUTE PROCESS IN THE ABDOMEN OR PELVIS. Skeletal Survey 10/05/16 00:00 IMPRESSION: Small lucent lesions are identified on the skull, humeri, pelvis, and right femoral series. Correlate with additional evaluation to exclude myeloma or metastatic disease. Chest CT 10/06/16 00:00 IMPRESSION: No dominant lung mass. Small bilateral pleural effusions with basilar atelectasis. Minimal nodularity along the pleural surfaces right greater than left which nonspecific. No measurable masses. Bone Biopsy CT 10/09/16 00:00 IMPRESSION: CT GUIDED BIOPSY OF THE RIGHT POSTERIOR ILIAC CREST FOR BONE MARROW ASPIRATE EVALUATION PERFORMED WITHOUT IMMEDIATE COMPLICATION. PATHOLOGY PENDING. Chest X-Ray 10/10/16 00:00 IMPRESSION: Findings suggesting interstitial pulmonary edema and small bilateral pleural effusions. Lung Scan-VQ NM 10/10/16 00:00 IMPRESSION: No ventilation-perfusion mismatches. Lumbar Spine MRI 10/10/16 17:09 IMPRESSION: Very limited study. There are however multilevel epidural soft tissue mass is just posterior to the vertebral bodies resulting in severe compromise of the canal. In addition, at the discs levels, there is marked spinal stenosis related to posterior element overgrowth. MRI with contrast should be performed to further evaluate the epidural soft tissue masses. Thoracic Spine MRI 10/11/16 00:00 IMPRESSION: Small T6-T7 disc protrusion causes mild spinal canal stenosis. No significant cord or nerve root compression. Moderate nonspecific soft tissue swelling of the back at the thoracolumbar junctional levels. Otherwise, no MRI evidence of metastatic disease, as queried. If there is continued clinical suspicion, consider further evaluation with whole-body bone scan, CT PET imaging , and/or contrast MRI survey of the spine. Cervical Spine MRI 10/11/16 10:56 IMPRESSION: Anterior C4-C5 hardware fusion. A moderate C3-C4 disc protrusion mildly compresses the spinal cord. Assessment & Plan - Diagnosis (1) Hypercalcemia Is this a current diagnosis for this admission?: YesPlan: She will continue present IV treatment (2) Multiple myeloma Qualifiers: Multiple myeloma remission status: not in remission Qualified Code(s ): C90.00 - Multiple myeloma not having achieved remission (3) DEL (acute kidney injury) Is this a current diagnosis for this admission?: Yes
[2016-10-14] MEDS: HYDROMORPHONE HCL INJ/PF 2 MG/ML AMPULE IV PRN ×3 (05:36→17:22)
[2016-10-14] MEDS: DEXAMETHASONE SOD PHOSPHATE INJ 4 MG/1 ML VIAL IV SCH ×3 (05:36→17:21)
[2016-10-14] MEDS: HEPARIN SOD (PORCINE) 5,000 UNIT/ML 1 ML SYRINGE SUBCUT SCH ×3 (05:36→21:53)
[2016-10-14 05:44] LABS: HEMATOCRIT 31.3 % (36.0-47.0); HEMOGLOBIN 10.4 g/dL (12.0-15.5); HGB HCT DIFFERENCE -0.1; MEAN CORPUSCULAR HEMOGLOBIN 30.8 pg (27.0-33.4); MEAN CORPUSCULAR HGB CONC 33.3 g/dL (32.0-36.0); MEAN CORPUSCULAR VOLUME 93 fl (80-97); RED BLOOD COUNT 3.39 10^6/uL (3.72-5.28); RED CELL DISTRIBUTION WIDTH 16.4 % (11.5-14.0); WHITE BLOOD COUNT 11.8 10^3/uL (4.0-10.5)
[2016-10-14 06:03] LABS: ALBUMIN 3.7 g/dL (3.5-5.0); ANION GAP 17 (5-19); BLOOD UREA NITROGEN 91 mg/dL (7-20); CARBON DIOXIDE 15 mmol/L (22-30); CHLORIDE 109 mmol/L (98-107); CREATININE RESULT 4.31 mg/dL (0.52-1.25); GLUCOSE 120 mg/dL (75-110); PHOSPHORUS 5.3 mg/dL (2.5-4.5); POTASSIUM 5.2 mmol/L (3.6-5.0); SODIUM 140.9 mmol/L (137-145)
[2016-10-14] MEDS: OXYCODONE HCL SR 40 MG TABLET PO SCH ×2 (09:00→21:54)
[2016-10-14] MEDS: AMLODIPINE BESYLATE 5 MG TABLET PO SCH (09:01)
[2016-10-14] MEDS: DOCUSATE SODIUM 100 MG CAPSULE PO SCH ×2 (09:02→17:22)
[2016-10-14] MEDS: SODIUM BICARBONATE 650 MG TABLET PO SCH ×2 (09:02→17:22)
[2016-10-14] MEDS: POLYETHYLENE GLYCOL 3350 POWDER 17 GM/1 PACKET PO PRN (09:16)
--- NOTE | 2016-10-14 10:46 | PDOC PROGRESS REPORT ---
Subjective Progress Note for:: 10/14/16 Subjective:: No acute events overnight, today had long discussion w/ pt and family about current status of dx and next steps of care, spent >45min in discussion this am. Physical Exam Vital Signs: Temp Pulse Resp BP Pulse Ox 98.1 F 95 20 134/71 H 100 10/14/16 07:31 10/14/16 07:31 10/14/16 07:31 10/14/16 07:31 10/14/16 07:31 Intake & Output 10/13/16 10/14/16 10/15/16 06:59 06:59 06:59 Intake Total 3080 558 Output Total 1375 1225 Balance 1705 -667 Weight 127.7 kg 131.3 kg General appearance: PRESENT: no acute distress, well-developed, well-nourished Head exam: PRESENT: atraumatic, normocephalic Eye exam: PRESENT: conjunctiva pink, EOMI, PERRLA. ABSENT: scleral icterus Ear exam: PRESENT: normal external ear exam Mouth exam: PRESENT: moist, tongue midline Neck exam: ABSENT: carotid bruit, JVD, lymphadenopathy, thyromegaly Respiratory exam: PRESENT: clear to auscultation merrill. ABSENT: rales, rhonchi, wheezes Cardiovascular exam: PRESENT: RRR. ABSENT: diastolic murmur, rubs, systolic murmur Pulses: PRESENT: normal dorsalis pedis pul Vascular exam: PRESENT: normal capillary refill GI/Abdominal exam: PRESENT: normal bowel sounds, soft. ABSENT: distended, guarding, mass, organolmegaly, rebound, tenderness Rectal exam: PRESENT: deferred Extremities exam: PRESENT: full ROM. ABSENT: calf tenderness, clubbing, pedal edema Neurological exam: PRESENT: alert, awake, oriented to person, oriented to place , oriented to time, oriented to situation, CN II-XII grossly intact. ABSENT: motor sensory deficit Psychiatric exam: PRESENT: appropriate affect, normal mood. ABSENT: homicidal ideation, suicidal ideation Skin exam: PRESENT: dry, intact, warm. ABSENT: cyanosis, rash Results Laboratory Results: 10/14/16 05:35 10/14/16 05:35 10/14/16 10/14/16 05:35 05:35 WBC 11.8 H RBC 3.39 L Hgb 10.4 L Hct 31.3 L MCV 93 MCH 30.8 MCHC 33.3 RDW 16.4 H Plt Count 238 Sodium 140.9 Potassium 5.2 H Chloride 109 H Carbon Dioxide 15 L Anion Gap 17 BUN 91 H Creatinine 4.31 H Est GFR ( Amer) 13 L Est GFR (Non-Af Amer) 11 L Glucose 120 H Calcium 8.0 L Phosphorus 5.3 H Magnesium 2.0 Albumin 3.7 10/10/16 10/10/16 10/10/16 08:31 08:31 14:25 Creatine Kinase 176 H 170 H CK-MB (CK-2) 2.26 Troponin I 0.024 10/10/16 10/10/16 10/10/16 14:25 20:30 20:30 Creatine Kinase 174 H CK-MB (CK-2) 2.64 2.75 Troponin I 0.018 0.017 Impressions: Abdomen/Pelvis CT 10/04/16 00:00 IMPRESSION: NO SIGNIFICANT OR ACUTE PROCESS IN THE ABDOMEN OR PELVIS. Skeletal Survey 10/05/16 00:00 IMPRESSION: Small lucent lesions are identified on the skull, humeri, pelvis, and right femoral series. Correlate with additional evaluation to exclude myeloma or metastatic disease. Chest CT 10/06/16 00:00 IMPRESSION: No dominant lung mass. Small bilateral pleural effusions with basilar atelectasis. Minimal nodularity along the pleural surfaces right greater than left which nonspecific. No measurable masses. Bone Biopsy CT 10/09/16 00:00 IMPRESSION: CT GUIDED BIOPSY OF THE RIGHT POSTERIOR ILIAC CREST FOR BONE MARROW ASPIRATE EVALUATION PERFORMED WITHOUT IMMEDIATE COMPLICATION. PATHOLOGY PENDING. Chest X-Ray 10/10/16 00:00 IMPRESSION: Findings suggesting interstitial pulmonary edema and small bilateral pleural effusions. Lung Scan-VQ NM 10/10/16 00:00 IMPRESSION: No ventilation-perfusion mismatches. Lumbar Spine MRI 10/10/16 17:09 IMPRESSION: Very limited study. There are however multilevel epidural soft tissue mass is just posterior to the vertebral bodies resulting in severe compromise of the canal. In addition, at the discs levels, there is marked spinal stenosis related to posterior element overgrowth. MRI with contrast should be performed to further evaluate the epidural soft tissue masses. Thoracic Spine MRI 10/11/16 00:00 IMPRESSION: Small T6-T7 disc protrusion causes mild spinal canal stenosis. No significant cord or nerve root compression. Moderate nonspecific soft tissue swelling of the back at the thoracolumbar junctional levels. Otherwise, no MRI evidence of metastatic disease, as queried. If there is continued clinical suspicion, consider further evaluation with whole-body bone scan, CT PET imaging , and/or contrast MRI survey of the spine. Cervical Spine MRI 10/11/16 10:56 IMPRESSION: Anterior C4-C5 hardware fusion. A moderate C3-C4 disc protrusion mildly compresses the spinal cord. 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 Family is fully in agreement with plan but pt unsure still. Will readdress in am. - Time Time Spent with patient: 35 or more minutes Critical Time spent with patient: 35 or more minutes - Inpatient Certification Based on my medical assessment, after consideration of the patient's comorbidities, presenting symptoms, or acuity I expect that the services needed warrant INPATIENT care.: Yes I certify that my determination is in accordance with my understanding of Medicare's requirements for reasonable and necessary INPATIENT services [42 CFR 412.3e].: Yes Medical Necessity: Need Close Monitoring Due to Risk of Patient Decompensation, Need for Pain Control, Risk of Complication if Not Cared For in Hospital
[2016-10-14] MEDS: FUROSEMIDE 40 MG TABLET PO SCH ×2 (13:10→17:22)
--- NOTE | 2016-10-14 15:12 | PDOC PROGRESS REPORT ---
Subjective Progress Note for:: 10/14/16 Subjective:: Patient is looking well today clinically. He seems to be not to overwhelm today. They had of family meeting this morning with Dr. Connor about all therapy including radiation and chemotherapy. She tells me that she has decided with her family to go ahead with radiation therapy tomorrow. He seems to be comfortable with that decision. She denies any chest pains nor shortness of breath nor nausea nor vomiting. She continues to have pain though. Physical Exam Vital Signs: Temp Pulse Resp BP Pulse Ox 97.9 F 114 H 20 119/66 96 10/14/16 12:15 10/14/16 12:15 10/14/16 12:15 10/14/16 12:15 10/14/16 12:15 Intake & Output 10/13/16 10/14/16 10/15/16 06:59 06:59 06:59 Intake Total 3080 558 710 Output Total 1375 1225 400 Balance 1705 -667 310 Weight 127.7 kg 131.3 kg Exam: General appearance: PRESENT: no acute distress, cooperative, well-developed, well-nourished Head exam: PRESENT: atraumatic, normocephalic Eye exam: PRESENT: conjunctiva pale, PERRLA. ABSENT: scleral icterus Neck exam: ABSENT: JVD Respiratory exam: PRESENT: Diminished breath sounds. ABSENT: crackles, rales, rhonchi, unlabored, wheezes Cardiovascular exam: PRESENT: Regular rate rhythm -+S1, +S2. ABSENT: diastolic murmur, systolic murmur GI/Abdominal exam: PRESENT: normal bowel sounds, soft. ABSENT: guarding, mass, tenderness Extremities exam: Trace bilateral pitting edema Neurological exam: PRESENT: alert, awake, oriented to person, place and time. Skin exam: PRESENT: dry, warm, Results Laboratory Results: 10/14/16 05:35 10/14/16 05:35 10/14/16 10/14/16 05:35 05:35 WBC 11.8 H RBC 3.39 L Hgb 10.4 L Hct 31.3 L MCV 93 MCH 30.8 MCHC 33.3 RDW 16.4 H Plt Count 238 Sodium 140.9 Potassium 5.2 H Chloride 109 H Carbon Dioxide 15 L Anion Gap 17 BUN 91 H Creatinine 4.31 H Est GFR ( Amer) 13 L Est GFR (Non-Af Amer) 11 L Glucose 120 H Calcium 8.0 L Phosphorus 5.3 H Magnesium 2.0 Albumin 3.7 10/10/16 10/10/16 10/10/16 08:31 08:31 14:25 Creatine Kinase 176 H 170 H CK-MB (CK-2) 2.26 Troponin I 0.024 10/10/16 10/10/16 10/10/16 14:25 20:30 20:30 Creatine Kinase 174 H CK-MB (CK-2) 2.64 2.75 Troponin I 0.018 0.017 Impressions: Abdomen/Pelvis CT 10/04/16 00:00 IMPRESSION: NO SIGNIFICANT OR ACUTE PROCESS IN THE ABDOMEN OR PELVIS. Skeletal Survey 10/05/16 00:00 IMPRESSION: Small lucent lesions are identified on the skull, humeri, pelvis, and right femoral series. Correlate with additional evaluation to exclude myeloma or metastatic disease. Chest CT 10/06/16 00:00 IMPRESSION: No dominant lung mass. Small bilateral pleural effusions with basilar atelectasis. Minimal nodularity along the pleural surfaces right greater than left which nonspecific. No measurable masses. Bone Biopsy CT 10/09/16 00:00 IMPRESSION: CT GUIDED BIOPSY OF THE RIGHT POSTERIOR ILIAC CREST FOR BONE MARROW ASPIRATE EVALUATION PERFORMED WITHOUT IMMEDIATE COMPLICATION. PATHOLOGY PENDING. Chest X-Ray 10/10/16 00:00 IMPRESSION: Findings suggesting interstitial pulmonary edema and small bilateral pleural effusions. Lung Scan-VQ NM 10/10/16 00:00 IMPRESSION: No ventilation-perfusion mismatches. Lumbar Spine MRI 10/10/16 17:09 IMPRESSION: Very limited study. There are however multilevel epidural soft tissue mass is just posterior to the vertebral bodies resulting in severe compromise of the canal. In addition, at the discs levels, there is marked spinal stenosis related to posterior element overgrowth. MRI with contrast should be performed to further evaluate the epidural soft tissue masses. Thoracic Spine MRI 10/11/16 00:00 IMPRESSION: Small T6-T7 disc protrusion causes mild spinal canal stenosis. No significant cord or nerve root compression. Moderate nonspecific soft tissue swelling of the back at the thoracolumbar junctional levels. Otherwise, no MRI evidence of metastatic disease, as queried. If there is continued clinical suspicion, consider further evaluation with whole-body bone scan, CT PET imaging , and/or contrast MRI survey of the spine. Cervical Spine MRI 10/11/16 10:56 IMPRESSION: Anterior C4-C5 hardware fusion. A moderate C3-C4 disc protrusion mildly compresses the spinal cord. 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 There could also be a component of acute tubular necrosis due to hemodynamic changes due to blood pressure changes throughout hospitalization. Kidney function seems worse today. She is nonoliguric. She does not require any renal replacement therapy at this time. Continue to monitor kidney function. I resumed her Lasix yesterday and stop her IV fluids. Today I talked to the patient in the presence of her daughters about possibly requiring renal replacement therapy in the form of hemodialysis tomorrow. I explained to her the need for it because of worsening kidney function and electrolyte abnormalities including hyperkalemia, hyperphosphatemia, and worsening metabolic acidosis despite medical therapy. At this time she does not present with uremic symptoms yet but as I explained to her I would not wait for that to happen because she would need to be at optimal condition for her chemotherapy. I explained to her how dialysis is done which she is very familiar with because her mother was on dialysis. I told her that she would need temporary trialysis catheter to be placement of vascular surgeon. I explained to her that requiring dialysis would either be temporary if not permanent depending on how her body responds her chemotherapy and radiation therapy. So we will adjust treatment depending on her clinical course. After explaining this to her and her daughters they all agreed to continue and proceed with it. I then discussed this with Dr. Connor who is agreeable with the plan. I also called her surgeon supervisor ordnance truck installation Dr. Hernandez who is a grease to place a trialysis catheter placement today for hemodialysis tomorrow morning. Plan also discussed with the nurses taking care of the patient today. All questions answered. (2) Hyperkalemia, diminished renal excretion Is this a current diagnosis for this admission?: YesPlan: Mild today and does not need anything but dialysis will help. (3) Metabolic acidosis Is this a current diagnosis for this admission?: YesPlan: Continue sodium bicarbonate for now. Dialysis would help with this. (4) Hypercalcemia Is this a current diagnosis for this admission?: YesPlan: Likely secondary to multiple myeloma. Currently low but improved from yesterday. (5) Urinary tract infection Is this a current diagnosis for this admission?: YesPlan: Due to Enterococcus faecalis. Discontinue ceftriaxone and start IV Levaquin every 48 hours. 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 Due to multiple myeloma. (7) Hyperphosphatemia Is this a current diagnosis for this admission?: YesPlan: This is due to acute kidney injury. (8) Hypertension Is this a current diagnosis for this admission?: YesPlan: Controlled. (9) Leg pain Qualifiers: Laterality: bilateral Qualified Code(s): M79.604 - Pain in right leg Is this a current diagnosis for this admission?: Yes (10) Back pain Qualifiers: Back pain location: low back pain Chronicity: acute Is this a current diagnosis for this admission?: Yes (11) Multiple myeloma Qualifiers: Multiple myeloma remission status: not in remission Qualified Code(s ): C90.00 - Multiple myeloma not having achieved remission Is this a current diagnosis for this admission?: YesPlan: Status post bone marrow biopsy. Management per Dr. Connor. Agree with planned radiation and chemotherapy as discussed with Nikolas - Notes Notes: Plan discussed with the patient, her daughters, Dr. Connor, and the nurses taking care of her. - Time Time with patient: Greater than 35 minutes
--- NOTE | 2016-10-14 16:45 | PDOC PROGRESS REPORT ---
Subjective Progress Note for:: 10/14/16 Subjective:: Patient was seen by the bedside, she was admitted because of acute kidney failure and she was found to have paraproteinemia due to multiple myeloma. She is scheduled for acute hemodialysis tomorrow and she was seen by the surgeon and she is getting a temporary catheter for dialysis. She has no new complaint today, she is on adequate analgesia with opioid for pain control. Physical Exam Vital Signs: Temp Pulse Resp BP Pulse Ox 98.4 F 113 H 16 136/69 H 96 10/14/16 15:06 10/14/16 15:06 10/14/16 15:06 10/14/16 15:06 10/14/16 15:06 Intake & Output 10/13/16 10/14/16 10/15/16 06:59 06:59 06:59 Intake Total 3080 558 710 Output Total 1375 1225 400 Balance 1705 -667 310 Weight 127.7 kg 131.3 kg General appearance: PRESENT: no acute distress Eye exam: PRESENT: PERRLA Respiratory exam: PRESENT: clear to auscultation merrill Cardiovascular exam: PRESENT: +S1, +S2 GI/Abdominal exam: PRESENT: soft Neurological exam: PRESENT: alert, CN II-XII grossly intact Results Laboratory Results: 10/14/16 05:35 10/14/16 05:35 10/14/16 10/14/16 05:35 05:35 WBC 11.8 H RBC 3.39 L Hgb 10.4 L Hct 31.3 L MCV 93 MCH 30.8 MCHC 33.3 RDW 16.4 H Plt Count 238 Sodium 140.9 Potassium 5.2 H Chloride 109 H Carbon Dioxide 15 L Anion Gap 17 BUN 91 H Creatinine 4.31 H Est GFR ( Amer) 13 L Est GFR (Non-Af Amer) 11 L Glucose 120 H Calcium 8.0 L Phosphorus 5.3 H Magnesium 2.0 Albumin 3.7 10/10/16 10/10/16 10/10/16 08:31 08:31 14:25 Creatine Kinase 176 H 170 H CK-MB (CK-2) 2.26 Troponin I 0.024 10/10/16 10/10/16 10/10/16 14:25 20:30 20:30 Creatine Kinase 174 H CK-MB (CK-2) 2.64 2.75 Troponin I 0.018 0.017 Impressions: Abdomen/Pelvis CT 10/04/16 00:00 IMPRESSION: NO SIGNIFICANT OR ACUTE PROCESS IN THE ABDOMEN OR PELVIS. Skeletal Survey 10/05/16 00:00 IMPRESSION: Small lucent lesions are identified on the skull, humeri, pelvis, and right femoral series. Correlate with additional evaluation to exclude myeloma or metastatic disease. Chest CT 10/06/16 00:00 IMPRESSION: No dominant lung mass. Small bilateral pleural effusions with basilar atelectasis. Minimal nodularity along the pleural surfaces right greater than left which nonspecific. No measurable masses. Bone Biopsy CT 10/09/16 00:00 IMPRESSION: CT GUIDED BIOPSY OF THE RIGHT POSTERIOR ILIAC CREST FOR BONE MARROW ASPIRATE EVALUATION PERFORMED WITHOUT IMMEDIATE COMPLICATION. PATHOLOGY PENDING. Chest X-Ray 10/10/16 00:00 IMPRESSION: Findings suggesting interstitial pulmonary edema and small bilateral pleural effusions. Lung Scan-VQ NM 10/10/16 00:00 IMPRESSION: No ventilation-perfusion mismatches. Lumbar Spine MRI 10/10/16 17:09 IMPRESSION: Very limited study. There are however multilevel epidural soft tissue mass is just posterior to the vertebral bodies resulting in severe compromise of the canal. In addition, at the discs levels, there is marked spinal stenosis related to posterior element overgrowth. MRI with contrast should be performed to further evaluate the epidural soft tissue masses. Thoracic Spine MRI 10/11/16 00:00 IMPRESSION: Small T6-T7 disc protrusion causes mild spinal canal stenosis. No significant cord or nerve root compression. Moderate nonspecific soft tissue swelling of the back at the thoracolumbar junctional levels. Otherwise, no MRI evidence of metastatic disease, as queried. If there is continued clinical suspicion, consider further evaluation with whole-body bone scan, CT PET imaging , and/or contrast MRI survey of the spine. Cervical Spine MRI 10/11/16 10:56 IMPRESSION: Anterior C4-C5 hardware fusion. A moderate C3-C4 disc protrusion mildly compresses the spinal cord. Assessment & Plan - Diagnosis (1) Hypercalcemia Is this a current diagnosis for this admission?: Yes (2) Multiple myeloma Qualifiers: Multiple myeloma remission status: not in remission Qualified Code(s ): C90.00 - Multiple myeloma not having achieved remission (3) DEL (acute kidney injury) Is this a current diagnosis for this admission?: Yes (4) Enterococcus UTI Is this a current diagnosis for this admission?: YesPlan: She has E faecalis UTI and she is on antibiotic, will continue same. Pharynx
[2016-10-14 17:11] LABS: PROTHROMBIN TIME 16.7 SEC (11.4-15.4)
[2016-10-14] MEDS: LEVOFLOXACIN 500 MG/D5W RTU 500 MG/100 ML RTUPB IV SCH (17:23)
[2016-10-14] MEDS ORDERED: LIDOCAINE 2% INJ-PF (100 MG/5 ML) SYRINGE ONE (23:16)
[2016-10-14] MEDS ORDERED: LIDOCAINE 1% INJ-PF (10 MG/ML) 30 ML SDV ONE (23:18)
[2016-10-14] MEDS ORDERED: LIDOCAINE 1% INJ-PF (10 MG/ML) 30 ML SDV SUBD ONE (23:30)
[2016-10-15] MEDS: HYDROMORPHONE HCL INJ/PF 2 MG/ML AMPULE IV PRN ×4 (00:13→23:53)
[2016-10-15] MEDS: DEXAMETHASONE SOD PHOSPHATE INJ 4 MG/1 ML VIAL IV SCH ×5 (00:14→23:52)
[2016-10-15 05:31] LABS: HEMATOCRIT 28.2 % (36.0-47.0); HEMOGLOBIN 9.6 g/dL (12.0-15.5); HGB HCT DIFFERENCE 0.6; MEAN CORPUSCULAR HGB CONC 34.1 g/dL (32.0-36.0); MEAN CORPUSCULAR VOLUME 91 fl (80-97); RED CELL DISTRIBUTION WIDTH 16.2 % (11.5-14.0); WHITE BLOOD COUNT 11.2 10^3/uL (4.0-10.5)
--- NOTE | 2016-10-15 05:38 | OPERATIVE REPORT E ---
Operative Report NAME: MYCHAL CELESTIN : 1960 AGE: 56Y DATE OF SURGERY: ROOM: 307 OPERATION: Attempted placement of Triplex via left internal jugular vein under ultrasound guidance. SURGEON: BENOIT SHAW M.D. ANESTHESIA: Local. INDICATION: This is a 56-year-old female who needed dialysis. DESCRIPTION OF PROCEDURE: The left neck was prepped and draped in usual sterile fashion with the patient slightly in Trendelenburg position. With use of ultrasound, the internal jugular vein was then identified and punctured. Guidewire was placed through the needle into the area of the superior vena cava. The needle was then removed and the puncture site enlarged to allow the dilators. Next, the dilators were placed over the guidewire. Unfortunately, the larger dilator was unable to be passed through beyond about the 15 cm derrick. There appears to be a bend at this area, and rather than injuring the vein, it was decided to abort the procedure. The plan is to place the catheter into the right internal jugular vein. After the dilator was removed, the puncture site was then closed with a figure-of-8 suture using 3-0 nylon. Next, an attempt was done to look at the right internal jugular vein and appears that it was quite difficult to identify the vein because of *------* strong right sternocleidomastoid muscle and quite difficult to passively place a needle through the area. Because of this, I decided to put the catheter at this site. The femoral veins in both groins were attempted to be visualized. However, the patient has markedly swollen thighs and quite difficult to identify the vein on both sides also. The patient was unable to position herself very well in the bed, being her legs quite obese. The plan is to attempt again in the morning or consult another surgeon who could probably put it in the Gr[facility] [employer]. DICTATING PHYSICIAN: BENOIT SHAW M.D. [id number] PHY#: [id number] ID: [id number] JOB#: [id number] ACCT: [id number] cc:BENOIT SHAW M.D. >
[2016-10-15 05:53] LABS: ANION GAP 14 (5-19); CALCIUM 7.7 mg/dL (8.4-10.2); CARBON DIOXIDE 16 mmol/L (22-30); CHLORIDE 109 mmol/L (98-107); CREATININE RESULT 4.09 mg/dL (0.52-1.25); GLUCOSE 125 mg/dL (75-110); POTASSIUM 5.3 mmol/L (3.6-5.0); SODIUM 139.3 mmol/L (137-145)
[2016-10-15] MEDS: HEPARIN SOD (PORCINE) 5,000 UNIT/ML 1 ML SYRINGE SUBCUT SCH ×2 (05:55→21:54)
[2016-10-15] MEDS: OXYCODONE HCL IR 5 MG TABLET PO PRN (06:00)
[2016-10-15 06:23] LABS: BLOOD UREA NITROGEN 112 mg/dL (7-20)
[2016-10-15] MEDS ORDERED: LIDOCAINE 0.5% INJ-PF (5 MG/ML) 50 ML SDV ONE (07:27)
[2016-10-15] MEDS ORDERED: HEPARIN SOD (PORCINE) 1,000 UNIT/ML 10 ML VIAL IV PRN (08:20)
--- NOTE | 2016-10-15 08:36 | PDOC PROGRESS REPORT ---
Subjective Progress Note for:: 10/15/16 Subjective:: Yesterday had long discussion with nephrology, unfortunately BUN/creatinine is worsening, potassium is worsening, so nephrology felt like it was time to initiate dialysis. Dialysis catheter placement was attempted bilateral internal jugular areas, could not be placed so Dr. Workman was consulted, he placed right femoral catheter. She had a long discussion with her family yesterday, she agrees to go forward with all therapy recommended now. Physical Exam Vital Signs: Temp Pulse Resp BP Pulse Ox 97.2 F 77 20 121/65 98 10/15/16 04:01 10/15/16 04:01 10/15/16 04:01 10/15/16 04:01 10/15/16 04:01 Intake & Output 10/14/16 10/15/16 10/16/16 06:59 06:59 06:59 Intake Total 558 1598 Output Total 1225 1650 Balance -667 -52 Weight 131.3 kg 132.7 kg General appearance: PRESENT: no acute distress, well-developed, well-nourished Head exam: PRESENT: atraumatic, normocephalic Eye exam: PRESENT: conjunctiva pink, EOMI, PERRLA. ABSENT: scleral icterus Ear exam: PRESENT: normal external ear exam Mouth exam: PRESENT: moist, tongue midline Neck exam: ABSENT: carotid bruit, JVD, lymphadenopathy, thyromegaly Respiratory exam: PRESENT: clear to auscultation merrill. ABSENT: rales, rhonchi, wheezes Cardiovascular exam: PRESENT: RRR. ABSENT: diastolic murmur, rubs, systolic murmur Pulses: PRESENT: normal dorsalis pedis pul Vascular exam: PRESENT: normal capillary refill GI/Abdominal exam: PRESENT: normal bowel sounds, soft. ABSENT: distended, guarding, mass, organolmegaly, rebound, tenderness Rectal exam: PRESENT: deferred Extremities exam: PRESENT: full ROM. ABSENT: calf tenderness, clubbing, pedal edema Neurological exam: PRESENT: alert, awake, oriented to person, oriented to place , oriented to time, oriented to situation, CN II-XII grossly intact. ABSENT: motor sensory deficit Psychiatric exam: PRESENT: appropriate affect, normal mood. ABSENT: homicidal ideation, suicidal ideation Skin exam: PRESENT: dry, intact, warm. ABSENT: cyanosis, rash Results Laboratory Results: 10/15/16 04:56 10/15/16 04:56 10/15/16 10/15/16 04:56 04:56 WBC 11.2 H RBC 3.10 L Hgb 9.6 L Hct 28.2 L MCV 91 MCH 31.0 MCHC 34.1 RDW 16.2 H Plt Count 212 Sodium 139.3 Potassium 5.3 H Chloride 109 H Carbon Dioxide 16 L Anion Gap 14 BUN 112 H D Creatinine 4.09 H Est GFR ( Amer) 14 L Est GFR (Non-Af Amer) 11 L Glucose 125 H Calcium 7.7 L 10/10/16 10/10/16 10/10/16 08:31 08:31 14:25 Creatine Kinase 176 H 170 H CK-MB (CK-2) 2.26 Troponin I 0.024 10/10/16 10/10/16 10/10/16 14:25 20:30 20:30 Creatine Kinase 174 H CK-MB (CK-2) 2.64 2.75 Troponin I 0.018 0.017 Impressions: Abdomen/Pelvis CT 10/04/16 00:00 IMPRESSION: NO SIGNIFICANT OR ACUTE PROCESS IN THE ABDOMEN OR PELVIS. Skeletal Survey 10/05/16 00:00 IMPRESSION: Small lucent lesions are identified on the skull, humeri, pelvis, and right femoral series. Correlate with additional evaluation to exclude myeloma or metastatic disease. Chest CT 10/06/16 00:00 IMPRESSION: No dominant lung mass. Small bilateral pleural effusions with basilar atelectasis. Minimal nodularity along the pleural surfaces right greater than left which nonspecific. No measurable masses. Bone Biopsy CT 10/09/16 00:00 IMPRESSION: CT GUIDED BIOPSY OF THE RIGHT POSTERIOR ILIAC CREST FOR BONE MARROW ASPIRATE EVALUATION PERFORMED WITHOUT IMMEDIATE COMPLICATION. PATHOLOGY PENDING. Lung Scan-VQ NM 10/10/16 00:00 IMPRESSION: No ventilation-perfusion mismatches. Lumbar Spine MRI 10/10/16 17:09 IMPRESSION: Very limited study. There are however multilevel epidural soft tissue mass is just posterior to the vertebral bodies resulting in severe compromise of the canal. In addition, at the discs levels, there is marked spinal stenosis related to posterior element overgrowth. MRI with contrast should be performed to further evaluate the epidural soft tissue masses. Thoracic Spine MRI 10/11/16 00:00 IMPRESSION: Small T6-T7 disc protrusion causes mild spinal canal stenosis. No significant cord or nerve root compression. Moderate nonspecific soft tissue swelling of the back at the thoracolumbar junctional levels. Otherwise, no MRI evidence of metastatic disease, as queried. If there is continued clinical suspicion, consider further evaluation with whole-body bone scan, CT PET imaging , and/or contrast MRI survey of the spine. Cervical Spine MRI 10/11/16 10:56 IMPRESSION: Anterior C4-C5 hardware fusion. A moderate C3-C4 disc protrusion mildly compresses the spinal cord. Chest X-Ray 10/14/16 23:52 IMPRESSION: No radiographic evidence for pneumothorax. Mild cardiomegaly and vascular congestion. Subsegmental atelectasis in the right perihilar region. 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 Is this a current diagnosis for this admission?: YesPlan: Hemoglobin stable, hold on transfusion (2) Hypercalcemia Is this a current diagnosis for this admission?: YesPlan: Improved, continue to monitor (3) Pain, neoplasm-related Plan: Continue with current pain regimen (4) Multiple myeloma Qualifiers: Multiple myeloma remission status: not in remission Qualified Code(s ): C90.00 - Multiple myeloma not having achieved remission Is this a current diagnosis for this admission?: YesPlan: Dialysis will be initiated today, patient will undergo CT simulation for the spine and probably initiate radiation today, continue with steroids for now, we will initiate Velcade based therapy tomorrow. Today had a long discussion with patient, spent greater than 45 minutes in discussion. - Time Time Spent with patient: 35 or more minutes Critical Time spent with patient: 35 or more minutes - Inpatient Certification Based on my medical assessment, after consideration of the patient's comorbidities, presenting symptoms, or acuity I expect that the services needed warrant INPATIENT care.: Yes I certify that my determination is in accordance with my understanding of Medicare's requirements for reasonable and necessary INPATIENT services [42 CFR 412.3e].: Yes Medical Necessity: Failure to Improve With Outpatient Therapy, Need For IV Fluids, Need For Continuous Telemetry Monitoring, Need for Surgery, Risk of Complication if Not Cared For in Hospital
[2016-10-15] MEDS: FUROSEMIDE 40 MG TABLET PO SCH ×2 (09:21→17:27)
[2016-10-15] MEDS: OXYCODONE HCL SR 40 MG TABLET PO SCH ×2 (09:21→21:54)
[2016-10-15] MEDS: SODIUM BICARBONATE 650 MG TABLET PO SCH ×2 (09:22→17:27)
[2016-10-15] MEDS: DOCUSATE SODIUM 100 MG CAPSULE PO SCH ×2 (09:22→17:28)
--- NOTE | 2016-10-15 12:33 | PDOC PROGRESS REPORT ---
Subjective Progress Note for:: 10/15/16 Subjective:: Patient is currently doing fair patient's denied any chest pain denied any shortness of the breath. Patient's already however discussions with the all the other physicians with the family and agreed to go for her dialysis and also agreed for go for radiation and chemotherapy and also discussed myself to the patient's and understand Physical Exam Vital Signs: Temp Pulse Resp BP Pulse Ox 98.2 F 98 18 120/75 100 10/15/16 08:27 10/15/16 08:27 10/15/16 08:27 10/15/16 08:27 10/15/16 08:27 Intake & Output 10/14/16 10/15/16 10/16/16 06:59 06:59 06:59 Intake Total 558 1598 Output Total 1225 1650 Balance -667 -52 Weight 131.3 kg 132.7 kg General appearance: PRESENT: no acute distress, well-developed, well-nourished Head exam: PRESENT: atraumatic, normocephalic Eye exam: PRESENT: conjunctiva pink, EOMI, PERRLA. ABSENT: scleral icterus Ear exam: PRESENT: normal external ear exam Mouth exam: PRESENT: moist, tongue midline Neck exam: PRESENT: full ROM. ABSENT: carotid bruit, JVD, lymphadenopathy, thyromegaly Respiratory exam: PRESENT: clear to auscultation merrill Cardiovascular exam: PRESENT: RRR. ABSENT: diastolic murmur, rubs, systolic murmur Pulses: PRESENT: normal dorsalis pedis pul, +2 pedal pulses bilateral Vascular exam: PRESENT: normal capillary refill GI/Abdominal exam: PRESENT: normal bowel sounds, soft. ABSENT: distended, guarding, mass, organolmegaly, rebound, tenderness Rectal exam: PRESENT: deferred Neurological exam: PRESENT: alert, awake, oriented to person, oriented to place , oriented to time, oriented to situation, CN II-XII grossly intact. ABSENT: motor sensory deficit Psychiatric exam: PRESENT: appropriate affect, normal mood. ABSENT: homicidal ideation, suicidal ideation Skin exam: PRESENT: dry, intact, warm. ABSENT: cyanosis, rash Results Laboratory Results: 10/15/16 04:56 10/15/16 04:56 10/15/16 10/15/16 04:56 04:56 WBC 11.2 H RBC 3.10 L Hgb 9.6 L Hct 28.2 L MCV 91 MCH 31.0 MCHC 34.1 RDW 16.2 H Plt Count 212 Sodium 139.3 Potassium 5.3 H Chloride 109 H Carbon Dioxide 16 L Anion Gap 14 BUN 112 H D Creatinine 4.09 H Est GFR ( Amer) 14 L Est GFR (Non-Af Amer) 11 L Glucose 125 H Calcium 7.7 L 10/10/16 08:31 Blood Blood Culture - Final NO GROWTH IN 5 DAYS 10/10/16 10/10/16 10/10/16 08:31 08:31 14:25 Creatine Kinase 176 H 170 H CK-MB (CK-2) 2.26 Troponin I 0.024 10/10/16 10/10/16 10/10/16 14:25 20:30 20:30 Creatine Kinase 174 H CK-MB (CK-2) 2.64 2.75 Troponin I 0.018 0.017 Impressions: Abdomen/Pelvis CT 10/04/16 00:00 IMPRESSION: NO SIGNIFICANT OR ACUTE PROCESS IN THE ABDOMEN OR PELVIS. Skeletal Survey 10/05/16 00:00 IMPRESSION: Small lucent lesions are identified on the skull, humeri, pelvis, and right femoral series. Correlate with additional evaluation to exclude myeloma or metastatic disease. Chest CT 10/06/16 00:00 IMPRESSION: No dominant lung mass. Small bilateral pleural effusions with basilar atelectasis. Minimal nodularity along the pleural surfaces right greater than left which nonspecific. No measurable masses. Bone Biopsy CT 10/09/16 00:00 IMPRESSION: CT GUIDED BIOPSY OF THE RIGHT POSTERIOR ILIAC CREST FOR BONE MARROW ASPIRATE EVALUATION PERFORMED WITHOUT IMMEDIATE COMPLICATION. PATHOLOGY PENDING. Lung Scan-VQ NM 10/10/16 00:00 IMPRESSION: No ventilation-perfusion mismatches. Lumbar Spine MRI 10/10/16 17:09 IMPRESSION: Very limited study. There are however multilevel epidural soft tissue mass is just posterior to the vertebral bodies resulting in severe compromise of the canal. In addition, at the discs levels, there is marked spinal stenosis related to posterior element overgrowth. MRI with contrast should be performed to further evaluate the epidural soft tissue masses. Thoracic Spine MRI 10/11/16 00:00 IMPRESSION: Small T6-T7 disc protrusion causes mild spinal canal stenosis. No significant cord or nerve root compression. Moderate nonspecific soft tissue swelling of the back at the thoracolumbar junctional levels. Otherwise, no MRI evidence of metastatic disease, as queried. If there is continued clinical suspicion, consider further evaluation with whole-body bone scan, CT PET imaging , and/or contrast MRI survey of the spine. Cervical Spine MRI 10/11/16 10:56 IMPRESSION: Anterior C4-C5 hardware fusion. A moderate C3-C4 disc protrusion mildly compresses the spinal cord. Chest X-Ray 10/14/16 23:52 IMPRESSION: No radiographic evidence for pneumothorax. Mild cardiomegaly and vascular congestion. Subsegmental atelectasis in the right perihilar region. 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 Is this a current diagnosis for this admission?: YesPlan: Currently stable (3) Hypercalcemia Is this a current diagnosis for this admission?: YesPlan: From the multiple myeloma (4) Hypokalemia Is this a current diagnosis for this admission?: YesPlan: Currently stable (5) Back pain Qualifiers: Back pain location: low back pain Chronicity: acute Is this a current diagnosis for this admission?: YesPlan: Hopefully the radiation help the patient's and continues to current pain medications (6) Hypertension Is this a current diagnosis for this admission?: YesPlan: Stable (7) Edema Qualifiers: Edema type: unspecified Qualified Code(s): R60.9 - Edema, unspecified Is this a current diagnosis for this admission?: Yes (8) Multiple myeloma Qualifiers: Multiple myeloma remission status: not in remission Qualified Code(s ): C90.00 - Multiple myeloma not having achieved remission Is this a current diagnosis for this admission?: YesPlan: Patient scheduled for the radiation and the chemotherapy (9) Sinus tachycardia Is this a current diagnosis for this admission?: YesPlan: Currently stable (10) Fever Qualifiers: Fever type: unspecified Qualified Code(s): R50.9 - Fever, unspecified Is this a current diagnosis for this admission?: YesPlan: From urinary tract infections currently on IV antibiotic - Time Time Spent with patient: 25-34 minutes Medications reviewed and adjusted accordingly: Yes Anticipated discharge: Other Within: Other - Inpatient Certification Medical Necessity: Need Close Monitoring Due to Risk of Patient Decompensation, Need For IV Fluids, Need for IV Antibiotics Post Hospital Care: D/C Brick Catcher Documentation - Plan Summary Plan Summary: Patient is scheduled for the hemodialysis today and schedule for the chemo and radiation's discussed with the patient and the family about the patient's current conditions
--- NOTE | 2016-10-15 14:53 | PDOC PROGRESS REPORT ---
Subjective Progress Note for:: 10/15/16 Subjective:: Patient is seen during dialysis this afternoon. She is being dialyzed on the newly placed trialysis catheter on her left femoral vein. She is tolerating dialysis so far without any problems or complications. She said she feels slightly better. She denies any other symptoms or complaints. Physical Exam Vital Signs: Temp Pulse Resp BP Pulse Ox 97.4 F 104 H 18 127/77 H 100 10/15/16 11:49 10/15/16 11:49 10/15/16 11:49 10/15/16 11:49 10/15/16 11:49 Intake & Output 10/14/16 10/15/16 10/16/16 06:59 06:59 06:59 Intake Total 558 1598 222 Output Total 1225 1650 400 Balance -667 -52 -178 Weight 131.3 kg 132.7 kg Vital signs when I was seeing her during dialysis: Blood pressure 121/71, heart rate of 102, blood flow rate of 250 mL per minute, dialysate flow of 500 mL per minute. Exam: General appearance: PRESENT: no acute distress, cooperative, well-developed, well-nourished Head exam: PRESENT: atraumatic, normocephalic Eye exam: PRESENT: conjunctiva pale, PERRLA. ABSENT: scleral icterus Neck exam: ABSENT: JVD Respiratory exam: PRESENT: Diminished breath sounds. ABSENT: crackles, rales, rhonchi, unlabored, wheezes Cardiovascular exam: PRESENT: Regular rate rhythm -+S1, +S2. ABSENT: diastolic murmur, systolic murmur GI/Abdominal exam: PRESENT: normal bowel sounds, soft. ABSENT: guarding, mass, tenderness Extremities exam: Grade 1 bilateral PT and edema Neurological exam: PRESENT: alert, awake, oriented to person, place and time. Skin exam: PRESENT: dry, warm, Results Laboratory Results: 10/15/16 04:56 10/15/16 04:56 10/15/16 10/15/16 04:56 04:56 WBC 11.2 H RBC 3.10 L Hgb 9.6 L Hct 28.2 L MCV 91 MCH 31.0 MCHC 34.1 RDW 16.2 H Plt Count 212 Sodium 139.3 Potassium 5.3 H Chloride 109 H Carbon Dioxide 16 L Anion Gap 14 BUN 112 H D Creatinine 4.09 H Est GFR ( Amer) 14 L Est GFR (Non-Af Amer) 11 L Glucose 125 H Calcium 7.7 L 10/10/16 13:10 Blood Blood Culture - Final NO GROWTH IN 5 DAYS 10/10/16 08:31 Blood Blood Culture - Final NO GROWTH IN 5 DAYS 10/10/16 10/10/16 10/10/16 08:31 08:31 14:25 Creatine Kinase 176 H 170 H CK-MB (CK-2) 2.26 Troponin I 0.024 10/10/16 10/10/16 10/10/16 14:25 20:30 20:30 Creatine Kinase 174 H CK-MB (CK-2) 2.64 2.75 Troponin I 0.018 0.017 Impressions: Abdomen/Pelvis CT 10/04/16 00:00 IMPRESSION: NO SIGNIFICANT OR ACUTE PROCESS IN THE ABDOMEN OR PELVIS. Skeletal Survey 10/05/16 00:00 IMPRESSION: Small lucent lesions are identified on the skull, humeri, pelvis, and right femoral series. Correlate with additional evaluation to exclude myeloma or metastatic disease. Chest CT 10/06/16 00:00 IMPRESSION: No dominant lung mass. Small bilateral pleural effusions with basilar atelectasis. Minimal nodularity along the pleural surfaces right greater than left which nonspecific. No measurable masses. Bone Biopsy CT 10/09/16 00:00 IMPRESSION: CT GUIDED BIOPSY OF THE RIGHT POSTERIOR ILIAC CREST FOR BONE MARROW ASPIRATE EVALUATION PERFORMED WITHOUT IMMEDIATE COMPLICATION. PATHOLOGY PENDING. Lung Scan-VQ NM 10/10/16 00:00 IMPRESSION: No ventilation-perfusion mismatches. Lumbar Spine MRI 10/10/16 17:09 IMPRESSION: Very limited study. There are however multilevel epidural soft tissue mass is just posterior to the vertebral bodies resulting in severe compromise of the canal. In addition, at the discs levels, there is marked spinal stenosis related to posterior element overgrowth. MRI with contrast should be performed to further evaluate the epidural soft tissue masses. Thoracic Spine MRI 10/11/16 00:00 IMPRESSION: Small T6-T7 disc protrusion causes mild spinal canal stenosis. No significant cord or nerve root compression. Moderate nonspecific soft tissue swelling of the back at the thoracolumbar junctional levels. Otherwise, no MRI evidence of metastatic disease, as queried. If there is continued clinical suspicion, consider further evaluation with whole-body bone scan, CT PET imaging , and/or contrast MRI survey of the spine. Cervical Spine MRI 10/11/16 10:56 IMPRESSION: Anterior C4-C5 hardware fusion. A moderate C3-C4 disc protrusion mildly compresses the spinal cord. Chest X-Ray 10/14/16 23:52 IMPRESSION: No radiographic evidence for pneumothorax. Mild cardiomegaly and vascular congestion. Subsegmental atelectasis in the right perihilar region. 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 There could also be a component of acute tubular necrosis due to hemodynamic changes due to blood pressure changes throughout hospitalization. Today's the patient's first hemodialysis treatment. We are going to dialyze her today for 2 and half hours to her newly placed trialysis catheter with blood flow rate of 250 mL per minute and dialysate flow rate of 500 mL per minute. We will try ultrafiltration for at most 2 L. She will not be given any heparin or Procrit. We will continue to reevaluate daily it's for further need for hemodialysis treatment. Patient is agreeable to the plan. (2) Hyperkalemia, diminished renal excretion Is this a current diagnosis for this admission?: YesPlan: This should resolve with dialysis treatment. (3) Metabolic acidosis Is this a current diagnosis for this admission?: YesPlan: Continue sodium bicarbonate for now. Dialysis would help with this. (4) Hypercalcemia Is this a current diagnosis for this admission?: YesPlan: Likely secondary to multiple myeloma. Currently low and hopefully dialysis will also help. (5) Urinary tract infection Is this a current diagnosis for this admission?: YesPlan: Due to Enterococcus faecalis. Continue IV Levaquin every 48 hours. 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 Due to multiple myeloma. (7) Hyperphosphatemia Is this a current diagnosis for this admission?: YesPlan: This is due to acute kidney injury. (8) Hypertension Is this a current diagnosis for this admission?: YesPlan: Controlled. (9) Leg pain Qualifiers: Laterality: bilateral Qualified Code(s): M79.604 - Pain in right leg Is this a current diagnosis for this admission?: Yes (10) Back pain Qualifiers: Back pain location: low back pain Chronicity: acute Is this a current diagnosis for this admission?: Yes (11) Multiple myeloma Qualifiers: Multiple myeloma remission status: not in remission Qualified Code(s ): C90.00 - Multiple myeloma not having achieved remission Is this a current diagnosis for this admission?: YesPlan: Status post bone marrow biopsy. Management per Dr. Connor. Agree with planned radiation and chemotherapy. - Time Time with patient: 15-25 minutes
--- NOTE | 2016-10-15 16:51 | Operative Report ---
Operative Report DATE OF SURGERY: 10/15/16 PREOPERATIVE DIAGNOSIS: Hyperkalemia, chronic renal failure. POSTOPERATIVE DIAGNOSIS: Hyperkalemia, chronic renal failure. OPERATION: Ultrasound evaluation of the left femoral vein with real-time access and insertion of temporary hemodialysis catheter. SURGEON: CLAUDE LAWSON JOB PLACEMENT COUNSELOR: none ANESTHESIA: Local TISSUE REMOVED OR ALTERED: Not applicable COMPLICATIONS: None ESTIMATED BLOOD LOSS: 10 mL. INTRAOPERATIVE FINDINGS: Normal esophagus. No active bleeding. First and second portions of the duodenum normal. PROCEDURE: After obtaining informed consent, the patient was positioned supine at bedside. The left groin and adjacent areas] were prepared with chlorhexidine and draped out with sterile linen. After the universal timeout the procedure commenced. A steriley sheathed ultrasound probe was used to evaluate the left femoral vein. Local anesthesia was infiltrated adjacent to the probe. Access into the left femoral was accomplished using a micropuncture needle followed, by micropuncture wire and then with a micropuncture catheter. This was followed by introduction of a 0.035 guidewire, the skin opening was enlarged slightly, serially larger dilators were now placed followed by introduction of a triaysis catheter. All of these transitions were smooth. Each lumen was aspirated of blood and irrigated with heparinized solution. The catheter was now sutured to the skin using 3-0 nylon. A Bio A patch was now applied, followed by sterile dressings. Caps were placed on the end of the each of the lumens. The procedure concluded. Copies dictated operative report to Dr. Claude Workman MD.
[2016-10-15] MEDS: AMLODIPINE BESYLATE 5 MG TABLET PO SCH (17:03)
[2016-10-16] MEDS: HYDROMORPHONE HCL INJ/PF 2 MG/ML AMPULE IV PRN (05:17)
[2016-10-16] MEDS: DEXAMETHASONE SOD PHOSPHATE INJ 4 MG/1 ML VIAL IV SCH ×3 (05:17→17:34)
[2016-10-16] MEDS: HEPARIN SOD (PORCINE) 5,000 UNIT/ML 1 ML SYRINGE SUBCUT SCH ×3 (05:18→21:38)
[2016-10-16] MEDS ORDERED: BORTEZOMIB SUBCUT PRN (07:18)
[2016-10-16] MEDS ORDERED: DISPOSABLE SUBCUT PRN (07:18)
--- NOTE | 2016-10-16 08:33 | PDOC PROGRESS REPORT ---
Subjective Progress Note for:: 10/16/16 Subjective:: No acute events overnight, patient tried to work with physical therapy but still had a lot of pain yesterday, received first dialysis yesterday, received CT simulation yesterday, first radiation to be today. Velcade to be initiated today as well, patient and family had several questions, we answered them all, in total we spent about 45 minutes in discussion today. Physical Exam Vital Signs: Temp Pulse Resp BP Pulse Ox 97.6 F 81 18 110/58 L 99 10/16/16 07:26 10/16/16 07:26 10/16/16 07:26 10/16/16 07:26 10/16/16 07:26 Intake & Output 10/15/16 10/16/16 10/17/16 06:59 06:59 06:59 Intake Total 1598 841 Output Total 1650 4020 Balance -52 -3179 Weight 132.7 kg 128.9 kg General appearance: PRESENT: no acute distress, well-developed, well-nourished Head exam: PRESENT: atraumatic, normocephalic Eye exam: PRESENT: conjunctiva pink, EOMI, PERRLA. ABSENT: scleral icterus Ear exam: PRESENT: normal external ear exam Mouth exam: PRESENT: moist, tongue midline Neck exam: ABSENT: carotid bruit, JVD, lymphadenopathy, thyromegaly Respiratory exam: PRESENT: clear to auscultation merrill. ABSENT: rales, rhonchi, wheezes Cardiovascular exam: PRESENT: RRR. ABSENT: diastolic murmur, rubs, systolic murmur Pulses: PRESENT: normal dorsalis pedis pul Vascular exam: PRESENT: normal capillary refill GI/Abdominal exam: PRESENT: normal bowel sounds, soft. ABSENT: distended, guarding, mass, organolmegaly, rebound, tenderness Rectal exam: PRESENT: deferred Extremities exam: PRESENT: full ROM. ABSENT: calf tenderness, clubbing, pedal edema Neurological exam: PRESENT: alert, awake, oriented to person, oriented to place , oriented to time, oriented to situation, CN II-XII grossly intact. ABSENT: motor sensory deficit Psychiatric exam: PRESENT: appropriate affect, normal mood. ABSENT: homicidal ideation, suicidal ideation Skin exam: PRESENT: dry, intact, warm. ABSENT: cyanosis, rash Results Laboratory Results: 10/15/16 04:56 10/15/16 04:56 10/10/16 13:10 Blood Blood Culture - Final NO GROWTH IN 5 DAYS 10/10/16 08:31 Blood Blood Culture - Final NO GROWTH IN 5 DAYS 10/10/16 10/10/16 10/10/16 08:31 08:31 14:25 Creatine Kinase 176 H 170 H CK-MB (CK-2) 2.26 Troponin I 0.024 10/10/16 10/10/16 10/10/16 14:25 20:30 20:30 Creatine Kinase 174 H CK-MB (CK-2) 2.64 2.75 Troponin I 0.018 0.017 Impressions: Abdomen/Pelvis CT 10/04/16 00:00 IMPRESSION: NO SIGNIFICANT OR ACUTE PROCESS IN THE ABDOMEN OR PELVIS. Skeletal Survey 10/05/16 00:00 IMPRESSION: Small lucent lesions are identified on the skull, humeri, pelvis, and right femoral series. Correlate with additional evaluation to exclude myeloma or metastatic disease. Chest CT 10/06/16 00:00 IMPRESSION: No dominant lung mass. Small bilateral pleural effusions with basilar atelectasis. Minimal nodularity along the pleural surfaces right greater than left which nonspecific. No measurable masses. Bone Biopsy CT 10/09/16 00:00 IMPRESSION: CT GUIDED BIOPSY OF THE RIGHT POSTERIOR ILIAC CREST FOR BONE MARROW ASPIRATE EVALUATION PERFORMED WITHOUT IMMEDIATE COMPLICATION. PATHOLOGY PENDING. Lung Scan-VQ NM 10/10/16 00:00 IMPRESSION: No ventilation-perfusion mismatches. Lumbar Spine MRI 10/10/16 17:09 IMPRESSION: Very limited study. There are however multilevel epidural soft tissue mass is just posterior to the vertebral bodies resulting in severe compromise of the canal. In addition, at the discs levels, there is marked spinal stenosis related to posterior element overgrowth. MRI with contrast should be performed to further evaluate the epidural soft tissue masses. Thoracic Spine MRI 10/11/16 00:00 IMPRESSION: Small T6-T7 disc protrusion causes mild spinal canal stenosis. No significant cord or nerve root compression. Moderate nonspecific soft tissue swelling of the back at the thoracolumbar junctional levels. Otherwise, no MRI evidence of metastatic disease, as queried. If there is continued clinical suspicion, consider further evaluation with whole-body bone scan, CT PET imaging , and/or contrast MRI survey of the spine. Cervical Spine MRI 10/11/16 10:56 IMPRESSION: Anterior C4-C5 hardware fusion. A moderate C3-C4 disc protrusion mildly compresses the spinal cord. Chest X-Ray 10/14/16 23:52 IMPRESSION: No radiographic evidence for pneumothorax. Mild cardiomegaly and vascular congestion. Subsegmental atelectasis in the right perihilar region. 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 (3) Multiple myeloma Qualifiers: Multiple myeloma remission status: not in remission Qualified Code(s ): C90.00 - Multiple myeloma not having achieved remission Is this a current diagnosis for this admission?: YesPlan: Radiation will start today, probably will receive 10 doses total of radiation, she will began Velcade today this will be weekly. Continue with steroids. (4) DEL (acute kidney injury) Is this a current diagnosis for this admission?: YesPlan: Continue on dialysis per nephrology, kidney injury secondary to myeloma as well as hypotension and other causes. - Time Time Spent with patient: 35 or more minutes Critical Time spent with patient: 35 or more minutes - Inpatient Certification Based on my medical assessment, after consideration of the patient's comorbidities, presenting symptoms, or acuity I expect that the services needed warrant INPATIENT care.: Yes I certify that my determination is in accordance with my understanding of Medicare's requirements for reasonable and necessary INPATIENT services [42 CFR 412.3e].: Yes Medical Necessity: Failure to Improve With Outpatient Therapy, Need For IV Fluids, Need For Continuous Telemetry Monitoring, Need for Neurological Checks, Risk of Complication if Not Cared For in Hospital
[2016-10-16 09:15] LABS: HEMATOCRIT 28.4 % (36.0-47.0); HEMOGLOBIN 9.5 g/dL (12.0-15.5); HGB HCT DIFFERENCE 0.1; MEAN CORPUSCULAR HEMOGLOBIN 30.1 pg (27.0-33.4); MEAN CORPUSCULAR HGB CONC 33.5 g/dL (32.0-36.0); MEAN CORPUSCULAR VOLUME 90 fl (80-97); RED BLOOD COUNT 3.16 10^6/uL (3.72-5.28); WHITE BLOOD COUNT 17.3 10^3/uL (4.0-10.5)
[2016-10-16 09:27] LABS: ANION GAP 15 (5-19); BLOOD UREA NITROGEN 91 mg/dL (7-20); CALCIUM 7.5 mg/dL (8.4-10.2); CARBON DIOXIDE 19 mmol/L (22-30); CHLORIDE 104 mmol/L (98-107); CREATININE RESULT 3.08 mg/dL (0.52-1.25); GLUCOSE 117 mg/dL (75-110); POTASSIUM 4.7 mmol/L (3.6-5.0); SODIUM 138.4 mmol/L (137-145)
[2016-10-16] MEDS: DOCUSATE SODIUM 100 MG CAPSULE PO SCH ×2 (09:38→17:35)
[2016-10-16] MEDS: POLYETHYLENE GLYCOL 3350 POWDER 17 GM/1 PACKET PO PRN (09:38)
[2016-10-16] MEDS: SODIUM BICARBONATE 650 MG TABLET PO SCH ×2 (09:38→17:32)
[2016-10-16] MEDS: OXYCODONE HCL SR 40 MG TABLET PO SCH ×2 (09:39→21:38)
[2016-10-16] MEDS: AMLODIPINE BESYLATE 5 MG TABLET PO SCH (09:39)
[2016-10-16] MEDS: FUROSEMIDE 40 MG TABLET PO SCH ×2 (09:39→17:34)
[2016-10-16 09:40] LABS: BAND NEUTROPHILS % (MANUAL) 1 % (3-5); BASOPHILS % (MANUAL) 0 % (0-2); EOSINOPHILS % (MANUAL) 0 % (0-6); LYMPHOCYTES % (MANUAL) 19 % (13-45); TOTAL CELLS COUNTED 100
[2016-10-16 09:41] LABS: ANISOCYTOSIS 2+; HYPOCHROMASIA SLIGHT; POLYCHROMASIA SLIGHT; ROULEAUX 1+; TOXIC GRANULATION SLIGHT; TOXIC VACUOLATION PRESENT
[2016-10-16] MEDS ORDERED: OXYCODONE HCL SR 10 MG TABLET PO PRN (10:58)
[2016-10-16] MEDS: OXYCODONE HCL IR 5 MG TABLET PO PRN ×2 (11:22→17:32)
--- NOTE | 2016-10-16 13:54 | PDOC PROGRESS REPORT ---
Subjective Progress Note for:: 10/16/16 Subjective:: Patient is currently doing fair still very depressedPatient also scheduled for the chemotherapy todayPatient also scheduled for the radiation evaluations todayPatients denied any chest pain denied any shortness of the breath Patient's also underwent for the dialysis Physical Exam Vital Signs: Temp Pulse Resp BP Pulse Ox 98.2 F 86 16 125/73 100 10/16/16 11:29 10/16/16 11:29 10/16/16 11:29 10/16/16 11:29 10/16/16 11:29 Intake & Output 10/15/16 10/16/16 10/17/16 06:59 06:59 06:59 Intake Total 1598 841 355 Output Total 1650 4020 375 Balance -52 -3179 -20 Weight 132.7 kg 128.9 kg General appearance: PRESENT: no acute distress, well-developed, well-nourished Head exam: PRESENT: atraumatic, normocephalic Eye exam: PRESENT: conjunctiva pink, EOMI, PERRLA. ABSENT: scleral icterus Ear exam: PRESENT: normal external ear exam Mouth exam: PRESENT: moist, tongue midline Neck exam: PRESENT: full ROM. ABSENT: carotid bruit, JVD, lymphadenopathy, thyromegaly Respiratory exam: PRESENT: clear to auscultation merrill Cardiovascular exam: PRESENT: RRR. ABSENT: diastolic murmur, rubs, systolic murmur Pulses: PRESENT: normal dorsalis pedis pul, +2 pedal pulses bilateral Vascular exam: PRESENT: normal capillary refill GI/Abdominal exam: PRESENT: normal bowel sounds, soft. ABSENT: distended, guarding, mass, organolmegaly, rebound, tenderness Rectal exam: PRESENT: deferred Neurological exam: PRESENT: alert, awake, oriented to person, oriented to place , oriented to time, oriented to situation, CN II-XII grossly intact. ABSENT: motor sensory deficit Psychiatric exam: PRESENT: appropriate affect, depressed, normal mood. ABSENT: homicidal ideation, suicidal ideation Skin exam: PRESENT: dry, intact, warm. ABSENT: cyanosis, rash Results Laboratory Results: 10/16/16 08:55 10/16/16 08:55 10/16/16 10/16/16 08:55 08:55 WBC 17.3 H RBC 3.16 L Hgb 9.5 L Hct 28.4 L MCV 90 MCH 30.1 MCHC 33.5 RDW 16.0 H Plt Count 235 Seg Neutrophils % Not Reportable Lymphocytes % Not Reportable Monocytes % Not Reportable Eosinophils % Not Reportable Basophils % Not Reportable Absolute Neutrophils Not Reportable Absolute Lymphocytes Not Reportable Absolute Monocytes Not Reportable Absolute Eosinophils Not Reportable Absolute Basophils Not Reportable Sodium 138.4 Potassium 4.7 Chloride 104 Carbon Dioxide 19 L Anion Gap 15 BUN 91 H Creatinine 3.08 H Est GFR ( Amer) 19 L Est GFR (Non-Af Amer) 16 L Glucose 117 H Calcium 7.5 L 10/10/16 13:10 Blood Blood Culture - Final NO GROWTH IN 5 DAYS 10/10/16 10/10/16 10/10/16 08:31 08:31 14:25 Creatine Kinase 176 H 170 H CK-MB (CK-2) 2.26 Troponin I 0.024 10/10/16 10/10/16 10/10/16 14:25 20:30 20:30 Creatine Kinase 174 H CK-MB (CK-2) 2.64 2.75 Troponin I 0.018 0.017 Impressions: Abdomen/Pelvis CT 10/04/16 00:00 IMPRESSION: NO SIGNIFICANT OR ACUTE PROCESS IN THE ABDOMEN OR PELVIS. Skeletal Survey 10/05/16 00:00 IMPRESSION: Small lucent lesions are identified on the skull, humeri, pelvis, and right femoral series. Correlate with additional evaluation to exclude myeloma or metastatic disease. Chest CT 10/06/16 00:00 IMPRESSION: No dominant lung mass. Small bilateral pleural effusions with basilar atelectasis. Minimal nodularity along the pleural surfaces right greater than left which nonspecific. No measurable masses. Bone Biopsy CT 10/09/16 00:00 IMPRESSION: CT GUIDED BIOPSY OF THE RIGHT POSTERIOR ILIAC CREST FOR BONE MARROW ASPIRATE EVALUATION PERFORMED WITHOUT IMMEDIATE COMPLICATION. PATHOLOGY PENDING. Lung Scan-VQ NM 10/10/16 00:00 IMPRESSION: No ventilation-perfusion mismatches. Lumbar Spine MRI 10/10/16 17:09 IMPRESSION: Very limited study. There are however multilevel epidural soft tissue mass is just posterior to the vertebral bodies resulting in severe compromise of the canal. In addition, at the discs levels, there is marked spinal stenosis related to posterior element overgrowth. MRI with contrast should be performed to further evaluate the epidural soft tissue masses. Thoracic Spine MRI 10/11/16 00:00 IMPRESSION: Small T6-T7 disc protrusion causes mild spinal canal stenosis. No significant cord or nerve root compression. Moderate nonspecific soft tissue swelling of the back at the thoracolumbar junctional levels. Otherwise, no MRI evidence of metastatic disease, as queried. If there is continued clinical suspicion, consider further evaluation with whole-body bone scan, CT PET imaging , and/or contrast MRI survey of the spine. Cervical Spine MRI 10/11/16 10:56 IMPRESSION: Anterior C4-C5 hardware fusion. A moderate C3-C4 disc protrusion mildly compresses the spinal cord. Chest X-Ray 10/14/16 23:52 IMPRESSION: No radiographic evidence for pneumothorax. Mild cardiomegaly and vascular congestion. Subsegmental atelectasis in the right perihilar region. 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 Is this a current diagnosis for this admission?: YesPlan: Currently stable (3) Hypercalcemia Is this a current diagnosis for this admission?: YesPlan: Stable (4) Hypokalemia Is this a current diagnosis for this admission?: YesPlan: Currently on hemodialysis (5) Back pain Qualifiers: Back pain location: low back pain Chronicity: acute Is this a current diagnosis for this admission?: Yes (6) Hypertension Is this a current diagnosis for this admission?: Yes (7) Edema Qualifiers: Edema type: unspecified Qualified Code(s): R60.9 - Edema, unspecified Is this a current diagnosis for this admission?: Yes (8) Multiple myeloma Qualifiers: Multiple myeloma remission status: not in remission Qualified Code(s ): C90.00 - Multiple myeloma not having achieved remission Is this a current diagnosis for this admission?: YesPlan: Patient scheduled for the chemotherapy and the radiations today (9) Sinus tachycardia Is this a current diagnosis for this admission?: Yes (10) Fever Qualifiers: Fever type: unspecified Qualified Code(s): R50.9 - Fever, unspecified Is this a current diagnosis for this admission?: Yes - Time Time Spent with patient: 15-24 minutes Medications reviewed and adjusted accordingly: Yes Anticipated discharge: Home Within: Other - Inpatient Certification Medical Necessity: Need For IV Fluids, Need for IV Antibiotics Post Hospital Care: D/C Intelligence Consultant Documentation - Plan Summary Plan Summary: Patient is currently scheduled for chemo and the radiations. Continues to current medications. Discussed with the patient and family
--- NOTE | 2016-10-16 16:49 | PDOC PROGRESS REPORT ---
Subjective Progress Note for:: 10/16/16 Subjective:: Patient tolerated her first dialysis treatment yesterday. She received her first chemotherapy with Velcade today. Radiation therapy has yet to be started. He said she is doing fine and has no complaints Physical Exam Vital Signs: Temp Pulse Resp BP Pulse Ox 98.2 F 86 16 125/73 100 10/16/16 11:29 10/16/16 11:29 10/16/16 11:29 10/16/16 11:29 10/16/16 11:29 Intake & Output 10/15/16 10/16/16 10/17/16 06:59 06:59 06:59 Intake Total 1598 841 355 Output Total 1650 4020 375 Balance -52 -3179 -20 Weight 132.7 kg 128.9 kg Exam: General appearance: PRESENT: no acute distress, cooperative, well-developed, well-nourished Head exam: PRESENT: atraumatic, normocephalic Eye exam: PRESENT: conjunctiva pale, PERRLA. ABSENT: scleral icterus Neck exam: ABSENT: JVD Respiratory exam: PRESENT: Diminished breath sounds. ABSENT: crackles, rales, rhonchi, unlabored, wheezes Cardiovascular exam: PRESENT: Regular rate rhythm -+S1, +S2. ABSENT: diastolic murmur, systolic murmur GI/Abdominal exam: PRESENT: normal bowel sounds, soft. ABSENT: guarding, mass, tenderness Extremities exam: ABSENT: No edema Neurological exam: PRESENT: alert, awake, oriented to person, place and time. Skin exam: PRESENT: dry, warm, Results Laboratory Results: 10/16/16 08:55 10/16/16 08:55 10/16/16 10/16/16 08:55 08:55 WBC 17.3 H RBC 3.16 L Hgb 9.5 L Hct 28.4 L MCV 90 MCH 30.1 MCHC 33.5 RDW 16.0 H Plt Count 235 Seg Neutrophils % Not Reportable Lymphocytes % Not Reportable Monocytes % Not Reportable Eosinophils % Not Reportable Basophils % Not Reportable Absolute Neutrophils Not Reportable Absolute Lymphocytes Not Reportable Absolute Monocytes Not Reportable Absolute Eosinophils Not Reportable Absolute Basophils Not Reportable Sodium 138.4 Potassium 4.7 Chloride 104 Carbon Dioxide 19 L Anion Gap 15 BUN 91 H Creatinine 3.08 H Est GFR ( Amer) 19 L Est GFR (Non-Af Amer) 16 L Glucose 117 H Calcium 7.5 L 10/10/16 13:10 Blood Blood Culture - Final NO GROWTH IN 5 DAYS 10/10/16 10/10/16 10/10/16 08:31 08:31 14:25 Creatine Kinase 176 H 170 H CK-MB (CK-2) 2.26 Troponin I 0.024 10/10/16 10/10/16 10/10/16 14:25 20:30 20:30 Creatine Kinase 174 H CK-MB (CK-2) 2.64 2.75 Troponin I 0.018 0.017 Impressions: Abdomen/Pelvis CT 10/04/16 00:00 IMPRESSION: NO SIGNIFICANT OR ACUTE PROCESS IN THE ABDOMEN OR PELVIS. Skeletal Survey 10/05/16 00:00 IMPRESSION: Small lucent lesions are identified on the skull, humeri, pelvis, and right femoral series. Correlate with additional evaluation to exclude myeloma or metastatic disease. Chest CT 10/06/16 00:00 IMPRESSION: No dominant lung mass. Small bilateral pleural effusions with basilar atelectasis. Minimal nodularity along the pleural surfaces right greater than left which nonspecific. No measurable masses. Bone Biopsy CT 10/09/16 00:00 IMPRESSION: CT GUIDED BIOPSY OF THE RIGHT POSTERIOR ILIAC CREST FOR BONE MARROW ASPIRATE EVALUATION PERFORMED WITHOUT IMMEDIATE COMPLICATION. PATHOLOGY PENDING. Lung Scan-VQ NM 10/10/16 00:00 IMPRESSION: No ventilation-perfusion mismatches. Lumbar Spine MRI 10/10/16 17:09 IMPRESSION: Very limited study. There are however multilevel epidural soft tissue mass is just posterior to the vertebral bodies resulting in severe compromise of the canal. In addition, at the discs levels, there is marked spinal stenosis related to posterior element overgrowth. MRI with contrast should be performed to further evaluate the epidural soft tissue masses. Thoracic Spine MRI 10/11/16 00:00 IMPRESSION: Small T6-T7 disc protrusion causes mild spinal canal stenosis. No significant cord or nerve root compression. Moderate nonspecific soft tissue swelling of the back at the thoracolumbar junctional levels. Otherwise, no MRI evidence of metastatic disease, as queried. If there is continued clinical suspicion, consider further evaluation with whole-body bone scan, CT PET imaging , and/or contrast MRI survey of the spine. Cervical Spine MRI 10/11/16 10:56 IMPRESSION: Anterior C4-C5 hardware fusion. A moderate C3-C4 disc protrusion mildly compresses the spinal cord. Chest X-Ray 10/14/16 23:52 IMPRESSION: No radiographic evidence for pneumothorax. Mild cardiomegaly and vascular congestion. Subsegmental atelectasis in the right perihilar region. 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 There could also be a component of acute tubular necrosis due to hemodynamic changes due to blood pressure changes throughout hospitalization. Electrolytes including potassium and bicarbonate is better today due to dialysis yesterday. She continues to make good urine output. However she will still need hemodialysis support so we'll plan next treatment tomorrow morning. (2) Hyperkalemia, diminished renal excretion Is this a current diagnosis for this admission?: YesPlan: Improved with dialysis. (3) Metabolic acidosis Is this a current diagnosis for this admission?: YesPlan: Improving. Continue sodium bicarbonate for now until bicarbonate is normal. (4) Hypercalcemia Is this a current diagnosis for this admission?: YesPlan: Currently on the low side. This is due to multiple myeloma. (5) Urinary tract infection Is this a current diagnosis for this admission?: YesPlan: Due to Enterococcus faecalis. Continue IV Levaquin every 48 hours. 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 Due to multiple myeloma. (7) Hyperphosphatemia Is this a current diagnosis for this admission?: YesPlan: This is due to acute kidney injury. (8) Hypertension Is this a current diagnosis for this admission?: YesPlan: Controlled. (9) Leg pain Qualifiers: Laterality: bilateral Qualified Code(s): M79.604 - Pain in right leg Is this a current diagnosis for this admission?: Yes (10) Back pain Qualifiers: Back pain location: low back pain Chronicity: acute Is this a current diagnosis for this admission?: YesPlan: On pain medications and now in physical therapy. (11) Multiple myeloma Qualifiers: Multiple myeloma remission status: not in remission Qualified Code(s ): C90.00 - Multiple myeloma not having achieved remission Is this a current diagnosis for this admission?: YesPlan: Status post bone marrow biopsy. Management per Dr. Connor. Chemotherapy with Velcade started today and radiation to be started soon.. - Time Time with patient: 15-25 minutes
[2016-10-16] MEDS: LEVOFLOXACIN 500 MG/D5W RTU 500 MG/100 ML RTUPB IV SCH (17:35)
[2016-10-17] MEDS: DEXAMETHASONE SOD PHOSPHATE INJ 4 MG/1 ML VIAL IV SCH ×4 (00:33→17:39)
[2016-10-17 05:04] LABS: ABSOLUTE LYMPHOCYTES (AUTO) 1.5 10^3/uL (0.5-4.7); ABSOLUTE MONOCYTES (AUTO) 1.8 10^3/uL (0.1-1.4); BASOPHILS % (AUTO) 0.2 % (0-2); HEMATOCRIT 24.1 % (36.0-47.0); HEMOGLOBIN 8.3 g/dL (12.0-15.5); HGB HCT DIFFERENCE 0.8; LYMPHOCYTES % (AUTO) 11.1 % (13-45); MEAN CORPUSCULAR HEMOGLOBIN 31.1 pg (27.0-33.4); MEAN CORPUSCULAR HGB CONC 34.4 g/dL (32.0-36.0); MEAN CORPUSCULAR VOLUME 90 fl (80-97); MONOCYTES % (AUTO) 13.2 % (3-13); RED BLOOD COUNT 2.67 10^6/uL (3.72-5.28); RED CELL DISTRIBUTION WIDTH 15.8 % (11.5-14.0); SEGMENTED NEUTROPHILS % (AUTO) 75.5 % (42-78); WHITE BLOOD COUNT 13.2 10^3/uL (4.0-10.5)
[2016-10-17 05:23] LABS: ANION GAP 12 (5-19); BLOOD UREA NITROGEN 93 mg/dL (7-20); CARBON DIOXIDE 21 mmol/L (22-30); CHLORIDE 106 mmol/L (98-107); CREATININE RESULT 3.11 mg/dL (0.52-1.25); GLUCOSE 135 mg/dL (75-110); POTASSIUM 5.2 mmol/L (3.6-5.0); SODIUM 139.1 mmol/L (137-145)
[2016-10-17 05:29] LABS: CALCIUM 7.1 mg/dL (8.4-10.2)
[2016-10-17] MEDS: HEPARIN SOD (PORCINE) 5,000 UNIT/ML 1 ML SYRINGE SUBCUT SCH ×2 (06:41→17:44)
--- NOTE | 2016-10-17 08:24 | PDOC PROGRESS REPORT ---
Subjective Progress Note for:: 10/17/16 Subjective:: Patient in much better spirits, yesterday was spent during dialysis, did not receive radiation yet, radiation today, received Velcade yesterday. She is overall seemingly a little bit better, we need to get her up in a chair and moving around. Physical Exam Vital Signs: Temp Pulse Resp BP Pulse Ox 97.4 F 87 18 128/73 H 100 10/17/16 07:45 10/17/16 07:45 10/17/16 07:45 10/17/16 07:45 10/17/16 07:45 Intake & Output 10/16/16 10/17/16 10/18/16 06:59 06:59 06:59 Intake Total 841 835 Output Total 4020 1800 Balance -3179 -965 Weight 128.9 kg 128.5 kg General appearance: PRESENT: no acute distress, well-developed, well-nourished Head exam: PRESENT: atraumatic, normocephalic Eye exam: PRESENT: conjunctiva pink, EOMI, PERRLA. ABSENT: scleral icterus Ear exam: PRESENT: normal external ear exam Mouth exam: PRESENT: moist, tongue midline Neck exam: ABSENT: carotid bruit, JVD, lymphadenopathy, thyromegaly Respiratory exam: PRESENT: clear to auscultation merrill. ABSENT: rales, rhonchi, wheezes Cardiovascular exam: PRESENT: RRR. ABSENT: diastolic murmur, rubs, systolic murmur Pulses: PRESENT: normal dorsalis pedis pul Vascular exam: PRESENT: normal capillary refill GI/Abdominal exam: PRESENT: normal bowel sounds, soft. ABSENT: distended, guarding, mass, organolmegaly, rebound, tenderness Rectal exam: PRESENT: deferred Extremities exam: PRESENT: full ROM. ABSENT: calf tenderness, clubbing, pedal edema Neurological exam: PRESENT: alert, awake, oriented to person, oriented to place , oriented to time, oriented to situation, CN II-XII grossly intact. ABSENT: motor sensory deficit Psychiatric exam: PRESENT: appropriate affect, normal mood. ABSENT: homicidal ideation, suicidal ideation Skin exam: PRESENT: dry, intact, warm. ABSENT: cyanosis, rash Results Laboratory Results: 10/17/16 04:15 10/17/16 04:15 10/16/16 10/16/16 10/17/16 08:55 08:55 04:15 WBC 17.3 H 13.2 H RBC 3.16 L 2.67 L Hgb 9.5 L 8.3 L Hct 28.4 L 24.1 L MCV 90 90 MCH 30.1 31.1 MCHC 33.5 34.4 RDW 16.0 H 15.8 H Plt Count 235 209 Seg Neutrophils % Not Reportable 75.5 Lymphocytes % Not Reportable 11.1 L Monocytes % Not Reportable 13.2 H Eosinophils % Not Reportable 0.0 Basophils % Not Reportable 0.2 Absolute Neutrophils Not Reportable 10.0 H Absolute Lymphocytes Not Reportable 1.5 Absolute Monocytes Not Reportable 1.8 H Absolute Eosinophils Not Reportable 0.0 Absolute Basophils Not Reportable 0.0 Sodium 138.4 Potassium 4.7 Chloride 104 Carbon Dioxide 19 L Anion Gap 15 BUN 91 H Creatinine 3.08 H Est GFR ( Amer) 19 L Est GFR (Non-Af Amer) 16 L Glucose 117 H Calcium 7.5 L 10/17/16 04:15 WBC RBC Hgb Hct MCV MCH MCHC RDW Plt Count Seg Neutrophils % Lymphocytes % Monocytes % Eosinophils % Basophils % Absolute Neutrophils Absolute Lymphocytes Absolute Monocytes Absolute Eosinophils Absolute Basophils Sodium 139.1 Potassium 5.2 H Chloride 106 Carbon Dioxide 21 L Anion Gap 12 BUN 93 H Creatinine 3.11 H Est GFR ( Amer) 19 L Est GFR (Non-Af Amer) 16 L Glucose 135 H Calcium 7.1 L 10/10/16 10/10/16 10/10/16 08:31 08:31 14:25 Creatine Kinase 176 H 170 H CK-MB (CK-2) 2.26 Troponin I 0.024 10/10/16 10/10/16 10/10/16 14:25 20:30 20:30 Creatine Kinase 174 H CK-MB (CK-2) 2.64 2.75 Troponin I 0.018 0.017 Impressions: Abdomen/Pelvis CT 10/04/16 00:00 IMPRESSION: NO SIGNIFICANT OR ACUTE PROCESS IN THE ABDOMEN OR PELVIS. Skeletal Survey 10/05/16 00:00 IMPRESSION: Small lucent lesions are identified on the skull, humeri, pelvis, and right femoral series. Correlate with additional evaluation to exclude myeloma or metastatic disease. Chest CT 10/06/16 00:00 IMPRESSION: No dominant lung mass. Small bilateral pleural effusions with basilar atelectasis. Minimal nodularity along the pleural surfaces right greater than left which nonspecific. No measurable masses. Bone Biopsy CT 10/09/16 00:00 IMPRESSION: CT GUIDED BIOPSY OF THE RIGHT POSTERIOR ILIAC CREST FOR BONE MARROW ASPIRATE EVALUATION PERFORMED WITHOUT IMMEDIATE COMPLICATION. PATHOLOGY PENDING. Lung Scan-VQ NM 10/10/16 00:00 IMPRESSION: No ventilation-perfusion mismatches. Lumbar Spine MRI 10/10/16 17:09 IMPRESSION: Very limited study. There are however multilevel epidural soft tissue mass is just posterior to the vertebral bodies resulting in severe compromise of the canal. In addition, at the discs levels, there is marked spinal stenosis related to posterior element overgrowth. MRI with contrast should be performed to further evaluate the epidural soft tissue masses. Thoracic Spine MRI 10/11/16 00:00 IMPRESSION: Small T6-T7 disc protrusion causes mild spinal canal stenosis. No significant cord or nerve root compression. Moderate nonspecific soft tissue swelling of the back at the thoracolumbar junctional levels. Otherwise, no MRI evidence of metastatic disease, as queried. If there is continued clinical suspicion, consider further evaluation with whole-body bone scan, CT PET imaging , and/or contrast MRI survey of the spine. Cervical Spine MRI 10/11/16 10:56 IMPRESSION: Anterior C4-C5 hardware fusion. A moderate C3-C4 disc protrusion mildly compresses the spinal cord. Chest X-Ray 10/14/16 23:52 IMPRESSION: No radiographic evidence for pneumothorax. Mild cardiomegaly and vascular congestion. Subsegmental atelectasis in the right perihilar region. 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 From that standpoint I think we need to be aggressive with physical therapy with her, if she goes to a subacute rehabilitation-type facility, treatment will NOT be possible through that because of insurance issues. I do believe she should be able to get up and around, this should not be a true cancer hindrance from this other than a pain standpoint. (4) DEL (acute kidney injury) Is this a current diagnosis for this admission?: YesPlan: Continue dialysis per renal team - Time Time Spent with patient: 35 or more minutes Critical Time spent with patient: 35 or more minutes - Inpatient Certification Based on my medical assessment, after consideration of the patient's comorbidities, presenting symptoms, or acuity I expect that the services needed warrant INPATIENT care.: Yes I certify that my determination is in accordance with my understanding of Medicare's requirements for reasonable and necessary INPATIENT services [42 CFR 412.3e].: Yes Medical Necessity: Failure to Improve With Outpatient Therapy, Need Close Monitoring Due to Risk of Patient Decompensation, Need for Pain Control, Risk of Complication if Not Cared For in Hospital, Risk of Diagnosis Which Will Require Inpatient Eval/Care/Monitoring
[2016-10-17] MEDS: OXYCODONE HCL IR 5 MG TABLET PO PRN (09:41)
[2016-10-17] MEDS: FUROSEMIDE 40 MG TABLET PO SCH ×2 (09:41→17:38)
[2016-10-17] MEDS: DOCUSATE SODIUM 100 MG CAPSULE PO SCH ×2 (09:41→17:38)
[2016-10-17] MEDS: OXYCODONE HCL SR 40 MG TABLET PO SCH (09:41)
[2016-10-17] MEDS: SODIUM BICARBONATE 650 MG TABLET PO SCH ×2 (09:42→17:38)
--- NOTE | 2016-10-17 10:02 | PDOC PROGRESS REPORT ---
Subjective Progress Note for:: 10/17/16 Subjective:: Patient is currently doing fair patient's Kendall the chemotherapy yesterday and scheduled for the dialysis and the radiation starting. Patient on bedside and discussed with the or the test results and the plan. Patient's denied any chest pain denied any shortness of the breath. Patient also followed by the nephrology and oncology Physical Exam Vital Signs: Temp Pulse Resp BP Pulse Ox 97.4 F 87 18 128/73 H 100 10/17/16 07:45 10/17/16 07:45 10/17/16 07:45 10/17/16 07:45 10/17/16 07:45 Intake & Output 10/16/16 10/17/16 10/18/16 06:59 06:59 06:59 Intake Total 841 835 Output Total 4020 1800 Balance -3179 -965 Weight 128.9 kg 128.5 kg General appearance: PRESENT: no acute distress, well-developed, well-nourished Head exam: PRESENT: atraumatic, normocephalic Eye exam: PRESENT: conjunctiva pink, EOMI, PERRLA. ABSENT: scleral icterus Ear exam: PRESENT: normal external ear exam Mouth exam: PRESENT: moist, tongue midline Neck exam: PRESENT: full ROM. ABSENT: carotid bruit, JVD, lymphadenopathy, thyromegaly Respiratory exam: PRESENT: clear to auscultation merrill Cardiovascular exam: PRESENT: RRR. ABSENT: diastolic murmur, rubs, systolic murmur Pulses: PRESENT: normal dorsalis pedis pul, +2 pedal pulses bilateral Vascular exam: PRESENT: normal capillary refill GI/Abdominal exam: PRESENT: normal bowel sounds, soft. ABSENT: distended, guarding, mass, organolmegaly, rebound, tenderness Rectal exam: PRESENT: deferred Neurological exam: PRESENT: alert, awake, oriented to person, oriented to place , oriented to time, oriented to situation, CN II-XII grossly intact. ABSENT: motor sensory deficit Psychiatric exam: PRESENT: appropriate affect, normal mood. ABSENT: homicidal ideation, suicidal ideation Skin exam: PRESENT: dry, intact, warm. ABSENT: cyanosis, rash Results Laboratory Results: 10/17/16 04:15 10/17/16 04:15 10/17/16 10/17/16 04:15 04:15 WBC 13.2 H RBC 2.67 L Hgb 8.3 L Hct 24.1 L MCV 90 MCH 31.1 MCHC 34.4 RDW 15.8 H Plt Count 209 Seg Neutrophils % 75.5 Lymphocytes % 11.1 L Monocytes % 13.2 H Eosinophils % 0.0 Basophils % 0.2 Absolute Neutrophils 10.0 H Absolute Lymphocytes 1.5 Absolute Monocytes 1.8 H Absolute Eosinophils 0.0 Absolute Basophils 0.0 Sodium 139.1 Potassium 5.2 H Chloride 106 Carbon Dioxide 21 L Anion Gap 12 BUN 93 H Creatinine 3.11 H Est GFR ( Amer) 19 L Est GFR (Non-Af Amer) 16 L Glucose 135 H Calcium 7.1 L 10/10/16 10/10/16 10/10/16 08:31 08:31 14:25 Creatine Kinase 176 H 170 H CK-MB (CK-2) 2.26 Troponin I 0.024 10/10/16 10/10/16 10/10/16 14:25 20:30 20:30 Creatine Kinase 174 H CK-MB (CK-2) 2.64 2.75 Troponin I 0.018 0.017 Impressions: Abdomen/Pelvis CT 10/04/16 00:00 IMPRESSION: NO SIGNIFICANT OR ACUTE PROCESS IN THE ABDOMEN OR PELVIS. Skeletal Survey 10/05/16 00:00 IMPRESSION: Small lucent lesions are identified on the skull, humeri, pelvis, and right femoral series. Correlate with additional evaluation to exclude myeloma or metastatic disease. Chest CT 10/06/16 00:00 IMPRESSION: No dominant lung mass. Small bilateral pleural effusions with basilar atelectasis. Minimal nodularity along the pleural surfaces right greater than left which nonspecific. No measurable masses. Bone Biopsy CT 10/09/16 00:00 IMPRESSION: CT GUIDED BIOPSY OF THE RIGHT POSTERIOR ILIAC CREST FOR BONE MARROW ASPIRATE EVALUATION PERFORMED WITHOUT IMMEDIATE COMPLICATION. PATHOLOGY PENDING. Lung Scan-VQ NM 10/10/16 00:00 IMPRESSION: No ventilation-perfusion mismatches. Lumbar Spine MRI 10/10/16 17:09 IMPRESSION: Very limited study. There are however multilevel epidural soft tissue mass is just posterior to the vertebral bodies resulting in severe compromise of the canal. In addition, at the discs levels, there is marked spinal stenosis related to posterior element overgrowth. MRI with contrast should be performed to further evaluate the epidural soft tissue masses. Thoracic Spine MRI 10/11/16 00:00 IMPRESSION: Small T6-T7 disc protrusion causes mild spinal canal stenosis. No significant cord or nerve root compression. Moderate nonspecific soft tissue swelling of the back at the thoracolumbar junctional levels. Otherwise, no MRI evidence of metastatic disease, as queried. If there is continued clinical suspicion, consider further evaluation with whole-body bone scan, CT PET imaging , and/or contrast MRI survey of the spine. Cervical Spine MRI 10/11/16 10:56 IMPRESSION: Anterior C4-C5 hardware fusion. A moderate C3-C4 disc protrusion mildly compresses the spinal cord. Chest X-Ray 10/14/16 23:52 IMPRESSION: No radiographic evidence for pneumothorax. Mild cardiomegaly and vascular congestion. Subsegmental atelectasis in the right perihilar region. 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 Is this a current diagnosis for this admission?: YesPlan: Currently stable (3) Hypercalcemia Is this a current diagnosis for this admission?: YesPlan: From multiple myeloma (4) Hypokalemia Is this a current diagnosis for this admission?: Yes (5) Back pain Qualifiers: Back pain location: low back pain Chronicity: acute Is this a current diagnosis for this admission?: Yes (6) Hypertension Is this a current diagnosis for this admission?: YesPlan: Stable (7) Edema Qualifiers: Edema type: unspecified Qualified Code(s): R60.9 - Edema, unspecified Is this a current diagnosis for this admission?: Yes (8) Multiple myeloma Qualifiers: Multiple myeloma remission status: not in remission Qualified Code(s ): C90.00 - Multiple myeloma not having achieved remission Is this a current diagnosis for this admission?: YesPlan: Currently on chemotherapy in the start the radiation started on the back (9) Sinus tachycardia Is this a current diagnosis for this admission?: Yes (10) Fever Qualifiers: Fever type: unspecified Qualified Code(s): R50.9 - Fever, unspecified Is this a current diagnosis for this admission?: Yes - Time Time Spent with patient: 25-34 minutes Medications reviewed and adjusted accordingly: Yes Anticipated discharge: Home Within: Other - Inpatient Certification Medical Necessity: Need Close Monitoring Due to Risk of Patient Decompensation, Need for IV Antibiotics Post Hospital Care: D/C Br[facility]claimer Documentation - Plan Summary Plan Summary: Very extensive discussions on the patient and the family about the patient's current conditions and I hope the patient's continues to be improved
[2016-10-17] MEDS: AMLODIPINE BESYLATE 5 MG TABLET PO SCH (12:36)
[2016-10-17] MEDS: POLYETHYLENE GLYCOL 3350 POWDER 17 GM/1 PACKET PO PRN (17:43)
--- NOTE | 2016-10-17 20:50 | PDOC PROGRESS REPORT ---
Subjective Progress Note for:: 10/17/16 Subjective:: Saw the patient during dialysis this evening. This seems to be clinically doing better. She is tolerating dialysis without much problems. She started radiation therapy. She does not have any other new complaints. Physical Exam Vital Signs: Temp Pulse Resp BP Pulse Ox 97.4 F 88 18 128/73 H 100 10/17/16 07:45 10/17/16 19:00 10/17/16 07:45 10/17/16 07:45 10/17/16 07:45 Intake & Output 10/16/16 10/17/16 10/18/16 06:59 06:59 06:59 Intake Total 841 835 472 Output Total 4020 1800 1175 Balance -0769 -965 -703 Weight 128.9 kg 128.5 kg Vital signs during dialysis today: 1 pressure 142/73, heart rate 83, blood flow rate 250 mL per minute, dialysate flow rate 500 mL per minute. Exam: General appearance: PRESENT: no acute distress, cooperative, well-developed, well-nourished Head exam: PRESENT: atraumatic, normocephalic Eye exam: PRESENT: conjunctiva pale, PERRLA. ABSENT: scleral icterus Neck exam: ABSENT: JVD Respiratory exam: PRESENT: Diminished breath sounds. ABSENT: crackles, rales, rhonchi, unlabored, wheezes Cardiovascular exam: PRESENT: Regular rate rhythm -+S1, +S2. ABSENT: diastolic murmur, systolic murmur GI/Abdominal exam: PRESENT: normal bowel sounds, soft. ABSENT: guarding, mass, tenderness Extremities exam: Trace bilateral pitting edema Neurological exam: PRESENT: alert, awake, oriented to person, place and time. Skin exam: PRESENT: dry, warm, Results Laboratory Results: 10/17/16 04:15 10/17/16 04:15 10/17/16 10/17/16 04:15 04:15 WBC 13.2 H RBC 2.67 L Hgb 8.3 L Hct 24.1 L MCV 90 MCH 31.1 MCHC 34.4 RDW 15.8 H Plt Count 209 Seg Neutrophils % 75.5 Lymphocytes % 11.1 L Monocytes % 13.2 H Eosinophils % 0.0 Basophils % 0.2 Absolute Neutrophils 10.0 H Absolute Lymphocytes 1.5 Absolute Monocytes 1.8 H Absolute Eosinophils 0.0 Absolute Basophils 0.0 Sodium 139.1 Potassium 5.2 H Chloride 106 Carbon Dioxide 21 L Anion Gap 12 BUN 93 H Creatinine 3.11 H Est GFR ( Amer) 19 L Est GFR (Non-Af Amer) 16 L Glucose 135 H Calcium 7.1 L 10/10/16 10/10/16 10/10/16 08:31 08:31 14:25 Creatine Kinase 176 H 170 H CK-MB (CK-2) 2.26 Troponin I 0.024 10/10/16 10/10/16 10/10/16 14:25 20:30 20:30 Creatine Kinase 174 H CK-MB (CK-2) 2.64 2.75 Troponin I 0.018 0.017 Impressions: Abdomen/Pelvis CT 10/04/16 00:00 IMPRESSION: NO SIGNIFICANT OR ACUTE PROCESS IN THE ABDOMEN OR PELVIS. Skeletal Survey 10/05/16 00:00 IMPRESSION: Small lucent lesions are identified on the skull, humeri, pelvis, and right femoral series. Correlate with additional evaluation to exclude myeloma or metastatic disease. Chest CT 10/06/16 00:00 IMPRESSION: No dominant lung mass. Small bilateral pleural effusions with basilar atelectasis. Minimal nodularity along the pleural surfaces right greater than left which nonspecific. No measurable masses. Bone Biopsy CT 10/09/16 00:00 IMPRESSION: CT GUIDED BIOPSY OF THE RIGHT POSTERIOR ILIAC CREST FOR BONE MARROW ASPIRATE EVALUATION PERFORMED WITHOUT IMMEDIATE COMPLICATION. PATHOLOGY PENDING. Lung Scan-VQ NM 10/10/16 00:00 IMPRESSION: No ventilation-perfusion mismatches. Lumbar Spine MRI 10/10/16 17:09 IMPRESSION: Very limited study. There are however multilevel epidural soft tissue mass is just posterior to the vertebral bodies resulting in severe compromise of the canal. In addition, at the discs levels, there is marked spinal stenosis related to posterior element overgrowth. MRI with contrast should be performed to further evaluate the epidural soft tissue masses. Thoracic Spine MRI 10/11/16 00:00 IMPRESSION: Small T6-T7 disc protrusion causes mild spinal canal stenosis. No significant cord or nerve root compression. Moderate nonspecific soft tissue swelling of the back at the thoracolumbar junctional levels. Otherwise, no MRI evidence of metastatic disease, as queried. If there is continued clinical suspicion, consider further evaluation with whole-body bone scan, CT PET imaging , and/or contrast MRI survey of the spine. Cervical Spine MRI 10/11/16 10:56 IMPRESSION: Anterior C4-C5 hardware fusion. A moderate C3-C4 disc protrusion mildly compresses the spinal cord. Chest X-Ray 10/14/16 23:52 IMPRESSION: No radiographic evidence for pneumothorax. Mild cardiomegaly and vascular congestion. Subsegmental atelectasis in the right perihilar region. 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 There could also be a component of acute tubular necrosis due to hemodynamic changes due to blood pressure changes throughout hospitalization. Electrolytes including potassium and bicarbonate is better today due to dialysis yesterday. She continues to make good urine output. However she will still need hemodialysis support. We will do dialysis today for [3] hours, using the patient's trialysis catheter , with [2] potassium bath, blood flow rate of 50 mL per minute, dialysate flow rate of 500 mL per minute, ultrafiltration [as tolerated], [no heparin] and no Procrit during dialysis. We will continue to reevaluate daily. (2) Hyperkalemia, diminished renal excretion Is this a current diagnosis for this admission?: YesPlan: Improved with dialysis. (3) Metabolic acidosis Is this a current diagnosis for this admission?: YesPlan: Improving. Continue sodium bicarbonate for now until bicarbonate is normal. (4) Hypercalcemia Is this a current diagnosis for this admission?: YesPlan: Currently on the low side. This is due to multiple myeloma. Patient may need some calcium supplement if it continues to go down. (5) Urinary tract infection Is this a current diagnosis for this admission?: YesPlan: Due to Enterococcus faecalis. Continue IV Levaquin every 48 hours. 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 Due to multiple myeloma. (7) Hyperphosphatemia Is this a current diagnosis for this admission?: YesPlan: This is due to acute kidney injury. (8) Hypertension Is this a current diagnosis for this admission?: YesPlan: Controlled. (9) Leg pain Qualifiers: Laterality: bilateral Qualified Code(s): M79.604 - Pain in right leg Is this a current diagnosis for this admission?: Yes (10) Back pain Qualifiers: Back pain location: low back pain Chronicity: acute Is this a current diagnosis for this admission?: YesPlan: On pain medications and now in physical therapy. (11) Multiple myeloma Qualifiers: Multiple myeloma remission status: not in remission Qualified Code(s ): C90.00 - Multiple myeloma not having achieved remission Is this a current diagnosis for this admission?: YesPlan: Status post bone marrow biopsy. Management per Dr. Connor. Chemotherapy with Velcade started today and radiation to be started soon.. - Time Time with patient: 15-25 minutes
[2016-10-17] MEDS ORDERED: HEPARIN SOD (PORCINE) 1,000 UNIT/ML 10 ML VIAL IV PRN (21:41)
[2016-10-18] MEDS: OXYCODONE HCL SR 40 MG TABLET PO SCH ×3 (00:05→22:47)
[2016-10-18] MEDS: HEPARIN SOD (PORCINE) 5,000 UNIT/ML 1 ML SYRINGE SUBCUT SCH ×4 (00:06→22:48)
[2016-10-18] MEDS: DEXAMETHASONE SOD PHOSPHATE INJ 4 MG/1 ML VIAL IV SCH ×5 (00:07→23:49)
[2016-10-18 07:31] LABS: ABSOLUTE BASOPHILS # (AUTO) 0.1 10^3/uL (0.0-0.2); ABSOLUTE LYMPHOCYTES (AUTO) 0.9 10^3/uL (0.5-4.7); ABSOLUTE MONOCYTES (AUTO) 1.5 10^3/uL (0.1-1.4); ABSOLUTE NEUT (AUTO) 11.4 10^3/uL (1.7-8.2); BASOPHILS % (AUTO) 0.4 % (0-2); EOSINOPHILS % (AUTO) 0.1 % (0-6); HEMATOCRIT 25.9 % (36.0-47.0); HEMOGLOBIN 8.8 g/dL (12.0-15.5); HGB HCT DIFFERENCE 0.5; LYMPHOCYTES % (AUTO) 6.2 % (13-45); MEAN CORPUSCULAR HEMOGLOBIN 30.4 pg (27.0-33.4); MEAN CORPUSCULAR VOLUME 89 fl (80-97); MONOCYTES % (AUTO) 10.9 % (3-13); RED BLOOD COUNT 2.89 10^6/uL (3.72-5.28); RED CELL DISTRIBUTION WIDTH 15.7 % (11.5-14.0); SEGMENTED NEUTROPHILS % (AUTO) 82.4 % (42-78); WHITE BLOOD COUNT 13.8 10^3/uL (4.0-10.5)
[2016-10-18 07:49] LABS: ANION GAP 9 (5-19); BLOOD UREA NITROGEN 65 mg/dL (7-20); CARBON DIOXIDE 27 mmol/L (22-30); CHLORIDE 103 mmol/L (98-107); CREATININE RESULT 2.01 mg/dL (0.52-1.25); GLUCOSE 134 mg/dL (75-110); PHOSPHORUS 4.1 mg/dL (2.5-4.5); POTASSIUM 4.3 mmol/L (3.6-5.0); SODIUM 138.8 mmol/L (137-145)
[2016-10-18 07:58] LABS: CALCIUM 7.1 mg/dL (8.4-10.2)
--- NOTE | 2016-10-18 08:24 | PDOC PROGRESS REPORT ---
Subjective Progress Note for:: 10/18/16 Subjective:: No acute events overnight, patient was able to get into a chair with a lot of assistance, did receive both dialysis and radiation yesterday Physical Exam Vital Signs: Temp Pulse Resp BP Pulse Ox 97.1 F 89 16 123/69 99 10/18/16 03:21 10/18/16 03:21 10/18/16 03:21 10/18/16 03:21 10/18/16 03:21 Intake & Output 10/17/16 10/18/16 10/19/16 06:59 06:59 06:59 Intake Total 835 472 Output Total 1800 3875 Balance -965 -3403 Weight 128.5 kg 126 kg General appearance: PRESENT: no acute distress, well-developed, well-nourished Head exam: PRESENT: atraumatic, normocephalic Eye exam: PRESENT: conjunctiva pink, EOMI, PERRLA. ABSENT: scleral icterus Ear exam: PRESENT: normal external ear exam Mouth exam: PRESENT: moist, tongue midline Neck exam: ABSENT: carotid bruit, JVD, lymphadenopathy, thyromegaly Respiratory exam: PRESENT: clear to auscultation merrill. ABSENT: rales, rhonchi, wheezes Cardiovascular exam: PRESENT: RRR. ABSENT: diastolic murmur, rubs, systolic murmur Pulses: PRESENT: normal dorsalis pedis pul Vascular exam: PRESENT: normal capillary refill GI/Abdominal exam: PRESENT: normal bowel sounds, soft. ABSENT: distended, guarding, mass, organolmegaly, rebound, tenderness Rectal exam: PRESENT: deferred Extremities exam: PRESENT: full ROM. ABSENT: calf tenderness, clubbing, pedal edema Neurological exam: PRESENT: alert, awake, oriented to person, oriented to place , oriented to time, oriented to situation, CN II-XII grossly intact. ABSENT: motor sensory deficit Psychiatric exam: PRESENT: appropriate affect, normal mood. ABSENT: homicidal ideation, suicidal ideation Skin exam: PRESENT: dry, intact, warm. ABSENT: cyanosis, rash Results Laboratory Results: 10/18/16 06:56 10/18/16 06:56 10/18/16 10/18/16 10/18/16 06:56 06:56 06:56 WBC 13.8 H RBC 2.89 L Hgb 8.8 L Hct 25.9 L MCV 89 MCH 30.4 MCHC 34.0 RDW 15.7 H Plt Count 245 Seg Neutrophils % 82.4 H Lymphocytes % 6.2 L Monocytes % 10.9 Eosinophils % 0.1 Basophils % 0.4 Absolute Neutrophils 11.4 H Absolute Lymphocytes 0.9 Absolute Monocytes 1.5 H Absolute Eosinophils 0.0 Absolute Basophils 0.1 Sodium 138.8 Potassium 4.3 Chloride 103 Carbon Dioxide 27 Anion Gap 9 BUN 65 H Creatinine 2.01 H Est GFR ( Amer) 31 L Est GFR (Non-Af Amer) 26 L Glucose 134 H Calcium 7.1 L Ionized Calcium Steve 0.96 L Phosphorus 4.1 10/10/16 10/10/16 10/10/16 08:31 08:31 14:25 Creatine Kinase 176 H 170 H CK-MB (CK-2) 2.26 Troponin I 0.024 10/10/16 10/10/16 10/10/16 14:25 20:30 20:30 Creatine Kinase 174 H CK-MB (CK-2) 2.64 2.75 Troponin I 0.018 0.017 Impressions: Abdomen/Pelvis CT 10/04/16 00:00 IMPRESSION: NO SIGNIFICANT OR ACUTE PROCESS IN THE ABDOMEN OR PELVIS. Skeletal Survey 10/05/16 00:00 IMPRESSION: Small lucent lesions are identified on the skull, humeri, pelvis, and right femoral series. Correlate with additional evaluation to exclude myeloma or metastatic disease. Chest CT 10/06/16 00:00 IMPRESSION: No dominant lung mass. Small bilateral pleural effusions with basilar atelectasis. Minimal nodularity along the pleural surfaces right greater than left which nonspecific. No measurable masses. Bone Biopsy CT 10/09/16 00:00 IMPRESSION: CT GUIDED BIOPSY OF THE RIGHT POSTERIOR ILIAC CREST FOR BONE MARROW ASPIRATE EVALUATION PERFORMED WITHOUT IMMEDIATE COMPLICATION. PATHOLOGY PENDING. Lung Scan-VQ NM 10/10/16 00:00 IMPRESSION: No ventilation-perfusion mismatches. Lumbar Spine MRI 10/10/16 17:09 IMPRESSION: Very limited study. There are however multilevel epidural soft tissue mass is just posterior to the vertebral bodies resulting in severe compromise of the canal. In addition, at the discs levels, there is marked spinal stenosis related to posterior element overgrowth. MRI with contrast should be performed to further evaluate the epidural soft tissue masses. Thoracic Spine MRI 10/11/16 00:00 IMPRESSION: Small T6-T7 disc protrusion causes mild spinal canal stenosis. No significant cord or nerve root compression. Moderate nonspecific soft tissue swelling of the back at the thoracolumbar junctional levels. Otherwise, no MRI evidence of metastatic disease, as queried. If there is continued clinical suspicion, consider further evaluation with whole-body bone scan, CT PET imaging , and/or contrast MRI survey of the spine. Cervical Spine MRI 10/11/16 10:56 IMPRESSION: Anterior C4-C5 hardware fusion. A moderate C3-C4 disc protrusion mildly compresses the spinal cord. Chest X-Ray 10/14/16 23:52 IMPRESSION: No radiographic evidence for pneumothorax. Mild cardiomegaly and vascular congestion. Subsegmental atelectasis in the right perihilar region. 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 Is this a current diagnosis for this admission?: YesPlan: Hemoglobin still in the 8 range, continue to monitor, no transfusion today (2) Pain, neoplasm-related Plan: Pain control, no changes in pain medication today (3) Multiple myeloma Qualifiers: Multiple myeloma remission status: not in remission Qualified Code(s ): C90.00 - Multiple myeloma not having achieved remission Is this a current diagnosis for this admission?: YesPlan: Continue with active therapy as is being done, continue per protocol on Velcade based therapy as well as radiation (4) DEL (acute kidney injury) Is this a current diagnosis for this admission?: YesPlan: Continue with dialysis - Time Time Spent with patient: 15-24 minutes Critical Time spent with patient: 15-24 minutes - Inpatient Certification Based on my medical assessment, after consideration of the patient's comorbidities, presenting symptoms, or acuity I expect that the services needed warrant INPATIENT care.: Yes I certify that my determination is in accordance with my understanding of Medicare's requirements for reasonable and necessary INPATIENT services [42 CFR 412.3e].: Yes Medical Necessity: Need For Continuous Telemetry Monitoring, Risk of Complication if Not Cared For in Hospital, Risk of Diagnosis Which Will Require Inpatient Eval/Care/Monitoring
[2016-10-18] MEDS: DOCUSATE SODIUM 100 MG CAPSULE PO SCH ×2 (09:30→17:56)
[2016-10-18] MEDS: SODIUM BICARBONATE 650 MG TABLET PO SCH ×2 (09:30→17:56)
[2016-10-18] MEDS: AMLODIPINE BESYLATE 5 MG TABLET PO SCH (09:31)
[2016-10-18] MEDS: FUROSEMIDE 40 MG TABLET PO SCH ×2 (09:32→17:56)
--- NOTE | 2016-10-18 12:17 | PDOC PROGRESS REPORT ---
Subjective Progress Note for:: 10/18/16 Subjective:: Patient is currently doing well patients underwent for the dialysis and also start the radiation therapy. Patient's denied any chest pain denied any shortness of the breath Physical Exam Vital Signs: Temp Pulse Resp BP Pulse Ox 98.0 F 83 16 123/70 98 10/18/16 11:42 10/18/16 11:42 10/18/16 11:42 10/18/16 11:42 10/18/16 11:42 Intake & Output 10/17/16 10/18/16 10/19/16 06:59 06:59 06:59 Intake Total 835 472 Output Total 1800 3875 Balance -965 -3403 Weight 128.5 kg 126 kg General appearance: PRESENT: no acute distress, well-developed, well-nourished Head exam: PRESENT: atraumatic, normocephalic Eye exam: PRESENT: conjunctiva pink, EOMI, PERRLA. ABSENT: scleral icterus Ear exam: PRESENT: normal external ear exam Mouth exam: PRESENT: moist, tongue midline Neck exam: PRESENT: full ROM. ABSENT: carotid bruit, JVD, lymphadenopathy, thyromegaly Respiratory exam: PRESENT: clear to auscultation merrill Cardiovascular exam: PRESENT: RRR. ABSENT: diastolic murmur, rubs, systolic murmur Pulses: PRESENT: normal dorsalis pedis pul, +2 pedal pulses bilateral Vascular exam: PRESENT: normal capillary refill GI/Abdominal exam: PRESENT: normal bowel sounds, soft. ABSENT: distended, guarding, mass, organolmegaly, rebound, tenderness Rectal exam: PRESENT: deferred Neurological exam: PRESENT: alert, awake, oriented to person, oriented to place , oriented to time, oriented to situation, CN II-XII grossly intact. ABSENT: motor sensory deficit Psychiatric exam: PRESENT: appropriate affect, normal mood. ABSENT: homicidal ideation, suicidal ideation Skin exam: PRESENT: dry, intact, warm. ABSENT: cyanosis, rash Results Laboratory Results: 10/18/16 06:56 10/18/16 06:56 10/18/16 10/18/16 10/18/16 06:56 06:56 06:56 WBC 13.8 H RBC 2.89 L Hgb 8.8 L Hct 25.9 L MCV 89 MCH 30.4 MCHC 34.0 RDW 15.7 H Plt Count 245 Seg Neutrophils % 82.4 H Lymphocytes % 6.2 L Monocytes % 10.9 Eosinophils % 0.1 Basophils % 0.4 Absolute Neutrophils 11.4 H Absolute Lymphocytes 0.9 Absolute Monocytes 1.5 H Absolute Eosinophils 0.0 Absolute Basophils 0.1 Sodium 138.8 Potassium 4.3 Chloride 103 Carbon Dioxide 27 Anion Gap 9 BUN 65 H Creatinine 2.01 H Est GFR ( Amer) 31 L Est GFR (Non-Af Amer) 26 L Glucose 134 H Calcium 7.1 L Ionized Calcium Steve 0.96 L Phosphorus 4.1 10/10/16 10/10/16 10/10/16 08:31 08:31 14:25 Creatine Kinase 176 H 170 H CK-MB (CK-2) 2.26 Troponin I 0.024 10/10/16 10/10/16 10/10/16 14:25 20:30 20:30 Creatine Kinase 174 H CK-MB (CK-2) 2.64 2.75 Troponin I 0.018 0.017 Impressions: Abdomen/Pelvis CT 10/04/16 00:00 IMPRESSION: NO SIGNIFICANT OR ACUTE PROCESS IN THE ABDOMEN OR PELVIS. Skeletal Survey 10/05/16 00:00 IMPRESSION: Small lucent lesions are identified on the skull, humeri, pelvis, and right femoral series. Correlate with additional evaluation to exclude myeloma or metastatic disease. Chest CT 10/06/16 00:00 IMPRESSION: No dominant lung mass. Small bilateral pleural effusions with basilar atelectasis. Minimal nodularity along the pleural surfaces right greater than left which nonspecific. No measurable masses. Bone Biopsy CT 10/09/16 00:00 IMPRESSION: CT GUIDED BIOPSY OF THE RIGHT POSTERIOR ILIAC CREST FOR BONE MARROW ASPIRATE EVALUATION PERFORMED WITHOUT IMMEDIATE COMPLICATION. PATHOLOGY PENDING. Lung Scan-VQ NM 10/10/16 00:00 IMPRESSION: No ventilation-perfusion mismatches. Lumbar Spine MRI 10/10/16 17:09 IMPRESSION: Very limited study. There are however multilevel epidural soft tissue mass is just posterior to the vertebral bodies resulting in severe compromise of the canal. In addition, at the discs levels, there is marked spinal stenosis related to posterior element overgrowth. MRI with contrast should be performed to further evaluate the epidural soft tissue masses. Thoracic Spine MRI 10/11/16 00:00 IMPRESSION: Small T6-T7 disc protrusion causes mild spinal canal stenosis. No significant cord or nerve root compression. Moderate nonspecific soft tissue swelling of the back at the thoracolumbar junctional levels. Otherwise, no MRI evidence of metastatic disease, as queried. If there is continued clinical suspicion, consider further evaluation with whole-body bone scan, CT PET imaging , and/or contrast MRI survey of the spine. Cervical Spine MRI 10/11/16 10:56 IMPRESSION: Anterior C4-C5 hardware fusion. A moderate C3-C4 disc protrusion mildly compresses the spinal cord. Chest X-Ray 10/14/16 23:52 IMPRESSION: No radiographic evidence for pneumothorax. Mild cardiomegaly and vascular congestion. Subsegmental atelectasis in the right perihilar region. 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 Is this a current diagnosis for this admission?: YesPlan: Currently stable (3) Hypercalcemia Is this a current diagnosis for this admission?: YesPlan: From multiple myeloma (4) Hypokalemia Is this a current diagnosis for this admission?: Yes (5) Back pain Qualifiers: Back pain location: low back pain Chronicity: acute Is this a current diagnosis for this admission?: YesPlan: Hopefully the radiation help the patient's and continues to current pain medications (6) Hypertension Is this a current diagnosis for this admission?: YesPlan: Stable (7) Edema Qualifiers: Edema type: unspecified Qualified Code(s): R60.9 - Edema, unspecified Is this a current diagnosis for this admission?: Yes (8) Multiple myeloma Qualifiers: Multiple myeloma remission status: not in remission Qualified Code(s ): C90.00 - Multiple myeloma not having achieved remission Is this a current diagnosis for this admission?: YesPlan: Currently on chemotherapy in the start the radiation started on the back (9) Sinus tachycardia Is this a current diagnosis for this admission?: Yes (10) Fever Qualifiers: Fever type: unspecified Qualified Code(s): R50.9 - Fever, unspecified Is this a current diagnosis for this admission?: Yes - Time Time Spent with patient: 25-34 minutes Medications reviewed and adjusted accordingly: Yes Anticipated discharge: Home Within: Other - Inpatient Certification Medical Necessity: Need Close Monitoring Due to Risk of Patient Decompensation Post Hospital Care: D/C Director Of Recruitment Documentation - Plan Summary Plan Summary: Continues to current medications continues to monitor the patient's
[2016-10-18] MEDS: OXYCODONE HCL IR 5 MG TABLET PO PRN (12:37)
[2016-10-18] MEDS: LEVOFLOXACIN 500 MG/D5W RTU 500 MG/100 ML RTUPB IV SCH (17:57)
--- NOTE | 2016-10-18 18:29 | PDOC PROGRESS REPORT ---
Subjective Progress Note for:: 10/18/16 Subjective:: Patient seen today. She had radiation therapy today. He seems to be doing fine without any new complaints. Physical Exam Vital Signs: Temp Pulse Resp BP Pulse Ox 98.0 F 96 16 123/70 98 10/18/16 11:42 10/18/16 14:00 10/18/16 11:42 10/18/16 11:42 10/18/16 11:42 Intake & Output 10/17/16 10/18/16 10/19/16 06:59 06:59 06:59 Intake Total 835 472 520 Output Total 1800 3875 600 Balance -965 -3403 -80 Weight 128.5 kg 126 kg Exam: General appearance: PRESENT: no acute distress, cooperative, well-developed, well-nourished Head exam: PRESENT: atraumatic, normocephalic Eye exam: PRESENT: conjunctiva pale, PERRLA. ABSENT: scleral icterus Neck exam: ABSENT: JVD Respiratory exam: PRESENT: Diminished breath sounds. ABSENT: crackles, rales, rhonchi, unlabored, wheezes Cardiovascular exam: PRESENT: Regular rate rhythm -+S1, +S2. ABSENT: diastolic murmur, systolic murmur GI/Abdominal exam: PRESENT: normal bowel sounds, soft. ABSENT: guarding, mass, tenderness Extremities exam: Improvement bilateral lower extremity edema Neurological exam: PRESENT: alert, awake, oriented to person, place and time. Skin exam: PRESENT: dry, warm, Results Laboratory Results: 10/18/16 06:56 10/18/16 06:56 10/16/16 10/18/16 10/18/16 08:55 06:56 06:56 WBC 17.3 H 13.8 H RBC 3.16 L 2.89 L Hgb 9.5 L 8.8 L Hct 28.4 L 25.9 L MCV 90 89 MCH 30.1 30.4 MCHC 33.5 34.0 RDW 16.0 H 15.7 H Plt Count 235 245 Seg Neutrophils % 82.4 H Lymphocytes % 6.2 L Monocytes % 10.9 Eosinophils % 0.1 Basophils % 0.4 Absolute Neutrophils 11.4 H Absolute Lymphocytes 0.9 Absolute Monocytes 1.5 H Absolute Eosinophils 0.0 Absolute Basophils 0.1 Sodium 138.8 Potassium 4.3 Chloride 103 Carbon Dioxide 27 Anion Gap 9 BUN 65 H Creatinine 2.01 H Est GFR ( Amer) 31 L Est GFR (Non-Af Amer) 26 L Glucose 134 H Calcium 7.1 L Ionized Calcium Steve Phosphorus 4.1 10/18/16 06:56 WBC RBC Hgb Hct MCV MCH MCHC RDW Plt Count Seg Neutrophils % Lymphocytes % Monocytes % Eosinophils % Basophils % Absolute Neutrophils Absolute Lymphocytes Absolute Monocytes Absolute Eosinophils Absolute Basophils Sodium Potassium Chloride Carbon Dioxide Anion Gap BUN Creatinine Est GFR ( Amer) Est GFR (Non-Af Amer) Glucose Calcium Ionized Calcium Steve 0.96 L Phosphorus 10/10/16 10/10/16 10/10/16 08:31 08:31 14:25 Creatine Kinase 176 H 170 H CK-MB (CK-2) 2.26 Troponin I 0.024 10/10/16 10/10/16 10/10/16 14:25 20:30 20:30 Creatine Kinase 174 H CK-MB (CK-2) 2.64 2.75 Troponin I 0.018 0.017 Impressions: Abdomen/Pelvis CT 10/04/16 00:00 IMPRESSION: NO SIGNIFICANT OR ACUTE PROCESS IN THE ABDOMEN OR PELVIS. Skeletal Survey 10/05/16 00:00 IMPRESSION: Small lucent lesions are identified on the skull, humeri, pelvis, and right femoral series. Correlate with additional evaluation to exclude myeloma or metastatic disease. Chest CT 10/06/16 00:00 IMPRESSION: No dominant lung mass. Small bilateral pleural effusions with basilar atelectasis. Minimal nodularity along the pleural surfaces right greater than left which nonspecific. No measurable masses. Bone Biopsy CT 10/09/16 00:00 IMPRESSION: CT GUIDED BIOPSY OF THE RIGHT POSTERIOR ILIAC CREST FOR BONE MARROW ASPIRATE EVALUATION PERFORMED WITHOUT IMMEDIATE COMPLICATION. PATHOLOGY PENDING. Lung Scan-VQ NM 10/10/16 00:00 IMPRESSION: No ventilation-perfusion mismatches. Lumbar Spine MRI 10/10/16 17:09 IMPRESSION: Very limited study. There are however multilevel epidural soft tissue mass is just posterior to the vertebral bodies resulting in severe compromise of the canal. In addition, at the discs levels, there is marked spinal stenosis related to posterior element overgrowth. MRI with contrast should be performed to further evaluate the epidural soft tissue masses. Thoracic Spine MRI 10/11/16 00:00 IMPRESSION: Small T6-T7 disc protrusion causes mild spinal canal stenosis. No significant cord or nerve root compression. Moderate nonspecific soft tissue swelling of the back at the thoracolumbar junctional levels. Otherwise, no MRI evidence of metastatic disease, as queried. If there is continued clinical suspicion, consider further evaluation with whole-body bone scan, CT PET imaging , and/or contrast MRI survey of the spine. Cervical Spine MRI 10/11/16 10:56 IMPRESSION: Anterior C4-C5 hardware fusion. A moderate C3-C4 disc protrusion mildly compresses the spinal cord. Chest X-Ray 10/14/16 23:52 IMPRESSION: No radiographic evidence for pneumothorax. Mild cardiomegaly and vascular congestion. Subsegmental atelectasis in the right perihilar region. 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 There could also be a component of acute tubular necrosis due to hemodynamic changes due to blood pressure changes throughout hospitalization. Patient's BUN and creatinine as well as electrolytes seem to be significantly improved today after dialysis yesterday. She continues to make adequate amount of urine. I think we will dialyze her tomorrow Saturday since his can be the weekend and then monitored for her kidney function over the next couple days and see if she would still require dialysis next week. I will not be available tomorrow and Dr. Stephen Zarate is going to supervise the patient's dialysis to cover for me. (2) Hyperkalemia, diminished renal excretion Is this a current diagnosis for this admission?: YesPlan: We will controlled with dialysis. (3) Metabolic acidosis Is this a current diagnosis for this admission?: YesPlan: Resolved so we will discontinue the sodium bicarbonate orally. (4) Hypercalcemia Is this a current diagnosis for this admission?: YesPlan: Currently low but stable. This is due to the acute treatment for hypercalcemia last week. We will use high calcium bath on dialysis. (5) Urinary tract infection Is this a current diagnosis for this admission?: YesPlan: Due to Enterococcus faecalis. Continue IV Levaquin every 48 hours. 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 Due to multiple myeloma. We will defer management to him Dr. Connor. (7) Hyperphosphatemia Is this a current diagnosis for this admission?: YesPlan: Resolved. (8) Hypertension Is this a current diagnosis for this admission?: YesPlan: Controlled. (9) Leg pain Qualifiers: Laterality: bilateral Qualified Code(s): M79.604 - Pain in right leg Is this a current diagnosis for this admission?: Yes (10) Back pain Qualifiers: Back pain location: low back pain Chronicity: acute Is this a current diagnosis for this admission?: YesPlan: On pain medications and now in physical therapy. (11) Multiple myeloma Qualifiers: Multiple myeloma remission status: not in remission Qualified Code(s ): C90.00 - Multiple myeloma not having achieved remission Is this a current diagnosis for this admission?: YesPlan: Status post bone marrow biopsy. Management per Dr. Connor. On chemotherapy and radiation therapy currently - Time Time with patient: 15-25 minutes
[2016-10-19 05:08] LABS: ABSOLUTE LYMPHOCYTES (AUTO) 0.9 10^3/uL (0.5-4.7); ABSOLUTE MONOCYTES (AUTO) 1.3 10^3/uL (0.1-1.4); ABSOLUTE NEUT (AUTO) 9.7 10^3/uL (1.7-8.2); BASOPHILS % (AUTO) 0.2 % (0-2); HEMOGLOBIN 8.2 g/dL (12.0-15.5); HGB HCT DIFFERENCE 0.6; LYMPHOCYTES % (AUTO) 7.4 % (13-45); MEAN CORPUSCULAR HEMOGLOBIN 30.8 pg (27.0-33.4); MEAN CORPUSCULAR HGB CONC 34.2 g/dL (32.0-36.0); MEAN CORPUSCULAR VOLUME 90 fl (80-97); MONOCYTES % (AUTO) 10.9 % (3-13); RED BLOOD COUNT 2.66 10^6/uL (3.72-5.28); RED CELL DISTRIBUTION WIDTH 15.9 % (11.5-14.0); SEGMENTED NEUTROPHILS % (AUTO) 81.5 % (42-78); WHITE BLOOD COUNT 11.9 10^3/uL (4.0-10.5)
[2016-10-19] MEDS: HEPARIN SOD (PORCINE) 5,000 UNIT/ML 1 ML SYRINGE SUBCUT SCH ×3 (05:28→21:24)
[2016-10-19] MEDS: DEXAMETHASONE SOD PHOSPHATE INJ 4 MG/1 ML VIAL IV SCH ×4 (05:28→23:30)
[2016-10-19 05:31] LABS: ANION GAP 7 (5-19); BLOOD UREA NITROGEN 64 mg/dL (7-20); CARBON DIOXIDE 27 mmol/L (22-30); CHLORIDE 105 mmol/L (98-107); CREATININE RESULT 2.23 mg/dL (0.52-1.25); GLUCOSE 136 mg/dL (75-110); POTASSIUM 4.7 mmol/L (3.6-5.0); SODIUM 138.8 mmol/L (137-145)
[2016-10-19 05:40] LABS: CALCIUM 6.8 mg/dL (8.4-10.2)
[2016-10-19] MEDS: OXYCODONE HCL IR 5 MG TABLET PO PRN ×3 (07:44→18:25)
[2016-10-19] MEDS ORDERED: DISPOSABLE IV PRN (08:11)
[2016-10-19] MEDS ORDERED: BORTEZOMIB IV PRN (08:11)
[2016-10-19] MEDS ORDERED: CALCIUM GLUCONATE 1,000 MG in DEXTROSE 5%-WATER 50 ML IV ONE (08:30)
[2016-10-19] MEDS ORDERED: CALCIUM GLUCONATE 1000 MG/10 ML INJ IV ONE (09:00)
[2016-10-19] MEDS ORDERED: HEPARIN SOD (PORCINE) 1,000 UNIT/ML 10 ML VIAL IV PRN (10:57)
--- NOTE | 2016-10-19 10:57 | PDOC PROGRESS REPORT ---
Subjective Progress Note for:: 10/19/16 Subjective:: Patient is seen on dialysis as I am covering for Dr. Perez. History of was reviewed from the chart and discussions were done with the patient. She is due for radiation today. She is generally doing better. She has a good urine output. Vital signs are stable. No symptoms to indicate of tetany. She is undergoing dialysis without any issues. Orders were discussed with the treating nurse Courtney Physical Exam Vital Signs: Temp Pulse Resp BP Pulse Ox 98.3 F 75 14 122/73 98 10/19/16 07:23 10/19/16 07:23 10/19/16 07:23 10/19/16 07:23 10/19/16 07:23 Intake & Output 10/18/16 10/19/16 10/20/16 06:59 06:59 06:59 Intake Total 472 1470 Output Total 3875 2150 Balance -3403 -680 Weight 126 kg 126.5 kg Respiratory exam: PRESENT: clear to auscultation merrill. ABSENT: crackles, rhonchi , stridor Cardiovascular exam: PRESENT: +S1, +S2 GI/Abdominal exam: PRESENT: normal bowel sounds, soft. ABSENT: firm, guarding, tenderness Neurological exam: PRESENT: alert, awake, oriented to person, oriented to place , oriented to time Results Laboratory Results: 10/19/16 04:26 10/19/16 04:26 10/16/16 10/19/16 10/19/16 08:55 04:26 04:26 WBC 17.3 H 11.9 H RBC 3.16 L 2.66 L Hgb 9.5 L 8.2 L Hct 28.4 L 24.0 L MCV 90 90 MCH 30.1 30.8 MCHC 33.5 34.2 RDW 16.0 H 15.9 H Plt Count 235 242 Seg Neutrophils % 81.5 H Lymphocytes % 7.4 L Monocytes % 10.9 Eosinophils % 0.0 Basophils % 0.2 Absolute Neutrophils 9.7 H Absolute Lymphocytes 0.9 Absolute Monocytes 1.3 Absolute Eosinophils 0.0 Absolute Basophils 0.0 Sodium 138.8 Potassium 4.7 Chloride 105 Carbon Dioxide 27 Anion Gap 7 BUN 64 H Creatinine 2.23 H Est GFR ( Amer) 28 L Est GFR (Non-Af Amer) 23 L Glucose 136 H Calcium 6.8 L* 10/10/16 10/10/16 10/10/16 08:31 08:31 14:25 Creatine Kinase 176 H 170 H CK-MB (CK-2) 2.26 Troponin I 0.024 10/10/16 10/10/16 10/10/16 14:25 20:30 20:30 Creatine Kinase 174 H CK-MB (CK-2) 2.64 2.75 Troponin I 0.018 0.017 Impressions: Abdomen/Pelvis CT 10/04/16 00:00 IMPRESSION: NO SIGNIFICANT OR ACUTE PROCESS IN THE ABDOMEN OR PELVIS. Skeletal Survey 10/05/16 00:00 IMPRESSION: Small lucent lesions are identified on the skull, humeri, pelvis, and right femoral series. Correlate with additional evaluation to exclude myeloma or metastatic disease. Chest CT 10/06/16 00:00 IMPRESSION: No dominant lung mass. Small bilateral pleural effusions with basilar atelectasis. Minimal nodularity along the pleural surfaces right greater than left which nonspecific. No measurable masses. Bone Biopsy CT 10/09/16 00:00 IMPRESSION: CT GUIDED BIOPSY OF THE RIGHT POSTERIOR ILIAC CREST FOR BONE MARROW ASPIRATE EVALUATION PERFORMED WITHOUT IMMEDIATE COMPLICATION. PATHOLOGY PENDING. Lung Scan-VQ NM 10/10/16 00:00 IMPRESSION: No ventilation-perfusion mismatches. Lumbar Spine MRI 10/10/16 17:09 IMPRESSION: Very limited study. There are however multilevel epidural soft tissue mass is just posterior to the vertebral bodies resulting in severe compromise of the canal. In addition, at the discs levels, there is marked spinal stenosis related to posterior element overgrowth. MRI with contrast should be performed to further evaluate the epidural soft tissue masses. Thoracic Spine MRI 10/11/16 00:00 IMPRESSION: Small T6-T7 disc protrusion causes mild spinal canal stenosis. No significant cord or nerve root compression. Moderate nonspecific soft tissue swelling of the back at the thoracolumbar junctional levels. Otherwise, no MRI evidence of metastatic disease, as queried. If there is continued clinical suspicion, consider further evaluation with whole-body bone scan, CT PET imaging , and/or contrast MRI survey of the spine. Cervical Spine MRI 10/11/16 10:56 IMPRESSION: Anterior C4-C5 hardware fusion. A moderate C3-C4 disc protrusion mildly compresses the spinal cord. Chest X-Ray 10/14/16 23:52 IMPRESSION: No radiographic evidence for pneumothorax. Mild cardiomegaly and vascular congestion. Subsegmental atelectasis in the right perihilar region. Assessment & Plan - Diagnosis (1) Hypocalcemia Plan: No signs of tetany.She is currently on a 2.5 calcium bath. Dose IV calcium 1. (2) DEL (acute kidney injury) Is this a current diagnosis for this admission?: YesPlan: She is making good urine output and remaining stable. Creatinine is relatively stable but agree with the need for dialysis for today especially because he is a week and this coming on. Hopefully she will make meaningful recovery and might not need dialysis in the long run. Dr. Perez will be back to call her on Saturday (3) Metabolic acidosis Is this a current diagnosis for this admission?: Yes (4) Multiple myeloma Qualifiers: Multiple myeloma remission status: not in remission Qualified Code(s ): C90.00 - Multiple myeloma not having achieved remission Plan: As per oncology
[2016-10-19] MEDS: AMLODIPINE BESYLATE 5 MG TABLET PO SCH (10:59)
[2016-10-19] MEDS: FUROSEMIDE 40 MG TABLET PO SCH ×2 (10:59→18:24)
[2016-10-19] MEDS: POLYETHYLENE GLYCOL 3350 POWDER 17 GM/1 PACKET PO SCH (10:59)
[2016-10-19] MEDS: DOCUSATE SODIUM 100 MG CAPSULE PO SCH ×2 (11:01→18:24)
[2016-10-19] MEDS: OXYCODONE HCL SR 40 MG TABLET PO SCH ×2 (11:01→21:24)
[2016-10-19] MEDS: HYDROMORPHONE HCL INJ/PF 2 MG/ML AMPULE IV PRN (12:34)
[2016-10-19] MEDS ORDERED: BORTEZOMIB SUBCUT PRN (13:30)
[2016-10-19] MEDS ORDERED: DISPOSABLE SUBCUT PRN (13:30)
--- NOTE | 2016-10-19 13:30 | PDOC PROGRESS REPORT ---
Subjective Progress Note for:: 10/19/16 Subjective:: Patient is currently doing fair patient's denied any chest pain without any shortness of the breathPatient is also scheduled for the radiations and patient also scheduled for the dialysis patient still have a little challenge for the move around Physical Exam Vital Signs: Temp Pulse Resp BP Pulse Ox 98.3 F 75 14 122/73 98 10/19/16 07:23 10/19/16 07:23 10/19/16 07:23 10/19/16 07:23 10/19/16 07:23 Intake & Output 10/18/16 10/19/16 10/20/16 06:59 06:59 06:59 Intake Total 472 1470 Output Total 3875 2150 Balance -3403 -680 Weight 126 kg 126.5 kg General appearance: PRESENT: no acute distress, well-developed, well-nourished Head exam: PRESENT: atraumatic, normocephalic Eye exam: PRESENT: conjunctiva pink, EOMI, PERRLA. ABSENT: scleral icterus Ear exam: PRESENT: normal external ear exam Mouth exam: PRESENT: moist, tongue midline Neck exam: PRESENT: full ROM. ABSENT: carotid bruit, JVD, lymphadenopathy, thyromegaly Respiratory exam: PRESENT: clear to auscultation merrill Cardiovascular exam: PRESENT: RRR. ABSENT: diastolic murmur, rubs, systolic murmur Pulses: PRESENT: normal dorsalis pedis pul, +2 pedal pulses bilateral Vascular exam: PRESENT: normal capillary refill GI/Abdominal exam: PRESENT: normal bowel sounds, soft. ABSENT: distended, guarding, mass, organolmegaly, rebound, tenderness Rectal exam: PRESENT: deferred Neurological exam: PRESENT: alert, awake, oriented to person, oriented to place , oriented to time, oriented to situation, CN II-XII grossly intact. ABSENT: motor sensory deficit Psychiatric exam: PRESENT: appropriate affect, normal mood. ABSENT: homicidal ideation, suicidal ideation Skin exam: PRESENT: dry, intact, warm. ABSENT: cyanosis, rash Results Laboratory Results: 10/19/16 04:26 10/19/16 04:26 10/16/16 10/19/16 10/19/16 08:55 04: 04:26 WBC 17.3 H 11.9 H RBC 3.16 L 2.66 L Hgb 9.5 L 8.2 L Hct 28.4 L 24.0 L MCV 90 90 MCH 30.1 30.8 MCHC 33.5 34.2 RDW 16.0 H 15.9 H Plt Count 235 242 Seg Neutrophils % 81.5 H Lymphocytes % 7.4 L Monocytes % 10.9 Eosinophils % 0.0 Basophils % 0.2 Absolute Neutrophils 9.7 H Absolute Lymphocytes 0.9 Absolute Monocytes 1.3 Absolute Eosinophils 0.0 Absolute Basophils 0.0 Sodium 138.8 Potassium 4.7 Chloride 105 Carbon Dioxide 27 Anion Gap 7 BUN 64 H Creatinine 2.23 H Est GFR ( Amer) 28 L Est GFR (Non-Af Amer) 23 L Glucose 136 H Calcium 6.8 L* 10/10/16 10/10/16 10/10/16 08:31 08:31 14:25 Creatine Kinase 176 H 170 H CK-MB (CK-2) 2.26 Troponin I 0.024 10/10/16 10/10/16 10/10/16 14:25 20:30 20:30 Creatine Kinase 174 H CK-MB (CK-2) 2.64 2.75 Troponin I 0.018 0.017 Impressions: Abdomen/Pelvis CT 10/04/16 00:00 IMPRESSION: NO SIGNIFICANT OR ACUTE PROCESS IN THE ABDOMEN OR PELVIS. Skeletal Survey 10/05/16 00:00 IMPRESSION: Small lucent lesions are identified on the skull, humeri, pelvis, and right femoral series. Correlate with additional evaluation to exclude myeloma or metastatic disease. Chest CT 10/06/16 00:00 IMPRESSION: No dominant lung mass. Small bilateral pleural effusions with basilar atelectasis. Minimal nodularity along the pleural surfaces right greater than left which nonspecific. No measurable masses. Bone Biopsy CT 10/09/16 00:00 IMPRESSION: CT GUIDED BIOPSY OF THE RIGHT POSTERIOR ILIAC CREST FOR BONE MARROW ASPIRATE EVALUATION PERFORMED WITHOUT IMMEDIATE COMPLICATION. PATHOLOGY PENDING. Lung Scan-VQ NM 10/10/16 00:00 IMPRESSION: No ventilation-perfusion mismatches. Lumbar Spine MRI 10/10/16 17:09 IMPRESSION: Very limited study. There are however multilevel epidural soft tissue mass is just posterior to the vertebral bodies resulting in severe compromise of the canal. In addition, at the discs levels, there is marked spinal stenosis related to posterior element overgrowth. MRI with contrast should be performed to further evaluate the epidural soft tissue masses. Thoracic Spine MRI 10/11/16 00:00 IMPRESSION: Small T6-T7 disc protrusion causes mild spinal canal stenosis. No significant cord or nerve root compression. Moderate nonspecific soft tissue swelling of the back at the thoracolumbar junctional levels. Otherwise, no MRI evidence of metastatic disease, as queried. If there is continued clinical suspicion, consider further evaluation with whole-body bone scan, CT PET imaging , and/or contrast MRI survey of the spine. Cervical Spine MRI 10/11/16 10:56 IMPRESSION: Anterior C4-C5 hardware fusion. A moderate C3-C4 disc protrusion mildly compresses the spinal cord. Chest X-Ray 10/14/16 23:52 IMPRESSION: No radiographic evidence for pneumothorax. Mild cardiomegaly and vascular congestion. Subsegmental atelectasis in the right perihilar region. 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 Is this a current diagnosis for this admission?: YesPlan: Currently stable (3) Hypercalcemia Is this a current diagnosis for this admission?: YesPlan: Currently on hemodialysis (4) Hypokalemia Is this a current diagnosis for this admission?: Yes (5) Back pain Qualifiers: Back pain location: low back pain Chronicity: acute Is this a current diagnosis for this admission?: YesPlan: Spinal stenosis but the from the spinal tumor currently on the radiations (6) Hypertension Is this a current diagnosis for this admission?: YesPlan: Currently stable (7) Edema Qualifiers: Edema type: unspecified Qualified Code(s): R60.9 - Edema, unspecified Is this a current diagnosis for this admission?: Yes (8) Multiple myeloma Qualifiers: Multiple myeloma remission status: not in remission Qualified Code(s ): C90.00 - Multiple myeloma not having achieved remission Is this a current diagnosis for this admission?: YesPlan: Patient is currently doing fair follow-up with the Dr. Burden And currently on a chemo in the radiations (9) Sinus tachycardia Is this a current diagnosis for this admission?: Yes (10) Fever Qualifiers: Fever type: unspecified Qualified Code(s): R50.9 - Fever, unspecified Is this a current diagnosis for this admission?: Yes - Time Time Spent with patient: 15-24 minutes Medications reviewed and adjusted accordingly: Yes Anticipated discharge: Home Within: Other - Inpatient Certification Medical Necessity: Need Close Monitoring Due to Risk of Patient Decompensation Post Hospital Care: D/C Detacher Documentation - Plan Summary Plan Summary: Patient is currently on the chemotherapy and the radiations and the physical therapy. Patient is followed by the nephrology and followed by oncology. Patient's otherwise doing fair. Patient's continues to current medications encourage the more exercise. Patient also on a heparin for subcu. Discussed with the patient's that I am away for the next [address] Villela it is covering
[2016-10-20] MEDS: HEPARIN SOD (PORCINE) 5,000 UNIT/ML 1 ML SYRINGE SUBCUT SCH ×3 (05:43→21:32)
[2016-10-20] MEDS: DEXAMETHASONE SOD PHOSPHATE INJ 4 MG/1 ML VIAL IV SCH ×3 (05:43→18:26)
[2016-10-20 06:24] LABS: HEMATOCRIT 25.3 % (36.0-47.0); HEMOGLOBIN 8.6 g/dL (12.0-15.5); HGB HCT DIFFERENCE 0.5; MEAN CORPUSCULAR HEMOGLOBIN 30.7 pg (27.0-33.4); MEAN CORPUSCULAR HGB CONC 33.9 g/dL (32.0-36.0); MEAN CORPUSCULAR VOLUME 91 fl (80-97); RED CELL DISTRIBUTION WIDTH 15.5 % (11.5-14.0); WHITE BLOOD COUNT 15.6 10^3/uL (4.0-10.5)
[2016-10-20 06:30] LABS: ANION GAP 9 (5-19); BLOOD UREA NITROGEN 49 mg/dL (7-20); CALCIUM 7.3 mg/dL (8.4-10.2); CARBON DIOXIDE 27 mmol/L (22-30); CHLORIDE 104 mmol/L (98-107); CREATININE RESULT 1.63 mg/dL (0.52-1.25); GLUCOSE 108 mg/dL (75-110); POTASSIUM 4.2 mmol/L (3.6-5.0); SODIUM 140.4 mmol/L (137-145)
[2016-10-20 06:51] LABS: BASOPHILS % (MANUAL) 0 % (0-2); EOSINOPHILS % (MANUAL) 0 % (0-6); LYMPHOCYTES % (MANUAL) 10 % (13-45); NUCLEATED RED BLOOD CELLS 1 /100 WBC (0); TOTAL CELLS COUNTED 100
[2016-10-20 06:52] LABS: ANISOCYTOSIS 1+; POLYCHROMASIA SLIGHT; TOXIC GRANULATION 1+; TOXIC VACUOLATION PRESENT
[2016-10-20] MEDS: OXYCODONE HCL IR 5 MG TABLET PO PRN ×3 (08:41→18:25)
[2016-10-20] MEDS: DOCUSATE SODIUM 100 MG CAPSULE PO SCH ×2 (10:19→18:26)
[2016-10-20] MEDS: AMLODIPINE BESYLATE 5 MG TABLET PO SCH (10:19)
[2016-10-20] MEDS: POLYETHYLENE GLYCOL 3350 POWDER 17 GM/1 PACKET PO SCH (10:19)
[2016-10-20] MEDS: FUROSEMIDE 40 MG TABLET PO SCH ×2 (10:19→18:26)
[2016-10-20] MEDS: OXYCODONE HCL SR 40 MG TABLET PO SCH ×2 (10:20→21:32)
--- NOTE | 2016-10-20 14:49 | PDOC PROGRESS REPORT ---
Subjective Progress Note for:: 10/20/16 Subjective:: Patient reported some degree of nausea and poor po intake. Remain on IV Zofran therapy. No vomiting or abdominal pain. No chest pain or difficulty with breathing. No reported fever or chills. She is currently on weekly chemotherapy regimen and radiation therapy for her newly diagnosed multiple myeloma. She remain on hemodialysis for acute renal failure. She remain on IV Levofloxacin therapy. Physical Exam Vital Signs: Temp Pulse Resp BP Pulse Ox 98.2 F 82 16 124/74 100 10/20/16 11:58 10/20/16 11:58 10/20/16 11:58 10/20/16 11:58 10/20/16 11:58 Intake & Output 10/19/16 10/20/16 10/21/16 06:59 06:59 06:59 Intake Total 1470 487 Output Total 2150 2400 Balance -680 -1913 Weight 126.5 kg 123 kg General appearance: PRESENT: no acute distress, cooperative, morbidly obese Head exam: PRESENT: atraumatic, normocephalic Eye exam: PRESENT: conjunctiva pink, EOMI, PERRLA. ABSENT: scleral icterus Respiratory exam: PRESENT: clear to auscultation merrill Cardiovascular exam: PRESENT: RRR. ABSENT: diastolic murmur, rubs, systolic murmur GI/Abdominal exam: PRESENT: normal bowel sounds, soft. ABSENT: distended, guarding, mass, organolmegaly, rebound, tenderness Musculoskeletal exam: PRESENT: normal inspection Neurological exam: PRESENT: alert, awake, oriented to person, oriented to place , oriented to time, oriented to situation, CN II-XII grossly intact. ABSENT: motor sensory deficit Psychiatric exam: PRESENT: appropriate affect, normal mood. ABSENT: homicidal ideation, suicidal ideation Skin exam: PRESENT: dry, intact, warm. ABSENT: cyanosis, rash Results Laboratory Results: 10/20/16 05:59 10/20/16 05:59 10/20/16 10/20/16 10/20/16 05:59 05:59 05:59 WBC 15.6 H RBC 2.80 L Hgb 8.6 L Hct 25.3 L MCV 91 MCH 30.7 MCHC 33.9 RDW 15.5 H Plt Count 254 Seg Neutrophils % Not Reportable Lymphocytes % Not Reportable Monocytes % Not Reportable Eosinophils % Not Reportable Basophils % Not Reportable Absolute Neutrophils Not Reportable Absolute Lymphocytes Not Reportable Absolute Monocytes Not Reportable Absolute Eosinophils Not Reportable Absolute Basophils Not Reportable Sodium 140.4 Potassium 4.2 Chloride 104 Carbon Dioxide 27 Anion Gap 9 BUN 49 H Creatinine 1.63 H Est GFR ( Amer) 40 L Est GFR (Non-Af Amer) 33 L Glucose 108 Calcium 7.3 L Ionized Calcium Steve 1.00 L 10/10/16 10/10/16 10/10/16 08:31 08:31 14:25 Creatine Kinase 176 H 170 H CK-MB (CK-2) 2.26 Troponin I 0.024 10/10/16 10/10/16 10/10/16 14:25 20:30 20:30 Creatine Kinase 174 H CK-MB (CK-2) 2.64 2.75 Troponin I 0.018 0.017 Impressions: Abdomen/Pelvis CT 10/04/16 00:00 IMPRESSION: NO SIGNIFICANT OR ACUTE PROCESS IN THE ABDOMEN OR PELVIS. Skeletal Survey 10/05/16 00:00 IMPRESSION: Small lucent lesions are identified on the skull, humeri, pelvis, and right femoral series. Correlate with additional evaluation to exclude myeloma or metastatic disease. Chest CT 10/06/16 00:00 IMPRESSION: No dominant lung mass. Small bilateral pleural effusions with basilar atelectasis. Minimal nodularity along the pleural surfaces right greater than left which nonspecific. No measurable masses. Bone Biopsy CT 10/09/16 00:00 IMPRESSION: CT GUIDED BIOPSY OF THE RIGHT POSTERIOR ILIAC CREST FOR BONE MARROW ASPIRATE EVALUATION PERFORMED WITHOUT IMMEDIATE COMPLICATION. PATHOLOGY PENDING. Lung Scan-VQ NM 10/10/16 00:00 IMPRESSION: No ventilation-perfusion mismatches. Lumbar Spine MRI 10/10/16 17:09 IMPRESSION: Very limited study. There are however multilevel epidural soft tissue mass is just posterior to the vertebral bodies resulting in severe compromise of the canal. In addition, at the discs levels, there is marked spinal stenosis related to posterior element overgrowth. MRI with contrast should be performed to further evaluate the epidural soft tissue masses. Thoracic Spine MRI 10/11/16 00:00 IMPRESSION: Small T6-T7 disc protrusion causes mild spinal canal stenosis. No significant cord or nerve root compression. Moderate nonspecific soft tissue swelling of the back at the thoracolumbar junctional levels. Otherwise, no MRI evidence of metastatic disease, as queried. If there is continued clinical suspicion, consider further evaluation with whole-body bone scan, CT PET imaging , and/or contrast MRI survey of the spine. Cervical Spine MRI 10/11/16 10:56 IMPRESSION: Anterior C4-C5 hardware fusion. A moderate C3-C4 disc protrusion mildly compresses the spinal cord. Chest X-Ray 10/14/16 23:52 IMPRESSION: No radiographic evidence for pneumothorax. Mild cardiomegaly and vascular congestion. Subsegmental atelectasis in the right perihilar region. Assessment & Plan - Diagnosis (1) Acute renal failure Qualifiers: Acute renal failure type: unspecified Qualified Code(s): N17.9 - Acute kidney failure, unspecified Is this a current diagnosis for this admission?: YesPlan: See covering attending physician orders. (2) Enterococcus UTI Is this a current diagnosis for this admission?: YesPlan: See covering attending physician orders. (3) Multiple myeloma Qualifiers: Multiple myeloma remission status: not in remission Qualified Code(s ): C90.00 - Multiple myeloma not having achieved remission Is this a current diagnosis for this admission?: YesPlan: See covering attending physician orders. - Time Time Spent with patient: 25-34 minutes Medications reviewed and adjusted accordingly: Yes Anticipated discharge: Home Within: Other - Inpatient Certification Medical Necessity: Need Close Monitoring Due to Risk of Patient Decompensation, Need For Continuous Telemetry Monitoring, Need for Pain Control, Need for IV Antibiotics, Risk of Complication if Not Cared For in Hospital Post Hospital Care: D/C Lug Loader Documentation - Plan Summary Plan Summary: See covering attending physician orders.
[2016-10-20] MEDS: LEVOFLOXACIN 500 MG/D5W RTU 500 MG/100 ML RTUPB IV SCH (18:25)
[2016-10-20] MEDS: HYDROMORPHONE HCL INJ/PF 2 MG/ML AMPULE IV PRN (20:21)
[2016-10-21] MEDS: DEXAMETHASONE SOD PHOSPHATE INJ 4 MG/1 ML VIAL IV SCH ×5 (00:22→23:28)
[2016-10-21 04:58] LABS: ANION GAP 10 (5-19); BLOOD UREA NITROGEN 62 mg/dL (7-20); CARBON DIOXIDE 25 mmol/L (22-30); CHLORIDE 102 mmol/L (98-107); CREATININE RESULT 1.64 mg/dL (0.52-1.25); GLUCOSE 145 mg/dL (75-110); POTASSIUM 4.9 mmol/L (3.6-5.0)
[2016-10-21 05:07] LABS: CALCIUM 6.6 mg/dL (8.4-10.2)
[2016-10-21] MEDS ORDERED: CALCIUM GLUCONATE 1000 MG/10 ML INJ IV PRN (05:49)
[2016-10-21] MEDS ORDERED: CALCIUM GLUCONATE 1,000 MG in DEXTROSE 5%-WATER 50 ML IV ONE (06:00)
[2016-10-21] MEDS: HEPARIN SOD (PORCINE) 5,000 UNIT/ML 1 ML SYRINGE SUBCUT SCH ×3 (06:09→22:06)
[2016-10-21] MEDS: DOCUSATE SODIUM 100 MG CAPSULE PO SCH ×2 (09:23→17:42)
[2016-10-21] MEDS: AMLODIPINE BESYLATE 5 MG TABLET PO SCH (09:23)
[2016-10-21] MEDS: OXYCODONE HCL SR 40 MG TABLET PO SCH ×2 (09:25→22:05)
[2016-10-21] MEDS: FUROSEMIDE 40 MG TABLET PO SCH (09:26)
[2016-10-21] MEDS: POLYETHYLENE GLYCOL 3350 POWDER 17 GM/1 PACKET PO SCH (09:26)
[2016-10-21] MEDS: OXYCODONE HCL IR 5 MG TABLET PO PRN ×3 (11:35→23:28)
--- NOTE | 2016-10-21 11:51 | PDOC PROGRESS REPORT ---
Subjective Progress Note for:: 10/21/16 Subjective:: Reports that her pain is under control. Physical Exam Vital Signs: Temp Pulse Resp BP Pulse Ox 98.6 F 77 16 113/62 100 10/21/16 08:10 10/21/16 08:10 10/21/16 08:10 10/21/16 08:10 10/21/16 08:10 Intake & Output 10/20/16 10/21/16 10/22/16 06:59 06:59 06:59 Intake Total 487 1570 Output Total 2400 1810 Balance -1913 -240 Weight 123 kg 126 kg General appearance: PRESENT: no acute distress Head exam: PRESENT: normocephalic Eye exam: PRESENT: EOMI, PERRLA Respiratory exam: PRESENT: clear to auscultation merrill, unlabored Cardiovascular exam: PRESENT: RRR GI/Abdominal exam: PRESENT: normal bowel sounds, soft Neurological exam: PRESENT: alert, awake, CN II-XII grossly intact Psychiatric exam: PRESENT: appropriate affect Results Laboratory Results: 10/20/16 05:59 10/21/16 03:53 10/21/16 03:53 Sodium 137.0 Potassium 4.9 Chloride 102 Carbon Dioxide 25 Anion Gap 10 BUN 62 H Creatinine 1.64 H Est GFR ( Amer) 40 L Est GFR (Non-Af Amer) 33 L Glucose 145 H Calcium 6.6 L* 10/10/16 10/10/16 10/10/16 08:31 08:31 14:25 Creatine Kinase 176 H 170 H CK-MB (CK-2) 2.26 Troponin I 0.024 10/10/16 10/10/16 10/10/16 14:25 20:30 20:30 Creatine Kinase 174 H CK-MB (CK-2) 2.64 2.75 Troponin I 0.018 0.017 Impressions: Abdomen/Pelvis CT 10/04/16 00:00 IMPRESSION: NO SIGNIFICANT OR ACUTE PROCESS IN THE ABDOMEN OR PELVIS. Skeletal Survey 10/05/16 00:00 IMPRESSION: Small lucent lesions are identified on the skull, humeri, pelvis, and right femoral series. Correlate with additional evaluation to exclude myeloma or metastatic disease. Chest CT 10/06/16 00:00 IMPRESSION: No dominant lung mass. Small bilateral pleural effusions with basilar atelectasis. Minimal nodularity along the pleural surfaces right greater than left which nonspecific. No measurable masses. Bone Biopsy CT 10/09/16 00:00 IMPRESSION: CT GUIDED BIOPSY OF THE RIGHT POSTERIOR ILIAC CREST FOR BONE MARROW ASPIRATE EVALUATION PERFORMED WITHOUT IMMEDIATE COMPLICATION. PATHOLOGY PENDING. Lung Scan-VQ NM 10/10/16 00:00 IMPRESSION: No ventilation-perfusion mismatches. Lumbar Spine MRI 10/10/16 17:09 IMPRESSION: Very limited study. There are however multilevel epidural soft tissue mass is just posterior to the vertebral bodies resulting in severe compromise of the canal. In addition, at the discs levels, there is marked spinal stenosis related to posterior element overgrowth. MRI with contrast should be performed to further evaluate the epidural soft tissue masses. Thoracic Spine MRI 10/11/16 00:00 IMPRESSION: Small T6-T7 disc protrusion causes mild spinal canal stenosis. No significant cord or nerve root compression. Moderate nonspecific soft tissue swelling of the back at the thoracolumbar junctional levels. Otherwise, no MRI evidence of metastatic disease, as queried. If there is continued clinical suspicion, consider further evaluation with whole-body bone scan, CT PET imaging , and/or contrast MRI survey of the spine. Cervical Spine MRI 10/11/16 10:56 IMPRESSION: Anterior C4-C5 hardware fusion. A moderate C3-C4 disc protrusion mildly compresses the spinal cord. Chest X-Ray 10/14/16 23:52 IMPRESSION: No radiographic evidence for pneumothorax. Mild cardiomegaly and vascular congestion. Subsegmental atelectasis in the right perihilar region. Assessment & Plan - Diagnosis (1) Acute renal failure Qualifiers: Acute renal failure type: unspecified Qualified Code(s): N17.9 - Acute kidney failure, unspecified Is this a current diagnosis for this admission?: YesPlan: Followed by Nephrology with improved Creatinine. 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 (4) Pain, neoplasm-related Plan: Continue current pain control. - Time Time Spent with patient: 25-34 minutes Critical Time spent with patient: 15-24 minutes Medications reviewed and adjusted accordingly: Yes
--- NOTE | 2016-10-21 12:42 | PDOC PROGRESS REPORT ---
Subjective Progress Note for:: 10/21/16 Subjective:: Patient reported fairly satisfactory pain control presently. No significant nausea. No vomiting or abdominal pain. No chest pain or difficulty with breathing. No fever or chills. Physical Exam Vital Signs: Temp Pulse Resp BP Pulse Ox 98.6 F 77 16 113/62 100 10/21/16 08:10 10/21/16 08:10 10/21/16 08:10 10/21/16 08:10 10/21/16 08:10 Intake & Output 10/20/16 10/21/16 10/22/16 06:59 06:59 06:59 Intake Total 487 1570 Output Total 2400 1810 Balance -1913 -240 Weight 123 kg 126 kg Physical Exam: General appearance: PRESENT: no acute distress, cooperative, morbidly obese Head exam: PRESENT: atraumatic, normocephalic Eye exam: PRESENT: conjunctiva pink, EOMI, PERRLA. ABSENT: scleral icterus Respiratory exam: PRESENT: clear to auscultation merrill Cardiovascular exam: PRESENT: RRR. ABSENT: diastolic murmur, rubs, systolic murmur GI/Abdominal exam: PRESENT: normal bowel sounds, soft. ABSENT: distended, guarding, mass, organomegaly, rebound, tenderness Musculoskeletal exam: PRESENT: normal inspection Neurological exam: PRESENT: alert, awake, oriented to person, oriented to place , oriented to time, oriented to situation, CN II-XII grossly intact. ABSENT: motor sensory deficit Psychiatric exam: PRESENT: appropriate affect, normal mood. ABSENT: homicidal ideation, suicidal ideation Skin exam: PRESENT: dry, intact, warm. ABSENT: cyanosis, rash Results Laboratory Results: 10/20/16 05:59 10/21/16 03:53 10/21/16 03:53 Sodium 137.0 Potassium 4.9 Chloride 102 Carbon Dioxide 25 Anion Gap 10 BUN 62 H Creatinine 1.64 H Est GFR ( Amer) 40 L Est GFR (Non-Af Amer) 33 L Glucose 145 H Calcium 6.6 L* 10/10/16 10/10/16 10/10/16 08:31 08:31 14:25 Creatine Kinase 176 H 170 H CK-MB (CK-2) 2.26 Troponin I 0.024 10/10/16 10/10/16 10/10/16 14:25 20:30 20:30 Creatine Kinase 174 H CK-MB (CK-2) 2.64 2.75 Troponin I 0.018 0.017 Impressions: Abdomen/Pelvis CT 10/04/16 00:00 IMPRESSION: NO SIGNIFICANT OR ACUTE PROCESS IN THE ABDOMEN OR PELVIS. Skeletal Survey 10/05/16 00:00 IMPRESSION: Small lucent lesions are identified on the skull, humeri, pelvis, and right femoral series. Correlate with additional evaluation to exclude myeloma or metastatic disease. Chest CT 10/06/16 00:00 IMPRESSION: No dominant lung mass. Small bilateral pleural effusions with basilar atelectasis. Minimal nodularity along the pleural surfaces right greater than left which nonspecific. No measurable masses. Bone Biopsy CT 10/09/16 00:00 IMPRESSION: CT GUIDED BIOPSY OF THE RIGHT POSTERIOR ILIAC CREST FOR BONE MARROW ASPIRATE EVALUATION PERFORMED WITHOUT IMMEDIATE COMPLICATION. PATHOLOGY PENDING. Lung Scan-VQ NM 10/10/16 00:00 IMPRESSION: No ventilation-perfusion mismatches. Lumbar Spine MRI 10/10/16 17:09 IMPRESSION: Very limited study. There are however multilevel epidural soft tissue mass is just posterior to the vertebral bodies resulting in severe compromise of the canal. In addition, at the discs levels, there is marked spinal stenosis related to posterior element overgrowth. MRI with contrast should be performed to further evaluate the epidural soft tissue masses. Thoracic Spine MRI 10/11/16 00:00 IMPRESSION: Small T6-T7 disc protrusion causes mild spinal canal stenosis. No significant cord or nerve root compression. Moderate nonspecific soft tissue swelling of the back at the thoracolumbar junctional levels. Otherwise, no MRI evidence of metastatic disease, as queried. If there is continued clinical suspicion, consider further evaluation with whole-body bone scan, CT PET imaging , and/or contrast MRI survey of the spine. Cervical Spine MRI 10/11/16 10:56 IMPRESSION: Anterior C4-C5 hardware fusion. A moderate C3-C4 disc protrusion mildly compresses the spinal cord. Chest X-Ray 10/14/16 23:52 IMPRESSION: No radiographic evidence for pneumothorax. Mild cardiomegaly and vascular congestion. Subsegmental atelectasis in the right perihilar region. Assessment & Plan - Diagnosis (1) Acute renal failure Qualifiers: Acute renal failure type: unspecified Qualified Code(s): N17.9 - Acute kidney failure, unspecified Is this a current diagnosis for this admission?: YesPlan: See covering attending physician orders. Patient will continue hemodialysis as per nephrology team recommendations. (2) Enterococcus UTI Is this a current diagnosis for this admission?: YesPlan: See covering attending physician orders. (3) Multiple myeloma Qualifiers: Multiple myeloma remission status: not in remission Qualified Code(s ): C90.00 - Multiple myeloma not having achieved remission Is this a current diagnosis for this admission?: YesPlan: See covering attending physician orders. - Time Time Spent with patient: 25-34 minutes Medications reviewed and adjusted accordingly: Yes Anticipated discharge: Home with Homehealth Within: Other - Inpatient Certification Medical Necessity: Need Close Monitoring Due to Risk of Patient Decompensation, Need For Continuous Telemetry Monitoring, Risk of Complication if Not Cared For in Hospital Post Hospital Care: D/C Echocardiologist Documentation - Plan Summary Plan Summary: See covering attending physician orders.
[2016-10-21] MEDS: HYDROMORPHONE HCL INJ/PF 2 MG/ML AMPULE IV PRN (14:41)
[2016-10-22 05:08] LABS: ABSOLUTE LYMPHOCYTES (AUTO) 0.7 10^3/uL (0.5-4.7); ABSOLUTE MONOCYTES (AUTO) 1.5 10^3/uL (0.1-1.4); ABSOLUTE NEUT (AUTO) 11.6 10^3/uL (1.7-8.2); BASOPHILS % (AUTO) 0.1 % (0-2); HEMATOCRIT 24.6 % (36.0-47.0); HEMOGLOBIN 8.4 g/dL (12.0-15.5); HGB HCT DIFFERENCE 0.6; LYMPHOCYTES % (AUTO) 5.4 % (13-45); MEAN CORPUSCULAR HEMOGLOBIN 30.8 pg (27.0-33.4); MEAN CORPUSCULAR HGB CONC 34.2 g/dL (32.0-36.0); MEAN CORPUSCULAR VOLUME 90 fl (80-97); MONOCYTES % (AUTO) 10.6 % (3-13); RED BLOOD COUNT 2.73 10^6/uL (3.72-5.28); RED CELL DISTRIBUTION WIDTH 15.7 % (11.5-14.0); SEGMENTED NEUTROPHILS % (AUTO) 83.9 % (42-78); WHITE BLOOD COUNT 13.8 10^3/uL (4.0-10.5)
[2016-10-22 05:29] LABS: ANION GAP 11 (5-19); BLOOD UREA NITROGEN 63 mg/dL (7-20); CALCIUM 7.1 mg/dL (8.4-10.2); CARBON DIOXIDE 24 mmol/L (22-30); CHLORIDE 102 mmol/L (98-107); CREATININE RESULT 1.97 mg/dL (0.52-1.25); GLUCOSE 129 mg/dL (75-110); POTASSIUM 5.1 mmol/L (3.6-5.0); SODIUM 137.1 mmol/L (137-145)
[2016-10-22] MEDS: HEPARIN SOD (PORCINE) 5,000 UNIT/ML 1 ML SYRINGE SUBCUT SCH ×3 (06:14→22:16)
[2016-10-22] MEDS: OXYCODONE HCL IR 5 MG TABLET PO PRN ×5 (06:14→22:14)
[2016-10-22] MEDS: DEXAMETHASONE SOD PHOSPHATE INJ 4 MG/1 ML VIAL IV SCH ×3 (06:14→18:30)
[2016-10-22] MEDS: POLYETHYLENE GLYCOL 3350 POWDER 17 GM/1 PACKET PO SCH (10:00)
[2016-10-22] MEDS: FUROSEMIDE 40 MG TABLET PO SCH (10:02)
[2016-10-22] MEDS: AMLODIPINE BESYLATE 5 MG TABLET PO SCH (10:02)
[2016-10-22] MEDS: DOCUSATE SODIUM 100 MG CAPSULE PO SCH ×2 (10:02→18:30)
[2016-10-22] MEDS: OXYCODONE HCL SR 40 MG TABLET PO SCH ×2 (10:03→22:15)
[2016-10-22] MEDS: HYDROMORPHONE HCL INJ/PF 2 MG/ML AMPULE IV PRN ×2 (10:44→16:36)
--- NOTE | 2016-10-22 13:38 | PDOC PROGRESS REPORT ---
Subjective Progress Note for:: 10/22/16 Subjective:: Post radiation therapy today. Patient denied any significant ongoing pain presently. Nausea improved since last clinical evaluation. No chest pain or difficulty with breathing. Remain on hemodialysis supplementation therapy and weekly chemotherapy. Physical Exam Vital Signs: Temp Pulse Resp BP Pulse Ox 97.7 F 72 12 113/46 L 97 10/22/16 07:40 10/22/16 07:40 10/22/16 07:40 10/22/16 07:40 10/22/16 07:40 Intake & Output 10/21/16 10/22/16 10/23/16 06:59 06:59 06:59 Intake Total 1570 1426 Output Total 1810 2550 Balance -240 -1124 Weight 126 kg 127.6 kg Results Laboratory Results: 10/22/16 04:21 10/22/16 04:21 10/22/16 10/22/16 04:21 04:21 WBC 13.8 H RBC 2.73 L Hgb 8.4 L Hct 24.6 L MCV 90 MCH 30.8 MCHC 34.2 RDW 15.7 H Plt Count 213 Seg Neutrophils % 83.9 H Lymphocytes % 5.4 L Monocytes % 10.6 Eosinophils % 0.0 Basophils % 0.1 Absolute Neutrophils 11.6 H Absolute Lymphocytes 0.7 Absolute Monocytes 1.5 H Absolute Eosinophils 0.0 Absolute Basophils 0.0 Sodium 137.1 Potassium 5.1 H Chloride 102 Carbon Dioxide 24 Anion Gap 11 BUN 63 H Creatinine 1.97 H Est GFR ( Amer) 32 L Est GFR (Non-Af Amer) 26 L Glucose 129 H Calcium 7.1 L 10/10/16 10/10/16 10/10/16 08:31 08:31 14:25 Creatine Kinase 176 H 170 H CK-MB (CK-2) 2.26 Troponin I 0.024 10/10/16 10/10/16 10/10/16 14:25 20:30 20:30 Creatine Kinase 174 H CK-MB (CK-2) 2.64 2.75 Troponin I 0.018 0.017 Impressions: Abdomen/Pelvis CT 10/04/16 00:00 IMPRESSION: NO SIGNIFICANT OR ACUTE PROCESS IN THE ABDOMEN OR PELVIS. Skeletal Survey 10/05/16 00:00 IMPRESSION: Small lucent lesions are identified on the skull, humeri, pelvis, and right femoral series. Correlate with additional evaluation to exclude myeloma or metastatic disease. Chest CT 10/06/16 00:00 IMPRESSION: No dominant lung mass. Small bilateral pleural effusions with basilar atelectasis. Minimal nodularity along the pleural surfaces right greater than left which nonspecific. No measurable masses. Bone Biopsy CT 10/09/16 00:00 IMPRESSION: CT GUIDED BIOPSY OF THE RIGHT POSTERIOR ILIAC CREST FOR BONE MARROW ASPIRATE EVALUATION PERFORMED WITHOUT IMMEDIATE COMPLICATION. PATHOLOGY PENDING. Lung Scan-VQ NM 10/10/16 00:00 IMPRESSION: No ventilation-perfusion mismatches. Lumbar Spine MRI 10/10/16 17:09 IMPRESSION: Very limited study. There are however multilevel epidural soft tissue mass is just posterior to the vertebral bodies resulting in severe compromise of the canal. In addition, at the discs levels, there is marked spinal stenosis related to posterior element overgrowth. MRI with contrast should be performed to further evaluate the epidural soft tissue masses. Thoracic Spine MRI 10/11/16 00:00 IMPRESSION: Small T6-T7 disc protrusion causes mild spinal canal stenosis. No significant cord or nerve root compression. Moderate nonspecific soft tissue swelling of the back at the thoracolumbar junctional levels. Otherwise, no MRI evidence of metastatic disease, as queried. If there is continued clinical suspicion, consider further evaluation with whole-body bone scan, CT PET imaging , and/or contrast MRI survey of the spine. Cervical Spine MRI 10/11/16 10:56 IMPRESSION: Anterior C4-C5 hardware fusion. A moderate C3-C4 disc protrusion mildly compresses the spinal cord. Chest X-Ray 10/14/16 23:52 IMPRESSION: No radiographic evidence for pneumothorax. Mild cardiomegaly and vascular congestion. Subsegmental atelectasis in the right perihilar region. Assessment & Plan - Diagnosis (1) Acute renal failure Qualifiers: Acute renal failure type: unspecified Qualified Code(s): N17.9 - Acute kidney failure, unspecified Is this a current diagnosis for this admission?: YesPlan: See covering attending physician orders. Patient will continue hemodialysis as per nephrology team recommendations. (2) Enterococcus UTI Is this a current diagnosis for this admission?: YesPlan: See covering attending physician orders. (3) Multiple myeloma Qualifiers: Multiple myeloma remission status: not in remission Qualified Code(s ): C90.00 - Multiple myeloma not having achieved remission Is this a current diagnosis for this admission?: YesPlan: See covering attending physician orders. 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 - Time Time Spent with patient: 25-34 minutes Medications reviewed and adjusted accordingly: Yes Within: Other - Inpatient Certification Medical Necessity: Need Close Monitoring Due to Risk of Patient Decompensation, Need For Continuous Telemetry Monitoring, Need for IV Antibiotics, Risk of Complication if Not Cared For in Hospital Post Hospital Care: D/C School Cook Documentation - Plan Summary Plan Summary: See covering attending physician orders.
--- NOTE | 2016-10-22 13:51 | PDOC PROGRESS REPORT ---
Subjective Progress Note for:: 10/22/16 Subjective:: Reports that her pain is under control. Her nurse reports that she is supposed to go to XRT today. Physical Exam Vital Signs: Temp Pulse Resp BP Pulse Ox 97.7 F 72 12 113/46 L 97 10/22/16 07:40 10/22/16 07:40 10/22/16 07:40 10/22/16 07:40 10/22/16 07:40 Intake & Output 10/21/16 10/22/16 10/23/16 06:59 06:59 06:59 Intake Total 1570 1426 Output Total 1810 2550 Balance -240 -1124 Weight 126 kg 127.6 kg General appearance: PRESENT: no acute distress Head exam: PRESENT: normocephalic Eye exam: PRESENT: EOMI, PERRLA Respiratory exam: PRESENT: clear to auscultation merrill Cardiovascular exam: PRESENT: RRR GI/Abdominal exam: PRESENT: soft Neurological exam: PRESENT: alert, awake Results Laboratory Results: 10/22/16 04:21 10/22/16 04:21 10/22/16 10/22/16 04:21 04:21 WBC 13.8 H RBC 2.73 L Hgb 8.4 L Hct 24.6 L MCV 90 MCH 30.8 MCHC 34.2 RDW 15.7 H Plt Count 213 Seg Neutrophils % 83.9 H Lymphocytes % 5.4 L Monocytes % 10.6 Eosinophils % 0.0 Basophils % 0.1 Absolute Neutrophils 11.6 H Absolute Lymphocytes 0.7 Absolute Monocytes 1.5 H Absolute Eosinophils 0.0 Absolute Basophils 0.0 Sodium 137.1 Potassium 5.1 H Chloride 102 Carbon Dioxide 24 Anion Gap 11 BUN 63 H Creatinine 1.97 H Est GFR ( Amer) 32 L Est GFR (Non-Af Amer) 26 L Glucose 129 H Calcium 7.1 L 10/10/16 10/10/16 10/10/16 08:31 08:31 14:25 Creatine Kinase 176 H 170 H CK-MB (CK-2) 2.26 Troponin I 0.024 10/10/16 10/10/16 10/10/16 14:25 20:30 20:30 Creatine Kinase 174 H CK-MB (CK-2) 2.64 2.75 Troponin I 0.018 0.017 Impressions: Abdomen/Pelvis CT 10/04/16 00:00 IMPRESSION: NO SIGNIFICANT OR ACUTE PROCESS IN THE ABDOMEN OR PELVIS. Skeletal Survey 10/05/16 00:00 IMPRESSION: Small lucent lesions are identified on the skull, humeri, pelvis, and right femoral series. Correlate with additional evaluation to exclude myeloma or metastatic disease. Chest CT 10/06/16 00:00 IMPRESSION: No dominant lung mass. Small bilateral pleural effusions with basilar atelectasis. Minimal nodularity along the pleural surfaces right greater than left which nonspecific. No measurable masses. Bone Biopsy CT 10/09/16 00:00 IMPRESSION: CT GUIDED BIOPSY OF THE RIGHT POSTERIOR ILIAC CREST FOR BONE MARROW ASPIRATE EVALUATION PERFORMED WITHOUT IMMEDIATE COMPLICATION. PATHOLOGY PENDING. Lung Scan-VQ NM 10/10/16 00:00 IMPRESSION: No ventilation-perfusion mismatches. Lumbar Spine MRI 10/10/16 17:09 IMPRESSION: Very limited study. There are however multilevel epidural soft tissue mass is just posterior to the vertebral bodies resulting in severe compromise of the canal. In addition, at the discs levels, there is marked spinal stenosis related to posterior element overgrowth. MRI with contrast should be performed to further evaluate the epidural soft tissue masses. Thoracic Spine MRI 10/11/16 00:00 IMPRESSION: Small T6-T7 disc protrusion causes mild spinal canal stenosis. No significant cord or nerve root compression. Moderate nonspecific soft tissue swelling of the back at the thoracolumbar junctional levels. Otherwise, no MRI evidence of metastatic disease, as queried. If there is continued clinical suspicion, consider further evaluation with whole-body bone scan, CT PET imaging , and/or contrast MRI survey of the spine. Cervical Spine MRI 10/11/16 10:56 IMPRESSION: Anterior C4-C5 hardware fusion. A moderate C3-C4 disc protrusion mildly compresses the spinal cord. Chest X-Ray 10/14/16 23:52 IMPRESSION: No radiographic evidence for pneumothorax. Mild cardiomegaly and vascular congestion. Subsegmental atelectasis in the right perihilar region. 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 Proceeding with Treatment with weekly Velcade. (4) Pain, neoplasm-related Plan: Continue current pain control. - Time Critical Time spent with patient: 15-24 minutes Medications reviewed and adjusted accordingly: Yes
[2016-10-22] MEDS ORDERED: CALCIUM GLUCONATE 1,000 MG in DEXTROSE 5%-WATER 50 ML IV ONE (17:57)
--- NOTE | 2016-10-22 18:03 | PDOC PROGRESS REPORT ---
Subjective Progress Note for:: 10/22/16 Subjective:: Patient is doing fine today. She continues to have her radiation therapy treatment. She said she just had a little bit of nausea but that has resolved now. I held her dialysis today to see if she can do without hemodialysis treatment since there are some improvement of her kidney function since last week. She does not have any other new complaints. Physical Exam Vital Signs: Temp Pulse Resp BP Pulse Ox 97.7 F 91 12 113/46 L 97 10/22/16 07:40 10/22/16 14:00 10/22/16 07:40 10/22/16 07:40 10/22/16 07:40 Intake & Output 10/21/16 10/22/16 10/23/16 06:59 06:59 06:59 Intake Total 1570 1426 797 Output Total 1810 2550 Balance -240 -1124 797 Weight 126 kg 127.6 kg Exam: General appearance: PRESENT: no acute distress, cooperative, well-developed, well-nourished Head exam: PRESENT: atraumatic, normocephalic Eye exam: PRESENT: conjunctiva pale, PERRLA. ABSENT: scleral icterus Neck exam: ABSENT: JVD Respiratory exam: PRESENT: Diminished breath sounds. ABSENT: crackles, rales, rhonchi, unlabored, wheezes Cardiovascular exam: PRESENT: Regular rate rhythm -+S1, +S2. ABSENT: diastolic murmur, systolic murmur GI/Abdominal exam: PRESENT: normal bowel sounds, soft. ABSENT: guarding, mass, tenderness Extremities exam: ABSENT: No edema Neurological exam: PRESENT: alert, awake, oriented to person, place and time. Skin exam: PRESENT: dry, warm, Cardiovascular exam: PRESENT: +S1, +S2 GI/Abdominal exam: PRESENT: normal bowel sounds, soft. ABSENT: firm, guarding, tenderness Results Laboratory Results: 10/22/16 04:21 10/22/16 04:21 10/22/16 10/22/16 04:21 04:21 WBC 13.8 H RBC 2.73 L Hgb 8.4 L Hct 24.6 L MCV 90 MCH 30.8 MCHC 34.2 RDW 15.7 H Plt Count 213 Seg Neutrophils % 83.9 H Lymphocytes % 5.4 L Monocytes % 10.6 Eosinophils % 0.0 Basophils % 0.1 Absolute Neutrophils 11.6 H Absolute Lymphocytes 0.7 Absolute Monocytes 1.5 H Absolute Eosinophils 0.0 Absolute Basophils 0.0 Sodium 137.1 Potassium 5.1 H Chloride 102 Carbon Dioxide 24 Anion Gap 11 BUN 63 H Creatinine 1.97 H Est GFR ( Amer) 32 L Est GFR (Non-Af Amer) 26 L Glucose 129 H Calcium 7.1 L 10/10/16 10/10/16 10/10/16 08:31 08:31 14:25 Creatine Kinase 176 H 170 H CK-MB (CK-2) 2.26 Troponin I 0.024 10/10/16 10/10/16 10/10/16 14:25 20:30 20:30 Creatine Kinase 174 H CK-MB (CK-2) 2.64 2.75 Troponin I 0.018 0.017 Impressions: Abdomen/Pelvis CT 10/04/16 00:00 IMPRESSION: NO SIGNIFICANT OR ACUTE PROCESS IN THE ABDOMEN OR PELVIS. Skeletal Survey 10/05/16 00:00 IMPRESSION: Small lucent lesions are identified on the skull, humeri, pelvis, and right femoral series. Correlate with additional evaluation to exclude myeloma or metastatic disease. Chest CT 10/06/16 00:00 IMPRESSION: No dominant lung mass. Small bilateral pleural effusions with basilar atelectasis. Minimal nodularity along the pleural surfaces right greater than left which nonspecific. No measurable masses. Bone Biopsy CT 10/09/16 00:00 IMPRESSION: CT GUIDED BIOPSY OF THE RIGHT POSTERIOR ILIAC CREST FOR BONE MARROW ASPIRATE EVALUATION PERFORMED WITHOUT IMMEDIATE COMPLICATION. PATHOLOGY PENDING. Lung Scan-VQ NM 10/10/16 00:00 IMPRESSION: No ventilation-perfusion mismatches. Lumbar Spine MRI 10/10/16 17:09 IMPRESSION: Very limited study. There are however multilevel epidural soft tissue mass is just posterior to the vertebral bodies resulting in severe compromise of the canal. In addition, at the discs levels, there is marked spinal stenosis related to posterior element overgrowth. MRI with contrast should be performed to further evaluate the epidural soft tissue masses. Thoracic Spine MRI 10/11/16 00:00 IMPRESSION: Small T6-T7 disc protrusion causes mild spinal canal stenosis. No significant cord or nerve root compression. Moderate nonspecific soft tissue swelling of the back at the thoracolumbar junctional levels. Otherwise, no MRI evidence of metastatic disease, as queried. If there is continued clinical suspicion, consider further evaluation with whole-body bone scan, CT PET imaging , and/or contrast MRI survey of the spine. Cervical Spine MRI 10/11/16 10:56 IMPRESSION: Anterior C4-C5 hardware fusion. A moderate C3-C4 disc protrusion mildly compresses the spinal cord. Chest X-Ray 10/14/16 23:52 IMPRESSION: No radiographic evidence for pneumothorax. Mild cardiomegaly and vascular congestion. Subsegmental atelectasis in the right perihilar region. 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 There could also be a component of acute tubular necrosis due to hemodynamic changes due to blood pressure changes throughout hospitalization. Patient's BUN and creatinine as well as electrolytes seem to be significantly improved over the weekend. Hemodialysis was held today. I will monitor kidney function for the next few days to determine if she needs any further hemodialysis treatment or not. I also decreased her Lasix to just once a day. Continue to monitor kidney function. (2) Hyperkalemia, diminished renal excretion Is this a current diagnosis for this admission?: YesPlan: Mild. (3) Metabolic acidosis Is this a current diagnosis for this admission?: YesPlan: Resolved . (4) Urinary tract infection Is this a current diagnosis for this admission?: YesPlan: Due to Enterococcus faecalis. Continue IV Levaquin every 48 hours. 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 Due to multiple myeloma. We will defer management to him Dr. Connor. (6) Hypertension Is this a current diagnosis for this admission?: YesPlan: Controlled. (7) Leg pain Qualifiers: Laterality: bilateral Qualified Code(s): M79.604 - Pain in right leg Is this a current diagnosis for this admission?: Yes (8) Back pain Qualifiers: Back pain location: low back pain Chronicity: acute Is this a current diagnosis for this admission?: Yes (9) Multiple myeloma Qualifiers: Multiple myeloma remission status: not in remission Qualified Code(s ): C90.00 - Multiple myeloma not having achieved remission Is this a current diagnosis for this admission?: YesPlan: Status post bone marrow biopsy. Management per Dr. Connor. On chemotherapy and radiation therapy currently (10) Hypocalcemia Is this a current diagnosis for this admission?: YesPlan: Replace when necessary with IV calcium gluconate. - Time Time with patient: 15-25 minutes
[2016-10-22] MEDS ORDERED: CALCIUM GLUCONATE 1000 MG/10 ML INJ IV ONE (18:30)
[2016-10-22] MEDS: LEVOFLOXACIN 500 MG/D5W RTU 500 MG/100 ML RTUPB IV SCH (18:30)
[2016-10-23] MEDS: HYDROMORPHONE HCL INJ/PF 2 MG/ML AMPULE IV PRN ×2 (00:29→10:44)
[2016-10-23] MEDS: DEXAMETHASONE SOD PHOSPHATE INJ 4 MG/1 ML VIAL IV SCH ×4 (00:31→17:29)
[2016-10-23] MEDS: HEPARIN SOD (PORCINE) 5,000 UNIT/ML 1 ML SYRINGE SUBCUT SCH ×3 (05:38→21:40)
[2016-10-23] MEDS: OXYCODONE HCL IR 5 MG TABLET PO PRN ×4 (07:49→21:38)
[2016-10-23] MEDS ORDERED: BORTEZOMIB SUBCUT PRN (08:02)
[2016-10-23] MEDS ORDERED: DISPOSABLE SUBCUT PRN (08:02)
[2016-10-23 08:03] LABS: ANION GAP 9 (5-19); BLOOD UREA NITROGEN 62 mg/dL (7-20); CALCIUM 7.4 mg/dL (8.4-10.2); CARBON DIOXIDE 26 mmol/L (22-30); CHLORIDE 102 mmol/L (98-107); CREATININE RESULT 1.75 mg/dL (0.52-1.25); GLUCOSE 124 mg/dL (75-110); POTASSIUM 5.5 mmol/L (3.6-5.0); SODIUM 137.4 mmol/L (137-145)
--- NOTE | 2016-10-23 08:31 | PDOC PROGRESS REPORT ---
Subjective Progress Note for:: 10/23/16 Subjective:: No acute events overnight, patient seems a little bit more functional Physical Exam Vital Signs: Temp Pulse Resp BP Pulse Ox 98.1 F 78 20 110/50 L 100 10/23/16 03:54 10/23/16 03:54 10/23/16 03:54 10/23/16 03:54 10/23/16 03:54 Intake & Output 10/22/16 10/23/16 10/24/16 06:59 06:59 06:59 Intake Total 1426 1817 Output Total 2550 6470 Balance -1124 -933 Weight 127.6 kg 91.8 kg 124 kg General appearance: PRESENT: no acute distress, well-developed, well-nourished Head exam: PRESENT: atraumatic, normocephalic Eye exam: PRESENT: conjunctiva pink, EOMI, PERRLA. ABSENT: scleral icterus Ear exam: PRESENT: normal external ear exam Mouth exam: PRESENT: moist, tongue midline Neck exam: ABSENT: carotid bruit, JVD, lymphadenopathy, thyromegaly Respiratory exam: PRESENT: clear to auscultation merrill. ABSENT: rales, rhonchi, wheezes Cardiovascular exam: PRESENT: RRR. ABSENT: diastolic murmur, rubs, systolic murmur Pulses: PRESENT: normal dorsalis pedis pul Vascular exam: PRESENT: normal capillary refill GI/Abdominal exam: PRESENT: normal bowel sounds, soft. ABSENT: distended, guarding, mass, organolmegaly, rebound, tenderness Rectal exam: PRESENT: deferred Extremities exam: PRESENT: full ROM. ABSENT: calf tenderness, clubbing, pedal edema Neurological exam: PRESENT: alert, awake, oriented to person, oriented to place , oriented to time, oriented to situation, CN II-XII grossly intact. ABSENT: motor sensory deficit Psychiatric exam: PRESENT: appropriate affect, normal mood. ABSENT: homicidal ideation, suicidal ideation Skin exam: PRESENT: dry, intact, warm. ABSENT: cyanosis, rash Results Laboratory Results: 10/22/16 04:21 10/23/16 07:02 10/23/16 07:02 Sodium 137.4 Potassium 5.5 H Chloride 102 Carbon Dioxide 26 Anion Gap 9 BUN 62 H Creatinine 1.75 H Est GFR ( Amer) 37 L Est GFR (Non-Af Amer) 30 L Glucose 124 H Calcium 7.4 L 10/10/16 10/10/16 10/10/16 08:31 08:31 14:25 Creatine Kinase 176 H 170 H CK-MB (CK-2) 2.26 Troponin I 0.024 10/10/16 10/10/16 10/10/16 14:25 20:30 20:30 Creatine Kinase 174 H CK-MB (CK-2) 2.64 2.75 Troponin I 0.018 0.017 Impressions: Abdomen/Pelvis CT 10/04/16 00:00 IMPRESSION: NO SIGNIFICANT OR ACUTE PROCESS IN THE ABDOMEN OR PELVIS. Skeletal Survey 10/05/16 00:00 IMPRESSION: Small lucent lesions are identified on the skull, humeri, pelvis, and right femoral series. Correlate with additional evaluation to exclude myeloma or metastatic disease. Chest CT 10/06/16 00:00 IMPRESSION: No dominant lung mass. Small bilateral pleural effusions with basilar atelectasis. Minimal nodularity along the pleural surfaces right greater than left which nonspecific. No measurable masses. Bone Biopsy CT 10/09/16 00:00 IMPRESSION: CT GUIDED BIOPSY OF THE RIGHT POSTERIOR ILIAC CREST FOR BONE MARROW ASPIRATE EVALUATION PERFORMED WITHOUT IMMEDIATE COMPLICATION. PATHOLOGY PENDING. Lung Scan-VQ NM 10/10/16 00:00 IMPRESSION: No ventilation-perfusion mismatches. Lumbar Spine MRI 10/10/16 17:09 IMPRESSION: Very limited study. There are however multilevel epidural soft tissue mass is just posterior to the vertebral bodies resulting in severe compromise of the canal. In addition, at the discs levels, there is marked spinal stenosis related to posterior element overgrowth. MRI with contrast should be performed to further evaluate the epidural soft tissue masses. Thoracic Spine MRI 10/11/16 00:00 IMPRESSION: Small T6-T7 disc protrusion causes mild spinal canal stenosis. No significant cord or nerve root compression. Moderate nonspecific soft tissue swelling of the back at the thoracolumbar junctional levels. Otherwise, no MRI evidence of metastatic disease, as queried. If there is continued clinical suspicion, consider further evaluation with whole-body bone scan, CT PET imaging , and/or contrast MRI survey of the spine. Cervical Spine MRI 10/11/16 10:56 IMPRESSION: Anterior C4-C5 hardware fusion. A moderate C3-C4 disc protrusion mildly compresses the spinal cord. Chest X-Ray 10/14/16 23:52 IMPRESSION: No radiographic evidence for pneumothorax. Mild cardiomegaly and vascular congestion. Subsegmental atelectasis in the right perihilar region. 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 (4) DEL (acute kidney injury) Is this a current diagnosis for this admission?: YesPlan: Improving, continue with renal replacement therapy - Time Time Spent with patient: 25-34 minutes Critical Time spent with patient: 25-34 minutes - Inpatient Certification Based on my medical assessment, after consideration of the patient's comorbidities, presenting symptoms, or acuity I expect that the services needed warrant INPATIENT care.: Yes I certify that my determination is in accordance with my understanding of Medicare's requirements for reasonable and necessary INPATIENT services [42 CFR 412.3e].: Yes Medical Necessity: Risk of Complication if Not Cared For in Hospital
[2016-10-23] MEDS: DOCUSATE SODIUM 100 MG CAPSULE PO SCH ×2 (09:52→17:29)
[2016-10-23] MEDS: AMLODIPINE BESYLATE 5 MG TABLET PO SCH (09:52)
[2016-10-23] MEDS: FUROSEMIDE 40 MG TABLET PO SCH (09:53)
[2016-10-23] MEDS: OXYCODONE HCL SR 40 MG TABLET PO SCH ×2 (09:53→21:39)
[2016-10-23] MEDS: POLYETHYLENE GLYCOL 3350 POWDER 17 GM/1 PACKET PO SCH (09:54)
[2016-10-23] MEDS ORDERED: CALCIUM GLUCONATE 1,000 MG in DEXTROSE 5%-WATER 50 ML IV ONE (14:54)
--- NOTE | 2016-10-23 14:57 | PDOC PROGRESS REPORT ---
Subjective Progress Note for:: 10/23/16 Subjective:: Patient is doing fine except for constipation. She received soap set any much today. She continues to receive radiation therapy and chemotherapy per Dr. Connor orders. She doesn't have any other new complaints. Physical Exam Vital Signs: Temp Pulse Resp BP Pulse Ox 98.1 F 68 20 110/50 L 100 10/23/16 03:54 10/23/16 07:00 10/23/16 03:54 10/23/16 03:54 10/23/16 03:54 Intake & Output 10/22/16 10/23/16 10/24/16 06:59 06:59 06:59 Intake Total 1426 1817 180 Output Total 2550 9370 725 Balance -1124 -933 -545 Weight 127.6 kg 91.8 kg 124 kg Exam: General appearance: PRESENT: no acute distress, cooperative, well-developed, well-nourished Head exam: PRESENT: atraumatic, normocephalic Eye exam: PRESENT: conjunctiva pale, PERRLA. ABSENT: scleral icterus Neck exam: ABSENT: JVD Respiratory exam: PRESENT: Diminished breath sounds. ABSENT: crackles, rales, rhonchi, unlabored, wheezes Cardiovascular exam: PRESENT: Regular rate rhythm -+S1, +S2. ABSENT: diastolic murmur, systolic murmur GI/Abdominal exam: PRESENT: normal bowel sounds, soft. ABSENT: guarding, mass, tenderness Extremities exam: ABSENT: No edema Neurological exam: PRESENT: alert, awake, oriented to person, place and time. Skin exam: PRESENT: dry, warm, Cardiovascular exam: PRESENT: +S1, +S2 GI/Abdominal exam: PRESENT: normal bowel sounds, soft. ABSENT: firm, guarding, tenderness Results Laboratory Results: 10/22/16 04:21 10/23/16 07:02 10/23/16 07:02 Sodium 137.4 Potassium 5.5 H Chloride 102 Carbon Dioxide 26 Anion Gap 9 BUN 62 H Creatinine 1.75 H Est GFR ( Amer) 37 L Est GFR (Non-Af Amer) 30 L Glucose 124 H Calcium 7.4 L 10/10/16 10/10/16 10/10/16 08:31 08:31 14:25 Creatine Kinase 176 H 170 H CK-MB (CK-2) 2.26 Troponin I 0.024 03/29/17 03/29/17 03/29/17 14:25 20:30 20:30 Creatine Kinase 174 H CK-MB (CK-2) 2.64 2.75 Troponin I 0.018 0.017 Impressions: Abdomen/Pelvis CT 10/04/16 00:00 IMPRESSION: NO SIGNIFICANT OR ACUTE PROCESS IN THE ABDOMEN OR PELVIS. Skeletal Survey 10/05/16 00:00 IMPRESSION: Small lucent lesions are identified on the skull, humeri, pelvis, and right femoral series. Correlate with additional evaluation to exclude myeloma or metastatic disease. Chest CT 10/06/16 00:00 IMPRESSION: No dominant lung mass. Small bilateral pleural effusions with basilar atelectasis. Minimal nodularity along the pleural surfaces right greater than left which nonspecific. No measurable masses. Bone Biopsy CT 10/09/16 00:00 IMPRESSION: CT GUIDED BIOPSY OF THE RIGHT POSTERIOR ILIAC CREST FOR BONE MARROW ASPIRATE EVALUATION PERFORMED WITHOUT IMMEDIATE COMPLICATION. PATHOLOGY PENDING. Lung Scan-VQ NM 10/10/16 00:00 IMPRESSION: No ventilation-perfusion mismatches. Lumbar Spine MRI 10/10/16 17:09 IMPRESSION: Very limited study. There are however multilevel epidural soft tissue mass is just posterior to the vertebral bodies resulting in severe compromise of the canal. In addition, at the discs levels, there is marked spinal stenosis related to posterior element overgrowth. MRI with contrast should be performed to further evaluate the epidural soft tissue masses. Thoracic Spine MRI 10/11/16 00:00 IMPRESSION: Small T6-T7 disc protrusion causes mild spinal canal stenosis. No significant cord or nerve root compression. Moderate nonspecific soft tissue swelling of the back at the thoracolumbar junctional levels. Otherwise, no MRI evidence of metastatic disease, as queried. If there is continued clinical suspicion, consider further evaluation with whole-body bone scan, CT PET imaging , and/or contrast MRI survey of the spine. Cervical Spine MRI 10/11/16 10:56 IMPRESSION: Anterior C4-C5 hardware fusion. A moderate C3-C4 disc protrusion mildly compresses the spinal cord. Chest X-Ray 10/14/16 23:52 IMPRESSION: No radiographic evidence for pneumothorax. Mild cardiomegaly and vascular congestion. Subsegmental atelectasis in the right perihilar region. 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 There could also be a component of acute tubular necrosis due to hemodynamic changes due to blood pressure changes throughout hospitalization. Patient's BUN and creatinine as well as electrolytes seem to be significantly improved over the weekend. Hemodialysis was held. I will monitor kidney function for the next few days to determine if she needs any further hemodialysis treatment or not. I also decreased her Lasix to just once a day. Continue to monitor kidney function. (2) Hyperkalemia, diminished renal excretion Is this a current diagnosis for this admission?: YesPlan: Mild. We will give a dose of Kayexalate 30 g orally today. (3) Metabolic acidosis Is this a current diagnosis for this admission?: YesPlan: Resolved . (4) Urinary tract infection Is this a current diagnosis for this admission?: YesPlan: Due to Enterococcus faecalis. Continue IV Levaquin every 48 hours. 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 Due to multiple myeloma. We will defer management to him Dr. Connor. (6) Hypertension Is this a current diagnosis for this admission?: YesPlan: Controlled. (7) Leg pain Qualifiers: Laterality: bilateral Qualified Code(s): M79.604 - Pain in right leg Is this a current diagnosis for this admission?: Yes (8) Back pain Qualifiers: Back pain location: low back pain Chronicity: acute Is this a current diagnosis for this admission?: YesPlan: On pain medications and now in physical therapy. (9) Multiple myeloma Qualifiers: Multiple myeloma remission status: not in remission Qualified Code(s ): C90.00 - Multiple myeloma not having achieved remission Is this a current diagnosis for this admission?: YesPlan: Status post bone marrow biopsy. Management per Dr. Connor. On chemotherapy and radiation therapy currently (10) Hypocalcemia Is this a current diagnosis for this admission?: YesPlan: Replace when necessary with IV calcium gluconate. - Time Time with patient: 15-25 minutes
[2016-10-23] MEDS ORDERED: SODIUM POLYSTYRENE SULFONATE 15 GM/60 ML PO ONE (15:30)
[2016-10-23] MEDS ORDERED: CALCIUM GLUCONATE 1000 MG/10 ML INJ IV ONE (15:30)
--- NOTE | 2016-10-23 19:09 | PDOC PROGRESS REPORT ---
Subjective Progress Note for:: 10/23/16 Subjective:: Patient denied any significant nausea, vomiting or abdominal pain. No chest pain or difficulty with breathing. Remain on radiation therapy and chemotherapy as per radiation and medical oncology team. Hemodialysis remain on hold with medical management of her hyperkalemia. No fever or chills. Physical Exam Vital Signs: Temp Pulse Resp BP Pulse Ox 98.6 F 89 16 110/50 L 100 10/23/16 16:20 10/23/16 16:20 10/23/16 16:20 10/23/16 16:20 10/23/16 16:20 Intake & Output 10/22/16 10/23/16 10/24/16 06:59 06:59 06:59 Intake Total 1426 1817 501 Output Total 2550 2750 1225 Balance -1124 -933 -724 Weight 127.6 kg 91.8 kg 124 kg Physical Exam: General appearance: PRESENT: no acute distress, cooperative, morbidly obese Head exam: PRESENT: atraumatic, normocephalic Eye exam: PRESENT: conjunctiva pink, EOMI, PERRLA. ABSENT: scleral icterus Respiratory exam: PRESENT: clear to auscultation merrill Cardiovascular exam: PRESENT: RRR. ABSENT: diastolic murmur, rubs, systolic murmur GI/Abdominal exam: PRESENT: normal bowel sounds, soft. ABSENT: distended, guarding, mass, organomegaly, rebound, tenderness Musculoskeletal exam: PRESENT: normal inspection Neurological exam: PRESENT: alert, awake, oriented to person, oriented to place , oriented to time, oriented to situation, CN II-XII grossly intact. ABSENT: motor sensory deficit Psychiatric exam: PRESENT: appropriate affect, normal mood. ABSENT: homicidal ideation, suicidal ideation Skin exam: PRESENT: dry, intact, warm. ABSENT: cyanosis, rash Results Laboratory Results: 10/22/16 04:21 10/23/16 07:02 10/23/16 07:02 Sodium 137.4 Potassium 5.5 H Chloride 102 Carbon Dioxide 26 Anion Gap 9 BUN 62 H Creatinine 1.75 H Est GFR ( Amer) 37 L Est GFR (Non-Af Amer) 30 L Glucose 124 H Calcium 7.4 L 10/10/16 10/10/16 10/10/16 08:31 08:31 14:25 Creatine Kinase 176 H 170 H CK-MB (CK-2) 2.26 Troponin I 0.024 10/10/16 10/10/16 10/10/16 14:25 20:30 20:30 Creatine Kinase 174 H CK-MB (CK-2) 2.64 2.75 Troponin I 0.018 0.017 Impressions: Abdomen/Pelvis CT 10/04/16 00:00 IMPRESSION: NO SIGNIFICANT OR ACUTE PROCESS IN THE ABDOMEN OR PELVIS. Skeletal Survey 10/05/16 00:00 IMPRESSION: Small lucent lesions are identified on the skull, humeri, pelvis, and right femoral series. Correlate with additional evaluation to exclude myeloma or metastatic disease. Chest CT 10/06/16 00:00 IMPRESSION: No dominant lung mass. Small bilateral pleural effusions with basilar atelectasis. Minimal nodularity along the pleural surfaces right greater than left which nonspecific. No measurable masses. Bone Biopsy CT 10/09/16 00:00 IMPRESSION: CT GUIDED BIOPSY OF THE RIGHT POSTERIOR ILIAC CREST FOR BONE MARROW ASPIRATE EVALUATION PERFORMED WITHOUT IMMEDIATE COMPLICATION. PATHOLOGY PENDING. Lung Scan-VQ NM 10/10/16 00:00 IMPRESSION: No ventilation-perfusion mismatches. Lumbar Spine MRI 10/10/16 17:09 IMPRESSION: Very limited study. There are however multilevel epidural soft tissue mass is just posterior to the vertebral bodies resulting in severe compromise of the canal. In addition, at the discs levels, there is marked spinal stenosis related to posterior element overgrowth. MRI with contrast should be performed to further evaluate the epidural soft tissue masses. Thoracic Spine MRI 10/11/16 00:00 IMPRESSION: Small T6-T7 disc protrusion causes mild spinal canal stenosis. No significant cord or nerve root compression. Moderate nonspecific soft tissue swelling of the back at the thoracolumbar junctional levels. Otherwise, no MRI evidence of metastatic disease, as queried. If there is continued clinical suspicion, consider further evaluation with whole-body bone scan, CT PET imaging , and/or contrast MRI survey of the spine. Cervical Spine MRI 10/11/16 10:56 IMPRESSION: Anterior C4-C5 hardware fusion. A moderate C3-C4 disc protrusion mildly compresses the spinal cord. Chest X-Ray 10/14/16 23:52 IMPRESSION: No radiographic evidence for pneumothorax. Mild cardiomegaly and vascular congestion. Subsegmental atelectasis in the right perihilar region. Assessment & Plan - Diagnosis (1) Acute renal failure Qualifiers: Acute renal failure type: unspecified Qualified Code(s): N17.9 - Acute kidney failure, unspecified Is this a current diagnosis for this admission?: YesPlan: See covering attending physician orders. Patient will continue hemodialysis if necessary as per nephrology team recommendations. Monitor renal indices and potassium level (2) Enterococcus UTI Is this a current diagnosis for this admission?: YesPlan: See covering attending physician orders. (3) Multiple myeloma Qualifiers: Multiple myeloma remission status: not in remission Qualified Code(s ): C90.00 - Multiple myeloma not having achieved remission Is this a current diagnosis for this admission?: YesPlan: She will continue on chemotherapy and radiation therapy as per oncology team. See covering attending physician orders. 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
[2016-10-24] MEDS: DEXAMETHASONE SOD PHOSPHATE INJ 4 MG/1 ML VIAL IV SCH ×5 (00:45→23:08)
[2016-10-24 05:04] LABS: ANION GAP 10 (5-19); BLOOD UREA NITROGEN 64 mg/dL (7-20); CALCIUM 7.5 mg/dL (8.4-10.2); CARBON DIOXIDE 25 mmol/L (22-30); CHLORIDE 103 mmol/L (98-107); CREATININE RESULT 1.56 mg/dL (0.52-1.25); GLUCOSE 121 mg/dL (75-110); SODIUM 137.6 mmol/L (137-145)
[2016-10-24 05:15] LABS: POTASSIUM 4.4 mmol/L (3.6-5.0)
[2016-10-24] MEDS: HEPARIN SOD (PORCINE) 5,000 UNIT/ML 1 ML SYRINGE SUBCUT SCH ×3 (06:27→23:08)
--- NOTE | 2016-10-24 08:19 | PDOC PROGRESS REPORT ---
Subjective Progress Note for:: 10/24/16 Subjective:: Patient is slowly getting stronger, no new events overnight. Physical Exam Vital Signs: Temp Pulse Resp BP Pulse Ox 98.1 F 86 16 99/53 L 100 10/24/16 07:23 10/24/16 07:23 10/24/16 07:23 10/24/16 07:23 10/24/16 07:23 Intake & Output 10/23/16 10/24/16 10/25/16 06:59 06:59 06:59 Intake Total 1817 741 Output Total 2750 2024 Balance -933 -1284 Weight 91.8 kg 127 kg General appearance: PRESENT: no acute distress, well-developed, well-nourished Head exam: PRESENT: atraumatic, normocephalic Eye exam: PRESENT: conjunctiva pink, EOMI, PERRLA. ABSENT: scleral icterus Ear exam: PRESENT: normal external ear exam Mouth exam: PRESENT: moist, tongue midline Neck exam: ABSENT: carotid bruit, JVD, lymphadenopathy, thyromegaly Respiratory exam: PRESENT: clear to auscultation merrill. ABSENT: rales, rhonchi, wheezes Cardiovascular exam: PRESENT: RRR. ABSENT: diastolic murmur, rubs, systolic murmur Pulses: PRESENT: normal dorsalis pedis pul Vascular exam: PRESENT: normal capillary refill GI/Abdominal exam: PRESENT: normal bowel sounds, soft. ABSENT: distended, guarding, mass, organolmegaly, rebound, tenderness Rectal exam: PRESENT: deferred Extremities exam: PRESENT: full ROM. ABSENT: calf tenderness, clubbing, pedal edema Neurological exam: PRESENT: alert, awake, oriented to person, oriented to place , oriented to time, oriented to situation, CN II-XII grossly intact. ABSENT: motor sensory deficit Psychiatric exam: PRESENT: appropriate affect, normal mood. ABSENT: homicidal ideation, suicidal ideation Skin exam: PRESENT: dry, intact, warm. ABSENT: cyanosis, rash Results Laboratory Results: 10/22/16 04:21 10/24/16 04:02 10/24/16 04:02 Sodium 137.6 Potassium 4.4 D Chloride 103 Carbon Dioxide 25 Anion Gap 10 BUN 64 H Creatinine 1.56 H Est GFR ( Amer) 42 L Est GFR (Non-Af Amer) 35 L Glucose 121 H Calcium 7.5 L 03/29/17 03/29/17 03/29/17 08:31 08:31 14:25 Creatine Kinase 176 H 170 H CK-MB (CK-2) 2.26 Troponin I 0.024 10/10/16 10/10/16 10/10/16 14:25 20:30 20:30 Creatine Kinase 174 H CK-MB (CK-2) 2.64 2.75 Troponin I 0.018 0.017 Impressions: Abdomen/Pelvis CT 10/04/16 00:00 IMPRESSION: NO SIGNIFICANT OR ACUTE PROCESS IN THE ABDOMEN OR PELVIS. Skeletal Survey 10/05/16 00:00 IMPRESSION: Small lucent lesions are identified on the skull, humeri, pelvis, and right femoral series. Correlate with additional evaluation to exclude myeloma or metastatic disease. Chest CT 10/06/16 00:00 IMPRESSION: No dominant lung mass. Small bilateral pleural effusions with basilar atelectasis. Minimal nodularity along the pleural surfaces right greater than left which nonspecific. No measurable masses. Bone Biopsy CT 10/09/16 00:00 IMPRESSION: CT GUIDED BIOPSY OF THE RIGHT POSTERIOR ILIAC CREST FOR BONE MARROW ASPIRATE EVALUATION PERFORMED WITHOUT IMMEDIATE COMPLICATION. PATHOLOGY PENDING. Lung Scan-VQ NM 10/10/16 00:00 IMPRESSION: No ventilation-perfusion mismatches. Lumbar Spine MRI 10/10/16 17:09 IMPRESSION: Very limited study. There are however multilevel epidural soft tissue mass is just posterior to the vertebral bodies resulting in severe compromise of the canal. In addition, at the discs levels, there is marked spinal stenosis related to posterior element overgrowth. MRI with contrast should be performed to further evaluate the epidural soft tissue masses. Thoracic Spine MRI 10/11/16 00:00 IMPRESSION: Small T6-T7 disc protrusion causes mild spinal canal stenosis. No significant cord or nerve root compression. Moderate nonspecific soft tissue swelling of the back at the thoracolumbar junctional levels. Otherwise, no MRI evidence of metastatic disease, as queried. If there is continued clinical suspicion, consider further evaluation with whole-body bone scan, CT PET imaging , and/or contrast MRI survey of the spine. Cervical Spine MRI 10/11/16 10:56 IMPRESSION: Anterior C4-C5 hardware fusion. A moderate C3-C4 disc protrusion mildly compresses the spinal cord. Chest X-Ray 10/14/16 23:52 IMPRESSION: No radiographic evidence for pneumothorax. Mild cardiomegaly and vascular congestion. Subsegmental atelectasis in the right perihilar region. 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 (2) Pain, neoplasm-related Plan: Pain control, continue to monitor (3) Multiple myeloma Qualifiers: Multiple myeloma remission status: not in remission Qualified Code(s ): C90.00 - Multiple myeloma not having achieved remission Is this a current diagnosis for this admission?: YesPlan: Continue with current Velcade based therapy, continue with radiation the last they will be this coming Saturday. (4) DEL (acute kidney injury) Is this a current diagnosis for this admission?: YesPlan: Improving continue dialysis per nephrology - Time Time Spent with patient: 25-34 minutes Critical Time spent with patient: 25-34 minutes - Inpatient Certification Based on my medical assessment, after consideration of the patient's comorbidities, presenting symptoms, or acuity I expect that the services needed warrant INPATIENT care.: Yes I certify that my determination is in accordance with my understanding of Medicare's requirements for reasonable and necessary INPATIENT services [42 CFR 412.3e].: Yes Medical Necessity: Failure to Improve With Outpatient Therapy, Need For Continuous Telemetry Monitoring, Need for Pain Control, Risk of Complication if Not Cared For in Hospital
[2016-10-24] MEDS: DOCUSATE SODIUM 100 MG CAPSULE PO SCH ×2 (09:25→18:21)
[2016-10-24] MEDS: OXYCODONE HCL SR 40 MG TABLET PO SCH ×2 (09:27→23:08)
[2016-10-24] MEDS: AMLODIPINE BESYLATE 5 MG TABLET PO SCH (09:28)
[2016-10-24] MEDS: POLYETHYLENE GLYCOL 3350 POWDER 17 GM/1 PACKET PO SCH (09:28)
[2016-10-24] MEDS: FUROSEMIDE 40 MG TABLET PO SCH (09:28)
[2016-10-24] MEDS: HYDROMORPHONE HCL INJ/PF 2 MG/ML AMPULE IV PRN (10:37)
[2016-10-24] MEDS: OXYCODONE HCL IR 5 MG TABLET PO PRN ×2 (14:46→20:35)
--- NOTE | 2016-10-24 15:12 | PDOC PROGRESS REPORT ---
Subjective Progress Note for:: 10/24/16 Subjective:: No chest pain or difficulty with breathing. No fever or chills. No nausea, vomiting or abdominal pain. Remain on radiation therapy and chemotherapy as per radiation and medical oncology team. Her hyperkalemia did improve with oral Kayexalate usage. Physical Exam Vital Signs: Temp Pulse Resp BP Pulse Ox 97.8 F 80 18 126/65 H 99 10/24/16 12:10 10/24/16 12:10 10/24/16 12:10 10/24/16 12:10 10/24/16 12:10 Intake & Output 10/23/16 10/24/16 10/25/16 06:59 06:59 06:59 Intake Total 1817 741 Output Total 2750 2025 Balance -933 -1284 Weight 91.8 kg 127 kg Physical Exam: General appearance: PRESENT: no acute distress, cooperative, morbidly obese Head exam: PRESENT: atraumatic, normocephalic Eye exam: PRESENT: conjunctiva pink, EOMI, PERRLA. ABSENT: scleral icterus Respiratory exam: PRESENT: clear to auscultation merrill Cardiovascular exam: PRESENT: RRR. ABSENT: diastolic murmur, rubs, systolic murmur GI/Abdominal exam: PRESENT: normal bowel sounds, soft. ABSENT: distended, guarding, mass, organomegaly, rebound, tenderness Musculoskeletal exam: PRESENT: normal inspection Neurological exam: PRESENT: alert, awake, oriented to person, oriented to place , oriented to time, oriented to situation, CN II-XII grossly intact. ABSENT: motor sensory deficit Psychiatric exam: PRESENT: appropriate affect, normal mood. ABSENT: homicidal ideation, suicidal ideation Skin exam: PRESENT: dry, intact, warm. ABSENT: cyanosis, rash Results Laboratory Results: 10/22/16 04:21 10/24/16 04:02 10/24/16 04:02 Sodium 137.6 Potassium 4.4 D Chloride 103 Carbon Dioxide 25 Anion Gap 10 BUN 64 H Creatinine 1.56 H Est GFR ( Amer) 42 L Est GFR (Non-Af Amer) 35 L Glucose 121 H Calcium 7.5 L 10/10/16 10/10/16 10/10/16 08:31 08:31 14:25 Creatine Kinase 176 H 170 H CK-MB (CK-2) 2.26 Troponin I 0.024 10/10/16 10/10/16 10/10/16 14:25 20:30 20:30 Creatine Kinase 174 H CK-MB (CK-2) 2.64 2.75 Troponin I 0.018 0.017 Impressions: Abdomen/Pelvis CT 10/04/16 00:00 IMPRESSION: NO SIGNIFICANT OR ACUTE PROCESS IN THE ABDOMEN OR PELVIS. Skeletal Survey 10/05/16 00:00 IMPRESSION: Small lucent lesions are identified on the skull, humeri, pelvis, and right femoral series. Correlate with additional evaluation to exclude myeloma or metastatic disease. Chest CT 10/06/16 00:00 IMPRESSION: No dominant lung mass. Small bilateral pleural effusions with basilar atelectasis. Minimal nodularity along the pleural surfaces right greater than left which nonspecific. No measurable masses. Bone Biopsy CT 10/09/16 00:00 IMPRESSION: CT GUIDED BIOPSY OF THE RIGHT POSTERIOR ILIAC CREST FOR BONE MARROW ASPIRATE EVALUATION PERFORMED WITHOUT IMMEDIATE COMPLICATION. PATHOLOGY PENDING. Lung Scan-VQ NM 10/10/16 00:00 IMPRESSION: No ventilation-perfusion mismatches. Lumbar Spine MRI 10/10/16 17:09 IMPRESSION: Very limited study. There are however multilevel epidural soft tissue mass is just posterior to the vertebral bodies resulting in severe compromise of the canal. In addition, at the discs levels, there is marked spinal stenosis related to posterior element overgrowth. MRI with contrast should be performed to further evaluate the epidural soft tissue masses. Thoracic Spine MRI 10/11/16 00:00 IMPRESSION: Small T6-T7 disc protrusion causes mild spinal canal stenosis. No significant cord or nerve root compression. Moderate nonspecific soft tissue swelling of the back at the thoracolumbar junctional levels. Otherwise, no MRI evidence of metastatic disease, as queried. If there is continued clinical suspicion, consider further evaluation with whole-body bone scan, CT PET imaging , and/or contrast MRI survey of the spine. Cervical Spine MRI 10/11/16 10:56 IMPRESSION: Anterior C4-C5 hardware fusion. A moderate C3-C4 disc protrusion mildly compresses the spinal cord. Chest X-Ray 10/14/16 23:52 IMPRESSION: No radiographic evidence for pneumothorax. Mild cardiomegaly and vascular congestion. Subsegmental atelectasis in the right perihilar region. Assessment & Plan - Diagnosis (1) Acute renal failure Qualifiers: Acute renal failure type: unspecified Qualified Code(s): N17.9 - Acute kidney failure, unspecified Is this a current diagnosis for this admission?: YesPlan: See covering attending physician orders. (2) Enterococcus UTI Is this a current diagnosis for this admission?: YesPlan: See covering attending physician orders. (3) Multiple myeloma Qualifiers: Multiple myeloma remission status: not in remission Qualified Code(s ): C90.00 - Multiple myeloma not having achieved remission Is this a current diagnosis for this admission?: YesPlan: She will continue on chemotherapy and radiation therapy as per oncology team. See covering attending physician orders. 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
[2016-10-24] MEDS ORDERED: CALCIUM GLUCONATE 1,000 MG in DEXTROSE 5%-WATER 50 ML IV ONE (15:45)
--- NOTE | 2016-10-24 15:45 | PDOC PROGRESS REPORT ---
Subjective Progress Note for:: 10/24/16 Subjective:: Patient seems to be slowly improving clinically. According to the nurses patient is still unable to standup on her own. Patient did have a good bowel movement after the Kayexalate yesterday. She continues to receive radiation therapy and chemotherapy. Physical Exam Vital Signs: Temp Pulse Resp BP Pulse Ox 97.8 F 80 18 126/65 H 99 10/24/16 12:10 10/24/16 12:10 10/24/16 12:10 10/24/16 12:10 10/24/16 12:10 Intake & Output 10/23/16 10/24/16 10/25/16 06:59 06:59 06:59 Intake Total 1817 741 Output Total 2750 2025 Balance -933 -1284 Weight 91.8 kg 127 kg Exam: General appearance: PRESENT: no acute distress, cooperative, well-developed, well-nourished Head exam: PRESENT: atraumatic, normocephalic Eye exam: PRESENT: conjunctiva pink, PERRLA. ABSENT: scleral icterus Neck exam: ABSENT: JVD Respiratory exam: PRESENT: Diminished breath sounds. ABSENT: crackles, rales, rhonchi, unlabored, wheezes Cardiovascular exam: PRESENT: Regular rate rhythm -+S1, +S2. ABSENT: diastolic murmur, systolic murmur GI/Abdominal exam: PRESENT: normal bowel sounds, soft. ABSENT: guarding, mass, tenderness Extremities exam: ABSENT: No edema Neurological exam: PRESENT: alert, awake, oriented to person, place and time. Skin exam: PRESENT: dry, warm, Cardiovascular exam: PRESENT: +S1, +S2 GI/Abdominal exam: PRESENT: normal bowel sounds, soft. ABSENT: firm, guarding, tenderness Results Laboratory Results: 10/22/16 04:21 10/24/16 04:02 10/24/16 04:02 Sodium 137.6 Potassium 4.4 D Chloride 103 Carbon Dioxide 25 Anion Gap 10 BUN 64 H Creatinine 1.56 H Est GFR ( Amer) 42 L Est GFR (Non-Af Amer) 35 L Glucose 121 H Calcium 7.5 L 10/10/16 10/10/16 10/10/16 08:31 08:31 14:25 Creatine Kinase 176 H 170 H CK-MB (CK-2) 2.26 Troponin I 0.024 10/10/16 10/10/16 10/10/16 14:25 20:30 20:30 Creatine Kinase 174 H CK-MB (CK-2) 2.64 2.75 Troponin I 0.018 0.017 Impressions: Abdomen/Pelvis CT 10/04/16 00:00 IMPRESSION: NO SIGNIFICANT OR ACUTE PROCESS IN THE ABDOMEN OR PELVIS. Skeletal Survey 10/05/16 00:00 IMPRESSION: Small lucent lesions are identified on the skull, humeri, pelvis, and right femoral series. Correlate with additional evaluation to exclude myeloma or metastatic disease. Chest CT 10/06/16 00:00 IMPRESSION: No dominant lung mass. Small bilateral pleural effusions with basilar atelectasis. Minimal nodularity along the pleural surfaces right greater than left which nonspecific. No measurable masses. Bone Biopsy CT 10/09/16 00:00 IMPRESSION: CT GUIDED BIOPSY OF THE RIGHT POSTERIOR ILIAC CREST FOR BONE MARROW ASPIRATE EVALUATION PERFORMED WITHOUT IMMEDIATE COMPLICATION. PATHOLOGY PENDING. Lung Scan-VQ NM 10/10/16 00:00 IMPRESSION: No ventilation-perfusion mismatches. Lumbar Spine MRI 10/10/16 17:09 IMPRESSION: Very limited study. There are however multilevel epidural soft tissue mass is just posterior to the vertebral bodies resulting in severe compromise of the canal. In addition, at the discs levels, there is marked spinal stenosis related to posterior element overgrowth. MRI with contrast should be performed to further evaluate the epidural soft tissue masses. Thoracic Spine MRI 10/11/16 00:00 IMPRESSION: Small T6-T7 disc protrusion causes mild spinal canal stenosis. No significant cord or nerve root compression. Moderate nonspecific soft tissue swelling of the back at the thoracolumbar junctional levels. Otherwise, no MRI evidence of metastatic disease, as queried. If there is continued clinical suspicion, consider further evaluation with whole-body bone scan, CT PET imaging , and/or contrast MRI survey of the spine. Cervical Spine MRI 10/11/16 10:56 IMPRESSION: Anterior C4-C5 hardware fusion. A moderate C3-C4 disc protrusion mildly compresses the spinal cord. Chest X-Ray 10/14/16 23:52 IMPRESSION: No radiographic evidence for pneumothorax. Mild cardiomegaly and vascular congestion. Subsegmental atelectasis in the right perihilar region. 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 There could also be a component of acute tubular necrosis due to hemodynamic changes due to blood pressure changes throughout hospitalization. Patient's BUN and creatinine as well as electrolytes seem to be significantly improved over the weekend. Hemodialysis was held. I will monitor kidney function for the next few days to determine if she needs any further hemodialysis treatment or not. I also decreased her Lasix to just once a day. Continue to monitor kidney function. Patient's last dialysis was 6 days ago Saturday. He seems to be stable at this point. It is possible that the patient will not need any more hemodialysis treatment if she continues to do well. (2) Hyperkalemia, diminished renal excretion Is this a current diagnosis for this admission?: YesPlan: Improved with Kayexalate. Advised patient to follow low potassium diet. 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 Due to multiple myeloma. We will defer management to him Dr. Connro. (5) Hypertension Is this a current diagnosis for this admission?: YesPlan: Controlled. (6) Leg pain Qualifiers: Laterality: bilateral Qualified Code(s): M79.604 - Pain in right leg Is this a current diagnosis for this admission?: Yes (7) Back pain Qualifiers: Back pain location: low back pain Chronicity: acute Is this a current diagnosis for this admission?: YesPlan: On pain medications and now in physical therapy. (8) Multiple myeloma Qualifiers: Multiple myeloma remission status: not in remission Qualified Code(s ): C90.00 - Multiple myeloma not having achieved remission Is this a current diagnosis for this admission?: YesPlan: Status post bone marrow biopsy. Management per Dr. Connor. On chemotherapy and radiation therapy currently (9) Hypocalcemia Is this a current diagnosis for this admission?: YesPlan: Replace when necessary with IV calcium gluconate. - Time Time with patient: 15-25 minutes
[2016-10-24] MEDS ORDERED: CALCIUM GLUCONATE 1000 MG/10 ML INJ IV ONE (16:30)
[2016-10-24] MEDS: LEVOFLOXACIN 500 MG/D5W RTU 500 MG/100 ML RTUPB IV SCH (18:22)
[2016-10-25] MEDS: OXYCODONE HCL IR 5 MG TABLET PO PRN ×4 (05:37→18:52)
[2016-10-25] MEDS: HEPARIN SOD (PORCINE) 5,000 UNIT/ML 1 ML SYRINGE SUBCUT SCH ×3 (05:37→22:41)
[2016-10-25] MEDS: DEXAMETHASONE SOD PHOSPHATE INJ 4 MG/1 ML VIAL IV SCH ×4 (05:37→23:48)
--- NOTE | 2016-10-25 08:32 | PDOC PROGRESS REPORT ---
Subjective Progress Note for:: 10/25/16 Subjective:: No acute events overnight Physical Exam Vital Signs: Temp Pulse Resp BP Pulse Ox 98.6 F 72 20 118/64 98 10/25/16 03:29 10/25/16 07:00 10/25/16 03:29 10/25/16 03:29 10/25/16 03:29 Intake & Output 10/24/16 10/25/16 10/26/16 06:59 06:59 06:59 Intake Total 741 1919 Output Total 2024 8790 Balance -1284 -631 Weight 127 kg 125.1 kg General appearance: PRESENT: no acute distress, well-developed, well-nourished Head exam: PRESENT: atraumatic, normocephalic Eye exam: PRESENT: conjunctiva pink, EOMI, PERRLA. ABSENT: scleral icterus Ear exam: PRESENT: normal external ear exam Mouth exam: PRESENT: moist, tongue midline Neck exam: ABSENT: carotid bruit, JVD, lymphadenopathy, thyromegaly Respiratory exam: PRESENT: clear to auscultation merrill. ABSENT: rales, rhonchi, wheezes Cardiovascular exam: PRESENT: RRR. ABSENT: diastolic murmur, rubs, systolic murmur Pulses: PRESENT: normal dorsalis pedis pul Vascular exam: PRESENT: normal capillary refill GI/Abdominal exam: PRESENT: normal bowel sounds, soft. ABSENT: distended, guarding, mass, organolmegaly, rebound, tenderness Rectal exam: PRESENT: deferred Extremities exam: PRESENT: full ROM. ABSENT: calf tenderness, clubbing, pedal edema Neurological exam: PRESENT: alert, awake, oriented to person, oriented to place , oriented to time, oriented to situation, CN II-XII grossly intact. ABSENT: motor sensory deficit Psychiatric exam: PRESENT: appropriate affect, normal mood. ABSENT: homicidal ideation, suicidal ideation Skin exam: PRESENT: dry, intact, warm. ABSENT: cyanosis, rash Results Laboratory Results: 10/22/16 04:21 10/24/16 04:02 10/10/16 10/10/16 10/10/16 08:31 08:31 14:25 Creatine Kinase 176 H 170 H CK-MB (CK-2) 2.26 Troponin I 0.024 03/29/17 03/29/17 03/29/17 14:25 20:30 20:30 Creatine Kinase 174 H CK-MB (CK-2) 2.64 2.75 Troponin I 0.018 0.017 Impressions: Abdomen/Pelvis CT 10/04/16 00:00 IMPRESSION: NO SIGNIFICANT OR ACUTE PROCESS IN THE ABDOMEN OR PELVIS. Skeletal Survey 10/05/16 00:00 IMPRESSION: Small lucent lesions are identified on the skull, humeri, pelvis, and right femoral series. Correlate with additional evaluation to exclude myeloma or metastatic disease. Chest CT 10/06/16 00:00 IMPRESSION: No dominant lung mass. Small bilateral pleural effusions with basilar atelectasis. Minimal nodularity along the pleural surfaces right greater than left which nonspecific. No measurable masses. Bone Biopsy CT 10/09/16 00:00 IMPRESSION: CT GUIDED BIOPSY OF THE RIGHT POSTERIOR ILIAC CREST FOR BONE MARROW ASPIRATE EVALUATION PERFORMED WITHOUT IMMEDIATE COMPLICATION. PATHOLOGY PENDING. Lung Scan-VQ NM 10/10/16 00:00 IMPRESSION: No ventilation-perfusion mismatches. Lumbar Spine MRI 10/10/16 17:09 IMPRESSION: Very limited study. There are however multilevel epidural soft tissue mass is just posterior to the vertebral bodies resulting in severe compromise of the canal. In addition, at the discs levels, there is marked spinal stenosis related to posterior element overgrowth. MRI with contrast should be performed to further evaluate the epidural soft tissue masses. Thoracic Spine MRI 10/11/16 00:00 IMPRESSION: Small T6-T7 disc protrusion causes mild spinal canal stenosis. No significant cord or nerve root compression. Moderate nonspecific soft tissue swelling of the back at the thoracolumbar junctional levels. Otherwise, no MRI evidence of metastatic disease, as queried. If there is continued clinical suspicion, consider further evaluation with whole-body bone scan, CT PET imaging , and/or contrast MRI survey of the spine. Cervical Spine MRI 10/11/16 10:56 IMPRESSION: Anterior C4-C5 hardware fusion. A moderate C3-C4 disc protrusion mildly compresses the spinal cord. Chest X-Ray 10/14/16 23:52 IMPRESSION: No radiographic evidence for pneumothorax. Mild cardiomegaly and vascular congestion. Subsegmental atelectasis in the right perihilar region. 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 Will need continued rx as outpt (4) DEL (acute kidney injury) Is this a current diagnosis for this admission?: YesPlan: Con't dialysis
--- NOTE | 2016-10-25 08:35 | PDOC PROGRESS REPORT ---
Subjective Progress Note for:: 10/25/16 Subjective:: No new issues. Tolerating oral feeding. No nausea, vomiting, or abdominal pain. No chest pain or difficulty with breathing. Achieving and maintaining unsupported standing position remain a problem. Physical Exam Vital Signs: Temp Pulse Resp BP Pulse Ox 98.6 F 72 20 118/64 98 10/25/16 03:29 10/25/16 07:00 10/25/16 03:29 10/25/16 03:29 10/25/16 03:29 Intake & Output 10/24/16 10/25/16 10/26/16 06:59 06:59 06:59 Intake Total 741 1919 Output Total 2024 2550 Balance -1284 -631 Weight 127 kg 125.1 kg Physical Exam: General appearance: PRESENT: no acute distress, cooperative, morbidly obese Head exam: PRESENT: atraumatic, normocephalic Eye exam: PRESENT: conjunctiva pink, EOMI, PERRLA. ABSENT: scleral icterus Respiratory exam: PRESENT: clear to auscultation merrill Cardiovascular exam: PRESENT: RRR. ABSENT: diastolic murmur, rubs, systolic murmur GI/Abdominal exam: PRESENT: normal bowel sounds, soft. ABSENT: distended, guarding, mass, organomegaly, rebound, tenderness Musculoskeletal exam: PRESENT: normal inspection Neurological exam: PRESENT: alert, awake, oriented to person, oriented to place , oriented to time, oriented to situation, CN II-XII grossly intact. ABSENT: motor sensory deficit Psychiatric exam: PRESENT: appropriate affect, normal mood. ABSENT: homicidal ideation, suicidal ideation Skin exam: PRESENT: dry, intact, warm. ABSENT: cyanosis, rash Results Laboratory Results: 10/22/16 04:21 10/24/16 04:02 10/10/16 10/10/16 10/10/16 08:31 08:31 14:25 Creatine Kinase 176 H 170 H CK-MB (CK-2) 2.26 Troponin I 0.024 10/10/16 10/10/16 10/10/16 14:25 20:30 20:30 Creatine Kinase 174 H CK-MB (CK-2) 2.64 2.75 Troponin I 0.018 0.017 Impressions: Abdomen/Pelvis CT 10/04/16 00:00 IMPRESSION: NO SIGNIFICANT OR ACUTE PROCESS IN THE ABDOMEN OR PELVIS. Skeletal Survey 10/05/16 00:00 IMPRESSION: Small lucent lesions are identified on the skull, humeri, pelvis, and right femoral series. Correlate with additional evaluation to exclude myeloma or metastatic disease. Chest CT 10/06/16 00:00 IMPRESSION: No dominant lung mass. Small bilateral pleural effusions with basilar atelectasis. Minimal nodularity along the pleural surfaces right greater than left which nonspecific. No measurable masses. Bone Biopsy CT 10/09/16 00:00 IMPRESSION: CT GUIDED BIOPSY OF THE RIGHT POSTERIOR ILIAC CREST FOR BONE MARROW ASPIRATE EVALUATION PERFORMED WITHOUT IMMEDIATE COMPLICATION. PATHOLOGY PENDING. Lung Scan-VQ NM 10/10/16 00:00 IMPRESSION: No ventilation-perfusion mismatches. Lumbar Spine MRI 10/10/16 17:09 IMPRESSION: Very limited study. There are however multilevel epidural soft tissue mass is just posterior to the vertebral bodies resulting in severe compromise of the canal. In addition, at the discs levels, there is marked spinal stenosis related to posterior element overgrowth. MRI with contrast should be performed to further evaluate the epidural soft tissue masses. Thoracic Spine MRI 10/11/16 00:00 IMPRESSION: Small T6-T7 disc protrusion causes mild spinal canal stenosis. No significant cord or nerve root compression. Moderate nonspecific soft tissue swelling of the back at the thoracolumbar junctional levels. Otherwise, no MRI evidence of metastatic disease, as queried. If there is continued clinical suspicion, consider further evaluation with whole-body bone scan, CT PET imaging , and/or contrast MRI survey of the spine. Cervical Spine MRI 10/11/16 10:56 IMPRESSION: Anterior C4-C5 hardware fusion. A moderate C3-C4 disc protrusion mildly compresses the spinal cord. Chest X-Ray 10/14/16 23:52 IMPRESSION: No radiographic evidence for pneumothorax. Mild cardiomegaly and vascular congestion. Subsegmental atelectasis in the right perihilar region. Assessment & Plan - Diagnosis (1) Acute renal failure Qualifiers: Acute renal failure type: unspecified Qualified Code(s): N17.9 - Acute kidney failure, unspecified Is this a current diagnosis for this admission?: YesPlan: See covering attending physician orders. She is currently off hemodialysis and her renal indices are acceptable. (2) Enterococcus UTI Is this a current diagnosis for this admission?: YesPlan: I will d/c levofloxacin coverage for E. Faecalis UTI. See covering attending physician orders. (3) Multiple myeloma Qualifiers: Multiple myeloma remission status: not in remission Qualified Code(s ): C90.00 - Multiple myeloma not having achieved remission Is this a current diagnosis for this admission?: YesPlan: She will continue on chemotherapy and radiation therapy as per oncology team. See covering attending physician orders. 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
[2016-10-25] MEDS: DOCUSATE SODIUM 100 MG CAPSULE PO SCH ×2 (10:13→18:50)
[2016-10-25] MEDS: OXYCODONE HCL SR 40 MG TABLET PO SCH ×2 (10:13→22:39)
[2016-10-25] MEDS: POLYETHYLENE GLYCOL 3350 POWDER 17 GM/1 PACKET PO SCH (10:13)
[2016-10-25] MEDS: AMLODIPINE BESYLATE 5 MG TABLET PO SCH (10:14)
[2016-10-25] MEDS: FUROSEMIDE 40 MG TABLET PO SCH (10:14)
[2016-10-25] MEDS: HYDROMORPHONE HCL INJ/PF 2 MG/ML AMPULE IV PRN ×2 (10:55→20:54)
--- NOTE | 2016-10-25 13:29 | PDOC PROGRESS REPORT ---
Subjective Progress Note for:: 10/25/16 Subjective:: Patient is currently doing fair patient's off the dialysis since last 6 days and the kidney function stable Patient still have a challenge about physical therapy Reason is still currently on chemotherapy and the radiations No chest pain and no shortness of the breath and no abdominal pain Physical Exam Vital Signs: Temp Pulse Resp BP Pulse Ox 98.6 F 72 20 118/64 98 10/25/16 03:29 10/25/16 07:00 10/25/16 03:29 10/25/16 03:29 10/25/16 03:29 Intake & Output 10/24/16 10/25/16 10/26/16 06:59 06:59 06:59 Intake Total 741 1919 Output Total 2024 5290 Balance -1284 -631 Weight 127 kg 125.1 kg General appearance: PRESENT: no acute distress, well-developed, well-nourished Head exam: PRESENT: atraumatic, normocephalic Eye exam: PRESENT: conjunctiva pink, EOMI, PERRLA. ABSENT: scleral icterus Ear exam: PRESENT: normal external ear exam Mouth exam: PRESENT: moist, tongue midline Neck exam: PRESENT: full ROM. ABSENT: carotid bruit, JVD, lymphadenopathy, thyromegaly Respiratory exam: PRESENT: clear to auscultation merrill Cardiovascular exam: PRESENT: RRR. ABSENT: diastolic murmur, rubs, systolic murmur Pulses: PRESENT: normal dorsalis pedis pul, +2 pedal pulses bilateral Vascular exam: PRESENT: normal capillary refill GI/Abdominal exam: PRESENT: normal bowel sounds, soft. ABSENT: distended, guarding, mass, organolmegaly, rebound, tenderness Rectal exam: PRESENT: deferred Neurological exam: PRESENT: alert, awake, oriented to person, oriented to place , oriented to time, oriented to situation, CN II-XII grossly intact. ABSENT: motor sensory deficit Psychiatric exam: PRESENT: appropriate affect, normal mood. ABSENT: homicidal ideation, suicidal ideation Skin exam: PRESENT: dry, intact, warm. ABSENT: cyanosis, rash Results Laboratory Results: 10/22/16 04:21 10/24/16 04:02 10/10/16 10/10/16 10/10/16 08:31 08:31 14:25 Creatine Kinase 176 H 170 H CK-MB (CK-2) 2.26 Troponin I 0.024 10/10/16 10/10/16 10/10/16 14:25 20:30 20:30 Creatine Kinase 174 H CK-MB (CK-2) 2.64 2.75 Troponin I 0.018 0.017 Impressions: Abdomen/Pelvis CT 10/04/16 00:00 IMPRESSION: NO SIGNIFICANT OR ACUTE PROCESS IN THE ABDOMEN OR PELVIS. Skeletal Survey 10/05/16 00:00 IMPRESSION: Small lucent lesions are identified on the skull, humeri, pelvis, and right femoral series. Correlate with additional evaluation to exclude myeloma or metastatic disease. Chest CT 10/06/16 00:00 IMPRESSION: No dominant lung mass. Small bilateral pleural effusions with basilar atelectasis. Minimal nodularity along the pleural surfaces right greater than left which nonspecific. No measurable masses. Bone Biopsy CT 10/09/16 00:00 IMPRESSION: CT GUIDED BIOPSY OF THE RIGHT POSTERIOR ILIAC CREST FOR BONE MARROW ASPIRATE EVALUATION PERFORMED WITHOUT IMMEDIATE COMPLICATION. PATHOLOGY PENDING. Lung Scan-VQ NM 10/10/16 00:00 IMPRESSION: No ventilation-perfusion mismatches. Lumbar Spine MRI 10/10/16 17:09 IMPRESSION: Very limited study. There are however multilevel epidural soft tissue mass is just posterior to the vertebral bodies resulting in severe compromise of the canal. In addition, at the discs levels, there is marked spinal stenosis related to posterior element overgrowth. MRI with contrast should be performed to further evaluate the epidural soft tissue masses. Thoracic Spine MRI 10/11/16 00:00 IMPRESSION: Small T6-T7 disc protrusion causes mild spinal canal stenosis. No significant cord or nerve root compression. Moderate nonspecific soft tissue swelling of the back at the thoracolumbar junctional levels. Otherwise, no MRI evidence of metastatic disease, as queried. If there is continued clinical suspicion, consider further evaluation with whole-body bone scan, CT PET imaging , and/or contrast MRI survey of the spine. Cervical Spine MRI 10/11/16 10:56 IMPRESSION: Anterior C4-C5 hardware fusion. A moderate C3-C4 disc protrusion mildly compresses the spinal cord. Chest X-Ray 10/14/16 23:52 IMPRESSION: No radiographic evidence for pneumothorax. Mild cardiomegaly and vascular congestion. Subsegmental atelectasis in the right perihilar region. 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 Is this a current diagnosis for this admission?: YesPlan: Currently stable (3) Hypercalcemia Is this a current diagnosis for this admission?: Yes (4) Hypokalemia Is this a current diagnosis for this admission?: Yes (5) Back pain Qualifiers: Back pain location: low back pain Chronicity: acute Is this a current diagnosis for this admission?: YesPlan: Currently on the radiation for spinal tumor (6) Hypertension Is this a current diagnosis for this admission?: YesPlan: Currently stable (7) Edema Qualifiers: Edema type: unspecified Qualified Code(s): R60.9 - Edema, unspecified Is this a current diagnosis for this admission?: Yes (8) Multiple myeloma Qualifiers: Multiple myeloma remission status: not in remission Qualified Code(s ): C90.00 - Multiple myeloma not having achieved remission Is this a current diagnosis for this admission?: YesPlan: Currently on a chemotherapy and radiation (9) Sinus tachycardia Is this a current diagnosis for this admission?: Yes (10) Fever Qualifiers: Fever type: unspecified Qualified Code(s): R50.9 - Fever, unspecified Is this a current diagnosis for this admission?: Yes - Time Time Spent with patient: 25-34 minutes Medications reviewed and adjusted accordingly: Yes Anticipated discharge: Home Within: Other - Inpatient Certification Medical Necessity: Need Close Monitoring Due to Risk of Patient Decompensation 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
[2016-10-26] MEDS ORDERED: BORTEZOMIB SUBCUT PRN (05:00)
[2016-10-26] MEDS ORDERED: DISPOSABLE SUBCUT PRN (05:00)
[2016-10-26 05:22] LABS: HEMATOCRIT 23.2 % (36.0-47.0); HEMOGLOBIN 8.1 g/dL (12.0-15.5); HGB HCT DIFFERENCE 1.1; MEAN CORPUSCULAR HEMOGLOBIN 31.6 pg (27.0-33.4); MEAN CORPUSCULAR HGB CONC 34.7 g/dL (32.0-36.0); MEAN CORPUSCULAR VOLUME 91 fl (80-97); RED BLOOD COUNT 2.55 10^6/uL (3.72-5.28); RED CELL DISTRIBUTION WIDTH 16.3 % (11.5-14.0); WHITE BLOOD COUNT 7.9 10^3/uL (4.0-10.5)
[2016-10-26 05:24] LABS: ANION GAP 8 (5-19); BLOOD UREA NITROGEN 56 mg/dL (7-20); CARBON DIOXIDE 25 mmol/L (22-30); CHLORIDE 106 mmol/L (98-107); CREATININE RESULT 1.24 mg/dL (0.52-1.25); GLUCOSE 137 mg/dL (75-110); POTASSIUM 4.6 mmol/L (3.6-5.0); SODIUM 138.5 mmol/L (137-145)
[2016-10-26] MEDS: HEPARIN SOD (PORCINE) 5,000 UNIT/ML 1 ML SYRINGE SUBCUT SCH ×3 (05:25→22:54)
[2016-10-26] MEDS: DEXAMETHASONE SOD PHOSPHATE INJ 4 MG/1 ML VIAL IV SCH ×3 (05:26→18:02)
[2016-10-26 05:46] LABS: ANISOCYTOSIS 1+; BASOPHILS % (MANUAL) 0 % (0-2); EOSINOPHILS % (MANUAL) 0 % (0-6); LYMPHOCYTES % (MANUAL) 12 % (13-45); POLYCHROMASIA SLIGHT; ROULEAUX SLIGHT; SCHISTOCYTES SLIGHT; TEAR DROP CELLS SLIGHT; TOTAL CELLS COUNTED 100
[2016-10-26] MEDS: OXYCODONE HCL IR 5 MG TABLET PO PRN ×3 (06:15→18:04)
[2016-10-26] MEDS: OXYCODONE HCL SR 40 MG TABLET PO SCH ×2 (09:49→22:52)
[2016-10-26] MEDS: FUROSEMIDE 40 MG TABLET PO SCH (09:49)
[2016-10-26] MEDS: AMLODIPINE BESYLATE 5 MG TABLET PO SCH (09:50)
[2016-10-26] MEDS: DOCUSATE SODIUM 100 MG CAPSULE PO SCH ×2 (09:50→18:02)
[2016-10-26] MEDS: POLYETHYLENE GLYCOL 3350 POWDER 17 GM/1 PACKET PO SCH (09:50)
--- NOTE | 2016-10-26 11:05 | PDOC PROGRESS REPORT ---
Subjective Progress Note for:: 10/26/16 Subjective:: Patient is currently doing fair denied any chest pain denied any shortness of the breath. Patient's kidney function is stable without any dialysis Patient still have a challenge about the improved ambulatory. Patient's currently on physical therapy Patient's pain is under well control Physical Exam Vital Signs: Temp Pulse Resp BP Pulse Ox 97.7 F 68 18 137/75 H 100 10/26/16 07:41 10/26/16 07:41 10/26/16 07:41 10/26/16 07:41 10/26/16 07:41 Intake & Output 10/25/16 10/26/16 10/27/16 06:59 06:59 06:59 Intake Total 1919 1702 Output Total 2550 2750 Balance -631 -1048 Weight 125.1 kg 125.2 kg General appearance: PRESENT: no acute distress, well-developed, well-nourished Head exam: PRESENT: atraumatic, normocephalic Eye exam: PRESENT: conjunctiva pink, EOMI, PERRLA. ABSENT: scleral icterus Ear exam: PRESENT: normal external ear exam Mouth exam: PRESENT: moist, tongue midline Neck exam: PRESENT: full ROM. ABSENT: carotid bruit, JVD, lymphadenopathy, thyromegaly Respiratory exam: PRESENT: clear to auscultation merrill Cardiovascular exam: PRESENT: RRR. ABSENT: diastolic murmur, rubs, systolic murmur Pulses: PRESENT: normal dorsalis pedis pul, +2 pedal pulses bilateral Vascular exam: PRESENT: normal capillary refill GI/Abdominal exam: PRESENT: normal bowel sounds, soft. ABSENT: distended, guarding, mass, organolmegaly, rebound, tenderness Rectal exam: PRESENT: deferred Neurological exam: PRESENT: alert, awake, oriented to person, oriented to place , oriented to time, oriented to situation, CN II-XII grossly intact. ABSENT: motor sensory deficit Psychiatric exam: PRESENT: appropriate affect, normal mood. ABSENT: homicidal ideation, suicidal ideation Skin exam: PRESENT: dry, intact, warm. ABSENT: cyanosis, rash Results Laboratory Results: 10/26/16 05:00 10/26/16 05:00 10/26/16 10/26/16 05:00 05:00 WBC 7.9 RBC 2.55 L Hgb 8.1 L Hct 23.2 L MCV 91 MCH 31.6 MCHC 34.7 RDW 16.3 H Plt Count 198 Seg Neutrophils % Not Reportable Lymphocytes % Not Reportable Monocytes % Not Reportable Eosinophils % Not Reportable Basophils % Not Reportable Absolute Neutrophils Not Reportable Absolute Lymphocytes Not Reportable Absolute Monocytes Not Reportable Absolute Eosinophils Not Reportable Absolute Basophils Not Reportable Sodium 138.5 Potassium 4.6 Chloride 106 Carbon Dioxide 25 Anion Gap 8 BUN 56 H Creatinine 1.24 Est GFR ( Amer) 55 L Est GFR (Non-Af Amer) 45 L Glucose 137 H Calcium 8.0 L 10/10/16 10/10/16 10/10/16 08:31 08:31 14:25 Creatine Kinase 176 H 170 H CK-MB (CK-2) 2.26 Troponin I 0.024 10/10/16 10/10/16 10/10/16 14:25 20:30 20:30 Creatine Kinase 174 H CK-MB (CK-2) 2.64 2.75 Troponin I 0.018 0.017 Impressions: Abdomen/Pelvis CT 10/04/16 00:00 IMPRESSION: NO SIGNIFICANT OR ACUTE PROCESS IN THE ABDOMEN OR PELVIS. Skeletal Survey 10/05/16 00:00 IMPRESSION: Small lucent lesions are identified on the skull, humeri, pelvis, and right femoral series. Correlate with additional evaluation to exclude myeloma or metastatic disease. Chest CT 10/06/16 00:00 IMPRESSION: No dominant lung mass. Small bilateral pleural effusions with basilar atelectasis. Minimal nodularity along the pleural surfaces right greater than left which nonspecific. No measurable masses. Bone Biopsy CT 10/09/16 00:00 IMPRESSION: CT GUIDED BIOPSY OF THE RIGHT POSTERIOR ILIAC CREST FOR BONE MARROW ASPIRATE EVALUATION PERFORMED WITHOUT IMMEDIATE COMPLICATION. PATHOLOGY PENDING. Lung Scan-VQ NM 10/10/16 00:00 IMPRESSION: No ventilation-perfusion mismatches. Lumbar Spine MRI 10/10/16 17:09 IMPRESSION: Very limited study. There are however multilevel epidural soft tissue mass is just posterior to the vertebral bodies resulting in severe compromise of the canal. In addition, at the discs levels, there is marked spinal stenosis related to posterior element overgrowth. MRI with contrast should be performed to further evaluate the epidural soft tissue masses. Thoracic Spine MRI 10/11/16 00:00 IMPRESSION: Small T6-T7 disc protrusion causes mild spinal canal stenosis. No significant cord or nerve root compression. Moderate nonspecific soft tissue swelling of the back at the thoracolumbar junctional levels. Otherwise, no MRI evidence of metastatic disease, as queried. If there is continued clinical suspicion, consider further evaluation with whole-body bone scan, CT PET imaging , and/or contrast MRI survey of the spine. Cervical Spine MRI 10/11/16 10:56 IMPRESSION: Anterior C4-C5 hardware fusion. A moderate C3-C4 disc protrusion mildly compresses the spinal cord. Chest X-Ray 10/14/16 23:52 IMPRESSION: No radiographic evidence for pneumothorax. Mild cardiomegaly and vascular congestion. Subsegmental atelectasis in the right perihilar region. 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 Is this a current diagnosis for this admission?: YesPlan: Currently stable (3) Hypokalemia Is this a current diagnosis for this admission?: Yes (4) Back pain Qualifiers: Back pain location: low back pain Chronicity: acute Is this a current diagnosis for this admission?: YesPlan: Currently on the radiation for spinal tumor (5) Hypertension Is this a current diagnosis for this admission?: YesPlan: Currently stable (6) Edema Qualifiers: Edema type: unspecified Qualified Code(s): R60.9 - Edema, unspecified Is this a current diagnosis for this admission?: Yes (7) Multiple myeloma Qualifiers: Multiple myeloma remission status: not in remission Qualified Code(s ): C90.00 - Multiple myeloma not having achieved remission Is this a current diagnosis for this admission?: YesPlan: Currently on a chemotherapy and radiation (8) Sinus tachycardia Is this a current diagnosis for this admission?: Yes (9) Fever Qualifiers: Fever type: unspecified Qualified Code(s): R50.9 - Fever, unspecified Is this a current diagnosis for this admission?: Yes - Time Time Spent with patient: 25-34 minutes Medications reviewed and adjusted accordingly: Yes Anticipated discharge: Home Within: Other - Inpatient Certification Medical Necessity: Need Close Monitoring Due to Risk of Patient Decompensation 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
--- NOTE | 2016-10-26 20:17 | PDOC PROGRESS REPORT ---
Subjective Progress Note for:: 10/26/16 Subjective:: Patient continues to do well. She continues to receive her radiation therapy and chemotherapy. She continues physical therapy and is slowly getting better. She does not verbalize any complaints. Physical Exam Vital Signs: Temp Pulse Resp BP Pulse Ox 98.2 F 103 H 16 106/66 99 10/26/16 11:32 10/26/16 19:15 10/26/16 11:32 10/26/16 11:32 10/26/16 11:32 Intake & Output 10/25/16 10/26/16 10/27/16 06:59 06:59 06:59 Intake Total 1919 1702 814 Output Total 2550 0870 1100 Balance -291 -1048 -286 Weight 125.1 kg 125.2 kg Exam: General appearance: PRESENT: no acute distress, cooperative, well-developed, well-nourished Head exam: PRESENT: atraumatic, normocephalic Eye exam: PRESENT: conjunctiva pink, PERRLA. ABSENT: scleral icterus Neck exam: ABSENT: JVD Respiratory exam: PRESENT: Diminished breath sounds. ABSENT: crackles, rales, rhonchi, unlabored, wheezes Cardiovascular exam: PRESENT: Regular rate rhythm -+S1, +S2. ABSENT: diastolic murmur, systolic murmur GI/Abdominal exam: PRESENT: normal bowel sounds, soft. ABSENT: guarding, mass, tenderness Extremities exam: ABSENT: No edema Neurological exam: PRESENT: alert, awake, oriented to person, place and time. Skin exam: PRESENT: dry, warm, Cardiovascular exam: PRESENT: +S1, +S2 GI/Abdominal exam: PRESENT: normal bowel sounds, soft. ABSENT: firm, guarding, tenderness Results Laboratory Results: 10/26/16 05:00 10/26/16 05:00 10/26/16 10/26/16 05:00 05:00 WBC 7.9 RBC 2.55 L Hgb 8.1 L Hct 23.2 L MCV 91 MCH 31.6 MCHC 34.7 RDW 16.3 H Plt Count 198 Seg Neutrophils % Not Reportable Lymphocytes % Not Reportable Monocytes % Not Reportable Eosinophils % Not Reportable Basophils % Not Reportable Absolute Neutrophils Not Reportable Absolute Lymphocytes Not Reportable Absolute Monocytes Not Reportable Absolute Eosinophils Not Reportable Absolute Basophils Not Reportable Sodium 138.5 Potassium 4.6 Chloride 106 Carbon Dioxide 25 Anion Gap 8 BUN 56 H Creatinine 1.24 Est GFR ( Amer) 55 L Est GFR (Non-Af Amer) 45 L Glucose 137 H Calcium 8.0 L 10/10/16 10/10/16 10/10/16 08:31 08:31 14:25 Creatine Kinase 176 H 170 H CK-MB (CK-2) 2.26 Troponin I 0.024 10/10/16 10/10/16 10/10/16 14:25 20:30 20:30 Creatine Kinase 174 H CK-MB (CK-2) 2.64 2.75 Troponin I 0.018 0.017 Impressions: Abdomen/Pelvis CT 10/04/16 00:00 IMPRESSION: NO SIGNIFICANT OR ACUTE PROCESS IN THE ABDOMEN OR PELVIS. Skeletal Survey 10/05/16 00:00 IMPRESSION: Small lucent lesions are identified on the skull, humeri, pelvis, and right femoral series. Correlate with additional evaluation to exclude myeloma or metastatic disease. Chest CT 10/06/16 00:00 IMPRESSION: No dominant lung mass. Small bilateral pleural effusions with basilar atelectasis. Minimal nodularity along the pleural surfaces right greater than left which nonspecific. No measurable masses. Bone Biopsy CT 10/09/16 00:00 IMPRESSION: CT GUIDED BIOPSY OF THE RIGHT POSTERIOR ILIAC CREST FOR BONE MARROW ASPIRATE EVALUATION PERFORMED WITHOUT IMMEDIATE COMPLICATION. PATHOLOGY PENDING. Lung Scan-VQ NM 10/10/16 00:00 IMPRESSION: No ventilation-perfusion mismatches. Lumbar Spine MRI 10/10/16 17:09 IMPRESSION: Very limited study. There are however multilevel epidural soft tissue mass is just posterior to the vertebral bodies resulting in severe compromise of the canal. In addition, at the discs levels, there is marked spinal stenosis related to posterior element overgrowth. MRI with contrast should be performed to further evaluate the epidural soft tissue masses. Thoracic Spine MRI 10/11/16 00:00 IMPRESSION: Small T6-T7 disc protrusion causes mild spinal canal stenosis. No significant cord or nerve root compression. Moderate nonspecific soft tissue swelling of the back at the thoracolumbar junctional levels. Otherwise, no MRI evidence of metastatic disease, as queried. If there is continued clinical suspicion, consider further evaluation with whole-body bone scan, CT PET imaging , and/or contrast MRI survey of the spine. Cervical Spine MRI 10/11/16 10:56 IMPRESSION: Anterior C4-C5 hardware fusion. A moderate C3-C4 disc protrusion mildly compresses the spinal cord. Chest X-Ray 10/14/16 23:52 IMPRESSION: No radiographic evidence for pneumothorax. Mild cardiomegaly and vascular congestion. Subsegmental atelectasis in the right perihilar region. 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 There could also be a component of acute tubular necrosis due to hemodynamic changes due to blood pressure changes throughout hospitalization. Patient continues to improve without dialysis treatment. Patient's last dialysis was a week ago. I don't think the patient will ever need dialysis treatment any more at this point. May discontinue trialysis catheter unless it' s being used to some IV access. I will be happy to see the patient is an outpatient once discharged. 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 Due to multiple myeloma. We will defer management to him Dr. Connor. (4) Hypertension Is this a current diagnosis for this admission?: YesPlan: Controlled. (5) Leg pain Qualifiers: Laterality: bilateral Qualified Code(s): M79.604 - Pain in right leg Is this a current diagnosis for this admission?: Yes (6) Back pain Qualifiers: Back pain location: low back pain Chronicity: acute Is this a current diagnosis for this admission?: Yes (7) Multiple myeloma Qualifiers: Multiple myeloma remission status: not in remission Qualified Code(s ): C90.00 - Multiple myeloma not having achieved remission Is this a current diagnosis for this admission?: YesPlan: Status post bone marrow biopsy. Management per Dr. Connor. On chemotherapy and radiation therapy currently (8) Hypocalcemia Is this a current diagnosis for this admission?: YesPlan: Improving. - Time Time with patient: 15-25 minutes
[2016-10-26] MEDS: HYDROMORPHONE HCL INJ/PF 2 MG/ML AMPULE IV PRN (22:58)
[2016-10-27] MEDS: DEXAMETHASONE SOD PHOSPHATE INJ 4 MG/1 ML VIAL IV SCH ×4 (00:48→18:39)
[2016-10-27] MEDS: OXYCODONE HCL IR 5 MG TABLET PO PRN ×3 (01:27→18:43)
[2016-10-27 04:33] LABS: HEMOGLOBIN 8.1 g/dL (12.0-15.5); HGB HCT DIFFERENCE 1.3; MEAN CORPUSCULAR HEMOGLOBIN 32.3 pg (27.0-33.4); MEAN CORPUSCULAR HGB CONC 35.2 g/dL (32.0-36.0); MEAN CORPUSCULAR VOLUME 92 fl (80-97); RED BLOOD COUNT 2.51 10^6/uL (3.72-5.28); RED CELL DISTRIBUTION WIDTH 16.4 % (11.5-14.0); WHITE BLOOD COUNT 10.2 10^3/uL (4.0-10.5)
[2016-10-27 04:51] LABS: BASOPHILS % (MANUAL) 0 % (0-2); EOSINOPHILS % (MANUAL) 0 % (0-6); LYMPHOCYTES % (MANUAL) 0 % (13-45); TOTAL CELLS COUNTED 100
[2016-10-27 04:52] LABS: ANION GAP 8 (5-19); BLOOD UREA NITROGEN 65 mg/dL (7-20); CALCIUM 8.2 mg/dL (8.4-10.2); CARBON DIOXIDE 24 mmol/L (22-30); CHLORIDE 106 mmol/L (98-107); CREATININE RESULT 1.27 mg/dL (0.52-1.25); GLUCOSE 90 mg/dL (75-110); POTASSIUM 4.4 mmol/L (3.6-5.0); SODIUM 137.5 mmol/L (137-145)
[2016-10-27 04:55] LABS: ANISOCYTOSIS 1+; HYPOCHROMASIA 1+; POIKILOCYTOSIS 1+; POLYCHROMASIA SLIGHT; STOMATOCYTES SLIGHT; TARGET CELLS SLIGHT
[2016-10-27] MEDS: HEPARIN SOD (PORCINE) 5,000 UNIT/ML 1 ML SYRINGE SUBCUT SCH ×3 (05:57→22:41)
[2016-10-27] MEDS: HYDROMORPHONE HCL INJ/PF 2 MG/ML AMPULE IV PRN ×2 (06:30→18:40)
[2016-10-27] MEDS: AMLODIPINE BESYLATE 5 MG TABLET PO SCH (11:26)
[2016-10-27] MEDS: FUROSEMIDE 40 MG TABLET PO SCH (11:26)
[2016-10-27] MEDS: OXYCODONE HCL SR 40 MG TABLET PO SCH ×2 (11:26→22:41)
[2016-10-27] MEDS: DOCUSATE SODIUM 100 MG CAPSULE PO SCH ×2 (11:27→18:43)
[2016-10-27] MEDS: POLYETHYLENE GLYCOL 3350 POWDER 17 GM/1 PACKET PO SCH (11:27)
--- NOTE | 2016-10-27 12:06 | PDOC PROGRESS REPORT ---
Subjective Progress Note for:: 10/27/16 Subjective:: Patient finally stood up, was not able to walk too much yesterday however. Physical Exam Vital Signs: Temp Pulse Resp BP Pulse Ox 97.8 F 93 16 119/56 L 100 10/27/16 03:52 10/27/16 07:00 10/27/16 03:52 10/27/16 03:52 10/27/16 03:52 Intake & Output 10/26/16 10/27/16 10/28/16 06:59 06:59 06:59 Intake Total 1702 1336 Output Total 2750 1750 Balance -1048 -414 Weight 125.2 kg 123.5 kg General appearance: PRESENT: no acute distress, well-developed, well-nourished Head exam: PRESENT: atraumatic, normocephalic Eye exam: PRESENT: conjunctiva pink, EOMI, PERRLA. ABSENT: scleral icterus Ear exam: PRESENT: normal external ear exam Mouth exam: PRESENT: moist, tongue midline Neck exam: ABSENT: carotid bruit, JVD, lymphadenopathy, thyromegaly Respiratory exam: PRESENT: clear to auscultation merrill. ABSENT: rales, rhonchi, wheezes Cardiovascular exam: PRESENT: RRR. ABSENT: diastolic murmur, rubs, systolic murmur Pulses: PRESENT: normal dorsalis pedis pul Vascular exam: PRESENT: normal capillary refill GI/Abdominal exam: PRESENT: normal bowel sounds, soft. ABSENT: distended, guarding, mass, organolmegaly, rebound, tenderness Rectal exam: PRESENT: deferred Extremities exam: PRESENT: full ROM. ABSENT: calf tenderness, clubbing, pedal edema Neurological exam: PRESENT: alert, awake, oriented to person, oriented to place , oriented to time, oriented to situation, CN II-XII grossly intact. ABSENT: motor sensory deficit Psychiatric exam: PRESENT: appropriate affect, normal mood. ABSENT: homicidal ideation, suicidal ideation Skin exam: PRESENT: dry, intact, warm. ABSENT: cyanosis, rash Results Laboratory Results: 10/27/16 04:09 10/27/16 04:09 10/27/16 10/27/16 04:09 04:09 WBC 10.2 RBC 2.51 L Hgb 8.1 L Hct 23.0 L MCV 92 MCH 32.3 MCHC 35.2 RDW 16.4 H Plt Count 179 Seg Neutrophils % Not Reportable Lymphocytes % Not Reportable Monocytes % Not Reportable Eosinophils % Not Reportable Basophils % Not Reportable Absolute Neutrophils Not Reportable Absolute Lymphocytes Not Reportable Absolute Monocytes Not Reportable Absolute Eosinophils Not Reportable Absolute Basophils Not Reportable Sodium 137.5 Potassium 4.4 Chloride 106 Carbon Dioxide 24 Anion Gap 8 BUN 65 H Creatinine 1.27 H Est GFR ( Amer) 53 L Est GFR (Non-Af Amer) 44 L Glucose 90 Calcium 8.2 L 10/10/16 10/10/16 10/10/16 08:31 08:31 14:25 Creatine Kinase 176 H 170 H CK-MB (CK-2) 2.26 Troponin I 0.024 10/10/16 10/10/16 10/10/16 14:25 20:30 20:30 Creatine Kinase 174 H CK-MB (CK-2) 2.64 2.75 Troponin I 0.018 0.017 Impressions: Abdomen/Pelvis CT 10/04/16 00:00 IMPRESSION: NO SIGNIFICANT OR ACUTE PROCESS IN THE ABDOMEN OR PELVIS. Skeletal Survey 10/05/16 00:00 IMPRESSION: Small lucent lesions are identified on the skull, humeri, pelvis, and right femoral series. Correlate with additional evaluation to exclude myeloma or metastatic disease. Chest CT 10/06/16 00:00 IMPRESSION: No dominant lung mass. Small bilateral pleural effusions with basilar atelectasis. Minimal nodularity along the pleural surfaces right greater than left which nonspecific. No measurable masses. Bone Biopsy CT 10/09/16 00:00 IMPRESSION: CT GUIDED BIOPSY OF THE RIGHT POSTERIOR ILIAC CREST FOR BONE MARROW ASPIRATE EVALUATION PERFORMED WITHOUT IMMEDIATE COMPLICATION. PATHOLOGY PENDING. Lung Scan-VQ NM 10/10/16 00:00 IMPRESSION: No ventilation-perfusion mismatches. Lumbar Spine MRI 10/10/16 17:09 IMPRESSION: Very limited study. There are however multilevel epidural soft tissue mass is just posterior to the vertebral bodies resulting in severe compromise of the canal. In addition, at the discs levels, there is marked spinal stenosis related to posterior element overgrowth. MRI with contrast should be performed to further evaluate the epidural soft tissue masses. Thoracic Spine MRI 10/11/16 00:00 IMPRESSION: Small T6-T7 disc protrusion causes mild spinal canal stenosis. No significant cord or nerve root compression. Moderate nonspecific soft tissue swelling of the back at the thoracolumbar junctional levels. Otherwise, no MRI evidence of metastatic disease, as queried. If there is continued clinical suspicion, consider further evaluation with whole-body bone scan, CT PET imaging , and/or contrast MRI survey of the spine. Cervical Spine MRI 10/11/16 10:56 IMPRESSION: Anterior C4-C5 hardware fusion. A moderate C3-C4 disc protrusion mildly compresses the spinal cord. Chest X-Ray 10/14/16 23:52 IMPRESSION: No radiographic evidence for pneumothorax. Mild cardiomegaly and vascular congestion. Subsegmental atelectasis in the right perihilar region. 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 (2) Pain, neoplasm-related Plan: Current pain regimen seems to be appropriate continue. (3) Multiple myeloma Qualifiers: Multiple myeloma remission status: not in remission Qualified Code(s ): C90.00 - Multiple myeloma not having achieved remission Is this a current diagnosis for this admission?: YesPlan: Patient has been continued on Velcade based therapy, last radiation will be on Saturday. After that, I would really like her to be discharged to home with home physical therapy, but today I again reiterated the importance of her working with nursing to try and at least pivoted to the bedside chair, if she is able to do that should be helpful the pivoted at least to bedside commode and chair at home. And we be able to get her home with home health. If she is not able to do that in the next 48-72 hours, she will then need to be discharged to rehabilitation. If she is discharged to SNF/rehabilitation, they generally will not allow active therapy to be given. That would certainly be a detriment from a myeloma standpoint. (4) DEL (acute kidney injury) Is this a current diagnosis for this admission?: YesPlan: Further treatment per nephrology, apparently since kidney function is improved greatly, dialysis has been held. - Time Time Spent with patient: 25-34 minutes Critical Time spent with patient: 25-34 minutes - Inpatient Certification Based on my medical assessment, after consideration of the patient's comorbidities, presenting symptoms, or acuity I expect that the services needed warrant INPATIENT care.: Yes I certify that my determination is in accordance with my understanding of Medicare's requirements for reasonable and necessary INPATIENT services [42 CFR 412.3e].: Yes Medical Necessity: Risk of Complication if Not Cared For in Hospital
--- NOTE | 2016-10-27 16:50 | PDOC PROGRESS REPORT ---
Subjective Progress Note for:: 10/27/16 Subjective:: Patient seen by the bedside, she has no new complaints, she is no more requiring hemodialysis Physical Exam Vital Signs: Temp Pulse Resp BP Pulse Ox 97.8 F 88 18 131/67 H 100 10/27/16 16:12 10/27/16 16:12 10/27/16 16:12 10/27/16 16:12 10/27/16 16:12 Intake & Output 10/26/16 10/27/16 10/28/16 06:59 06:59 06:59 Intake Total 1702 1336 487 Output Total 2750 1750 300 Balance -1048 -414 187 Weight 125.2 kg 123.5 kg General appearance: PRESENT: no acute distress Eye exam: PRESENT: PERRLA Cardiovascular exam: PRESENT: +S1, +S2 GI/Abdominal exam: PRESENT: soft Neurological exam: PRESENT: alert, CN II-XII grossly intact Results Laboratory Results: 10/27/16 04:09 10/27/16 04:09 10/27/16 10/27/16 04:09 04:09 WBC 10.2 RBC 2.51 L Hgb 8.1 L Hct 23.0 L MCV 92 MCH 32.3 MCHC 35.2 RDW 16.4 H Plt Count 179 Seg Neutrophils % Not Reportable Lymphocytes % Not Reportable Monocytes % Not Reportable Eosinophils % Not Reportable Basophils % Not Reportable Absolute Neutrophils Not Reportable Absolute Lymphocytes Not Reportable Absolute Monocytes Not Reportable Absolute Eosinophils Not Reportable Absolute Basophils Not Reportable Sodium 137.5 Potassium 4.4 Chloride 106 Carbon Dioxide 24 Anion Gap 8 BUN 65 H Creatinine 1.27 H Est GFR ( Amer) 53 L Est GFR (Non-Af Amer) 44 L Glucose 90 Calcium 8.2 L 10/10/16 10/10/16 10/10/16 08:31 08:31 14:25 Creatine Kinase 176 H 170 H CK-MB (CK-2) 2.26 Troponin I 0.024 10/10/16 10/10/16 10/10/16 14:25 20:30 20:30 Creatine Kinase 174 H CK-MB (CK-2) 2.64 2.75 Troponin I 0.018 0.017 Impressions: Abdomen/Pelvis CT 10/04/16 00:00 IMPRESSION: NO SIGNIFICANT OR ACUTE PROCESS IN THE ABDOMEN OR PELVIS. Skeletal Survey 10/05/16 00:00 IMPRESSION: Small lucent lesions are identified on the skull, humeri, pelvis, and right femoral series. Correlate with additional evaluation to exclude myeloma or metastatic disease. Chest CT 10/06/16 00:00 IMPRESSION: No dominant lung mass. Small bilateral pleural effusions with basilar atelectasis. Minimal nodularity along the pleural surfaces right greater than left which nonspecific. No measurable masses. Bone Biopsy CT 10/09/16 00:00 IMPRESSION: CT GUIDED BIOPSY OF THE RIGHT POSTERIOR ILIAC CREST FOR BONE MARROW ASPIRATE EVALUATION PERFORMED WITHOUT IMMEDIATE COMPLICATION. PATHOLOGY PENDING. Lung Scan-VQ NM 10/10/16 00:00 IMPRESSION: No ventilation-perfusion mismatches. Lumbar Spine MRI 10/10/16 17:09 IMPRESSION: Very limited study. There are however multilevel epidural soft tissue mass is just posterior to the vertebral bodies resulting in severe compromise of the canal. In addition, at the discs levels, there is marked spinal stenosis related to posterior element overgrowth. MRI with contrast should be performed to further evaluate the epidural soft tissue masses. Thoracic Spine MRI 10/11/16 00:00 IMPRESSION: Small T6-T7 disc protrusion causes mild spinal canal stenosis. No significant cord or nerve root compression. Moderate nonspecific soft tissue swelling of the back at the thoracolumbar junctional levels. Otherwise, no MRI evidence of metastatic disease, as queried. If there is continued clinical suspicion, consider further evaluation with whole-body bone scan, CT PET imaging , and/or contrast MRI survey of the spine. Cervical Spine MRI 10/11/16 10:56 IMPRESSION: Anterior C4-C5 hardware fusion. A moderate C3-C4 disc protrusion mildly compresses the spinal cord. Chest X-Ray 10/14/16 23:52 IMPRESSION: No radiographic evidence for pneumothorax. Mild cardiomegaly and vascular congestion. Subsegmental atelectasis in the right perihilar region. Assessment & Plan - Diagnosis (1) Hypercalcemia Is this a current diagnosis for this admission?: Yes (2) Multiple myeloma Qualifiers: Multiple myeloma remission status: not in remission Qualified Code(s ): C90.00 - Multiple myeloma not having achieved remission (3) DEL (acute kidney injury) Is this a current diagnosis for this admission?: Yes (4) Enterococcus UTI Is this a current diagnosis for this admission?: Yes
[2016-10-28] MEDS: DEXAMETHASONE SOD PHOSPHATE INJ 4 MG/1 ML VIAL IV SCH ×5 (00:23→23:47)
[2016-10-28] MEDS: HYDROMORPHONE HCL INJ/PF 2 MG/ML AMPULE IV PRN (00:23)
[2016-10-28] MEDS: HEPARIN SOD (PORCINE) 5,000 UNIT/ML 1 ML SYRINGE SUBCUT SCH ×3 (07:03→21:09)
[2016-10-28 08:31] LABS: ANION GAP 8 (5-19); BLOOD UREA NITROGEN 72 mg/dL (7-20); CALCIUM 8.3 mg/dL (8.4-10.2); CARBON DIOXIDE 23 mmol/L (22-30); CHLORIDE 107 mmol/L (98-107); CREATININE RESULT 1.28 mg/dL (0.52-1.25); GLUCOSE 130 mg/dL (75-110); POTASSIUM 4.8 mmol/L (3.6-5.0)
[2016-10-28] MEDS: DOCUSATE SODIUM 100 MG CAPSULE PO SCH ×2 (11:27→18:08)
[2016-10-28] MEDS: FUROSEMIDE 40 MG TABLET PO SCH (11:28)
[2016-10-28] MEDS: POLYETHYLENE GLYCOL 3350 POWDER 17 GM/1 PACKET PO SCH (11:28)
[2016-10-28] MEDS: AMLODIPINE BESYLATE 5 MG TABLET PO SCH (11:28)
[2016-10-28] MEDS: OXYCODONE HCL SR 40 MG TABLET PO SCH ×2 (11:29→21:09)
--- NOTE | 2016-10-28 16:07 | PDOC PROGRESS REPORT ---
Subjective Progress Note for:: 10/28/16 Subjective:: Patient seen by the bedside, she has no new complaints, she is no more requiring hemodialysis Physical Exam Vital Signs: Temp Pulse Resp BP Pulse Ox 97.5 F 85 12 111/64 100 10/28/16 11:18 10/28/16 14:00 10/28/16 11:18 10/28/16 11:18 10/28/16 11:18 Intake & Output 10/27/16 10/28/16 10/29/16 06:59 06:59 06:59 Intake Total 1336 1137 118 Output Total 1750 1400 550 Balance -414 -263 -432 Weight 123.5 kg 121 kg General appearance: PRESENT: no acute distress, well-developed, well-nourished Head exam: PRESENT: atraumatic, normocephalic Eye exam: PRESENT: conjunctiva pink, EOMI, PERRLA. ABSENT: scleral icterus Ear exam: PRESENT: normal external ear exam Mouth exam: PRESENT: moist, tongue midline Neck exam: PRESENT: full ROM Respiratory exam: PRESENT: clear to auscultation merrill Cardiovascular exam: PRESENT: RRR, +S1, +S2 Vascular exam: PRESENT: normal capillary refill GI/Abdominal exam: PRESENT: normal bowel sounds, soft Rectal exam: PRESENT: deferred Neurological exam: PRESENT: alert, awake, oriented to person, oriented to place , oriented to time, oriented to situation, CN II-XII grossly intact Psychiatric exam: PRESENT: appropriate affect, normal mood Skin exam: PRESENT: dry, intact, warm Results Laboratory Results: 10/27/16 04:09 10/28/16 08:00 10/28/16 10/28/16 06:40 08:00 Sodium Cancelled 138.0 Potassium Cancelled 4.8 Chloride Cancelled 107 Carbon Dioxide Cancelled 23 Anion Gap Cancelled 8 BUN Cancelled 72 H Creatinine Cancelled 1.28 H Est GFR ( Amer) Cancelled 53 L Est GFR (Non-Af Amer) Cancelled 43 L Glucose Cancelled 130 H Calcium Cancelled 8.3 L 10/10/16 10/10/16 10/10/16 08:31 08:31 14:25 Creatine Kinase 176 H 170 H CK-MB (CK-2) 2.26 Troponin I 0.024 10/10/16 10/10/16 10/10/16 14:25 20:30 20:30 Creatine Kinase 174 H CK-MB (CK-2) 2.64 2.75 Troponin I 0.018 0.017 Impressions: Abdomen/Pelvis CT 10/04/16 00:00 IMPRESSION: NO SIGNIFICANT OR ACUTE PROCESS IN THE ABDOMEN OR PELVIS. Skeletal Survey 10/05/16 00:00 IMPRESSION: Small lucent lesions are identified on the skull, humeri, pelvis, and right femoral series. Correlate with additional evaluation to exclude myeloma or metastatic disease. Chest CT 10/06/16 00:00 IMPRESSION: No dominant lung mass. Small bilateral pleural effusions with basilar atelectasis. Minimal nodularity along the pleural surfaces right greater than left which nonspecific. No measurable masses. Bone Biopsy CT 10/09/16 00:00 IMPRESSION: CT GUIDED BIOPSY OF THE RIGHT POSTERIOR ILIAC CREST FOR BONE MARROW ASPIRATE EVALUATION PERFORMED WITHOUT IMMEDIATE COMPLICATION. PATHOLOGY PENDING. Lung Scan-VQ NM 10/10/16 00:00 IMPRESSION: No ventilation-perfusion mismatches. Lumbar Spine MRI 10/10/16 17:09 IMPRESSION: Very limited study. There are however multilevel epidural soft tissue mass is just posterior to the vertebral bodies resulting in severe compromise of the canal. In addition, at the discs levels, there is marked spinal stenosis related to posterior element overgrowth. MRI with contrast should be performed to further evaluate the epidural soft tissue masses. Thoracic Spine MRI 10/11/16 00:00 IMPRESSION: Small T6-T7 disc protrusion causes mild spinal canal stenosis. No significant cord or nerve root compression. Moderate nonspecific soft tissue swelling of the back at the thoracolumbar junctional levels. Otherwise, no MRI evidence of metastatic disease, as queried. If there is continued clinical suspicion, consider further evaluation with whole-body bone scan, CT PET imaging , and/or contrast MRI survey of the spine. Cervical Spine MRI 10/11/16 10:56 IMPRESSION: Anterior C4-C5 hardware fusion. A moderate C3-C4 disc protrusion mildly compresses the spinal cord. Chest X-Ray 10/14/16 23:52 IMPRESSION: No radiographic evidence for pneumothorax. Mild cardiomegaly and vascular congestion. Subsegmental atelectasis in the right perihilar region. Assessment & Plan - Diagnosis (1) Hypercalcemia Is this a current diagnosis for this admission?: Yes (2) Multiple myeloma Qualifiers: Multiple myeloma remission status: not in remission Qualified Code(s ): C90.00 - Multiple myeloma not having achieved remission (3) DEL (acute kidney injury) Is this a current diagnosis for this admission?: Yes (4) Enterococcus UTI Is this a current diagnosis for this admission?: Yes - Plan Summary Plan Summary: Continue present treatment
[2016-10-29] MEDS: HEPARIN SOD (PORCINE) 5,000 UNIT/ML 1 ML SYRINGE SUBCUT SCH ×3 (05:38→21:18)
[2016-10-29] MEDS: DEXAMETHASONE SOD PHOSPHATE INJ 4 MG/1 ML VIAL IV SCH ×4 (05:38→23:36)
[2016-10-29 06:20] LABS: ANION GAP 7 (5-19); BLOOD UREA NITROGEN 62 mg/dL (7-20); CALCIUM 8.4 mg/dL (8.4-10.2); CARBON DIOXIDE 25 mmol/L (22-30); CHLORIDE 107 mmol/L (98-107); CREATININE RESULT 1.12 mg/dL (0.52-1.25); GLUCOSE 127 mg/dL (75-110); POTASSIUM 5.5 mmol/L (3.6-5.0); SODIUM 138.5 mmol/L (137-145)
[2016-10-29] MEDS: OXYCODONE HCL IR 5 MG TABLET PO PRN ×3 (07:42→18:20)
--- NOTE | 2016-10-29 07:52 | PDOC PROGRESS REPORT ---
Subjective Progress Note for:: 10/29/16 Subjective:: Patient's currently doing fair no other events happens during the weekend still the not able to much Physical Exam Vital Signs: Temp Pulse Resp BP Pulse Ox 97.4 F 77 20 102/66 100 10/29/16 04:03 10/29/16 04:03 10/29/16 04:03 10/29/16 04:03 10/29/16 04:03 Intake & Output 10/28/16 10/29/16 10/30/16 06:59 06:59 06:59 Intake Total 1137 604 Output Total 1400 2400 Balance -263 -1796 Weight 121 kg 122.6 kg General appearance: PRESENT: no acute distress, well-developed, well-nourished Head exam: PRESENT: atraumatic, normocephalic Eye exam: PRESENT: conjunctiva pink, EOMI, PERRLA. ABSENT: scleral icterus Ear exam: PRESENT: normal external ear exam Mouth exam: PRESENT: moist, tongue midline Neck exam: PRESENT: full ROM. ABSENT: carotid bruit, JVD, lymphadenopathy, thyromegaly Respiratory exam: PRESENT: clear to auscultation merrill Cardiovascular exam: PRESENT: RRR. ABSENT: diastolic murmur, rubs, systolic murmur Pulses: PRESENT: normal dorsalis pedis pul, +2 pedal pulses bilateral Vascular exam: PRESENT: normal capillary refill GI/Abdominal exam: PRESENT: normal bowel sounds, soft. ABSENT: distended, guarding, mass, organolmegaly, rebound, tenderness Rectal exam: PRESENT: deferred Neurological exam: PRESENT: alert, awake, oriented to person, oriented to place , oriented to time, oriented to situation, CN II-XII grossly intact. ABSENT: motor sensory deficit Psychiatric exam: PRESENT: appropriate affect, normal mood. ABSENT: homicidal ideation, suicidal ideation Skin exam: PRESENT: dry, intact, warm. ABSENT: cyanosis, rash Results Laboratory Results: 10/27/16 04:09 10/29/16 05:30 10/28/16 10/29/16 08:00 05:30 Sodium 138.0 138.5 Potassium 4.8 5.5 H Chloride 107 107 Carbon Dioxide 23 25 Anion Gap 8 7 BUN 72 H 62 H Creatinine 1.28 H 1.12 Est GFR ( Amer) 53 L > 60 Est GFR (Non-Af Amer) 43 L 51 L Glucose 130 H 127 H Calcium 8.3 L 8.4 10/10/16 10/10/16 10/10/16 08:31 08:31 14:25 Creatine Kinase 176 H 170 H CK-MB (CK-2) 2.26 Troponin I 0.024 10/10/16 10/10/16 10/10/16 14:25 20:30 20:30 Creatine Kinase 174 H CK-MB (CK-2) 2.64 2.75 Troponin I 0.018 0.017 Impressions: Abdomen/Pelvis CT 10/04/16 00:00 IMPRESSION: NO SIGNIFICANT OR ACUTE PROCESS IN THE ABDOMEN OR PELVIS. Skeletal Survey 10/05/16 00:00 IMPRESSION: Small lucent lesions are identified on the skull, humeri, pelvis, and right femoral series. Correlate with additional evaluation to exclude myeloma or metastatic disease. Chest CT 10/06/16 00:00 IMPRESSION: No dominant lung mass. Small bilateral pleural effusions with basilar atelectasis. Minimal nodularity along the pleural surfaces right greater than left which nonspecific. No measurable masses. Bone Biopsy CT 10/09/16 00:00 IMPRESSION: CT GUIDED BIOPSY OF THE RIGHT POSTERIOR ILIAC CREST FOR BONE MARROW ASPIRATE EVALUATION PERFORMED WITHOUT IMMEDIATE COMPLICATION. PATHOLOGY PENDING. Lung Scan-VQ NM 10/10/16 00:00 IMPRESSION: No ventilation-perfusion mismatches. Lumbar Spine MRI 10/10/16 17:09 IMPRESSION: Very limited study. There are however multilevel epidural soft tissue mass is just posterior to the vertebral bodies resulting in severe compromise of the canal. In addition, at the discs levels, there is marked spinal stenosis related to posterior element overgrowth. MRI with contrast should be performed to further evaluate the epidural soft tissue masses. Thoracic Spine MRI 10/11/16 00:00 IMPRESSION: Small T6-T7 disc protrusion causes mild spinal canal stenosis. No significant cord or nerve root compression. Moderate nonspecific soft tissue swelling of the back at the thoracolumbar junctional levels. Otherwise, no MRI evidence of metastatic disease, as queried. If there is continued clinical suspicion, consider further evaluation with whole-body bone scan, CT PET imaging , and/or contrast MRI survey of the spine. Cervical Spine MRI 10/11/16 10:56 IMPRESSION: Anterior C4-C5 hardware fusion. A moderate C3-C4 disc protrusion mildly compresses the spinal cord. Chest X-Ray 10/14/16 23:52 IMPRESSION: No radiographic evidence for pneumothorax. Mild cardiomegaly and vascular congestion. Subsegmental atelectasis in the right perihilar region. 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 Is this a current diagnosis for this admission?: YesPlan: Currently stable (3) Hypokalemia Is this a current diagnosis for this admission?: Yes (4) Back pain Qualifiers: Back pain location: low back pain Chronicity: acute Is this a current diagnosis for this admission?: YesPlan: Currently on the radiation for spinal tumor (5) Hypertension Is this a current diagnosis for this admission?: YesPlan: Currently stable (6) Edema Qualifiers: Edema type: unspecified Qualified Code(s): R60.9 - Edema, unspecified Is this a current diagnosis for this admission?: Yes (7) Multiple myeloma Qualifiers: Multiple myeloma remission status: not in remission Qualified Code(s ): C90.00 - Multiple myeloma not having achieved remission Is this a current diagnosis for this admission?: YesPlan: Currently on a chemotherapy and radiation (8) Sinus tachycardia Is this a current diagnosis for this admission?: Yes (9) Fever Qualifiers: Fever type: unspecified Qualified Code(s): R50.9 - Fever, unspecified Is this a current diagnosis for this admission?: Yes - Time Time Spent with patient: 15-24 minutes Medications reviewed and adjusted accordingly: Yes Anticipated discharge: Other Within: Other - Inpatient Certification Medical Necessity: Need Close Monitoring Due to Risk of Patient Decompensation Post Hospital Care: D/C Wireless Operator Documentation - Plan Summary Plan Summary: We'll see today discussed with the nursing staff see the how the patient's move from the bed to chair and if it patient reported doing DC the Jewell catheter and possible DC home with the physical therapy and home health but patient unable to do it then nystatin for the inpatient rehabilitation
--- NOTE | 2016-10-29 08:14 | PDOC PROGRESS REPORT ---
Subjective Progress Note for:: 10/29/16 Subjective:: No acute events overnight Physical Exam Vital Signs: Temp Pulse Resp BP Pulse Ox 97.4 F 77 20 102/66 100 10/29/16 04:03 10/29/16 04:03 10/29/16 04:03 10/29/16 04:03 10/29/16 04:03 Intake & Output 10/28/16 10/29/16 10/30/16 06:59 06:59 06:59 Intake Total 1137 604 Output Total 1400 2400 Balance -263 -1796 Weight 121 kg 122.6 kg General appearance: PRESENT: no acute distress, well-developed, well-nourished Head exam: PRESENT: atraumatic, normocephalic Eye exam: PRESENT: conjunctiva pink, EOMI, PERRLA. ABSENT: scleral icterus Ear exam: PRESENT: normal external ear exam Mouth exam: PRESENT: moist, tongue midline Neck exam: ABSENT: carotid bruit, JVD, lymphadenopathy, thyromegaly Respiratory exam: PRESENT: clear to auscultation merrill. ABSENT: rales, rhonchi, wheezes Cardiovascular exam: PRESENT: RRR. ABSENT: diastolic murmur, rubs, systolic murmur Pulses: PRESENT: normal dorsalis pedis pul Vascular exam: PRESENT: normal capillary refill GI/Abdominal exam: PRESENT: normal bowel sounds, soft. ABSENT: distended, guarding, mass, organolmegaly, rebound, tenderness Rectal exam: PRESENT: deferred Extremities exam: PRESENT: full ROM. ABSENT: calf tenderness, clubbing, pedal edema Neurological exam: PRESENT: alert, awake, oriented to person, oriented to place , oriented to time, oriented to situation, CN II-XII grossly intact. ABSENT: motor sensory deficit Psychiatric exam: PRESENT: appropriate affect, normal mood. ABSENT: homicidal ideation, suicidal ideation Skin exam: PRESENT: dry, intact, warm. ABSENT: cyanosis, rash Results Laboratory Results: 10/27/16 04:09 10/29/16 05:30 10/28/16 10/29/16 08:00 05:30 Sodium 138.0 138.5 Potassium 4.8 5.5 H Chloride 107 107 Carbon Dioxide 23 25 Anion Gap 8 7 BUN 72 H 62 H Creatinine 1.28 H 1.12 Est GFR ( Amer) 53 L > 60 Est GFR (Non-Af Amer) 43 L 51 L Glucose 130 H 127 H Calcium 8.3 L 8.4 10/10/16 10/10/16 10/10/16 08:31 08:31 14:25 Creatine Kinase 176 H 170 H CK-MB (CK-2) 2.26 Troponin I 0.024 10/10/16 10/10/16 10/10/16 14:25 20:30 20:30 Creatine Kinase 174 H CK-MB (CK-2) 2.64 2.75 Troponin I 0.018 0.017 Impressions: Abdomen/Pelvis CT 10/04/16 00:00 IMPRESSION: NO SIGNIFICANT OR ACUTE PROCESS IN THE ABDOMEN OR PELVIS. Skeletal Survey 10/05/16 00:00 IMPRESSION: Small lucent lesions are identified on the skull, humeri, pelvis, and right femoral series. Correlate with additional evaluation to exclude myeloma or metastatic disease. Chest CT 10/06/16 00:00 IMPRESSION: No dominant lung mass. Small bilateral pleural effusions with basilar atelectasis. Minimal nodularity along the pleural surfaces right greater than left which nonspecific. No measurable masses. Bone Biopsy CT 10/09/16 00:00 IMPRESSION: CT GUIDED BIOPSY OF THE RIGHT POSTERIOR ILIAC CREST FOR BONE MARROW ASPIRATE EVALUATION PERFORMED WITHOUT IMMEDIATE COMPLICATION. PATHOLOGY PENDING. Lung Scan-VQ NM 10/10/16 00:00 IMPRESSION: No ventilation-perfusion mismatches. Lumbar Spine MRI 10/10/16 17:09 IMPRESSION: Very limited study. There are however multilevel epidural soft tissue mass is just posterior to the vertebral bodies resulting in severe compromise of the canal. In addition, at the discs levels, there is marked spinal stenosis related to posterior element overgrowth. MRI with contrast should be performed to further evaluate the epidural soft tissue masses. Thoracic Spine MRI 10/11/16 00:00 IMPRESSION: Small T6-T7 disc protrusion causes mild spinal canal stenosis. No significant cord or nerve root compression. Moderate nonspecific soft tissue swelling of the back at the thoracolumbar junctional levels. Otherwise, no MRI evidence of metastatic disease, as queried. If there is continued clinical suspicion, consider further evaluation with whole-body bone scan, CT PET imaging , and/or contrast MRI survey of the spine. Cervical Spine MRI 10/11/16 10:56 IMPRESSION: Anterior C4-C5 hardware fusion. A moderate C3-C4 disc protrusion mildly compresses the spinal cord. Chest X-Ray 10/14/16 23:52 IMPRESSION: No radiographic evidence for pneumothorax. Mild cardiomegaly and vascular congestion. Subsegmental atelectasis in the right perihilar region. 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 (2) Pain, neoplasm-related Plan: Current pain regimen seems to be controlling pain well, continue (3) Multiple myeloma Qualifiers: Multiple myeloma remission status: not in remission Qualified Code(s ): C90.00 - Multiple myeloma not having achieved remission Is this a current diagnosis for this admission?: YesPlan: Overall disease seems to be improving, kidney function is stabilizing. Hemoglobin stabilized. Continue with Velcade based therapy this week. Radiation apparently will complete on Saturday. We are working on seeing if she can have home physical therapy thereafter versus inpatient rehabilitation. Physical therapy will work with patient today. (4) DEL (acute kidney injury) Is this a current diagnosis for this admission?: YesPlan: Improved greatly, dialysis is been held for several days now, hopefully the dialysis catheter can be removed. - Time Time Spent with patient: 35 or more minutes Critical Time spent with patient: 35 or more minutes
[2016-10-29] MEDS: POLYETHYLENE GLYCOL 3350 POWDER 17 GM/1 PACKET PO SCH (10:11)
[2016-10-29] MEDS: FUROSEMIDE 40 MG TABLET PO SCH (10:12)
[2016-10-29] MEDS: AMLODIPINE BESYLATE 5 MG TABLET PO SCH (10:12)
[2016-10-29] MEDS: OXYCODONE HCL SR 40 MG TABLET PO SCH ×2 (10:13→21:18)
[2016-10-29] MEDS: DOCUSATE SODIUM 100 MG CAPSULE PO SCH ×2 (10:13→18:19)
[2016-10-29] MEDS: HYDROMORPHONE HCL INJ/PF 2 MG/ML AMPULE IV PRN ×3 (10:57→23:44)
[2016-10-30] MEDS: DEXAMETHASONE SOD PHOSPHATE INJ 4 MG/1 ML VIAL IV SCH ×4 (05:51→23:08)
[2016-10-30] MEDS: HEPARIN SOD (PORCINE) 5,000 UNIT/ML 1 ML SYRINGE SUBCUT SCH ×3 (05:51→21:32)
[2016-10-30] MEDS: HYDROMORPHONE HCL INJ/PF 2 MG/ML AMPULE IV PRN ×3 (05:57→12:42)
[2016-10-30] MEDS: OXYCODONE HCL IR 5 MG TABLET PO PRN ×4 (07:29→23:08)
--- NOTE | 2016-10-30 08:01 | PDOC PROGRESS REPORT ---
Subjective Progress Note for:: 10/30/16 Subjective:: Patient is doing fair didn't exhibit more F-4 for physical therapy yesterday Denied any chest pain had any shortness of the breath Patient's last radiation is on wed Patient have some dependent edema on the gluteal sites Physical Exam Vital Signs: Temp Pulse Resp BP Pulse Ox 97.4 F 76 20 125/66 100 10/30/16 03:29 10/30/16 03:29 10/30/16 03:29 10/30/16 03:29 10/30/16 03:29 Intake & Output 10/29/16 10/30/16 10/31/16 06:59 06:59 06:59 Intake Total 604 1169 Output Total 2400 6125 Balance -1796 -1106 Weight 122.6 kg 123.9 kg General appearance: PRESENT: no acute distress, well-developed, well-nourished Head exam: PRESENT: atraumatic, normocephalic Eye exam: PRESENT: conjunctiva pink, EOMI, PERRLA. ABSENT: scleral icterus Ear exam: PRESENT: normal external ear exam Mouth exam: PRESENT: moist, tongue midline Neck exam: PRESENT: full ROM. ABSENT: carotid bruit, JVD, lymphadenopathy, thyromegaly Respiratory exam: PRESENT: clear to auscultation merrill Cardiovascular exam: PRESENT: RRR. ABSENT: diastolic murmur, rubs, systolic murmur Pulses: PRESENT: normal dorsalis pedis pul, +2 pedal pulses bilateral Vascular exam: PRESENT: normal capillary refill GI/Abdominal exam: PRESENT: normal bowel sounds, soft. ABSENT: distended, guarding, mass, organolmegaly, rebound, tenderness Rectal exam: PRESENT: deferred Extremities exam: ABSENT: pedal edema Neurological exam: PRESENT: alert, awake, oriented to person, oriented to place , oriented to time, oriented to situation, CN II-XII grossly intact. ABSENT: motor sensory deficit Psychiatric exam: PRESENT: appropriate affect, normal mood. ABSENT: homicidal ideation, suicidal ideation Skin exam: PRESENT: dry, intact, warm. ABSENT: cyanosis, rash Results Laboratory Results: 10/27/16 04:09 10/29/16 05:30 10/10/16 10/10/16 10/10/16 08:31 08:31 14:25 Creatine Kinase 176 H 170 H CK-MB (CK-2) 2.26 Troponin I 0.024 10/10/16 10/10/16 10/10/16 14:25 20:30 20:30 Creatine Kinase 174 H CK-MB (CK-2) 2.64 2.75 Troponin I 0.018 0.017 Impressions: Abdomen/Pelvis CT 10/04/16 00:00 IMPRESSION: NO SIGNIFICANT OR ACUTE PROCESS IN THE ABDOMEN OR PELVIS. Skeletal Survey 10/05/16 00:00 IMPRESSION: Small lucent lesions are identified on the skull, humeri, pelvis, and right femoral series. Correlate with additional evaluation to exclude myeloma or metastatic disease. Chest CT 10/06/16 00:00 IMPRESSION: No dominant lung mass. Small bilateral pleural effusions with basilar atelectasis. Minimal nodularity along the pleural surfaces right greater than left which nonspecific. No measurable masses. Bone Biopsy CT 10/09/16 00:00 IMPRESSION: CT GUIDED BIOPSY OF THE RIGHT POSTERIOR ILIAC CREST FOR BONE MARROW ASPIRATE EVALUATION PERFORMED WITHOUT IMMEDIATE COMPLICATION. PATHOLOGY PENDING. Lung Scan-VQ NM 10/10/16 00:00 IMPRESSION: No ventilation-perfusion mismatches. Lumbar Spine MRI 10/10/16 17:09 IMPRESSION: Very limited study. There are however multilevel epidural soft tissue mass is just posterior to the vertebral bodies resulting in severe compromise of the canal. In addition, at the discs levels, there is marked spinal stenosis related to posterior element overgrowth. MRI with contrast should be performed to further evaluate the epidural soft tissue masses. Thoracic Spine MRI 10/11/16 00:00 IMPRESSION: Small T6-T7 disc protrusion causes mild spinal canal stenosis. No significant cord or nerve root compression. Moderate nonspecific soft tissue swelling of the back at the thoracolumbar junctional levels. Otherwise, no MRI evidence of metastatic disease, as queried. If there is continued clinical suspicion, consider further evaluation with whole-body bone scan, CT PET imaging , and/or contrast MRI survey of the spine. Cervical Spine MRI 10/11/16 10:56 IMPRESSION: Anterior C4-C5 hardware fusion. A moderate C3-C4 disc protrusion mildly compresses the spinal cord. Chest X-Ray 10/14/16 23:52 IMPRESSION: No radiographic evidence for pneumothorax. Mild cardiomegaly and vascular congestion. Subsegmental atelectasis in the right perihilar region. 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 Is this a current diagnosis for this admission?: YesPlan: Check the CBC today (3) Hypokalemia Is this a current diagnosis for this admission?: Yes (4) Back pain Qualifiers: Back pain location: low back pain Chronicity: acute Is this a current diagnosis for this admission?: YesPlan: Currently on the radiation for spinal tumor (5) Hypertension Is this a current diagnosis for this admission?: Yes (6) Edema Qualifiers: Edema type: unspecified Qualified Code(s): R60.9 - Edema, unspecified Is this a current diagnosis for this admission?: Yes (7) Multiple myeloma Qualifiers: Multiple myeloma remission status: not in remission Qualified Code(s ): C90.00 - Multiple myeloma not having achieved remission Is this a current diagnosis for this admission?: YesPlan: Currently on a chemotherapy and radiation (8) Sinus tachycardia Is this a current diagnosis for this admission?: Yes (9) Fever Qualifiers: Fever type: unspecified Qualified Code(s): R50.9 - Fever, unspecified Is this a current diagnosis for this admission?: Yes - Time Time Spent with patient: 15-24 minutes Medications reviewed and adjusted accordingly: Yes Anticipated discharge: Home Within: Other - Inpatient Certification Medical Necessity: Need Close Monitoring Due to Risk of Patient Decompensation Post Hospital Care: D/C Care Aid Documentation - Plan Summary Plan Summary: Discussed with the patient about more effort for the physical therapy 1 extra Lasix 40 mg IV Continue current other medications Check CBC and Chem-7 today
--- NOTE | 2016-10-30 08:51 | PDOC PROGRESS REPORT ---
Subjective Progress Note for:: 10/30/16 Subjective:: No acute events overnight, patient set up on the side of the bed, I had a long conversation this morning with physical therapy staff, she still is very hesitant to get up and stand, she still has fairly severe pain while she stands and does have fairly severe proximal muscle weakness. They do believe she will require rehabilitation stay, I've asked them to fully document that in their notes. At this point, I discussed with patient that if this is necessary, this will be okay from an oncology standpoint to hold therapy until she gets out of rehabilitation. Physical Exam Vital Signs: Temp Pulse Resp BP Pulse Ox 97.6 F 83 18 123/72 97 10/30/16 07:29 10/30/16 07:29 10/30/16 07:29 10/30/16 07:29 10/30/16 07:29 Intake & Output 10/29/16 10/30/16 10/31/16 06:59 06:59 06:59 Intake Total 604 1169 Output Total 2400 2275 Balance -1796 -1106 Weight 122.6 kg 123.9 kg General appearance: PRESENT: no acute distress, well-developed, well-nourished Head exam: PRESENT: atraumatic, normocephalic Eye exam: PRESENT: conjunctiva pink, EOMI, PERRLA. ABSENT: scleral icterus Ear exam: PRESENT: normal external ear exam Mouth exam: PRESENT: moist, tongue midline Neck exam: ABSENT: carotid bruit, JVD, lymphadenopathy, thyromegaly Respiratory exam: PRESENT: clear to auscultation merrill. ABSENT: rales, rhonchi, wheezes Cardiovascular exam: PRESENT: RRR. ABSENT: diastolic murmur, rubs, systolic murmur Pulses: PRESENT: normal dorsalis pedis pul Vascular exam: PRESENT: normal capillary refill GI/Abdominal exam: PRESENT: normal bowel sounds, soft. ABSENT: distended, guarding, mass, organolmegaly, rebound, tenderness Rectal exam: PRESENT: deferred Extremities exam: PRESENT: full ROM. ABSENT: calf tenderness, clubbing, pedal edema Neurological exam: PRESENT: alert, awake, oriented to person, oriented to place , oriented to time, oriented to situation, CN II-XII grossly intact. ABSENT: motor sensory deficit Psychiatric exam: PRESENT: appropriate affect, normal mood. ABSENT: homicidal ideation, suicidal ideation Skin exam: PRESENT: dry, intact, warm. ABSENT: cyanosis, rash Results Laboratory Results: 10/27/16 04:09 10/29/16 05:30 10/10/16 10/10/16 10/10/16 08:31 08:31 14:25 Creatine Kinase 176 H 170 H CK-MB (CK-2) 2.26 Troponin I 0.024 10/10/16 10/10/16 10/10/16 14:25 20:30 20:30 Creatine Kinase 174 H CK-MB (CK-2) 2.64 2.75 Troponin I 0.018 0.017 Impressions: Abdomen/Pelvis CT 10/04/16 00:00 IMPRESSION: NO SIGNIFICANT OR ACUTE PROCESS IN THE ABDOMEN OR PELVIS. Skeletal Survey 10/05/16 00:00 IMPRESSION: Small lucent lesions are identified on the skull, humeri, pelvis, and right femoral series. Correlate with additional evaluation to exclude myeloma or metastatic disease. Chest CT 10/06/16 00:00 IMPRESSION: No dominant lung mass. Small bilateral pleural effusions with basilar atelectasis. Minimal nodularity along the pleural surfaces right greater than left which nonspecific. No measurable masses. Bone Biopsy CT 10/09/16 00:00 IMPRESSION: CT GUIDED BIOPSY OF THE RIGHT POSTERIOR ILIAC CREST FOR BONE MARROW ASPIRATE EVALUATION PERFORMED WITHOUT IMMEDIATE COMPLICATION. PATHOLOGY PENDING. Lung Scan-VQ NM 10/10/16 00:00 IMPRESSION: No ventilation-perfusion mismatches. Lumbar Spine MRI 10/10/16 17:09 IMPRESSION: Very limited study. There are however multilevel epidural soft tissue mass is just posterior to the vertebral bodies resulting in severe compromise of the canal. In addition, at the discs levels, there is marked spinal stenosis related to posterior element overgrowth. MRI with contrast should be performed to further evaluate the epidural soft tissue masses. Thoracic Spine MRI 10/11/16 00:00 IMPRESSION: Small T6-T7 disc protrusion causes mild spinal canal stenosis. No significant cord or nerve root compression. Moderate nonspecific soft tissue swelling of the back at the thoracolumbar junctional levels. Otherwise, no MRI evidence of metastatic disease, as queried. If there is continued clinical suspicion, consider further evaluation with whole-body bone scan, CT PET imaging , and/or contrast MRI survey of the spine. Cervical Spine MRI 10/11/16 10:56 IMPRESSION: Anterior C4-C5 hardware fusion. A moderate C3-C4 disc protrusion mildly compresses the spinal cord. Chest X-Ray 10/14/16 23:52 IMPRESSION: No radiographic evidence for pneumothorax. Mild cardiomegaly and vascular congestion. Subsegmental atelectasis in the right perihilar region. 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 (2) Pain, neoplasm-related Plan: Today with current regimen (3) Multiple myeloma Qualifiers: Multiple myeloma remission status: not in remission Qualified Code(s ): C90.00 - Multiple myeloma not having achieved remission Is this a current diagnosis for this admission?: YesPlan: Continue with current therapy, last radiation will be Saturday (4) DEL (acute kidney injury) Is this a current diagnosis for this admission?: YesPlan: Improved, dialysis being held, some Lasix being given today. - Time Time Spent with patient: 35 or more minutes Critical Time spent with patient: 35 or more minutes
[2016-10-30] MEDS: FUROSEMIDE 40 MG TABLET PO SCH (10:13)
[2016-10-30] MEDS: DOCUSATE SODIUM 100 MG CAPSULE PO SCH ×2 (10:13→17:46)
[2016-10-30] MEDS: AMLODIPINE BESYLATE 5 MG TABLET PO SCH (10:13)
[2016-10-30] MEDS: POLYETHYLENE GLYCOL 3350 POWDER 17 GM/1 PACKET PO SCH (10:13)
[2016-10-30] MEDS: OXYCODONE HCL SR 40 MG TABLET PO SCH ×2 (10:14→21:32)
[2016-10-30 11:00] LABS: HEMATOCRIT 27.4 % (36.0-47.0); HEMOGLOBIN 9.5 g/dL (12.0-15.5); HGB HCT DIFFERENCE 1.1; MEAN CORPUSCULAR HEMOGLOBIN 31.8 pg (27.0-33.4); MEAN CORPUSCULAR HGB CONC 34.7 g/dL (32.0-36.0); MEAN CORPUSCULAR VOLUME 92 fl (80-97); RED BLOOD COUNT 2.99 10^6/uL (3.72-5.28); RED CELL DISTRIBUTION WIDTH 16.3 % (11.5-14.0); WHITE BLOOD COUNT 7.3 10^3/uL (4.0-10.5)
[2016-10-30 11:28] LABS: ANION GAP 12 (5-19); ANISOCYTOSIS 1+; BASOPHILS % (MANUAL) 0 % (0-2); BLOOD UREA NITROGEN 61 mg/dL (7-20); CALCIUM 8.8 mg/dL (8.4-10.2); CARBON DIOXIDE 22 mmol/L (22-30); CHLORIDE 104 mmol/L (98-107); CREATININE RESULT 1.04 mg/dL (0.52-1.25); EOSINOPHILS % (MANUAL) 1 % (0-6); GLUCOSE 164 mg/dL (75-110); LYMPHOCYTES % (MANUAL) 1 % (13-45); POTASSIUM 5.3 mmol/L (3.6-5.0); SODIUM 138.4 mmol/L (137-145); TOTAL CELLS COUNTED 100
[2016-10-30 11:31] LABS: TARGET CELLS 1+
[2016-10-30 11:32] LABS: TEAR DROP CELLS SLIGHT
[2016-10-30] MEDS ORDERED: FUROSEMIDE INJ/PF 40 MG/4 ML SDV IV ONE (11:45)
[2016-10-31] MEDS: HEPARIN SOD (PORCINE) 5,000 UNIT/ML 1 ML SYRINGE SUBCUT SCH ×3 (05:32→21:35)
[2016-10-31] MEDS: DEXAMETHASONE SOD PHOSPHATE INJ 4 MG/1 ML VIAL IV SCH ×4 (05:32→23:05)
[2016-10-31 06:27] LABS: HEMOGLOBIN 8.3 g/dL (12.0-15.5); HGB HCT DIFFERENCE 0.9; MEAN CORPUSCULAR HGB CONC 34.6 g/dL (32.0-36.0); MEAN CORPUSCULAR VOLUME 92 fl (80-97); RED CELL DISTRIBUTION WIDTH 16.4 % (11.5-14.0); WHITE BLOOD COUNT 5.9 10^3/uL (4.0-10.5)
[2016-10-31 06:39] LABS: ANION GAP 6 (5-19); BLOOD UREA NITROGEN 57 mg/dL (7-20); CALCIUM 8.4 mg/dL (8.4-10.2); CARBON DIOXIDE 24 mmol/L (22-30); CHLORIDE 106 mmol/L (98-107); CREATININE RESULT 0.97 mg/dL (0.52-1.25); GLUCOSE 108 mg/dL (75-110); POTASSIUM 5.2 mmol/L (3.6-5.0); SODIUM 136.1 mmol/L (137-145)
[2016-10-31 07:34] LABS: ANISOCYTOSIS SLIGHT; BASOPHILS % (MANUAL) 0 % (0-2); EOSINOPHILS % (MANUAL) 0 % (0-6); HYPOCHROMASIA 1+; LYMPHOCYTES % (MANUAL) 2 % (13-45); POLYCHROMASIA SLIGHT; ROULEAUX SLIGHT; TOTAL CELLS COUNTED 100; TOXIC GRANULATION SLIGHT
--- NOTE | 2016-10-31 08:12 | PDOC PROGRESS REPORT ---
Subjective Progress Note for:: 10/31/16 Subjective:: Patient is currently doing fair no new complaint no chest pain no short of breath. Patient still have a challenge for the for moving around Physical Exam Vital Signs: Temp Pulse Resp BP Pulse Ox 98.4 F 73 18 109/49 L 100 10/31/16 07:47 10/31/16 07:47 10/31/16 07:47 10/31/16 07:47 10/31/16 07:47 Intake & Output 10/30/16 10/31/16 11/01/16 06:59 06:59 06:59 Intake Total 1169 1532 Output Total 7625 4905 Balance -1106 -1043 Weight 123.9 kg 123.5 kg General appearance: PRESENT: no acute distress, well-developed, well-nourished Head exam: PRESENT: atraumatic, normocephalic Eye exam: PRESENT: conjunctiva pink, EOMI, PERRLA. ABSENT: scleral icterus Ear exam: PRESENT: normal external ear exam Mouth exam: PRESENT: moist, tongue midline Neck exam: PRESENT: full ROM. ABSENT: carotid bruit, JVD, lymphadenopathy, thyromegaly Respiratory exam: PRESENT: clear to auscultation merrill Cardiovascular exam: PRESENT: RRR. ABSENT: diastolic murmur, rubs, systolic murmur Pulses: PRESENT: normal dorsalis pedis pul, +2 pedal pulses bilateral Vascular exam: PRESENT: normal capillary refill GI/Abdominal exam: PRESENT: normal bowel sounds, soft. ABSENT: distended, guarding, mass, organolmegaly, rebound, tenderness Rectal exam: PRESENT: deferred Neurological exam: PRESENT: alert, awake, oriented to person, oriented to place , oriented to time, oriented to situation, CN II-XII grossly intact. ABSENT: motor sensory deficit Psychiatric exam: PRESENT: appropriate affect, normal mood. ABSENT: homicidal ideation, suicidal ideation Skin exam: PRESENT: dry, intact, warm. ABSENT: cyanosis, rash Results Laboratory Results: 10/31/16 05:40 10/31/16 05:40 10/30/16 10/30/16 10/31/16 10:40 10:40 05:40 WBC 7.3 5.9 RBC 2.99 L 2.60 L Hgb 9.5 L 8.3 L Hct 27.4 L 24.0 L MCV 92 92 MCH 31.8 32.0 MCHC 34.7 34.6 RDW 16.3 H 16.4 H Plt Count 162 138 L Seg Neutrophils % Not Reportable Not Reportable Lymphocytes % Not Reportable Not Reportable Monocytes % Not Reportable Not Reportable Eosinophils % Not Reportable Not Reportable Basophils % Not Reportable Not Reportable Absolute Neutrophils Not Reportable Not Reportable Absolute Lymphocytes Not Reportable Not Reportable Absolute Monocytes Not Reportable Not Reportable Absolute Eosinophils Not Reportable Not Reportable Absolute Basophils Not Reportable Not Reportable Sodium 138.4 Potassium 5.3 H Chloride 104 Carbon Dioxide 22 Anion Gap 12 BUN 61 H Creatinine 1.04 Est GFR ( Amer) > 60 Est GFR (Non-Af Amer) 55 L Glucose 164 H Calcium 8.8 10/31/16 05:40 WBC RBC Hgb Hct MCV MCH MCHC RDW Plt Count Seg Neutrophils % Lymphocytes % Monocytes % Eosinophils % Basophils % Absolute Neutrophils Absolute Lymphocytes Absolute Monocytes Absolute Eosinophils Absolute Basophils Sodium 136.1 L Potassium 5.2 H Chloride 106 Carbon Dioxide 24 Anion Gap 6 BUN 57 H Creatinine 0.97 Est GFR ( Amer) > 60 Est GFR (Non-Af Amer) > 60 Glucose 108 Calcium 8.4 10/10/16 10/10/16 10/10/16 08:31 08:31 14:25 Creatine Kinase 176 H 170 H CK-MB (CK-2) 2.26 Troponin I 0.024 10/10/16 10/10/16 10/10/16 14:25 20:30 20:30 Creatine Kinase 174 H CK-MB (CK-2) 2.64 2.75 Troponin I 0.018 0.017 Impressions: Abdomen/Pelvis CT 10/04/16 00:00 IMPRESSION: NO SIGNIFICANT OR ACUTE PROCESS IN THE ABDOMEN OR PELVIS. Skeletal Survey 10/05/16 00:00 IMPRESSION: Small lucent lesions are identified on the skull, humeri, pelvis, and right femoral series. Correlate with additional evaluation to exclude myeloma or metastatic disease. Chest CT 10/06/16 00:00 IMPRESSION: No dominant lung mass. Small bilateral pleural effusions with basilar atelectasis. Minimal nodularity along the pleural surfaces right greater than left which nonspecific. No measurable masses. Bone Biopsy CT 10/09/16 00:00 IMPRESSION: CT GUIDED BIOPSY OF THE RIGHT POSTERIOR ILIAC CREST FOR BONE MARROW ASPIRATE EVALUATION PERFORMED WITHOUT IMMEDIATE COMPLICATION. PATHOLOGY PENDING. Lung Scan-VQ NM 10/10/16 00:00 IMPRESSION: No ventilation-perfusion mismatches. Lumbar Spine MRI 10/10/16 17:09 IMPRESSION: Very limited study. There are however multilevel epidural soft tissue mass is just posterior to the vertebral bodies resulting in severe compromise of the canal. In addition, at the discs levels, there is marked spinal stenosis related to posterior element overgrowth. MRI with contrast should be performed to further evaluate the epidural soft tissue masses. Thoracic Spine MRI 10/11/16 00:00 IMPRESSION: Small T6-T7 disc protrusion causes mild spinal canal stenosis. No significant cord or nerve root compression. Moderate nonspecific soft tissue swelling of the back at the thoracolumbar junctional levels. Otherwise, no MRI evidence of metastatic disease, as queried. If there is continued clinical suspicion, consider further evaluation with whole-body bone scan, CT PET imaging , and/or contrast MRI survey of the spine. Cervical Spine MRI 10/11/16 10:56 IMPRESSION: Anterior C4-C5 hardware fusion. A moderate C3-C4 disc protrusion mildly compresses the spinal cord. Chest X-Ray 10/14/16 23:52 IMPRESSION: No radiographic evidence for pneumothorax. Mild cardiomegaly and vascular congestion. Subsegmental atelectasis in the right perihilar region. 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 Is this a current diagnosis for this admission?: YesPlan: We will transfuse 1 unit of blood (3) Hypokalemia Is this a current diagnosis for this admission?: Yes (4) Back pain Qualifiers: Back pain location: low back pain Chronicity: acute Is this a current diagnosis for this admission?: YesPlan: Currently on the radiation for spinal tumor (5) Hypertension Is this a current diagnosis for this admission?: YesPlan: Currently stable (6) Edema Qualifiers: Edema type: unspecified Qualified Code(s): R60.9 - Edema, unspecified Is this a current diagnosis for this admission?: Yes (7) Multiple myeloma Qualifiers: Multiple myeloma remission status: not in remission Qualified Code(s ): C90.00 - Multiple myeloma not having achieved remission Is this a current diagnosis for this admission?: YesPlan: Currently on a chemotherapy and radiation (8) Sinus tachycardia Is this a current diagnosis for this admission?: Yes (9) Fever Qualifiers: Fever type: unspecified Qualified Code(s): R50.9 - Fever, unspecified Is this a current diagnosis for this admission?: Yes - Time Time Spent with patient: 15-24 minutes Medications reviewed and adjusted accordingly: Yes Anticipated discharge: SNF Within: Other - Inpatient Certification Medical Necessity: Need Close Monitoring Due to Risk of Patient Decompensation Post Hospital Care: D/C Medical Secretary Documentation - Plan Summary Plan Summary: Is to continues the current medications DC the Jewell catheter and DC the femoral catheter We'll challenge for the rehabs and asper discussed with the oncology
--- NOTE | 2016-10-31 08:49 | PDOC PROGRESS REPORT ---
Subjective Progress Note for:: 10/31/16 Subjective:: Pt did stand yesterday, w/ severe pain, will definetely need rehab placement Physical Exam Vital Signs: Temp Pulse Resp BP Pulse Ox 98.4 F 73 18 109/49 L 100 10/31/16 07:47 10/31/16 07:47 10/31/16 07:47 10/31/16 07:47 10/31/16 07:47 Intake & Output 10/30/16 10/31/16 11/01/16 06:59 06:59 06:59 Intake Total 1169 1532 Output Total 2275 7595 Balance -1106 -1043 Weight 123.9 kg 123.5 kg General appearance: PRESENT: no acute distress, well-developed, well-nourished Head exam: PRESENT: atraumatic, normocephalic Eye exam: PRESENT: conjunctiva pink, EOMI, PERRLA. ABSENT: scleral icterus Ear exam: PRESENT: normal external ear exam Mouth exam: PRESENT: moist, tongue midline Neck exam: ABSENT: carotid bruit, JVD, lymphadenopathy, thyromegaly Respiratory exam: PRESENT: clear to auscultation merrill. ABSENT: rales, rhonchi, wheezes Cardiovascular exam: PRESENT: RRR. ABSENT: diastolic murmur, rubs, systolic murmur Pulses: PRESENT: normal dorsalis pedis pul Vascular exam: PRESENT: normal capillary refill GI/Abdominal exam: PRESENT: normal bowel sounds, soft. ABSENT: distended, guarding, mass, organolmegaly, rebound, tenderness Rectal exam: PRESENT: deferred Extremities exam: PRESENT: full ROM. ABSENT: calf tenderness, clubbing, pedal edema Neurological exam: PRESENT: alert, awake, oriented to person, oriented to place , oriented to time, oriented to situation, CN II-XII grossly intact. ABSENT: motor sensory deficit Psychiatric exam: PRESENT: appropriate affect, normal mood. ABSENT: homicidal ideation, suicidal ideation Skin exam: PRESENT: dry, intact, warm. ABSENT: cyanosis, rash Results Laboratory Results: 10/31/16 05:40 10/31/16 05:40 10/30/16 10/30/16 10/31/16 10:40 10:40 05:40 WBC 7.3 5.9 RBC 2.99 L 2.60 L Hgb 9.5 L 8.3 L Hct 27.4 L 24.0 L MCV 92 92 MCH 31.8 32.0 MCHC 34.7 34.6 RDW 16.3 H 16.4 H Plt Count 162 138 L Seg Neutrophils % Not Reportable Not Reportable Lymphocytes % Not Reportable Not Reportable Monocytes % Not Reportable Not Reportable Eosinophils % Not Reportable Not Reportable Basophils % Not Reportable Not Reportable Absolute Neutrophils Not Reportable Not Reportable Absolute Lymphocytes Not Reportable Not Reportable Absolute Monocytes Not Reportable Not Reportable Absolute Eosinophils Not Reportable Not Reportable Absolute Basophils Not Reportable Not Reportable Sodium 138.4 Potassium 5.3 H Chloride 104 Carbon Dioxide 22 Anion Gap 12 BUN 61 H Creatinine 1.04 Est GFR ( Amer) > 60 Est GFR (Non-Af Amer) 55 L Glucose 164 H Calcium 8.8 10/31/16 05:40 WBC RBC Hgb Hct MCV MCH MCHC RDW Plt Count Seg Neutrophils % Lymphocytes % Monocytes % Eosinophils % Basophils % Absolute Neutrophils Absolute Lymphocytes Absolute Monocytes Absolute Eosinophils Absolute Basophils Sodium 136.1 L Potassium 5.2 H Chloride 106 Carbon Dioxide 24 Anion Gap 6 BUN 57 H Creatinine 0.97 Est GFR ( Amer) > 60 Est GFR (Non-Af Amer) > 60 Glucose 108 Calcium 8.4 10/10/16 10/10/16 10/10/16 08:31 08:31 14:25 Creatine Kinase 176 H 170 H CK-MB (CK-2) 2.26 Troponin I 0.024 10/10/16 10/10/16 10/10/16 14:25 20:30 20:30 Creatine Kinase 174 H CK-MB (CK-2) 2.64 2.75 Troponin I 0.018 0.017 Impressions: Abdomen/Pelvis CT 10/04/16 00:00 IMPRESSION: NO SIGNIFICANT OR ACUTE PROCESS IN THE ABDOMEN OR PELVIS. Skeletal Survey 10/05/16 00:00 IMPRESSION: Small lucent lesions are identified on the skull, humeri, pelvis, and right femoral series. Correlate with additional evaluation to exclude myeloma or metastatic disease. Chest CT 10/06/16 00:00 IMPRESSION: No dominant lung mass. Small bilateral pleural effusions with basilar atelectasis. Minimal nodularity along the pleural surfaces right greater than left which nonspecific. No measurable masses. Bone Biopsy CT 10/09/16 00:00 IMPRESSION: CT GUIDED BIOPSY OF THE RIGHT POSTERIOR ILIAC CREST FOR BONE MARROW ASPIRATE EVALUATION PERFORMED WITHOUT IMMEDIATE COMPLICATION. PATHOLOGY PENDING. Lung Scan-VQ NM 10/10/16 00:00 IMPRESSION: No ventilation-perfusion mismatches. Lumbar Spine MRI 10/10/16 17:09 IMPRESSION: Very limited study. There are however multilevel epidural soft tissue mass is just posterior to the vertebral bodies resulting in severe compromise of the canal. In addition, at the discs levels, there is marked spinal stenosis related to posterior element overgrowth. MRI with contrast should be performed to further evaluate the epidural soft tissue masses. Thoracic Spine MRI 10/11/16 00:00 IMPRESSION: Small T6-T7 disc protrusion causes mild spinal canal stenosis. No significant cord or nerve root compression. Moderate nonspecific soft tissue swelling of the back at the thoracolumbar junctional levels. Otherwise, no MRI evidence of metastatic disease, as queried. If there is continued clinical suspicion, consider further evaluation with whole-body bone scan, CT PET imaging , and/or contrast MRI survey of the spine. Cervical Spine MRI 10/11/16 10:56 IMPRESSION: Anterior C4-C5 hardware fusion. A moderate C3-C4 disc protrusion mildly compresses the spinal cord. Chest X-Ray 10/14/16 23:52 IMPRESSION: No radiographic evidence for pneumothorax. Mild cardiomegaly and vascular congestion. Subsegmental atelectasis in the right perihilar region. 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 Is this a current diagnosis for this admission?: YesPlan: Hb stable, plan for 1 unit blood prior to leaving [facility] (2) Pain, neoplasm-related Plan: Stable, con't current rx (3) Multiple myeloma Qualifiers: Multiple myeloma remission status: not in remission Qualified Code(s ): C90.00 - Multiple myeloma not having achieved remission Is this a current diagnosis for this admission?: YesPlan: Con't velcade today, last day xrt today (4) DEL (acute kidney injury) Is this a current diagnosis for this admission?: YesPlan: Improved, getting dialysis cath out today (5) Physical deconditioning Is this a current diagnosis for this admission?: YesPlan: Severe, will need rehab placement, we will not pursue systemic chemotherapy or radiation while pt admitted to rehab. Will restart chemo after d/c from rehab. - Time Time Spent with patient: 35 or more minutes Critical Time spent with patient: 35 or more minutes - Inpatient Certification Based on my medical assessment, after consideration of the patient's comorbidities, presenting symptoms, or acuity I expect that the services needed warrant INPATIENT care.: Yes I certify that my determination is in accordance with my understanding of Medicare's requirements for reasonable and necessary INPATIENT services [42 CFR 412.3e].: Yes Medical Necessity: Need For Continuous Telemetry Monitoring
[2016-10-31] MEDS: DOCUSATE SODIUM 100 MG CAPSULE PO SCH ×2 (09:35→17:05)
[2016-10-31] MEDS: AMLODIPINE BESYLATE 5 MG TABLET PO SCH (09:35)
[2016-10-31] MEDS: POLYETHYLENE GLYCOL 3350 POWDER 17 GM/1 PACKET PO SCH (09:36)
[2016-10-31] MEDS: FUROSEMIDE 40 MG TABLET PO SCH (09:36)
[2016-10-31] MEDS: OXYCODONE HCL SR 40 MG TABLET PO SCH ×2 (09:37→21:34)
[2016-10-31] MEDS: OXYCODONE HCL IR 5 MG TABLET PO PRN ×3 (09:38→17:06)
[2016-10-31] MEDS ORDERED: SODIUM POLYSTYRENE SULFONATE 15 GM/60 ML PO ONE (09:45)
[2016-10-31] MEDS: HYDROMORPHONE HCL INJ/PF 2 MG/ML AMPULE IV PRN (16:07)
[2016-10-31] MEDS: VALACYCLOVIR HCL 500 MG TABLET PO SCH (18:40)
[2016-11-01] MEDS: DEXAMETHASONE SOD PHOSPHATE INJ 4 MG/1 ML VIAL IV SCH (05:31)
[2016-11-01] MEDS: HEPARIN SOD (PORCINE) 5,000 UNIT/ML 1 ML SYRINGE SUBCUT SCH ×3 (05:41→22:02)
[2016-11-01] MEDS: OXYCODONE HCL IR 5 MG TABLET PO PRN ×3 (06:29→22:00)
[2016-11-01 07:18] LABS: ANION GAP 8 (5-19); BLOOD UREA NITROGEN 47 mg/dL (7-20); CARBON DIOXIDE 24 mmol/L (22-30); CHLORIDE 104 mmol/L (98-107); CREATININE RESULT 0.89 mg/dL (0.52-1.25); GLUCOSE 141 mg/dL (75-110); POTASSIUM 4.8 mmol/L (3.6-5.0); SODIUM 136.1 mmol/L (137-145)
--- NOTE | 2016-11-01 08:03 | PDOC PROGRESS REPORT ---
Subjective Progress Note for:: 11/01/16 Subjective:: Patient is currently doing fair no new events happen. Patient unable to the rehabilitation due to the insurance problems. Patient's Jewell catheter out and the patient's still have difficulty to ambulate Physical Exam Vital Signs: Temp Pulse Resp BP Pulse Ox 98.7 F 85 18 125/74 98 10/31/16 23:10 11/01/16 02:00 10/31/16 23:10 10/31/16 23:10 10/31/16 23:10 Intake & Output 10/31/16 11/01/16 11/02/16 06:59 06:59 06:59 Intake Total 1532 2412 Output Total 2575 975 Balance -1043 1437 Weight 123.5 kg 122.1 kg General appearance: PRESENT: no acute distress, well-developed, well-nourished Head exam: PRESENT: atraumatic, normocephalic Eye exam: PRESENT: conjunctiva pink, EOMI, PERRLA. ABSENT: scleral icterus Ear exam: PRESENT: normal external ear exam Mouth exam: PRESENT: moist, tongue midline Neck exam: PRESENT: full ROM. ABSENT: carotid bruit, JVD, lymphadenopathy, thyromegaly Respiratory exam: PRESENT: clear to auscultation merrill Cardiovascular exam: PRESENT: RRR. ABSENT: diastolic murmur, rubs, systolic murmur Pulses: PRESENT: normal dorsalis pedis pul, +2 pedal pulses bilateral Vascular exam: PRESENT: normal capillary refill GI/Abdominal exam: PRESENT: normal bowel sounds, soft. ABSENT: distended, guarding, mass, organolmegaly, rebound, tenderness Rectal exam: PRESENT: deferred Neurological exam: PRESENT: alert, awake, oriented to person, oriented to place , oriented to time, oriented to situation, CN II-XII grossly intact. ABSENT: motor sensory deficit Psychiatric exam: PRESENT: appropriate affect, normal mood. ABSENT: homicidal ideation, suicidal ideation Skin exam: PRESENT: dry, intact, warm. ABSENT: cyanosis, rash Results Laboratory Results: 10/31/16 05:40 11/01/16 06:13 11/01/16 06:13 Sodium 136.1 L Potassium 4.8 Chloride 104 Carbon Dioxide 24 Anion Gap 8 BUN 47 H Creatinine 0.89 Est GFR ( Amer) > 60 Est GFR (Non-Af Amer) > 60 Glucose 141 H Calcium 8.0 L 10/10/16 10/10/16 10/10/16 08:31 08:31 14:25 Creatine Kinase 176 H 170 H CK-MB (CK-2) 2.26 Troponin I 0.024 10/10/16 10/10/16 10/10/16 14:25 20:30 20:30 Creatine Kinase 174 H CK-MB (CK-2) 2.64 2.75 Troponin I 0.018 0.017 Impressions: Abdomen/Pelvis CT 10/04/16 00:00 IMPRESSION: NO SIGNIFICANT OR ACUTE PROCESS IN THE ABDOMEN OR PELVIS. Skeletal Survey 10/05/16 00:00 IMPRESSION: Small lucent lesions are identified on the skull, humeri, pelvis, and right femoral series. Correlate with additional evaluation to exclude myeloma or metastatic disease. Chest CT 10/06/16 00:00 IMPRESSION: No dominant lung mass. Small bilateral pleural effusions with basilar atelectasis. Minimal nodularity along the pleural surfaces right greater than left which nonspecific. No measurable masses. Bone Biopsy CT 10/09/16 00:00 IMPRESSION: CT GUIDED BIOPSY OF THE RIGHT POSTERIOR ILIAC CREST FOR BONE MARROW ASPIRATE EVALUATION PERFORMED WITHOUT IMMEDIATE COMPLICATION. PATHOLOGY PENDING. Lung Scan-VQ NM 10/10/16 00:00 IMPRESSION: No ventilation-perfusion mismatches. Lumbar Spine MRI 10/10/16 17:09 IMPRESSION: Very limited study. There are however multilevel epidural soft tissue mass is just posterior to the vertebral bodies resulting in severe compromise of the canal. In addition, at the discs levels, there is marked spinal stenosis related to posterior element overgrowth. MRI with contrast should be performed to further evaluate the epidural soft tissue masses. Thoracic Spine MRI 10/11/16 00:00 IMPRESSION: Small T6-T7 disc protrusion causes mild spinal canal stenosis. No significant cord or nerve root compression. Moderate nonspecific soft tissue swelling of the back at the thoracolumbar junctional levels. Otherwise, no MRI evidence of metastatic disease, as queried. If there is continued clinical suspicion, consider further evaluation with whole-body bone scan, CT PET imaging , and/or contrast MRI survey of the spine. Cervical Spine MRI 10/11/16 10:56 IMPRESSION: Anterior C4-C5 hardware fusion. A moderate C3-C4 disc protrusion mildly compresses the spinal cord. Chest X-Ray 10/14/16 23:52 IMPRESSION: No radiographic evidence for pneumothorax. Mild cardiomegaly and vascular congestion. Subsegmental atelectasis in the right perihilar region. 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 Is this a current diagnosis for this admission?: YesPlan: Stable follow with the oncology (3) Hypokalemia Is this a current diagnosis for this admission?: Yes (4) Back pain Qualifiers: Back pain location: low back pain Chronicity: acute Is this a current diagnosis for this admission?: Yes (5) Hypertension Is this a current diagnosis for this admission?: YesPlan: Currently stable (6) Edema Qualifiers: Edema type: unspecified Qualified Code(s): R60.9 - Edema, unspecified Is this a current diagnosis for this admission?: Yes (7) Multiple myeloma Qualifiers: Multiple myeloma remission status: not in remission Qualified Code(s ): C90.00 - Multiple myeloma not having achieved remission Is this a current diagnosis for this admission?: YesPlan: Currently on a chemotherapy and radiation (8) Sinus tachycardia Is this a current diagnosis for this admission?: Yes (9) Fever Qualifiers: Fever type: unspecified Qualified Code(s): R50.9 - Fever, unspecified Is this a current diagnosis for this admission?: Yes - Time Time Spent with patient: 15-24 minutes Medications reviewed and adjusted accordingly: Yes Anticipated discharge: Other Within: Other - Inpatient Certification Medical Necessity: Need Close Monitoring Due to Risk of Patient Decompensation - Discussed with the patient and the family about patient's current conditions and unable to go to the rehabs insurance problems try to more physical therapy and continues to monitor the patient's
--- NOTE | 2016-11-01 08:08 | PDOC PROGRESS REPORT ---
Subjective Progress Note for:: 11/01/16 Subjective:: No acute events overnight, patient still having difficulty with standing. Severe pain on standing and weakness. Physical Exam Vital Signs: Temp Pulse Resp BP Pulse Ox 98.7 F 85 18 125/74 98 10/31/16 23:10 11/01/16 02:00 10/31/16 23:10 10/31/16 23:10 10/31/16 23:10 Intake & Output 10/31/16 11/01/16 11/02/16 06:59 06:59 06:59 Intake Total 1532 2412 Output Total 2575 975 Balance -1043 1437 Weight 123.5 kg 122.1 kg General appearance: PRESENT: no acute distress, well-developed, well-nourished Head exam: PRESENT: atraumatic, normocephalic Eye exam: PRESENT: conjunctiva pink, EOMI, PERRLA. ABSENT: scleral icterus Ear exam: PRESENT: normal external ear exam Mouth exam: PRESENT: moist, tongue midline Neck exam: ABSENT: carotid bruit, JVD, lymphadenopathy, thyromegaly Respiratory exam: PRESENT: clear to auscultation merrill. ABSENT: rales, rhonchi, wheezes Cardiovascular exam: PRESENT: RRR. ABSENT: diastolic murmur, rubs, systolic murmur Pulses: PRESENT: normal dorsalis pedis pul Vascular exam: PRESENT: normal capillary refill GI/Abdominal exam: PRESENT: normal bowel sounds, soft. ABSENT: distended, guarding, mass, organolmegaly, rebound, tenderness Rectal exam: PRESENT: deferred Extremities exam: PRESENT: full ROM. ABSENT: calf tenderness, clubbing, pedal edema Neurological exam: PRESENT: alert, awake, oriented to person, oriented to place , oriented to time, oriented to situation, CN II-XII grossly intact. ABSENT: motor sensory deficit Psychiatric exam: PRESENT: appropriate affect, normal mood. ABSENT: homicidal ideation, suicidal ideation Skin exam: PRESENT: dry, intact, warm. ABSENT: cyanosis, rash Results Laboratory Results: 10/31/16 05:40 11/01/16 06:13 11/01/16 06:13 Sodium 136.1 L Potassium 4.8 Chloride 104 Carbon Dioxide 24 Anion Gap 8 BUN 47 H Creatinine 0.89 Est GFR ( Amer) > 60 Est GFR (Non-Af Amer) > 60 Glucose 141 H Calcium 8.0 L 10/10/16 10/10/16 10/10/16 08:31 08:31 14:25 Creatine Kinase 176 H 170 H CK-MB (CK-2) 2.26 Troponin I 0.024 10/10/16 10/10/16 10/10/16 14:25 20:30 20:30 Creatine Kinase 174 H CK-MB (CK-2) 2.64 2.75 Troponin I 0.018 0.017 Impressions: Abdomen/Pelvis CT 10/04/16 00:00 IMPRESSION: NO SIGNIFICANT OR ACUTE PROCESS IN THE ABDOMEN OR PELVIS. Skeletal Survey 10/05/16 00:00 IMPRESSION: Small lucent lesions are identified on the skull, humeri, pelvis, and right femoral series. Correlate with additional evaluation to exclude myeloma or metastatic disease. Chest CT 10/06/16 00:00 IMPRESSION: No dominant lung mass. Small bilateral pleural effusions with basilar atelectasis. Minimal nodularity along the pleural surfaces right greater than left which nonspecific. No measurable masses. Bone Biopsy CT 10/09/16 00:00 IMPRESSION: CT GUIDED BIOPSY OF THE RIGHT POSTERIOR ILIAC CREST FOR BONE MARROW ASPIRATE EVALUATION PERFORMED WITHOUT IMMEDIATE COMPLICATION. PATHOLOGY PENDING. Lung Scan-VQ NM 10/10/16 00:00 IMPRESSION: No ventilation-perfusion mismatches. Lumbar Spine MRI 10/10/16 17:09 IMPRESSION: Very limited study. There are however multilevel epidural soft tissue mass is just posterior to the vertebral bodies resulting in severe compromise of the canal. In addition, at the discs levels, there is marked spinal stenosis related to posterior element overgrowth. MRI with contrast should be performed to further evaluate the epidural soft tissue masses. Thoracic Spine MRI 10/11/16 00:00 IMPRESSION: Small T6-T7 disc protrusion causes mild spinal canal stenosis. No significant cord or nerve root compression. Moderate nonspecific soft tissue swelling of the back at the thoracolumbar junctional levels. Otherwise, no MRI evidence of metastatic disease, as queried. If there is continued clinical suspicion, consider further evaluation with whole-body bone scan, CT PET imaging , and/or contrast MRI survey of the spine. Cervical Spine MRI 10/11/16 10:56 IMPRESSION: Anterior C4-C5 hardware fusion. A moderate C3-C4 disc protrusion mildly compresses the spinal cord. Chest X-Ray 10/14/16 23:52 IMPRESSION: No radiographic evidence for pneumothorax. Mild cardiomegaly and vascular congestion. Subsegmental atelectasis in the right perihilar region. 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 (4) DEL (acute kidney injury) Is this a current diagnosis for this admission?: YesPlan: Improved now, dialysis catheter removed (5) Physical deconditioning Is this a current diagnosis for this admission?: YesPlan: Patient would benefit from rehabilitation placement unfortunately her insurance coverage does not allow for any rehabilitation placement, so so far nursing homes have refused admission. We will need to continue to work with her through physical therapy and hopefully get her home with physical therapy. - Time Time Spent with patient: 25-34 minutes Critical Time spent with patient: 25-34 minutes - Inpatient Certification Based on my medical assessment, after consideration of the patient's comorbidities, presenting symptoms, or acuity I expect that the services needed warrant INPATIENT care.: Yes I certify that my determination is in accordance with my understanding of Medicare's requirements for reasonable and necessary INPATIENT services [42 CFR 412.3e].: Yes Medical Necessity: Risk of Complication if Not Cared For in Hospital
[2016-11-01] MEDS: AMLODIPINE BESYLATE 5 MG TABLET PO SCH (09:38)
[2016-11-01] MEDS: FUROSEMIDE 40 MG TABLET PO SCH (09:39)
[2016-11-01] MEDS: DOCUSATE SODIUM 100 MG CAPSULE PO SCH ×2 (09:39→17:30)
[2016-11-01] MEDS: POLYETHYLENE GLYCOL 3350 POWDER 17 GM/1 PACKET PO SCH (09:39)
[2016-11-01] MEDS: OXYCODONE HCL SR 40 MG TABLET PO SCH (09:40)
[2016-11-01] MEDS: VALACYCLOVIR HCL 500 MG TABLET PO SCH ×2 (09:41→17:30)
[2016-11-01] MEDS: DEXAMETHASONE 4 MG TABLET PO SCH ×2 (14:29→22:00)
[2016-11-01] MEDS: HYDROMORPHONE HCL INJ/PF 2 MG/ML AMPULE IV PRN (16:23)
[2016-11-01] MEDS: LANSOPRAZOLE 15 MG TAB.RAP.DR PO SCH (16:23)
[2016-11-02] MEDS: OXYCODONE HCL IR 5 MG TABLET PO PRN ×2 (02:16→15:15)
[2016-11-02 05:33] LABS: HEMATOCRIT 25.8 % (36.0-47.0); HEMOGLOBIN 8.9 g/dL (12.0-15.5); HGB HCT DIFFERENCE 0.9; MEAN CORPUSCULAR HEMOGLOBIN 31.6 pg (27.0-33.4); MEAN CORPUSCULAR HGB CONC 34.3 g/dL (32.0-36.0); MEAN CORPUSCULAR VOLUME 92 fl (80-97); RED CELL DISTRIBUTION WIDTH 16.9 % (11.5-14.0)
[2016-11-02] MEDS: LANSOPRAZOLE 15 MG TAB.RAP.DR PO SCH (05:42)
[2016-11-02] MEDS: DEXAMETHASONE 4 MG TABLET PO SCH (05:42)
[2016-11-02] MEDS: HYDROMORPHONE HCL 2 MG TABLET PO PRN ×2 (05:46→12:47)
[2016-11-02] MEDS: HEPARIN SOD (PORCINE) 5,000 UNIT/ML 1 ML SYRINGE SUBCUT SCH ×2 (05:46→13:11)
[2016-11-02 06:14] LABS: BAND NEUTROPHILS % (MANUAL) 1 % (3-5); BASOPHILS % (MANUAL) 0 % (0-2); EOSINOPHILS % (MANUAL) 0 % (0-6); LYMPHOCYTES % (MANUAL) 10 % (13-45); NUCLEATED RED BLOOD CELLS 1 /100 WBC (0); TOTAL CELLS COUNTED 100
[2016-11-02 06:15] LABS: ANISOCYTOSIS 1+
[2016-11-02 07:13] LABS: ANION GAP 7 (5-19); BLOOD UREA NITROGEN 43 mg/dL (7-20); CALCIUM 8.2 mg/dL (8.4-10.2); CARBON DIOXIDE 25 mmol/L (22-30); CHLORIDE 104 mmol/L (98-107); CREATININE RESULT 0.75 mg/dL (0.52-1.25); GLUCOSE 117 mg/dL (75-110); POTASSIUM 4.8 mmol/L (3.6-5.0); SODIUM 135.6 mmol/L (137-145)
--- NOTE | 2016-11-02 07:58 | PDOC PROGRESS REPORT ---
Subjective Progress Note for:: 11/02/16 Subjective:: Received call from discharge planning yesterday, a new [facility] rehabilitation facility has accepted her. She seems to be doing well today. Over the last 24 hours spent 45 minutes and coordination of care. Physical Exam Vital Signs: Temp Pulse Resp BP Pulse Ox 98.3 F 81 18 107/60 100 11/02/16 07:39 11/02/16 07:39 11/02/16 07:39 11/02/16 07:39 11/02/16 07:39 Intake & Output 11/01/16 11/02/16 11/03/16 06:59 06:59 06:59 Intake Total 2412 964 Output Total 975 0 Balance 1437 964 Weight 122.1 kg 122.7 kg General appearance: PRESENT: no acute distress, well-developed, well-nourished Head exam: PRESENT: atraumatic, normocephalic Eye exam: PRESENT: conjunctiva pink, EOMI, PERRLA. ABSENT: scleral icterus Ear exam: PRESENT: normal external ear exam Mouth exam: PRESENT: moist, tongue midline Neck exam: ABSENT: carotid bruit, JVD, lymphadenopathy, thyromegaly Respiratory exam: PRESENT: clear to auscultation merrill. ABSENT: rales, rhonchi, wheezes Cardiovascular exam: PRESENT: RRR. ABSENT: diastolic murmur, rubs, systolic murmur Pulses: PRESENT: normal dorsalis pedis pul Vascular exam: PRESENT: normal capillary refill GI/Abdominal exam: PRESENT: normal bowel sounds, soft. ABSENT: distended, guarding, mass, organolmegaly, rebound, tenderness Rectal exam: PRESENT: deferred Extremities exam: PRESENT: full ROM. ABSENT: calf tenderness, clubbing, pedal edema Neurological exam: PRESENT: alert, awake, oriented to person, oriented to place , oriented to time, oriented to situation, CN II-XII grossly intact. ABSENT: motor sensory deficit Psychiatric exam: PRESENT: appropriate affect, normal mood. ABSENT: homicidal ideation, suicidal ideation Skin exam: PRESENT: dry, intact, warm. ABSENT: cyanosis, rash Results Laboratory Results: 11/02/16 05:00 11/02/16 06:46 11/02/16 11/02/16 11/02/16 05:00 05:00 06:46 WBC 6.0 RBC 2.80 L Hgb 8.9 L Hct 25.8 L MCV 92 MCH 31.6 MCHC 34.3 RDW 16.9 H Plt Count 161 Seg Neutrophils % Not Reportable Lymphocytes % Not Reportable Monocytes % Not Reportable Eosinophils % Not Reportable Basophils % Not Reportable Absolute Neutrophils Not Reportable Absolute Lymphocytes Not Reportable Absolute Monocytes Not Reportable Absolute Eosinophils Not Reportable Absolute Basophils Not Reportable Sodium Cancelled 135.6 L Potassium Cancelled 4.8 Chloride Cancelled 104 Carbon Dioxide Cancelled 25 Anion Gap Cancelled 7 BUN Cancelled 43 H Creatinine Cancelled 0.75 Est GFR ( Amer) Cancelled > 60 Est GFR (Non-Af Amer) Cancelled > 60 Glucose Cancelled 117 H Calcium Cancelled 8.2 L 10/10/16 10/10/16 10/10/16 08:31 08:31 14:25 Creatine Kinase 176 H 170 H CK-MB (CK-2) 2.26 Troponin I 0.024 10/10/16 10/10/16 10/10/16 14:25 20:30 20:30 Creatine Kinase 174 H CK-MB (CK-2) 2.64 2.75 Troponin I 0.018 0.017 Impressions: Abdomen/Pelvis CT 10/04/16 00:00 IMPRESSION: NO SIGNIFICANT OR ACUTE PROCESS IN THE ABDOMEN OR PELVIS. Skeletal Survey 10/05/16 00:00 IMPRESSION: Small lucent lesions are identified on the skull, humeri, pelvis, and right femoral series. Correlate with additional evaluation to exclude myeloma or metastatic disease. Chest CT 10/06/16 00:00 IMPRESSION: No dominant lung mass. Small bilateral pleural effusions with basilar atelectasis. Minimal nodularity along the pleural surfaces right greater than left which nonspecific. No measurable masses. Bone Biopsy CT 10/09/16 00:00 IMPRESSION: CT GUIDED BIOPSY OF THE RIGHT POSTERIOR ILIAC CREST FOR BONE MARROW ASPIRATE EVALUATION PERFORMED WITHOUT IMMEDIATE COMPLICATION. PATHOLOGY PENDING. Lung Scan-VQ NM 10/10/16 00:00 IMPRESSION: No ventilation-perfusion mismatches. Lumbar Spine MRI 10/10/16 17:09 IMPRESSION: Very limited study. There are however multilevel epidural soft tissue mass is just posterior to the vertebral bodies resulting in severe compromise of the canal. In addition, at the discs levels, there is marked spinal stenosis related to posterior element overgrowth. MRI with contrast should be performed to further evaluate the epidural soft tissue masses. Thoracic Spine MRI 10/11/16 00:00 IMPRESSION: Small T6-T7 disc protrusion causes mild spinal canal stenosis. No significant cord or nerve root compression. Moderate nonspecific soft tissue swelling of the back at the thoracolumbar junctional levels. Otherwise, no MRI evidence of metastatic disease, as queried. If there is continued clinical suspicion, consider further evaluation with whole-body bone scan, CT PET imaging , and/or contrast MRI survey of the spine. Cervical Spine MRI 10/11/16 10:56 IMPRESSION: Anterior C4-C5 hardware fusion. A moderate C3-C4 disc protrusion mildly compresses the spinal cord. Chest X-Ray 10/14/16 23:52 IMPRESSION: No radiographic evidence for pneumothorax. Mild cardiomegaly and vascular congestion. Subsegmental atelectasis in the right perihilar region. 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 We can let her go and it should continue to improve. (2) Pain, neoplasm-related Plan: She will be discharged on OxyContin, oxycodone, and Dilaudid also for breakthrough pain. (3) Multiple myeloma Qualifiers: Multiple myeloma remission status: not in remission Qualified Code(s ): C90.00 - Multiple myeloma not having achieved remission Is this a current diagnosis for this admission?: YesPlan: She has had good treatment thus far, radiation is completed, her first cycle of chemotherapy has been completed. We will now hold on chemotherapy and treatment for the myeloma until she gets out of rehabilitation. We will set up a follow-up appointment to see us within 2 weeks of discharge to see how her progress is going in rehabilitation. (4) DEL (acute kidney injury) Is this a current diagnosis for this admission?: YesPlan: Improved, dialysis catheter is out now, hopefully this will remain normal. (5) Physical deconditioning Is this a current diagnosis for this admission?: YesPlan: Discharged to rehabilitation today, hopeful quick improvement in strength. - Time Time Spent with patient: 35 or more minutes Critical Time spent with patient: 35 or more minutes Anticipated discharge: Acute Rehab Within: within 24 hours
[2016-11-02] MEDS: POLYETHYLENE GLYCOL 3350 POWDER 17 GM/1 PACKET PO SCH (09:24)
[2016-11-02] MEDS: VALACYCLOVIR HCL 500 MG TABLET PO SCH (09:25)
[2016-11-02] MEDS: FUROSEMIDE 40 MG TABLET PO SCH (09:25)
[2016-11-02] MEDS: DOCUSATE SODIUM 100 MG CAPSULE PO SCH (09:26)
[2016-11-02] MEDS: AMLODIPINE BESYLATE 5 MG TABLET PO SCH (09:26)
[2016-11-02] MEDS ORDERED: OXYCODONE HCL SR 40 MG TABLET PO SCH (10:00)
[2016-11-02 12:08] VITALS: BP 109/63
[2016-11-02] MEDS ORDERED: DEXAMETHASONE 4 MG TABLET PO SCH (13:00)
--- NOTE | 2016-11-02 13:38 | PDOC TRANSFER SUMMARY ---
General - Admit/Disc Date/PCP Admission Date/Primary Care Provider: 10/04/16 08:08 DAWNA MOSLEY MD Discharge Date: 11/02/16 - Discharge Diagnosis (1) Acute renal failure Is this a current diagnosis for this admission?: YesSummary: stable (2) Anemia Is this a current diagnosis for this admission?: YesSummary: stable (3) Hypokalemia Is this a current diagnosis for this admission?: YesSummary: resolved (4) Back pain Is this a current diagnosis for this admission?: YesSummary: stable (5) Hypertension Is this a current diagnosis for this admission?: YesSummary: stable (6) Edema Is this a current diagnosis for this admission?: YesSummary: all resolved (7) Multiple myeloma Is this a current diagnosis for this admission?: YesSummary: f/u with onclogy in 2 wk (8) Sinus tachycardia Is this a current diagnosis for this admission?: YesSummary: resolved (9) Fever Is this a current diagnosis for this admission?: YesSummary: resolved - Additional Information Resuscitation Status: Full Code Discharge Diet: Cardiac Discharge Activity: Activity As Tolerated Home Medications: Amlodipine Besylate [Norvasc 5 mg Tablet] 5 mg PO DAILY 10/04/16 Ferrous Sulfate [Feosol 325 mg Tablet] 325 mg PO DAILY 10/04/16 Docusate Sodium [Colace 100 mg Capsule] 100 mg PO BID #0 capsule 11/02/16 Furosemide [Lasix] 40 mg PO DAILY #30 tablet 11/02/16 Oxycodone HCl [Oxy-Ir 5 mg Tablet] 20 mg PO Q4HP PRN #60 tablet 11/02/16 Oxycodone HCl [Oxycontin Sr 40 mg Tablet] 40 mg PO Q12 #60 tab.sr.12h 11/02/16 Polyethylene Glycol 3350 [Miralax Powder 17 gm/Packet] 17 gm PO DAILY #0 powd.pack 11/02/16 Valacyclovir HCl [Valtrex 500 mg Tablet] 500 mg PO BID #0 tablet 11/02/16 History of Present Illness Admission Date/PCP: 10/04/16 08:08 DAWNA MOSLEY MD History of Present Illness: 56-year-old female with recent history of acute renal dysfunction, hypercalcemia and anemia. In review of labs just about 3 months ago, she had a normal hemoglobin in the 12-13 range, creatinine was normal at 0.73 with BUN of 21 on 07/11/2016 and calcium was normal at 9.7 on the same day. Over the last 3 months she's been experiencing increasing low back and bilateral leg pain, on presentation to her PCPs office, she was found to have a creatinine of 3 range, calcium in the 14 range, total protein elevated, hemoglobin was in the 8 range. Iron studies were done, ferritin was 745. She had CT of the abdomen pelvis without contrast, there is no abnormality noted. Patient's PTH is actually low at 12 her phosphorus is slightly elevated at 5.0. Her admitting kidney function indicates a BUN of 45 creatinine of 2.81 and today were 42 and 3.21. Potassium has been low at 3.2-3.4. Her calcium is still elevated and not much change. Patient was given IV fluids of 1 L at the emergency room and currently at 125 mL an hour of normal saline. She is making urine. Patient admits that her leg pain and back pain has been progressively getting worse since the third week of July. 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 She described her pain to be constant with intensity of 10 over 10. She had treatment with 2 courses of Medrol Dosepak as an outpatient prior to this admission which she said didn't help. In terms of her kidneys she denied any problems with her kidneys in the past. She denied any history of kidney failure or kidney stones nor problems with urination. She said her appetite did not really change prior to admission although she is not drinking much fluids. She denies any other complaints. Hospital Course Hospital Course: This is a 56-year-old female present in the emergency department with the complaint of back pain and found acute renal failure and hypercalcemia and patient was diagnosed with the multiple myeloma and patient started getting the chemotherapy. Patient also had a CT spine done and results the spine the tumor and the lower back and underwent further radiations treatments for 10 days. Patient under went further dialysis and patient's kidney function is also improving and patient seen by nephrology and since last 10 days patient does not need any dialysis and patient's currently doing well without dialysis Patient's hemoglobin is stable and per discussed with the oncology is no need for any blood transfusion at this point Patient still very weak and patient I think is more safe to go to the rehabilitation and discuss with the family and the patient and patient's discharge to the rehabilitation unit Patient's also continues to heparin subcutaneous for DVT prophylaxis until the patient's fully mobile Patient's by mouth intake is good This is already have a history of the back problem and a chronic pain issue and was seen by the pain management in the past and currently the pain under control with the current pain medications Patient seen by the in store demonstrator and oncologist Dr. boone Patient also seen by nephrology Patient also seen by the pain management Is and also have a physical therapy evaluations done Physical Exam Vital Signs: Temp Pulse Resp BP Pulse Ox 98.4 F 84 20 109/63 97 11/02/16 11:34 11/02/16 11:34 11/02/16 11:34 11/02/16 11:34 11/02/16 11:34 Intake & Output 11/01/16 11/02/16 11/03/16 06:59 06:59 06:59 Intake Total 2412 964 360 Output Total 975 0 Balance 1437 964 360 Weight 122.1 kg 122.7 kg General appearance: PRESENT: no acute distress, well-developed, well-nourished Head exam: PRESENT: atraumatic, normocephalic Eye exam: PRESENT: conjunctiva pink, EOMI, PERRLA. ABSENT: scleral icterus Ear exam: PRESENT: normal external ear exam Mouth exam: PRESENT: moist, tongue midline Neck exam: ABSENT: carotid bruit, JVD, lymphadenopathy, thyromegaly Respiratory exam: PRESENT: clear to auscultation merrill. ABSENT: rales, rhonchi, wheezes Cardiovascular exam: PRESENT: RRR. ABSENT: diastolic murmur, rubs, systolic murmur Pulses: PRESENT: normal dorsalis pedis pul Vascular exam: PRESENT: normal capillary refill GI/Abdominal exam: PRESENT: normal bowel sounds, soft. ABSENT: distended, guarding, mass, organolmegaly, rebound, tenderness Rectal exam: PRESENT: deferred Extremities exam: PRESENT: full ROM. ABSENT: calf tenderness, clubbing, pedal edema Neurological exam: PRESENT: alert, awake, oriented to person, oriented to place , oriented to time, oriented to situation, CN II-XII grossly intact. ABSENT: motor sensory deficit Psychiatric exam: PRESENT: appropriate affect, normal mood. ABSENT: homicidal ideation, suicidal ideation Skin exam: PRESENT: dry, intact, warm. ABSENT: cyanosis, rash Results Laboratory Results: 11/02/16 05:00 11/02/16 06:46 11/02/16 11/02/16 11/02/16 05:00 05:00 06:46 WBC 6.0 RBC 2.80 L Hgb 8.9 L Hct 25.8 L MCV 92 MCH 31.6 MCHC 34.3 RDW 16.9 H Plt Count 161 Seg Neutrophils % Not Reportable Lymphocytes % Not Reportable Monocytes % Not Reportable Eosinophils % Not Reportable Basophils % Not Reportable Absolute Neutrophils Not Reportable Absolute Lymphocytes Not Reportable Absolute Monocytes Not Reportable Absolute Eosinophils Not Reportable Absolute Basophils Not Reportable Sodium Cancelled 135.6 L Potassium Cancelled 4.8 Chloride Cancelled 104 Carbon Dioxide Cancelled 25 Anion Gap Cancelled 7 BUN Cancelled 43 H Creatinine Cancelled 0.75 Est GFR ( Amer) Cancelled > 60 Est GFR (Non-Af Amer) Cancelled > 60 Glucose Cancelled 117 H Calcium Cancelled 8.2 L 10/10/16 10/10/16 10/10/16 08:31 08:31 14:25 Creatine Kinase 176 H 170 H CK-MB (CK-2) 2.26 Troponin I 0.024 10/10/16 10/10/16 10/10/16 14:25 20:30 20:30 Creatine Kinase 174 H CK-MB (CK-2) 2.64 2.75 Troponin I 0.018 0.017 Impressions: Abdomen/Pelvis CT 10/04/16 00:00 IMPRESSION: NO SIGNIFICANT OR ACUTE PROCESS IN THE ABDOMEN OR PELVIS. Skeletal Survey 10/05/16 00:00 IMPRESSION: Small lucent lesions are identified on the skull, humeri, pelvis, and right femoral series. Correlate with additional evaluation to exclude myeloma or metastatic disease. Chest CT 10/06/16 00:00 IMPRESSION: No dominant lung mass. Small bilateral pleural effusions with basilar atelectasis. Minimal nodularity along the pleural surfaces right greater than left which nonspecific. No measurable masses. Bone Biopsy CT 10/09/16 00:00 IMPRESSION: CT GUIDED BIOPSY OF THE RIGHT POSTERIOR ILIAC CREST FOR BONE MARROW ASPIRATE EVALUATION PERFORMED WITHOUT IMMEDIATE COMPLICATION. PATHOLOGY PENDING. Lung Scan-VQ NM 10/10/16 00:00 IMPRESSION: No ventilation-perfusion mismatches. Lumbar Spine MRI 10/10/16 17:09 IMPRESSION: Very limited study. There are however multilevel epidural soft tissue mass is just posterior to the vertebral bodies resulting in severe compromise of the canal. In addition, at the discs levels, there is marked spinal stenosis related to posterior element overgrowth. MRI with contrast should be performed to further evaluate the epidural soft tissue masses. Thoracic Spine MRI 10/11/16 00:00 IMPRESSION: Small T6-T7 disc protrusion causes mild spinal canal stenosis. No significant cord or nerve root compression. Moderate nonspecific soft tissue swelling of the back at the thoracolumbar junctional levels. Otherwise, no MRI evidence of metastatic disease, as queried. If there is continued clinical suspicion, consider further evaluation with whole-body bone scan, CT PET imaging , and/or contrast MRI survey of the spine. Cervical Spine MRI 10/11/16 10:56 IMPRESSION: Anterior C4-C5 hardware fusion. A moderate C3-C4 disc protrusion mildly compresses the spinal cord. Chest X-Ray 10/14/16 23:52 IMPRESSION: No radiographic evidence for pneumothorax. Mild cardiomegaly and vascular congestion. Subsegmental atelectasis in the right perihilar region. Transfer Plan - Disposition Transfer Plan: Patient is transferred to the rehabilitation for further strengthening of the muscles. Follow with the oncology in 2 weeks and follow with the nephrology 2 weeks. Check CBC and Chem-7 in twice a week Fall precautions Also add the medications dexamethasone 4 mg twice a day And heparin injection 5000 unit subcutaneous every 8 until the patient's fully ambulatory Plan Time Spent: Greater than 30 Minutes - Discussed with the patient and the family while patient is still weak I think is more appropriate to go to the rehabilitation and patient's agree and discharge to the rehabilitation
== END 2016-11-02 15:48 | DRG 840 ==
LOC: ER 20:08 → EH 10-04 06:30 → UNDOADMIN 10-04 06:30 → EH 10-04 08:08 → 3N 10-04 18:42
PROVIDERS: ADMIT Family Medicine; ATTEND Family Medicine
PROC: 0DB68ZX Excision of Stomach, Via Natural or Artificial Opening Endoscopic, Diagnostic (ICD-10-PCS; 2016-10-05)
PROC: 30233N1 Transfusion of Nonautologous Red Blood Cells into Peripheral Vein, Percutaneous Approach (ICD-10-PCS; 2016-10-06)
PROC: 07DR3ZX Extraction of Iliac Bone Marrow, Percutaneous Approach, Diagnostic (ICD-10-PCS; principal; 2016-10-09)
PROC: 06HN33Z Insertion of Infusion Device into Left Femoral Vein, Percutaneous Approach (ICD-10-PCS; 2016-10-15)
PROC: B54CZZA Ultrasonography of Left Lower Extremity Veins, Guidance (ICD-10-PCS; 2016-10-15)
PROC: 5A1D60Z (ICD-10-PCS; 2016-10-15)
PROC: 3E03305 Introduction of Other Antineoplastic into Peripheral Vein, Percutaneous Approach (ICD-10-PCS; 2016-10-16)
PROC: 3E0234Z Introduction of Serum, Toxoid and Vaccine into Muscle, Percutaneous Approach (ICD-10-PCS; 2016-11-02)
DX: C90.00 Multiple myeloma not having achieved remission (principal); N17.0 Acute kidney failure with tubular necrosis; D60.8 Other acquired pure red cell aplasias; N39.0 Urinary tract infection, site not specified; E87.2 Acidosis; E87.6 Hypokalemia; N25.89 Other disorders resulting from impaired renal tubular function; I10 Essential (primary) hypertension; R00.0 Tachycardia, unspecified; M17.0 Bilateral primary osteoarthritis of knee; F17.210 Nicotine dependence, cigarettes, uncomplicated; E83.39 Other disorders of phosphorus metabolism; G89.3 Neoplasm related pain (acute) (chronic); E87.5 Hyperkalemia; B95.2 Enterococcus as the cause of diseases classified elsewhere; Z23 Encounter for immunization; Z79.899 Other long term (current) drug therapy; Z90.49 Acquired absence of other specified parts of digestive tract; Z82.49 Family history of ischemic heart disease and other diseases of the circulatory system; K59.00 Constipation, unspecified
CPT/HCPCS: 20225; 36415; 36430; 36556; 43239; 71010; 71020; 71250; 72141; 72146; 72148; 74176; 76937; 77075; 78582; 80048; 80053; 80074; 81001; 82040; 82306; 82330; 82397; 82550; 82553; 82728; 82784; 82962; 83540; 83550; 83735; 83880; 83883; 83970; 84100; 84165; 84166; 84443; 84466; 84484; 85025; 85027; 85045; 85610; 85730; 86850; 86900; 86901; 86920; 87040; 87086; 87088; 87186; 87340; 88305; 88342; 93005; 93010; 93306; 93970; 96401; 99285; A9540; A9567; C1752; C1769; J0171; J0610; J0696; J1100; J1170; J1200; J1610; J1642; J1644; J1940; J1956; J2250; J2270; J2310; J2405; J2550; J3010; J3480; J3489; J3490; J7030; J9041; P9016; Q9969; S0164

== ENCOUNTER 2016-11-27 16:30 | Emergency (ER) | payer BC ==
[2016-11-27] MEDS ORDERED: NORMAL SALINE 1000 ML 1,000 ML IV ONE ×2 (17:13→19:55)
--- NOTE | 2016-11-27 17:20 | ER Document Report ---
ED Syncope and Near Syncope - General Mode of Arrival: Medic Information source: Patient, Relative TRAVEL OUTSIDE OF THE [place] IN LAST 30 DAYS: No - HPI Patient complains to provider of: Fainting Episode witnessed (by whom): Yes - Symptoms prior to episode: Other - see notes above Context: Other - see notes above Current symptoms: Other - see notes above <ADAN LAL - Last Filed: 11/27/16 20:21> <LIEN NUR - Last Filed: 11/27/16 23:16> - General Chief Complaint: Fainting Stated Complaint: SYNCOPE Time Seen by Provider: 11/27/16 17:10 Notes: 56 year old female with history of multiple myeloma currently receiving chemotherapy presents to the ED via EMS after having a syncopal episode prior to receiving chemo treatment earlier this afternoon at Dr. Morgan's office. Patient's states that her blood pressure was checked at the office prior to treatment and was deemed to low to safely receive the chemo. After checking her blood pressure the patient became 'very unresponsive' and looked like 'she wanted to go to sleep.' Patient denies cough, diarrhea, bleeding, or any urinary symptoms. Patient's last chemo treatment was 1 week ago and the states that the patient was fine then. Patient was admitted to [facility] for 1 month from September - October 2016 secondary to acute renal failure, hypercalcemia , and anemia. (ADAN LAL) - Related Data Allergies/Adverse Reactions: No Known Allergies Allergy (Verified 09/27/16 08:38) Past Medical History - General Information source: Patient, Relative - Social History Smoking Status: Unknown if Ever Smoked Family History: Reviewed & Not Pertinent - Past Medical History Cardiac Medical History: Reports: Hx Hypertension Renal/ Medical History: Denies: Hx Peritoneal Dialysis Musculoskeltal Medical History: Reports Hx Arthritis - OA Psychiatric Medical History: Denies: Hx Depression Past Surgical History: Reports: Hx Cholecystectomy. Denies: Hx Hysterectomy, Hx Pacemaker - Immunizations Hx Diphtheria, Pertussis, Tetanus Vaccination: Yes <AADN LAL - Last Filed: 11/27/16 20:21> Review of Systems - Review of Systems Constitutional: No symptoms reported EENT: No symptoms reported Cardiovascular: See HPI, Syncope Respiratory: No symptoms reported. denies: Cough Gastrointestinal: No symptoms reported. denies: Diarrhea Genitourinary: No symptoms reported. denies: Dysuria, Hematuria Female Genitourinary: No symptoms reported Musculoskeletal: No symptoms reported Skin: No symptoms reported Hematologic/Lymphatic: No symptoms reported Neurological/Psychological: See HPI, Lost consciousness -: Yes All other systems reviewed and negative <ADAN LAL - Last Filed: 11/27/16 20:21> Physical Exam - Vital signs Interpretation: Normal - General General appearance: Appears well, Alert - HEENT Head: Normocephalic, Atraumatic Eyes: Normal Pupils: PERRL - Respiratory Respiratory status: No respiratory distress Chest status: Nontender Breath sounds: Normal Chest palpation: Normal - Cardiovascular Rhythm: Regular Heart sounds: Normal auscultation Murmur: No - Abdominal Inspection: Normal Distension: No distension Bowel sounds: Normal Tenderness: Nontender Organomegaly: No organomegaly - Back Back: Normal, Nontender - Extremities General upper extremity: Normal inspection, Nontender, Normal color, Normal ROM , Normal temperature General lower extremity: Normal inspection, Nontender, Normal color, Normal temperature. No: Normal ROM, Normal weight bearing, Katalina's sign Shoulder: Normal Arm: Normal Forearm: Normal Wrist: Normal Hand: Normal Hip: Unable to bear weight - L Knee: No: Pain with ROM Ankle: Normal. No: Limited ROM Foot: Normal - Neurological Neuro grossly intact: Yes Cognition: Normal Orientation: AAOx4 Ally Coma Scale Eye Opening: Spontaneous Ally Coma Scale Verbal: Oriented Langston Coma Scale Motor: Obeys Commands Langston Coma Scale Total: 15 Speech: Normal Motor strength normal: LUE, RUE, LLE, RLE Sensory: Normal - Psychological Associated symptoms: Normal affect, Normal mood - Skin Skin Temperature: Warm Skin Moisture: Dry Skin Color: Normal <LIEN NUR - Last Filed: 11/27/16 23:16> - Vital signs Vitals: Pulse Ox 98 11/27/16 17:45 Course - Laboratory Result Diagrams: 11/27/16 18:55 11/27/16 17:52 - Consults Dr. Lal Time consulted: 17:35 <ADAN LAL - Last Filed: 11/27/16 20:21> - Laboratory Result Diagrams: 11/27/16 18:55 11/27/16 17:52 - Consults Dr. Castaneda Consulted provider: will come to ER <LIEN NUR - Last Filed: 11/27/16 23:16> - Re-evaluation Re-evalutation: 11/27/16 18:04 Patient is a 56-year-old female who presents with near syncope at her oncologist office. Patient has been recently receiving chemotherapy. She has been nauseated recently. Has been vomiting last night and this morning. Patient presents with tachycardia and syncope. Patient has been afebrile in this emergency department and denies any fever at home. Blood and urine cultures have been sent. Patient has had no evidence here of infection. Chest x-ray and urine within normal limits no dyspnea. Patient is slightly more anemic than usual but does not require transfusion. No vomiting or diarrhea here. Patient does have increasing leg weakness and back pain. Patient had a recent MRI which is showing multiple epidural lesions. Patient was discussed with her primary care doctor who feels that the patient should be transferred to tertiary care center for evaluation of her spinal lesions due to her increasing leg weakness and now inability to walk. Patient and family are in agreement with this plan.patient will have copy of MRI sent with her to [facility]. 11/27/16 20:04 Patient was discussed with Dr. [facility] who agrees to accept the patient for admission. Patient is taking by mouth in the room. She is receiving her second liter of fluids a heart rate is down her blood pressure is up. Patient has no complaints at this time. She remained afebrile. 11/28/16 00:10 Patient is stable at the time of transfer. Transport should be here to get her within the hour. Transfer care to Dr. Cobian. (LIEN NUR) - Vital Signs Vital signs: Temp Pulse Resp BP Pulse Ox 99 F 16 105/55 L 100 11/27/16 22:40 11/27/16 22:31 11/27/16 22:31 11/27/16 22:31 - Laboratory Laboratory results interpreted by me: 11/27/16 11/27/16 17:52 18:55 RBC 2.41 L Hgb 7.9 L Hct 23.8 L MCV 99 H D RDW 18.3 H Seg Neutrophils % 80.4 H Sodium 135.0 L BUN 51 H Calcium 8.0 L Direct Bilirubin 0.5 H Total Protein 5.6 L Albumin 2.4 L - Consults Dr. Lal Reason for consultation: 11/27/16 17:35 Patient was discussed with Dr. Lal and he agrees that the patient should be transferred to [facility]. 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, Dehydration Leg weakness Qualifiers: Laterality: left Qualified Code(s): R29.898 - Other symptoms and signs involving the musculoskeletal system Multiple myeloma Qualifiers: Multiple myeloma remission status: not in remission Qualified Code(s): C90.00 - Multiple myeloma not having achieved remission Disposition: [facility] Referrals: DAWNA LAL MD [Primary Care Provider] - Follow up as needed Scribe Attestation: 11/27/16 23:16 I personally performed the services described in the documentation, reviewed and edited the documentation which was dictated to the scribe in my presence, and it accurately records my words and actions. (LIEN NUR) Scribe Documentation - Scribe Written by Abhilashibe:: Shana Gamez, 11/27/2016 1745 acting as scribe for :: Edwina <ADAN LAL - Last Filed: 11/27/16 20:21>
[2016-11-27 18:34] LABS: ALANINE AMINOTRANSFERASE 39 U/L (9-52); ALBUMIN 2.4 g/dL (3.5-5.0); ALKALINE PHOSPHATASE 39 U/L (38-126); ANION GAP 6 (5-19); ASPARTATE AMINO TRANSFERASE 20 U/L (14-36); BILIRUBIN,DIRECT 0.5 mg/dL (0.0-0.4); BILIRUBIN,TOTAL 0.7 mg/dL (0.2-1.3); BLOOD UREA NITROGEN 51 mg/dL (7-20); CARBON DIOXIDE 24 mmol/L (22-30); CHLORIDE 105 mmol/L (98-107); CREATINE KINASE 52 U/L (30-135); CREATININE RESULT 0.97 mg/dL (0.52-1.25); GLUCOSE 101 mg/dL (75-110); POTASSIUM 4.2 mmol/L (3.6-5.0); TOTAL PROTEIN 5.6 g/dL (6.3-8.2)
[2016-11-27 18:46] LABS: CREATINE KINASE MB 1.76 ng/mL (<4.55); TROPONIN I < 0.012 ng/mL
[2016-11-27 18:53] LABS: APPEARANCE,URINE CLEAR; BILIRUBIN,URINE NEGATIVE (NEGATIVE); GLUCOSE, URINE NEGATIVE (NEGATIVE); KETONES,URINE NEGATIVE (NEGATIVE); LEUKOCYTE ESTERASE,URINE NEGATIVE (NEGATIVE); NITRITE,URINE NEGATIVE (NEGATIVE); PROTEIN,URINE NEGATIVE (NEGATIVE); URINE SPECIFIC GRAVITY 1.008; UROBILINOGEN,URINE NEGATIVE mg/dL (<2.0)
[2016-11-27 19:48] LABS: ABSOLUTE LYMPHOCYTES (AUTO) 0.9 10^3/uL (0.5-4.7); ABSOLUTE MONOCYTES (AUTO) 0.2 10^3/uL (0.1-1.4); ABSOLUTE NEUT (AUTO) 4.9 10^3/uL (1.7-8.2); BASOPHILS % (AUTO) 0.3 % (0-2); EOSINOPHILS % (AUTO) 0.5 % (0-6); HEMATOCRIT 23.8 % (36.0-47.0); HGB HCT DIFFERENCE -0.1; LYMPHOCYTES % (AUTO) 15.5 % (13-45); MEAN CORPUSCULAR HEMOGLOBIN 32.9 pg (27.0-33.4); MEAN CORPUSCULAR HGB CONC 33.3 g/dL (32.0-36.0); MONOCYTES % (AUTO) 3.3 % (3-13); RED BLOOD COUNT 2.41 10^6/uL (3.72-5.28); RED CELL DISTRIBUTION WIDTH 18.3 % (11.5-14.0); SEGMENTED NEUTROPHILS % (AUTO) 80.4 % (42-78); WHITE BLOOD COUNT 6.1 10^3/uL (4.0-10.5)
[2016-11-27 19:56] LABS: MEAN CORPUSCULAR VOLUME 99 fl (80-97)
[2016-11-27 19:58] LABS: HEMOGLOBIN 7.9 g/dL (12.0-15.5)
--- NOTE | 2016-11-27 22:10 | EKG REPORT ---
SEVERITY:- ABNORMAL ECG - SINUS TACHYCARDIA CONSIDER LEFT VENTRICULAR HYPERTROPHY : Confirmed by: Mitzi Moran MD 27-Nov-2016 22:10:11
[2016-11-28 03:04] VITALS: BP 101/66
== END 2016-11-28 03:31 | disposition short-term general hospital (02) ==
LOC: ER 16:30
DX: D49.7 Neoplasm of unspecified behavior of endocrine glands and other parts of nervous system (principal); C90.00 Multiple myeloma not having achieved remission; R29.898 Other symptoms and signs involving the musculoskeletal system; E86.0 Dehydration; R55 Syncope and collapse; Z79.899 Other long term (current) drug therapy
CPT/HCPCS: 93005; 99291; 99292; 96360; 96361; 36415; 87040; 87086; 82553; 82550; 85025; 87077; 80053; 81001; 84484; 87186; 83605; 71010; 93010; J7030

== ENCOUNTER 2016-12-13 11:09 | Emergency (ER) | payer BC ==
[2016-12-13] MEDS ORDERED: NORMAL SALINE 1000 ML 1,000 ML IV ONE ×3 (11:52→14:08)
--- NOTE | 2016-12-13 12:01 | ER Document Report ---
ED General - General Mode of Arrival: Medic Information source: Patient, Relative, Emergency Med Personnel TRAVEL OUTSIDE OF THE [place] IN LAST 30 DAYS: No <ELIZAEBTH FAIRCHILD - Last Filed: 12/13/16 16:09> <LISSA PAYNE - Last Filed: 12/13/16 16:29> - General Chief Complaint: Diarrhea Stated Complaint: ABDOMINAL PAIN Time Seen by Provider: 12/13/16 11:23 Notes: Pt is a 56 year old female wiht multiple myeloma, HTN, on chemo, last chemo treatment two days ago, reglan was stopped at that time for unknown reason. She presents today for 4 days of diarrhea, nausea/vomiting and abdominal pain 4/10 upper abdomen only. She denies abd surgery ever. She is not on dialysis, but has been on dialysis before for acute renal failure and hypercalcemia. ( ELIZABETH FAIRCHILD) - Related Data Allergies/Adverse Reactions: No Known Allergies Allergy (Verified 09/27/16 08:38) Past Medical History - General Information source: Patient, Relative, Emergency Med Personnel - Social History Smoking Status: Unknown if Ever Smoked Family History: Reviewed & Not Pertinent - Past Medical History Cardiac Medical History: Reports: Hx Hypertension Denies: Hx Coronary Artery Disease, Hx Heart Attack Pulmonary Medical History: Denies: Hx Asthma, Hx Bronchitis, Hx COPD, Hx Pneumonia, Hx Tuberculosis Neurological Medical History: Denies: Hx Cerebrovascular Accident, Hx Seizures Renal/ Medical History: Denies: Hx Peritoneal Dialysis Musculoskeltal Medical History: Reports Hx Arthritis - OA Psychiatric Medical History: Denies: Hx Depression Past Surgical History: Reports: Hx Cholecystectomy. Denies: Hx Hysterectomy, Hx Pacemaker - Immunizations Hx Diphtheria, Pertussis, Tetanus Vaccination: Yes <ELIZABETH FAIRCHILD - Last Filed: 12/13/16 16:09> Review of Systems - Review of Systems Constitutional: No symptoms reported EENT: No symptoms reported Cardiovascular: No symptoms reported Respiratory: No symptoms reported Gastrointestinal: See HPI Genitourinary: No symptoms reported Female Genitourinary: No symptoms reported Musculoskeletal: No symptoms reported Skin: No symptoms reported Hematologic/Lymphatic: No symptoms reported Neurological/Psychological: No symptoms reported <ELIZABETH FAIRCHILD - Last Filed: 12/13/16 16:09> Physical Exam <ELIZABETH FAIRCHILD - Last Filed: 12/13/16 16:09> <LISSA PAYNE - Last Filed: 12/13/16 16:29> - Vital signs Vitals: Resp BP Pulse Ox 24 H 71/60 L 98 12/13/16 11:59 12/13/16 11:59 12/13/16 11:59 - Notes Notes: PHYSICAL EXAMINATION: GENERAL: chronically ill appearing, weak, sleeping, in no obvious acute distress. HEAD: Atraumatic, normocephalic. EYES: Pupils equal round and reactive to light, extraocular movements intact, sclera anicteric, conjunctiva are normal. NECK: difficult to evaluate due to patient's altered mental status LUNGS: CTAB and equal. No wheezes rales or rhonchi. HEART: Regular rate and rhythm without murmurs ABDOMEN: Soft, mild diffuse tenderness. No guarding, no rebound, difficult to evaluate due to patient's altered mental status EXTREMITIES: Normal range of motion, no pitting edema. No cyanosis. NEUROLOGICAL: arousable to sternal rub, difficult to evaluate due to patient's altered mental status PSYCH: difficult to evaluate due to patient's altered mental status (ELIZABETH FAIRCHILD) Course - Laboratory Result Diagrams: 12/13/16 12:00 12/13/16 12:00 <ELIZABETH FAIRCHILD - Last Filed: 12/13/16 16:09> - Laboratory Result Diagrams: 12/13/16 12:00 12/13/16 12:00 <LISSA PAYNE - Last Filed: 12/13/16 16:29> - Re-evaluation Re-evalutation: 12/13/16 12:37 Pt's blood pressure on arrival manually 60s/30s. Pt taken immediately to trauma 1. Dr. Payne involved, evaluated pt with myself. EKG tachycardia but no ischemia noted or other abnormality. IV fluids are bringing pt's blood pressure up to 90s/high 40s. 12/13/16 14:08 potassium 2.7, IV potassium given. calcium 6.5, but corrected for albumin is 8.1. pt in acute renal failure with creatinine of 2.28, compared to a normal creatinine 11-28-16. Pt is afebrile here. I gave her zosyn for possible pneumonia on chest x ray advised by Dr. Payne. Her pressures are remaining around 70s/40s. third bolus of iv fluids hung. 12/13/16 14:44 Dr. Mccracken, resident hospitalist at [facility] agrees to admit pt at this time to intermediate unit under Dr. Hi's service. 12/13/16 14:57 CT abd/pelvis reports small bowel obstruction, NG tube started, blood pressure immediately rises to 88/56 and then 90/50s. 12/13/16 16:09 pressure keeps dipping still into 70s/40s. levophed started. Dr. Nguyen, lumber stacker driver at [facility] agrees to admit pt to his service with surgeon's consult and surgeon won't take to his service. Dr. Lui, surgeon at [facility] states with all her medical issues, she is to go to ICU under Dr. Nguyen and he will gladly consult. 12/13/16 16:04 transport here to fly pt to [facility]. pt stable, bp 70/40 with levophed being started now. family is appreciative of care. (ELIZABETH FAIRCHILD) 12/13/16 16:28 Note: I was personally involved in the case and was at bedside for my evaluation and discussion with family. I was in close discussions with the nurse practitioner and agree with the plan for transfer to [place]. (LISSA PAYNE) - Vital Signs Vital signs: Temp Pulse Resp BP Pulse Ox 99.6 F 32 H 90/75 L 98 12/13/16 15:59 12/13/16 15:51 12/13/16 16:01 12/13/16 15:30 - Laboratory Laboratory results interpreted by me: 12/13/16 12/13/16 12/13/16 11:45 12:00 12:00 WBC 3.6 L RBC 2.73 L Hgb 8.6 L Hct 26.3 L RDW 18.0 H Seg Neuts % (Manual) 35 L Band Neutrophils % 28 H Monocytes % (Manual) 15 H Metamyelocytes % 4 H PT Sodium 133.6 L Potassium 2.7 L* Chloride 96 L BUN 64 H Creatinine 2.28 H Est GFR ( Amer) 27 L Est GFR (Non-Af Amer) 22 L Glucose 136 H POC Glucose 153 H Calcium 6.5 L* Direct Bilirubin 0.6 H CK-MB (CK-2) Total Protein 4.6 L Albumin 2.0 L Lipase < 10.0 L Urine Blood Ur Leukocyte Esterase 12/13/16 12/13/16 12/13/16 12:00 12:00 13:00 WBC RBC Hgb Hct RDW Seg Neuts % (Manual) Band Neutrophils % Monocytes % (Manual) Metamyelocytes % PT 19.7 H Sodium Potassium Chloride BUN Creatinine Est GFR ( Amer) Est GFR (Non-Af Amer) Glucose POC Glucose Calcium Direct Bilirubin CK-MB (CK-2) 4.89 H Total Protein Albumin Lipase Urine Blood SMALL H Ur Leukocyte Esterase TRACE H Critical Care Note - Critical Care Note Total time excluding time spent on procedures (mins): 100 - 100 minutes spent in critical care time with patient, consulted with attending, speaking with family, placing orders and evaluating tests and labs. 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
[2016-12-13 12:14] LABS: HEMATOCRIT 26.3 % (36.0-47.0); HEMOGLOBIN 8.6 g/dL (12.0-15.5); HGB HCT DIFFERENCE -0.5; MEAN CORPUSCULAR HEMOGLOBIN 31.5 pg (27.0-33.4); MEAN CORPUSCULAR HGB CONC 32.6 g/dL (32.0-36.0); MEAN CORPUSCULAR VOLUME 96 fl (80-97); RED BLOOD COUNT 2.73 10^6/uL (3.72-5.28); WHITE BLOOD COUNT 3.6 10^3/uL (4.0-10.5)
[2016-12-13 12:34] LABS: ALANINE AMINOTRANSFERASE 28 U/L (9-52); ALKALINE PHOSPHATASE 44 U/L (38-126); ANION GAP 11 (5-19); ASPARTATE AMINO TRANSFERASE 25 U/L (14-36); BILIRUBIN,DIRECT 0.6 mg/dL (0.0-0.4); BILIRUBIN,TOTAL 0.9 mg/dL (0.2-1.3); BLOOD UREA NITROGEN 64 mg/dL (7-20); CARBON DIOXIDE 27 mmol/L (22-30); CHLORIDE 96 mmol/L (98-107); CREATINE KINASE 80 U/L (30-135); CREATININE RESULT 2.28 mg/dL (0.52-1.25); GLUCOSE 136 mg/dL (75-110); MAGNESIUM 1.8 mg/dL (1.6-2.3); SODIUM 133.6 mmol/L (137-145); TOTAL PROTEIN 4.6 g/dL (6.3-8.2)
[2016-12-13 12:44] LABS: CREATINE KINASE MB 4.89 ng/mL (<4.55)
--- NOTE | 2016-12-13 12:52 | RADIOLOGY REPORT (SQ) ---
EXAM DESCRIPTION: CHEST SINGLE VIEW COMPLETED DATE/TIME: 12/13/2016 12:23 pm REASON FOR STUDY: hypotension, tachycardia COMPARISON: 11/27/2016 EXAM PARAMETERS: NUMBER OF VIEWS: One view. TECHNIQUE: Single frontal radiographic view of the chest acquired. RADIATION DOSE: NA LIMITATIONS: None. FINDINGS: LUNGS AND PLEURA: Low lung volumes. There is increased opacity in the left base compared to the earlier study. The left heart border is indistinct. MEDIASTINUM AND HILAR STRUCTURES: No masses. Contour normal. HEART AND VASCULAR STRUCTURES: Pulmonary vascularity is mildly prominent, probably accentuated by poo r inspiratory effort. Heart size is normal. BONES: No acute findings. HARDWARE: None in the chest. OTHER: No other significant finding. IMPRESSION: 1. Possible left lower lobe pneumonia or lingular pneumonia. 2. Prominent pulmonary vascularity as described. TECHNICAL DOCUMENTATION: JOB ID: [id number]
[2016-12-13 12:54] LABS: TROPONIN I 0.309 ng/mL
[2016-12-13 12:58] LABS: BASOPHILS % (MANUAL) 0 % (0-2); EOSINOPHILS % (MANUAL) 0 % (0-6); LYMPHOCYTES % (MANUAL) 16 % (13-45); NUCLEATED RED BLOOD CELLS 1 /100 WBC (0); TOTAL CELLS COUNTED 100
[2016-12-13 13:00] LABS: LIPASE < 10.0 U/L (23-300)
[2016-12-13 13:01] LABS: ANISOCYTOSIS 1+; CALCIUM 6.5 mg/dL (8.4-10.2); POLYCHROMASIA SLIGHT
[2016-12-13 13:02] LABS: PLATELET CLUMPS PRESENT; POTASSIUM 2.7 mmol/L (3.6-5.0); TARGET CELLS SLIGHT
[2016-12-13 13:04] LABS: BAND NEUTROPHILS % (MANUAL) 28 % (3-5)
[2016-12-13] MEDS ORDERED: PIPERACILLIN/TAZOBACTAM 3.375 GM VIAL IV ONE (13:07)
[2016-12-13 13:42] LABS: PROTHROMBIN TIME 19.7 SEC (11.4-15.4)
[2016-12-13 13:43] LABS: PARTIAL THROMBOPLASTIN TIME 35.4 SEC (23.5-35.8)
[2016-12-13] MEDS: NORMAL SALINE 1000 ML 1,000 ML IV PRN ×2 (13:56→14:51)
[2016-12-13 13:58] LABS: AMORPHOUS SEDIMENT,URINE TRACE /HPF; APPEARANCE,URINE CLOUDY; BILIRUBIN,URINE NEGATIVE (NEGATIVE); GLUCOSE, URINE NEGATIVE (NEGATIVE); KETONES,URINE NEGATIVE (NEGATIVE); LEUKOCYTE ESTERASE,URINE TRACE (NEGATIVE); NITRITE,URINE NEGATIVE (NEGATIVE); PROTEIN,URINE NEGATIVE (NEGATIVE); URINE SPECIFIC GRAVITY 1.024; UROBILINOGEN,URINE NEGATIVE mg/dL (<2.0)
[2016-12-13] MEDS: POTASSI CL 20 MEQ/50 ML RIDER 50 ML IV SCH ×2 (13:59→15:45)
--- NOTE | 2016-12-13 14:18 | RADIOLOGY REPORT (SQ) ---
EXAM DESCRIPTION: CT HEAD WITHOUT COMPLETED DATE/TIME: 12/13/2016 1:48 pm REASON FOR STUDY: ams, hypotension, tachycardia, n/v/d COMPARISON: None. TECHNIQUE: Axial images acquired through the brain without intravenous contrast. Images reviewed wi th bone, brain and subdural windows. Images stored on PACS. All CT scanners at this facility use dose modulation, iterative reconstruction, and/or weight based d osing when appropriate to reduce radiation dose to as low as reasonably achievable (ALARA). [facility]: Dose Right [facility]: CareDose [facility]: Dose Right [facility]: Teradose 4D [facility]: [employer] Systems RADIATION DOSE: 64.61 mGy. LIMITATIONS: None. FINDINGS: VENTRICLES: Normal size and contour. CEREBRUM: No masses. No hemorrhage. No midline shift. Normal isbell/white matter differentiation. N o evidence for acute infarction. CEREBELLUM: No masses. No hemorrhage. No alteration of density. No evidence for acute infarction. EXTRAAXIAL SPACES: No fluid collections. No masses. ORBITS AND GLOBE: No intra- or extraconal masses. Normal contour of globe without masses. CALVARIUM: No fracture. PARANASAL SINUSES: No fluid or mucosal thickening. SOFT TISSUES: No mass or hematoma. OTHER: No other significant finding. IMPRESSION: NORMAL BRAIN CT WITHOUT CONTRAST. TECHNICAL DOCUMENTATION: JOB ID: [id number] Quality ID # [id number]: Final reports with documentation of one or more dose reduction techniques (e.g., Au tomated exposure control, adjustment of the mA and/or kV according to patient size, use of iterative reconstruction technique) 2010 [employer]- All Rights Reserved
--- NOTE | 2016-12-13 14:28 | RADIOLOGY REPORT (SQ) ---
EXAM DESCRIPTION: CT ABD/PELVIS NO ORAL OR IV COMPLETED DATE/TIME: 12/13/2016 1:48 pm REASON FOR STUDY: ams, hypotension, tachycardia, n/v/d COMPARISON: 10/04/2016, 01/13/2012 CT abdomen pelvis TECHNIQUE: CT scan of the abdomen and pelvis performed without intravenous or oral contrast. Images reviewed with lung, soft tissue, and bone windows. Reconstructed coronal and sagittal MPR images revi ewed. All images stored on PACS. All CT scanners at this facility use dose modulation, iterative reconstruction, and/or weight based d osing when appropriate to reduce radiation dose to as low as reasonably achievable (ALARA). [facility]: Dose Right [facility]: CareDose [facility]: Dose Right [facility]: Teradose 4D [facility]: [employer] RADIATION DOSE: 21.01mGy. LIMITATIONS: None. FINDINGS: LOWER CHEST: Bibasilar atelectasis. Trace left pleural effusion. NON-CONTRASTED LIVER, SPLEEN, ADRENALS: Evaluation limited by lack of IV contrast. No identified sign ificant masses. PANCREAS: No masses. No peripancreatic inflammatory changes. GALLBLADDER: Surgically absent RIGHT KIDNEY AND URETER: No suspicious masses. Assessment limited by lack of IV contrast. No signif icant calcifications. No hydronephrosis or hydroureter. LEFT KIDNEY AND URETER: No suspicious masses. Assessment limited by lack of IV contrast. No signifi cant calcifications. No hydronephrosis or hydroureter. AORTA AND RETROPERITONEUM: No aneurysm. No retroperitoneal masses or adenopathy. BOWEL AND PERITONEAL CAVITY: Diffusely distended stomach with fluid. Fluid is refluxing of the dista l esophagus on axial images 14-18. There is distention of duodenum and proximal and mid small bowel. Distal small bowel, colon grossly decompressed. Findings could represent an ileus or early small b owel obstruction. Findings were discussed with Jodie TRAORE in the emergency room APPENDIX: Normal. PELVIS, BLADDER, AND ABDOMINAL WALL:Trace amount of free pelvic fluid. Jewell catheter in the bladder . No adenopathy. Small postmenopausal female pelvic organs BONES: Patient has a history of myeloma. There are multiple tiny lytic lesions throughout the bony p elvia most easily visible over the innominate bones. Bilateral SI joint sclerosis. No lumbar or low er thoracic spine compression deformities. Degenerative anterolisthesis of L3 over L4, and L4 over L 5 OTHER: No other significant finding. IMPRESSION: Findings worrisome for ileus versus small-bowel obstruction. Massively distended stomac h with fluid. Gastroesophageal reflux of fluid. TECHNICAL DOCUMENTATION: JOB ID: [id number] Quality ID # [id number]: Final reports with documentation of one or more dose reduction techniques (e.g., Au tomated exposure control, adjustment of the mA and/or kV according to patient size, use of iterative reconstruction technique) 2010 [employer]- All Rights Reserved
[2016-12-13] MEDS ORDERED: DEXTROSE 5%-WATER 250 ML with NOREPINEPHRINE BITARTRATE 4 MG IV PRN ×2 (15:41)
[2016-12-13] MEDS ORDERED: NOREPINEPHRINE BITARTRATE INJ/PF 4 MG/4 ML SDV IV ONE (15:53)
[2016-12-13 16:09] VITALS: BP 90/75
--- NOTE | 2016-12-14 08:48 | EKG REPORT ---
SEVERITY:- ABNORMAL ECG - SINUS TACHYCARDIA PROBABLE POSTERIOR INFARCT ABNORMAL T, CONSIDER ISCHEMIA, DIFFUSE LEADS : Confirmed by: Noe Dunn 14-Dec-2016 08:47:40
[2016-12-14 14:54] LABS: PATH REVIEW PATHOLOGIST REVIEWED
== END 2016-12-13 16:03 | disposition short-term general hospital (02) ==
LOC: ER 11:09
DX: E87.6 Hypokalemia (principal); N17.9 Acute kidney failure, unspecified; D60.8 Other acquired pure red cell aplasias; C90.00 Multiple myeloma not having achieved remission; R10.9 Unspecified abdominal pain; R19.7 Diarrhea, unspecified; I10 Essential (primary) hypertension; Z90.49 Acquired absence of other specified parts of digestive tract; Z79.899 Other long term (current) drug therapy
CPT/HCPCS: 93005; 99291; 99292; 96361; 96365; 96366; 96367; 36415; 82553; 82962; 82550; 83690; 83735; 85025; 85610; 85730; 80053; 81001; 84484; 71010; 70450; 74176; 93010; J3490; J3480; J7060; J7030; J2543